=== PATIENT | female | born 1935 | race Caucasian/White ===

== ENCOUNTER 2019-10-19 08:07 | Observation (INO) | payer MEDICARE, OTHER, SELFPAY ==
[2019-10-19] VITALS (13 sets, daily range): BP systolic 101–174; BP diastolic 47–95; PULSE 87–178; RESP 14–191; TEMP 36.4–37.1; O2SAT 90–99; BMI 24.7; BMI 25.0
--- NOTE | 2019-10-19 08:09 | ED_ITS ---
Entered by Mari Leal, acting as scribe for Stephen King MD HPI - Chest Pain General: Chief Complaint: Chest Pain Stated Complaint: cp Time Seen by Provider: 10/19/19 08:09 Source: patient and family Mode of arrival: ambulatory Limitations: no limitations History of Present Illness: HPI narrative: All is an 84-year-old female has a history of A. fib but states she started feeling her heart race this morning. States that she felt weak with it was having some weird feelings in her chest. Patient's heart rate now is in the 180s. She denies any vomiting or diarrhea. She has mild shortness of breath. complaint: chest pain, chest heaviness and other (heart racing) Onset (ago): day(s) (last night) Timing of current episode: constant and still present Prior episodes: Yes Onset: during rest Pain location: substernal Pain radiation: none Severity: moderate Quality: tightness and sharp Relieving factors: nothing Exacerbating factors: nothing Context: other (hx of AFib) Associated symptoms: Reports no associated symptoms and palpitations; Deny abdominal pain, fever(s), nausea or vomiting Treatment prior to arrival: none Review of Systems Const: Denies: fever, chills, body aches or change in appetite Eyes: Denies: blurry vision or eye discomfort ENMT: Denies: throat pain or dental pain Card: Reports: palpitations and irregular heart rhythm Resp: Denies: productive cough or wheezing GI: Denies: abdominal pain, nausea, vomiting or diarrhea : Denies: painful urination Musc: Denies: neck pain or back pain Skin/Breast: Denies: rash Neuro: Denies: headache Psych: Denies: depression Juan Manuel/Lymph: Denies: easy bruising All/Imm: Denies: hives PFSH ED PFSH: Medical History (Updated 10/19/19 @ 09:08 by Stephen King MD) History of atrial fibrillation Social History Smoking and tobacco status: never smoked Physical Exam Const: COMMON NORMALS: no apparent distress, oriented x3 and healthy appearing HENMT: COMMON NORMALS: normocephalic and head/scalp atraumatic HEAD & SCALP: normocephalic and atraumatic Eye: COMMON NORMALS: PERRL and EOMs intact bilaterally PUPIL: Yes PERRL Neck/C-Spine: COMMON NORMALS: full ROM and supple Resp: COMMON NORMALS: normal respiratory effort, no retractions, no use of accessory muscles and clear to auscultation bilaterally AUSCULTATION: clear to auscultation bilaterally Cardio: COMMON NORMALS: no murmurs RATE: tachycardic OTHER: irregularly irregular rhythm GI: COMMON NORMALS: normal to inspection, nondistended, normoactive bowel sounds, soft to palpation, non-tender and no masses PALPATION: Yes soft Extremity: COMMON NORMALS: normal to inspection and full ROM Neuro: COMMON NORMALS: oriented x3, moves all extremities and no focal motor deficits Psych: COMMON NORMALS: mental status grossly normal, thought process normal and cooperative THOUGHT PROCESS: normal thought process Skin: COMMON NORMALS: no rashes or lesions noted and no wounds GENERAL SKIN EXAM: no rashes or lesions noted Course Vital Signs: Vital signs: Vital Signs Temperature 97.5 F L 10/19/19 08:17 Pulse Rate 178 H 10/19/19 08:17 Respiratory Rate 24 H 10/19/19 08:17 Blood Pressure 174/94 10/19/19 08:17 Pulse Oximetry 99 10/19/19 08:17 MDM - Chest Pain MDM Narrative: Medical decision making narrative: Jayjay presents here with A. fib with RVR. Patient's initial rate was in the 180s. Her heart rate is improving after Cardizem and have her on a Cardizem drip currently. She has no signs of pulmonary embolism. I spoke to Dr. Manuel and will admit to the cardiac stepdown unit. Lab Data: Labs: Lab Results 10/19/19 10/19/19 10/19/19 Range/Units 07:22 07:22 07:22 WBC 12.3 H (4.0-10.0) 10^3/ uL RBC 5.03 (4.1-5.3) 10^6/u L Hgb 12.5 (11.5-15.3) g/dL Hct 40.0 (37.0-47.0) % MCV 79.5 L (81-99) fL MCH 24.9 L (28.0-34.0) pg MCHC 31.3 (30.0-36.0) g/dL RDW 18.9 H (12.1-15.1) % Plt Count 317 (130-400) 10^3/c mm MPV 10.0 (7.4-10.4) fL Neut % (Auto) 68.9 % Lymph % (Auto) 18.7 % Lyman % (Auto) 8.8 % Eos % (Auto) 2.8 % Baso % (Auto) 0.5 % Neut # (Auto) 8.5 H (1.8-7.7) 10^3/u L Lymph # (Auto) 2.3 (0.8-4.8) 10^3/u L Lyman # (Auto) 1.1 H (0.2-0.9) 10^3/u L Eos # (Auto) 0.3 (0.0-0.8) 10^3/u L Baso # (Auto) 0.1 (0.0-0.1) 10^3/u L Nucleated RBC % (a uto) 0 % Nucleated RBCs # 0.0 /100WBC PT 17.40 H (10.5-13.3) SECO NDS INR 1.38 H (0.8-1.2) Sodium 141 (136-145) mmol/L Potassium 3.6 (3.5-5.1) mmol/L Chloride 100 (98-107) mmol/L Carbon Dioxide 25 (22-29) mmol/L Anion Gap 19.6 H (5-19) BUN 11 (8-23) mg/dL Creatinine 0.7 (0.5-0.9) mg/dL Glucose 167 H (65-115) mg/dL Calculated Osmolal ity 292 (285-295) mOsm/k g Calcium 9.9 (8.5-10.5) mg/dL Total Bilirubin 0.8 (0.15-1.2) mg/dL AST 21 (0-32) U/L ALT 8 (0-33) U/L Alkaline Phosphata se 155 H (35-105) IU/L Troponin T Baselin e (0-10) ng/mL Total Protein 8.3 (6.6-8.7) g/dL Albumin 4.1 (3.5-5.2) g/dL Globulin 4.2 (1.3-4.6) g/dL 10/19/19 Range/Units 07:22 WBC (4.0-10.0) 10^3/ uL RBC (4.1-5.3) 10^6/u L Hgb (11.5-15.3) g/dL Hct (37.0-47.0) % MCV (81-99) fL MCH (28.0-34.0) pg MCHC (30.0-36.0) g/dL RDW (12.1-15.1) % Plt Count (130-400) 10^3/c mm MPV (7.4-10.4) fL Neut % (Auto) % Lymph % (Auto) % Lyman % (Auto) % Eos % (Auto) % Baso % (Auto) % Neut # (Auto) (1.8-7.7) 10^3/u L Lymph # (Auto) (0.8-4.8) 10^3/u L Lyman # (Auto) (0.2-0.9) 10^3/u L Eos # (Auto) (0.0-0.8) 10^3/u L Baso # (Auto) (0.0-0.1) 10^3/u L Nucleated RBC % (a uto) % Nucleated RBCs # /100WBC PT (10.5-13.3) SECO NDS INR (0.8-1.2) Sodium (136-145) mmol/L Potassium (3.5-5.1) mmol/L Chloride (98-107) mmol/L Carbon Dioxide (22-29) mmol/L Anion Gap (5-19) BUN (8-23) mg/dL Creatinine (0.5-0.9) mg/dL Glucose (65-115) mg/dL Calculated Osmolal ity (285-295) mOsm/k g Calcium (8.5-10.5) mg/dL Total Bilirubin (0.15-1.2) mg/dL AST (0-32) U/L ALT (0-33) U/L Alkaline Phosphata se (35-105) IU/L Troponin T Baselin e 15 H (0-10) ng/mL Total Protein (6.6-8.7) g/dL Albumin (3.5-5.2) g/dL Globulin (1.3-4.6) g/dL Imaging Data^: CXR: Attestation: I personally reviewed and interpreted this imaging study as follows: My impression: no acute abnormality EKG Data^: EKG 1: Attestation: I personally reviewed and interpreted this EKG as follows: EKG interpretation date: 10/19/19 EKG interpretation time: 08:20 Interpretation: afib hr [address] or t wave abnormalities qrs 86 qtc 325 Critical Care Time Critical Care Time: Critical Care Time: Yes Total Critical Care Time: 36 Attestation: This case had a high probability of a clinically significant, sudden, or life threatening deterioration of this patient's condition which required my full and direct attention, intervention and personal management. Discharge Plan Discharge Patient Disposition: Admitted As Inpatient Clinical Impression: Atrial fibrillation with RVR Condition: Stable Referrals: Parag Norris DO [Family Provider] - Coding Level of Care Code ED Supplier Relationship Director for Chg Fwd Exam Comprehensive The documentation recorded by the Elvis crump Bridget Annette, accurately reflects the service I personally performed and the decisions made by me, Stephen King MD
--- NOTE | 2019-10-19 08:17 | XR_ITS ---
WS: [id number] XR chest 1V portable [id number] REASON FOR EXAM: cp FINDINGS: The heart and mediastinal normal. A scoliotic curve convex to the right. The lung chavira show no pneumothorax. No pneumonia, pleural effusion, pulmonary edema. No osseous abnormalities. XR/XR chest 1V portable [id number] IMPRESSION: Negative chest for active cardiopulmonary changes.
--- NOTE | 2019-10-19 08:17 | ECG_ITS ---
Measurements Intervals [place] Rate: 183 P: [place]: 0 QRS: -24 QRSD: 86 T: 150 QT: 229 QTc: 400 ATRIAL FIBRILLATION WITH RAPID VENTRICULAR RESPONSE BORDERLINE LEFT AXIS DEVIATION [QRS AXIS < -20] ST DEVIATION AND MODERATE T-WAVE ABNORMALITY, CONSIDER LATERAL ISCHEMIA [-0.1+ mV T WAVE IN I/aVL/V5/V6] CRITICAL TEST RESULT Compared to ECG 02/10/2019 02:54:29 Possible ischemia now present Sinus rhythm no longer present Short [place] interval no longer present T-wave abnormality still present Electronically Signed On 10-19-2019 17:21:54 CDT by Saqib Manzano M.D. [id number]
[2019-10-19] MEDS: sodium chloride 0.9% 1,000 ML 999 ML IV (08:28)
--- NOTE | 2019-10-19 08:29 | PC.NURSE ---
Portable Chest X-ray performed
[2019-10-19 08:31] LABS: Basophils # 0.1 10^3/uL (0.0-0.1); Basophils % 0.5 %; Eosinophils # 0.3 10^3/uL (0.0-0.8); Eosinophils % 2.8 %; Hemoglobin 12.5 g/dL (11.5-15.3); Lymphocytes # 2.3 10^3/uL (0.8-4.8); Lymphocytes % 18.7 %; Mean Corpuscular HGB Conc 31.3 g/dL (30.0-36.0); Mean Corpuscular Hemoglobin 24.9 pg (28.0-34.0); Mean Corpuscular Volume 79.5 fL (81-99); Monocytes # 1.1 10^3/uL (0.2-0.9); Monocytes % 8.8 %; Neutrophils # 8.5 10^3/uL (1.8-7.7); Neutrophils % 68.9 %; Nucleated Red Blood Cells % 0 %; Platelet Count 317 10^3/cmm (130-400); Red Blood Count 5.03 10^6/uL (4.1-5.3); Red Cell Distribution Width 18.9 % (12.1-15.1); White Blood Count 12.3 10^3/uL (4.0-10.0)
[2019-10-19 08:42] LABS: INR 1.38 (0.8-1.2)
[2019-10-19 08:52] LABS: Alanine Aminotransferase 8 U/L (0-33); Albumin Level 4.1 g/dL (3.5-5.2); Alkaline Phosphatase 155 IU/L (35-105); Aspartate Amino Transferase 21 U/L (0-32); Blood Urea Nitrogen 11 mg/dL (8-23); Calcium 9.9 mg/dL (8.5-10.5); Carbon Dioxide 25 mmol/L (22-29); Globulin 4.2 g/dL (1.3-4.6); Glucose 167 mg/dL (65-115); Total Bilirubin 0.8 mg/dL (0.15-1.2); Total Protein 8.3 g/dL (6.6-8.7)
[2019-10-19 08:54] LABS: Troponin(5th) Baseline 15 ng/mL (0-10)
[2019-10-19 09:05] LABS: Anion Gap 19.6 (5-19); Chloride 100 mmol/L (98-107); Osmolality Calculated 292 mOsm/kg (285-295); Potassium 3.6 mmol/L (3.5-5.1); Sodium 141 mmol/L (136-145)
--- NOTE | 2019-10-19 09:08 | PC.NURSE ---
Diltiazem 10 mg was given from 125mg/125 ml diltiazem bag. Unable to document on OCT.
[2019-10-19] MEDS: sotalol 80 mg Tablet PO ×2 (09:20→17:19)
--- NOTE | 2019-10-19 09:24 | P.HP_ITS ---
Providers/Chief Complaint Admitting Physician: Allison Manuel DO Chief Complaint: cp History of Present Illness Jayjay Campa is a 84 year old [id number] fibrillation that presented to the hospital today for atrial fibrillation with RVR. Patient reported that she woke up this morning with palpitations in her chest. She reported that she took her home medications last night but had not taken any of her medications this morning. Due to the symptoms that she was feeling she became to the ER for further evaluation and treatment. She was noted to have atrial fibrillation with RVR and a heart rate in the 180s she was started on a Cardizem bolus and subsequently started on a Cardizem drip. At time of my exam patient's heart rate is improved and she reports improvement of her symptoms. She stated that she recently stopped going to see her decorating consultant in [place] due to long wait times and never being able to see the physician. She denies any recent changes to medications, no dose adjustments. She denies any recent illness, no fevers or chills. She reports that she has had a pinched nerve in her neck and shoulder over the past week and that is cause some discomfort and pain but no other acute concerns. Review of Systems Const: Denies: fever or chills Eyes: Denies: change in vision ENMT: Denies: nasal congestion Card: Reports: palpitations; Denies: chest pain or edema Resp: Denies: shortness of breath, productive cough or coughing up blood GI: Denies: abdominal pain, nausea, vomiting, diarrhea, constipation, blood in stool or black tarry stool : Denies: painful urination or blood in urine Musc: Reports: other (Pinched nerve in her neck and shoulder causing discomfort) Skin/Breast: Denies: rash or new lesion Neuro: Denies: headache or dizziness Psych: Denies: anxiety or depression Endo: Denies: excessive urination or hot flashes Jaun Manuel/Lymph: Denies: easy bruising or easy bleeding Medications/Allergies Home Medications Medication Instructions Recorded Confirmed Last Taken Type alprazolam 0.25 mg PO TID PRN 10/19/19 10/19/19 Unknown History amlodipine 5 mg PO DAILY 10/19/19 10/19/19 10/18/19 History dabigatran etexilate [Pradaxa] 150 mg PO BID 03/10/19/19 10/18/19 History icosapent ethyl [Vascepa] 2 g PO BID 10/19/19 10/19/19 10/18/19 History omeprazole 40 mg PO DAILY 10/19/19 10/19/19 10/18/19 History pantoprazole 40 mg PO DAILY 10/19/19 10/19/19 10/18/19 History potassium chloride 10 meq PO DAILY 10/19/19 10/19/19 10/18/19 History promethazine 25 mg PO Q6H PRN 10/19/19 10/19/19 Unknown History sertraline 25 mg PO DAILY 10/19/19 10/19/19 10/18/19 History sotalol 80 mg PO BID 10/19/19 10/19/19 10/18/19 History Allergies Allergy/AdvReac Type Severity Reaction Status Date / Time codeine Allergy ALGY-Difficulty Verified 10/19/19 08:23 Breathing PFSH Acute PFSH: Medical History (Updated 10/19/19 @ 09:28 by Allison Manuel DO) Atrial fibrillation Coronary artery disease Diabetes mellitus History of atrial fibrillation Hypertension Peripheral vascular disease Surgical History (Updated 10/19/19 @ 09:28 by Allison Manuel DO) History of hip replacement Total hip replacement through anterior approach performed in [facility] History of hip surgery Incision and drainage of right thigh abscess History of hysterectomy History of laparoscopic cholecystectomy History of partial colectomy Family History (Updated 10/19/19 @ 09:29 by Allison Manuel DO) Mother Cancer Colon cancer Social History (Updated 10/19/19 @ 09:29 by Allison Manuel DO) Smoking and tobacco status: never smoked Alcohol intake: never Substance/Drug Use: never Vitals/I&O/Wt Last Vital Signs Temp 97.5 F L 10/19/19 08:17 Pulse 178 H 10/19/19 08:17 Resp 24 H 10/19/19 08:17 BP 174/94 10/19/19 08:17 Pulse Ox 99 10/19/19 08:17 10/18/19 10/19/19 10/19/19 22:59 06:59 14:59 Intake Total 3.417 / 3.417 Balance 3.417 / 3.417 Weight last 48 hrs Weight 63.503 kg Physical Exam Const: COMMON NORMALS: oriented x3 and alert GENERAL APPEARANCE: cooperative ORIENTATION/CONSCIOUSNESS: Yes awake, Yes oriented to person, Yes oriented to place and Yes oriented to time HENMT: COMMON NORMALS: normocephalic and head/scalp atraumatic HEAD & SCALP: normocephalic and atraumatic Eye: COMMON NORMALS: PERRL PUPIL: Yes PERRL Neck/C-Spine: COMMON NORMALS: supple GENERAL: Yes normal visual inspection Resp: COMMON NORMALS: normal respiratory effort and clear to auscultation bilaterally EFFORT & INSPECTION: Yes able to speak in complete sentences AUSCULTATION: clear to auscultation bilaterally, no rhonchi and no wheezes Cardio: OTHER: Irregularly irregular, tachycardic, no appreciable murmur GI: COMMON NORMALS: soft to palpation and non-tender INSPECTION: No abdominal distension AUSCULTATION: Yes normoactive bowel sounds PALPATION: Yes soft Extremity: COMMON NORMALS: no clubbing, cyanosis or edema and no calf tenderness Neuro: COMMON NORMALS: oriented x3, CN's II-XII intact bilaterally, moves all extremities and no focal motor deficits SENSORIUM/ORIENTATION: Yes alert, Yes oriented to person, Yes oriented to place and Yes oriented to time SPEECH: speech normal Psych: COMMON NORMALS: mental status grossly normal and cooperative Skin: COMMON NORMALS: no rashes or lesions noted GENERAL SKIN EXAM: no rashes or lesions noted Data : 10/19/19 07:22 10/19/19 07:22 CXR: I personally reviewed and interpreted this imaging study as follows: Radiologist's impression: IMPRESSION: Negative chest for active cardiopulmonary changes. A&P Assessment and plan (1) Atrial fibrillation with RVR: Atrial fibrillation with RVR Started on a Cardizem bolus and Cardizem drip in the emergency department. Placed on observation with telemetry with serial EKG and troponin Last echocardiogram from 2012, will reorder echocardiogram Patient is on sotalol 80 mg twice daily at home, will restart at this time and wean Cardizem drip as able We will check TSH, no infectious source at this time, patient appears to be euvolemic Continue on home Pradaxa Status: Acute Code(s): I48.91 - Unspecified atrial fibrillation (2) Coronary artery disease: No longer followed by cardiology Patient denies any intervention in the past Status: Acute Code(s): I25.10 - Atherosclerotic heart disease of [place] coronary artery without angina pectoris (3) Diabetes mellitus: We will check hemoglobin A1c Low-dose sliding scale insulin as needed Status: Acute Code(s): E11.9 - Type 2 diabetes mellitus without complications Additional A&P Information Mild leukocytosis: Believed to be secondary to stress reaction, no infectious etiology identified at this time GERD: Continue PPI Hypertension: Holding home amlodipine due to patient being on a Cardizem drip an d receiving her home sotalol, will restart as indicated On chronic anticoagulation: Continue home Pradaxa Anxiety: Continue home sertraline and Xanax as needed DVT prophylaxis: SCDs, continue home Pradaxa Diet: Carbohydrate consistent CODE STATUS: Allow natural , discussed this with patient and she reported at her age she would not want any resuscitation Attestations Medical Necessity Statement*: Patient requires observation placement due to concern for atrial fibrillation with RVR. Expected stay less than 2 midnights Coding Level of Care Code Acute Water Valve Mechanic for Alejandro Vann Diagnoses Atrial fibrillation with RVR I48.91 Coronary artery disease I25.10 Diabetes mellitus E11.9
--- NOTE | 2019-10-19 10:17 | ECG_ITS ---
Measurements Intervals [place] Rate: 92 P: [place]: 0 QRS: -31 QRSD: 85 T: 45 QT: 364 QTc: 452 ATRIAL FIBRILLATION LEFT AXIS DEVIATION [QRS AXIS < -30] Compared to ECG 02/10/2019 02:54:29 Left-axis deviation now present Sinus rhythm no longer present Short [place] interval no longer present T-wave abnormality no longer present Electronically Signed On 10-19-2019 17:25:00 CDT by Saqib Manzano M.D. [id number]
[2019-10-19 10:29] LABS: Thyroid Stimulating Hormone 2.02 uIU/mL (0.27-4.20)
[2019-10-19 11:15] LABS: Estmated Average Glucose 117; Hemoglobin A1C 5.7 % (4.0-6.0)
--- NOTE | 2019-10-19 11:16 | PC.NURSE ---
Room 101. Attempted to call report. Room not ready and nurse did not want report at this time. I asked when they would like me to call back. They advised me they will call back once they are ready for report. No estimated time given
[2019-10-19] MEDS: morphine 4 mg/mL SDV 1 mL IVP (12:58)
[2019-10-19] MEDS: ondansetron 2 mg/ML SDV 2 mL 4 MG IVP (13:34)
--- NOTE | 2019-10-19 14:17 | ECG_ITS ---
Measurements Intervals [place] Rate: 83 P: 43 [place]: 155 QRS: -42 QRSD: 138 T: 53 QT: 394 QTc: 464 SINUS RHYTHM LEFT AXIS DEVIATION [QRS AXIS < -30] INTRAVENTRICULAR CONDUCTION DELAY [130+ ms QRS DURATION] LEFT VENTRICULAR HYPERTROPHY AND ST-T CHANGE [VOLTAGE CRITERIA PLUS ST/T ABNORMALITY] Compared to ECG 02/10/2019 02:54:29 Left-axis deviation now present Intraventricular conduction delay now present Left ventricular hypertrophy now present ST (T wave) deviation now present Short [place] interval no longer present T-wave abnormality no longer present Electronically Signed On 10-19-2019 17:24:42 CDT by Saqib Manzano M.D. [id number]
[2019-10-19 14:22] LABS: Troponin 5 6HR 56.55 ng/mL (0-10)
--- NOTE | 2019-10-19 14:38 | PC.NURSE ---
Critical lab taken from lab of delta troponin of 41.55. Dr. King notified at this time.
[2019-10-19 14:40] LABS: Troponin 5 6HR Delta 41.55 ng/L (0-12)
--- NOTE | 2019-10-19 16:42 | USCV_ITS ---
Jayjay Campa Age: 84 Gender: F : 1935 Exam Date: 10/19/2019 18:12 Ordering Phys: Allison Manuel DO Technologist: Cleo Hernandez Exam Location: [facility] – [place] Indication: AFIB BP: 96 / 72 HR: 111 Rhythm: Sinus Technical Quality: Adequate MEASUREMENTS (Male / Female) Normal Values 2D ECHO LV Diastolic Diameter PLAX 3.9 cm 4.2 - 5.9 / 3.9 - 5.3 cm LV Systolic Diameter PLAX 1.9 cm LV Chamber Size 3.9 cm IVS Diastolic Thickness 1.4 cm 0.6 - 1.0 / 0.6 - 0.9 cm IVS Systolic Thickness 1.5 cm LVPW Diastolic Thickness 1.7 cm 0.6 - 1.0 / 0.6 - 0.9 cm LVPW Systolic Thickness 1.9 cm RV Chamber Size 2.9 cm LVOT Diameter 2.0 cm LV Ejection Fraction 2D Teich 82.8 % LV Ejection Fraction MOD 2C 61.9 % LV Ejection Fraction 2C AL 63.1 % LA Diameter 4.6 cm LA Width 3.1 cm LA Height 4.2 cm RA Width 3.5 cm RA Height 5.1 cm Aorta at Sinotubular Diameter 2.5 cm M-MODE LV Diastolic Diameter MM 4.9 cm 4.2 - 5.9 / 3.9 - 5.3 cm LV Systolic Diameter MM 2.8 cm LV Ejection Fraction MM Teich 74.1 % IVS Diastolic Thickness MM 0.9 cm 0.6 - 1.0 / 0.6 - 0.9 cm IVS Systolic Thickness MM 1.4 cm LVPW Diastolic Thickness MM 1.2 cm 0.6 - 1.0 / 0.6 - 0.9 cm LVPW Systolic Thickness MM 1.3 cm Aortic Annulus Diameter 3.0 cm LA Ao Ratio MM 1.6 MV E Point Septal Separation 0.7 cm DOPPLER AV Peak Velocity 160.0 cm/s LVOT Peak Velocity 97.0 cm/s AV Area Cont Eq vti 1.9 cm squared AV Area Cont Eq pk 1.9 cm squared MV Area PHT 5.4 cm squared Mitral E to A Ratio 3.4 MV E' Velocity 10.0 cm/s Mitral E to MV E' Ratio 17.2 Mitral E to LV E' Lateral Ratio 16.5 Mitral E to LV E' Septal Ratio 18.1 TR Peak Velocity 334.0 cm/s TR Peak Gradient 44.7 mmHg TR Mean Velocity 216.9 cm/s TR Mean Gradient 20.7 mmHg TR Velocity Time Integral 80.5 cm TV Peak E Velocity 91.0 cm/s Right Atrial Pressure 3.0 mmHg Pulmonary Artery Systolic Pressu 47.6 mmHg PV Peak Velocity 98.0 cm/s RV Acceleration Time 0.1 s RV Ejection Time 0.3 s RV AcT/ET 0.3 FINDINGS Left Ventricle Normal left ventricular size and systolic function with no regional wall motion abnormalities. Increased left ventricular wall thickness. Left ventricular ejection fraction is estimated at 69 %. Abnormal diastolic function. Right Ventricle Normal right ventricular size and systolic function. Right ventricular systolic pressure 47.6 mmHg. Right Atrium Right atrium not well visualized. Left Atrium Mildly increased left atrial size. Mitral Valve Mild mitral annular calcification. No mitral valve stenosis. Mild mitral valve regurgitation. Aortic Valve Mildly thickened and calcified trileaflet aortic valve. Aortic valve sclerosis without stenosis. Mild aortic valve regurgitation. Tricuspid Valve Structurally normal tricuspid valve. Mild tricuspid valve regurgitation. Pulmonic Valve Trace pulmonary valve regurgitation. Pericardium No pericardial effusion. Aorta Normal-sized aortic root. CONCLUSIONS 1. Normal left ventricular size and systolic function with no regional wall motion abnormalities. Left ventricular ejection fraction is estimated at 69 %. Abnormal diastolic function. 2. Normal right ventricular size and systolic function. 3. Mildly increased left atrial size. 4. Mild mitral and tricuspid valve regurgitation. 5. Mild aortic valve regurgitation. 6. Moderate pulmonary hypertension with pulmonary artery pressure estimated at 48 mmHg. 7. When compared to previous echocardiogram dated 05/16/2013, there may not have been any significant change. Em Shannon MD (Electronically Signed) Final Date: 20 October 2019 12:43 S
[2019-10-19] MEDS: sertraline 50 mg Tablet 25 MG PO (17:18)
[2019-10-19 17:30] LABS: Glucose Point of Care 170 mg/dL (70-110)
--- NOTE | 2019-10-19 17:41 | ECG_ITS ---
Measurements Intervals [place] Rate: 112 P: [place]: 0 QRS: -26 QRSD: 78 T: 65 QT: 359 QTc: 491 ATRIAL FIBRILLATION WITH RAPID VENTRICULAR RESPONSE WITH ABERRANT CONDUCTION OR VENTRICULAR PREMATURE COMPLEXES BORDERLINE LEFT AXIS DEVIATION [QRS AXIS < -20] NONSPECIFIC T-WAVE ABNORMALITY Compared to ECG 10/19/2019 11:27:55 Aberrant conduction of supraventricular beat(s) now present Ventricular premature complex(es) now present T-wave abnormality now present Electronically Signed On 10-20-2019 13:23:06 CDT by Em Shannon M.D. [id number]
[2019-10-19 19:14] LABS: Add Urine Microscopic? YES; Bilirubin Urine 1+ (NEGATIVE); Blood Urine 2+ (Negative); Glucose Urine UA Norm (Normal); Ketones Urine Negative (Negative); Leukocyte Esterase Urine Negative (Negative); Nitrate Urine Negative (Negative); Protein Urine Neg (Negative); Specific Gravity, Urine 1.025 (1.005-1.030); Urine Appearance SL Hazy (CLEAR); Urine Color Dark Yellow (Yellow); Urobilinogen Urine 1 mg/dL (Negative); pH Urine 5 (5-7)
[2019-10-19 19:19] LABS: Add Urine Culture? Yes; Bacteria Urine TRACE; Hyaline Casts Urine 0-4; Mucus Urine 1+; Squamous Epithelial Cell Urine 0-4 (0-5); WBC Urine 0-4 /hpf (0-5)
[2019-10-20] VITALS: BP 112/64; PULSE 93; RESP 12; TEMP 36.9; O2SAT 93
[2019-10-20] MEDS: acetaminophen 325 mg Tablet 650 MG PO (03:23)
[2019-10-20 04:00] VITALS: BP 100/61; PULSE 102; RESP 10; TEMP 37; O2SAT 97
[2019-10-20 04:04] LABS: Basophils # 0.1 10^3/uL (0.0-0.1); Basophils % 0.6 %; Eosinophils # 0.3 10^3/uL (0.0-0.8); Eosinophils % 3.1 %; Hematocrit 36.5 % (37.0-47.0); Hemoglobin 11.1 g/dL (11.5-15.3); Lymphocytes # 2.3 10^3/uL (0.8-4.8); Lymphocytes % 23.4 %; Mean Corpuscular HGB Conc 30.4 g/dL (30.0-36.0); Mean Corpuscular Hemoglobin 24.9 pg (28.0-34.0); Mean Corpuscular Volume 81.8 fL (81-99); Monocytes # 1.2 10^3/uL (0.2-0.9); Monocytes % 12.2 %; Neutrophils % 60.4 %; Nucleated Red Blood Cells % 0 %; Platelet Count 293 10^3/cmm (130-400); Red Blood Count 4.46 10^6/uL (4.1-5.3); Red Cell Distribution Width 18.9 % (12.1-15.1); White Blood Count 9.9 10^3/uL (4.0-10.0)
[2019-10-20 04:13] LABS: Glucose Point of Care 160 mg/dL (70-110)
[2019-10-20 04:15] LABS: Anion Gap 11.8 (5-19); Blood Urea Nitrogen 15 mg/dL (8-23); Calcium 9.8 mg/dL (8.5-10.5); Carbon Dioxide 30 mmol/L (22-29); Chloride 106 mmol/L (98-107); Glucose 109 mg/dL (65-115); Osmolality Calculated 295 mOsm/kg (285-295); Potassium 3.8 mmol/L (3.5-5.1); Sodium 144 mmol/L (136-145)
[2019-10-20 05:59] VITALS: BMI 24.9
[2019-10-20 06:36] LABS: Glucose Point of Care 105 mg/dL (70-110)
[2019-10-20 07:24] VITALS: BP 111/62; PULSE 92; RESP 20; O2SAT 95
[2019-10-20] MEDS: sotalol 80 mg Tablet PO (08:14)
[2019-10-20] MEDS: pantoprazole DR 40 mg Tablet PO (08:14)
[2019-10-20] MEDS: sertraline 50 mg Tablet 25 MG PO (08:14)
[2019-10-20] MEDS: sotalol 80 mg Tablet 40 MG PO (09:21)
--- NOTE | 2019-10-20 09:43 | PC.NURSE ---
Patient heart rate currently sustaining 70 to 80s. Stopped cardizem gtt at this time. Patient denies any discomforts or needs at this time. No distress observed. Patient up to chair using Ipad. SCDs in place.
--- NOTE | 2019-10-20 10:53 | PM.DCS ---
Discharge Providers Date of Admission: 10/19/19 09:07 Date of Discharge: October 20, 2019 Attending Provider at Admission: Allison Manuel DO Attending Provider at Discharge: Allison Manuel DO Diagnoses at Discharge Discharge Diagnosis (1) Atrial fibrillation with RVR: Status: Acute Problem details: On sotalol 120 mg twice daily Pradaxa (2) Coronary artery disease: Status: Acute (3) Diabetes mellitus: Status: Acute Reason for Visit Reason for Visit: Reason For Visit: AFIB W/RVR Hospital Course Hospital Course: Patient was seen and evaluated in the emergency department noted to have atrial fibrillation with RVR and placed on Cardizem drip. Patient was noted to have a heart rate in the 180s. Heart rate improved with medication and patient was admitted for further evaluation and treatment. She was then given her home sotalol and heart rate continued to improve. Cardizem drip was slowly titrated off as her sotalol was increased to 120 mg twice daily. She was continued on her home Pradaxa. Patient did not have any chest pain or shortness of breath throughout her hospital stay. She did have mild increase in her troponin which was felt to be related to her RVR. On date of discharge patient denied any chest pain, no shortness of breath, no lightheadedness or dizziness. She verbalized understanding of increase in sotalol dosing and agreed with plan. She reported that she had been under significant stress over the past couple of days due to the loss of her daughter and her sister being hospitalized in another city. Patient reported feeling ready to discharge to home. Physical Exam Const: COMMON NORMALS: oriented x3 and alert GENERAL APPEARANCE: cooperative ORIENTATION/CONSCIOUSNESS: Yes awake, Yes oriented to person, Yes oriented to place and Yes oriented to time HENMT: COMMON NORMALS: normocephalic and head/scalp atraumatic HEAD & SCALP: normocephalic and atraumatic Eye: COMMON NORMALS: PERRL PUPIL: Yes PERRL Neck/C-Spine: COMMON NORMALS: supple GENERAL: Yes normal visual inspection Resp: COMMON NORMALS: normal respiratory effort and clear to auscultation bilaterally EFFORT & INSPECTION: Yes able to speak in complete sentences AUSCULTATION: clear to auscultation bilaterally, no rhonchi and no wheezes Cardio: OTHER: Irregularly irregular GI: COMMON NORMALS: soft to palpation and non-tender INSPECTION: No abdominal distension AUSCULTATION: Yes normoactive bowel sounds PALPATION: Yes soft Extremity: COMMON NORMALS: no clubbing, cyanosis or edema and no calf tenderness Neuro: COMMON NORMALS: oriented x3, CN's II-XII intact bilaterally, moves all extremities and no focal motor deficits SENSORIUM/ORIENTATION: Yes alert, Yes oriented to person, Yes oriented to place and Yes oriented to time SPEECH: speech normal Psych: COMMON NORMALS: mental status grossly normal and cooperative Skin: COMMON NORMALS: no rashes or lesions noted GENERAL SKIN EXAM: no rashes or lesions noted Discharge Data Data Completed and Pending: Completed Studies During Hospitalization Category Date Time Status XR chest 1V ciarra ble [id number] Stat Exams 10/19/19 08:17 Completed Pending at discharge Category Date Time Status Urine Culture Sta t Lab 10/19/19 18:50 Received CV echo complete* [id number] Routine Ultrasound 10/19/19 16:42 Taken Labs from last 24 hours 10/20/19 10/20/19 10/20/19 06:28 03:10 03:10 WBC 9.9 RBC 4.46 Hgb 11.1 L Hct 36.5 L MCV 81.8 MCH 24.9 L MCHC 30.4 RDW 18.9 H Plt Count 293 MPV 10.0 Neut % (Auto) 60.4 Lymph % (Auto) 23.4 [place] % (Auto) 12.2 Eos % (Auto) 3.1 Baso % (Auto) 0.6 Neut # (Auto) 6.0 Lymph # (Auto) 2.3 [place] # (Auto) 1.2 H Eos # (Auto) 0.3 Baso # (Auto) 0.1 Nucleated RBC % (a uto) 0 Nucleated RBCs # 0.0 Sodium 144 Potassium 3.8 Chloride 106 Carbon Dioxide 30 H Anion Gap 11.8 BUN 15 Creatinine 0.8 Glucose 109 POC Glucose 105 Estimat Average Gl ucose Hemoglobin A1c Calculated Osmolal ity 295 Calcium 9.8 Troponin I 6 Hour Troponin I Hi Sens Del Troponin T 120 Min [place] Troponin T Urine Color Urine Appearance Urine pH Ur Specific Gravit y Urine Protein Urine Glucose (UA) Urine Ketones Urine Blood Urine Nitrate Urine Bilirubin Urine Urobilinogen Ur Leukocyte Kalina ase Urine RBC Urine WBC Ur Squamous Epith Cells Urine Bacteria Hyaline Casts Urine Mucus 10/19/19 10/19/1910/18/20 20:12 18:50 17:16 WBC RBC Hgb Hct MCV MCH MCHC RDW Plt Count MPV Neut % (Auto) Lymph % (Auto) [place] % (Auto) Eos % (Auto) Baso % (Auto) Neut # (Auto) Lymph # (Auto) [place] # (Auto) Eos # (Auto) Baso # (Auto) Nucleated RBC % (a uto) Nucleated RBCs # Sodium Potassium Chloride Carbon Dioxide Anion Gap BUN Creatinine Glucose POC Glucose 160 170 Estimat Average Gl ucose Hemoglobin A1c Calculated Osmolal ity Calcium Troponin I 6 Hour Troponin I Hi Sens Del Troponin T 120 Min [place] Troponin T Urine Color Dark yellow Urine Appearance Sl hazy Urine pH 5 Ur Specific Gravit y 1.025 Urine Protein Neg Urine Glucose (UA) Norm Urine Ketones Negative Urine Blood 2+ H Urine Nitrate Negative Urine Bilirubin 1+ H Urine Urobilinogen 1 H Ur Leukocyte Kalina ase Negative Urine RBC 10-15 H Urine WBC 0-4 H Ur Squamous Epith Cells 0-4 H Urine Bacteria Trace Hyaline Casts 0-4 H Urine Mucus 1+ 10/19/19 10/19/19 10/19/19 14:04 10:27 07:22 WBC RBC Hgb Hct MCV MCH MCHC RDW Plt Count MPV Neut % (Auto) Lymph % (Auto) [place] % (Auto) Eos % (Auto) Baso % (Auto) Neut # (Auto) Lymph # (Auto) [place] # (Auto) Eos # (Auto) Baso # (Auto) Nucleated RBC % (a uto) Nucleated RBCs # Sodium Potassium Chloride Carbon Dioxide Anion Gap BUN Creatinine Glucose POC Glucose Estimat Average Gl ucose 117 Hemoglobin A1c 5.7 Calculated Osmolal ity Calcium Troponin I 6 Hour 56.55 H Troponin I Hi Sens Del 41.55 H* Troponin T 120 Min [place] 35.70 H Delta Troponin T 20.70 H* Urine Color Urine Appearance Urine pH Ur Specific Gravit y Urine Protein Urine Glucose (UA) Urine Ketones Urine Blood Urine Nitrate Urine Bilirubin Urine Urobilinogen Ur Leukocyte Kalina ase Urine RBC Urine WBC Ur Squamous Epith Cells Urine Bacteria Hyaline Casts Urine Mucus Vitals: Last Vital Signs Temp 98.6 F 10/20/19 04:00 Pulse 92 10/20/19 07:24 Resp 20 H 10/20/19 07:24 BP 111/62 10/20/19 07:24 Pulse Ox 95 10/20/19 07:24 Discharge Plan Discharge Patient Disposition: Home, Self-Care Condition: Stable Prescriptions: New sotalol 80 mg Tablet 120 mg PO BID@0900,2100 30 Days Qty: 60 RF: 0 Continued potassium chloride 10 mEq Tablet Extended Release 10 meq PO DAILY RF: 0 promethazine 25 mg Tablet 25 mg PO Q6H PRN (Reason: Nausea) RF: 0 sertraline 25 mg Tablet 25 mg PO DAILY RF: 0 Pradaxa 150 mg Capsule 150 mg PO BID RF: 0 Vascepa 1 gram Capsule 2 g PO BID RF: 0 alprazolam 0.25 mg tablet 0.25 mg PO TID PRN (Reason: Anxiety) RF: 0 pantoprazole 40 mg Tablet,Delayed Release (Dr/Ec) 40 mg PO DAILY RF: 0 Discontinued amlodipine 5 mg Tablet 5 mg PO DAILY RF: 0 omeprazole 40 mg Capsule,Delayed Release(Dr/Ec) 40 mg PO DAILY RF: 0 sotalol 80 mg Tablet 80 mg PO BID RF: 0 Discharge Orders: Discharge Order (Routine); Ordered 10/20/19 Ordered By: Allison Manuel Referrals: Parag Norris DO [Family Provider] - 1-3 days Discharge Diet: Cardiac Discharge Activity: Increase activity as tolerated Activity Restrictions/Additional Instructions: Follow-up with primary care provider in 2 to 3 days Recommend follow-up with cardiology to establish care as soon as first appointment is available Medication dosage change: Increase sotalol to 120 mg twice daily. Continue on Pradaxa. Hold amlodipine at this time, as do not wish for blood pressures to be too low with the increase in sotalol Discharge Attestations Time Spent in Discharge Care*: greater than 30 min Quality Metrics Clinical Quality Measures During this hospital stay, did patient experience: None Coding Level of Care Code Acute [place] Tender for g Fwd Diagnoses Atrial fibrillation with RVR I48.91 Coronary artery disease I25.10 Diabetes mellitus E11.9
--- NOTE | 2019-10-20 11:10 | PC.CHAP ---
Pastoral Care Encounter/Spiritual Assessment Type of Contact [] Declined public works supervisor visit [] Patient/Family/Request visit [] Outpatient visit [] Follow-up visit [] Physician referral [] Code/Alert [x] Routine visit [] Staff referral [] Actively dying [] Patient sleeping [] Family support [] [] Out of room [] Palliative care [] [] Receiving care in room [] Pre-surgical visit [] Trauma [] Long length of stay [] ICU visit [] Other: Relational/Emotional Strength [x] Patient feels connected with others/family/visitors/staff [] Distress [] Loneliness/isolation [] Abandonment Spirituality of Patient [x] Person of [place] [] Attends Gnosticism of their [place] [x] Believes in Prayer [] Reads Bible or Uatsdin materials [] There are Spiritual issues to be addressed [employer] Interventions [x] Prayer [x] Active listening [x] Non-anxious presence [x] Spiritual/emotional support [] Crisis/trauma care [x] Spiritual counseling [] Bereavement support [] Provided bereavement packet [] Provided Bible/devotional materials [] Provided toy/stuffed animal, coloring book to patient or family member [] Provided Communion [] Anointing/[place] [] Salvation [] Completed spiritual assessment [] Other: Impact on Illness or Injury [] Angry [] Fearful [] Anxious [] Often cries [] Exhaustion [] Unable to work [] Unable to attend denominational [] Unable to walk/stand [] Unable to read [] Unable to drive [] Unable to eat/drink [] Unable to sleep [] Unable to be with family [] Patient intubated [x] Other: n/a Summary Time spent with patient 4 minutes
[2019-10-20 11:27] VITALS: BP 110/75; PULSE 110; RESP 20; O2SAT 96
[2019-10-20 11:50] LABS: Glucose Point of Care 123 mg/dL (70-110)
[2019-10-20 12:44] VITALS: BP 110/75; PULSE 110; RESP 20; O2SAT 96
--- NOTE | 2019-10-20 13:09 | PC.NURSE ---
Patient currently in SB with rate of 54 sustained. Patient denies any discomforts or needs. Informed Dr Manuel of patient current condition. Received ok to discharge patient as ordered by Dr Manuel. Instruction provided regarding follow up needs, new medications and changes, and atrial filbrilation. Patient verbalized complete understanding. Asked patient if she had any questions at this time, she said not right now. Instructed patient to call Dr Shannon, her primary, or first floor if she develops questions later. IV and telemetry removed. Family member at bedside. Patient taken by wheelchair to private vehicle. No distress observed at discharge.
== END 2019-10-20 13:18 | disposition home or self-care (01) ==
LOC: ER 11:06 → CSU 20:38
PROVIDERS: Admitting Provider Family Medicine; Emergency Provider Emergency Medicine; Family Provider Electrodiagnostic Medicine; Visit Provider Family Medicine
DX: I48.91 Unspecified atrial fibrillation (principal); I25.10 Atherosclerotic heart disease of native coronary artery without angina pectoris; E11.9 Type 2 diabetes mellitus without complications; I10 Essential (primary) hypertension; F41.9 Anxiety disorder, unspecified
CPT/HCPCS: 12345; 36415; 36416; 71045; 80048; 80053; 81001; 82962; 83036; 84443; 84484; 85025; 85610; 87086; 93005; 93306; 96360; 96361; 96365; 96366; 96372; 96375; 96376; 99283; 99285; G0378; J1815; J2270; J2405; J3490; J7030

== ENCOUNTER 2019-11-02 09:05 | Emergency (ER) | payer MEDICARE, OTHER, SELFPAY ==
--- NOTE | 2019-11-02 09:14 | ECG_ITS ---
Measurements Intervals [place] Rate: 154 P: RI: 0 QRS: -32 QRSD: 83 T: 135 QT: 273 QTc: 437 ATRIAL FIBRILLATION WITH RAPID VENTRICULAR RESPONSE LEFT AXIS DEVIATION [QRS AXIS < -30] ST DEVIATION AND MODERATE T-WAVE ABNORMALITY, CONSIDER LATERAL ISCHEMIA CRITICAL TEST RESULT Compared to ECG 10/19/2019 15:45:06 Possible ischemia now present Aberrant conduction of supraventricular beat(s) no longer present Ventricular premature complex(es) no longer present T-wave abnormality still present Electronically Signed On 11-02-2019 18:15:37 CDT by Em Shannon M.D. [id number]
--- NOTE | 2019-11-02 09:14 | XR_ITS ---
WS: [id number] PORTABLE CHEST HISTORY: cough/congestion COMPARISON: 10/19/2019 Lungs are well-aerated. No pneumonia. No pulmonary congestion. No pleural effusion or pneumothorax. Cardiac size: Normal. Mediastinum/Aorta: Ectatic thoracic aorta. Mild enlargement of the pulmonary arteries. Bilateral glenohumeral joint narrowing. XR/XR chest 1V portable [id number] IMPRESSION: Partially calcified thoracic aorta. No pneumonia. Suspect mild pulmonary hypertension.
[2019-11-02 09:15] VITALS: BMI 25.4
--- NOTE | 2019-11-02 09:15 | ED_ITS ---
Documented by User: RADHA Lawson 11/02/19 10:03 HPI - Arrhythmia/Palpitations General: Chief Complaint: Chest Pain Stated Complaint: HIGH HR Time Seen by Provider: 11/02/19 09:15 [facility] ED PFSH: Medical History (Updated 11/02/19 @ 11:24 by Idris Pratt DO) Atrial fibrillation Coronary artery disease Diabetes mellitus Hypertension Peripheral vascular disease Surgical History History of hip replacement Total hip replacement through anterior approach performed in [facility] History of hip surgery Incision and drainage of right thigh abscess History of hysterectomy History of laparoscopic cholecystectomy History of partial colectomy Social History Smoking and tobacco status: never smoked Alcohol intake: never Course ED course: Patient was seen briefly by myself for Dr. Pratt. Evaluation performed and orders were placed. Care was transferred to him shortly after. ES Vital Signs: Vital signs: Vital Signs Temperature 98.7 F 11/02/19 09:18 Pulse Rate 49 L 11/02/19 12:19 Respiratory Rate 18 11/02/19 12:19 Blood Pressure 159/66 11/02/19 12:19 Pulse Oximetry 94 11/02/19 12:19 MDM - Arrhythmia/Palpitations Lab Data: Labs: Lab Results 11/02/19 11/02/19 11/02/19 Range/Units 09:30 09:30 09:30 WBC 11.6 H (4.0-10.0) 10^3/ uL RBC 4.74 (4.1-5.3) 10^6/u L Hgb 12.0 (11.5-15.3) g/dL Hct 38.8 (37.0-47.0) % MCV 81.9 (81-99) fL MCH 25.3 L (28.0-34.0) pg MCHC 30.9 (30.0-36.0) g/dL RDW 18.2 H (12.1-15.1) % Plt Count 355 (130-400) 10^3/c mm MPV 9.9 (7.4-10.4) fL Neut % (Auto) 70.7 % Lymph % (Auto) 17.9 % [place] % (Auto) 7.8 % Eos % (Auto) 2.8 % Baso % (Auto) 0.4 % Neut # (Auto) 8.2 H (1.8-7.7) 10^3/u L Lymph # (Auto) 2.1 (0.8-4.8) 10^3/u L [place] # (Auto) 0.9 (0.2-0.9) 10^3/u L Eos # (Auto) 0.3 (0.0-0.8) 10^3/u L Baso # (Auto) 0.1 (0.0-0.1) 10^3/u L Nucleated RBC % (a uto) 0 % Nucleated RBCs # 0.0 /100WBC Sodium 139 (136-145) mmol/L Potassium 3.5 (3.5-5.1) mmol/L Chloride 101 (98-107) mmol/L Carbon Dioxide 22 (22-29) mmol/L Anion Gap 19.5 H (5-19) BUN 12 (8-23) mg/dL Creatinine 0.9 (0.5-0.9) mg/dL Glucose 181 H (65-115) mg/dL Calculated Osmolal ity 289 (285-295) mOsm/k g Calcium 9.7 (8.5-10.5) mg/dL Total Bilirubin 0.5 (0.15-1.2) mg/dL AST 18 (0-32) U/L ALT 12 (0-33) U/L Alkaline Phosphata se 205 H (35-105) IU/L Troponin T Baselin e 14 H (0-10) ng/mL Troponin T 120 Min [place] (0-10) ng/mL Delta Troponin T (0-10) ABS# Total Protein 7.4 (6.6-8.7) g/dL Albumin 4.1 (3.5-5.2) g/dL Globulin 3.3 (1.3-4.6) g/dL 30/ Range/Units 11:28 WBC (4.0-10.0) 10^3/ uL RBC (4.1-5.3) 10^6/u L Hgb (11.5-15.3) g/dL Hct (37.0-47.0) % MCV (81-99) fL MCH (28.0-34.0) pg MCHC (30.0-36.0) g/dL RDW (12.1-15.1) % Plt Count (130-400) 10^3/c mm MPV (7.4-10.4) fL Neut % (Auto) % Lymph % (Auto) % [place] % (Auto) % Eos % (Auto) % Baso % (Auto) % Neut # (Auto) (1.8-7.7) 10^3/u L Lymph # (Auto) (0.8-4.8) 10^3/u L [place] # (Auto) (0.2-0.9) 10^3/u L Eos # (Auto) (0.0-0.8) 10^3/u L Baso # (Auto) (0.0-0.1) 10^3/u L Nucleated RBC % (a uto) % Nucleated RBCs # /100WBC Sodium (136-145) mmol/L Potassium (3.5-5.1) mmol/L Chloride (98-107) mmol/L Carbon Dioxide (22-29) mmol/L Anion Gap (5-19) BUN (8-23) mg/dL Creatinine (0.5-0.9) mg/dL Glucose (65-115) mg/dL Calculated Osmolal ity (285-295) mOsm/k g Calcium (8.5-10.5) mg/dL Total Bilirubin (0.15-1.2) mg/dL AST (0-32) U/L ALT (0-33) U/L Alkaline Phosphata se (35-105) IU/L Troponin T Baselin e (0-10) ng/mL Troponin T 120 Min [place] 14.69 H (0-10) ng/mL Delta Troponin T 0.69 (0-10) ABS# Total Protein (6.6-8.7) g/dL Albumin (3.5-5.2) g/dL Globulin (1.3-4.6) g/dL Discharge Plan Discharge Patient Disposition: Admitted As Inpatient Clinical Impression: Atrial fibrillation Condition: Stable Referrals: Em Shannon MD [Physician] - Additional Instructions: Follow-up with Dr. Shannon tomorrow in her office call for an appointment Interventions: ED Discharge Assessment Last Done: 11/02/19 12:19 Discharge Date/Time: 11/02/19 12:19 Coding Level of Care Code ED Clinical Informatics Spec for Alejandro Vann Documented by User: Idris Pratt DO 11/05/19 06:23 HPI - Arrhythmia/Palpitations General: Chief Complaint: Chest Pain Stated Complaint: HIGH HR Time Seen by Provider: 11/02/19 09:15 History of Present Illness: HPI narrative: 84-year-old female presents emergency room with onset of rapid heart rate that began this morning right after she ate. She has had this in the past she is currently taking sotalol she is on Pradaxa as well. She denies any chest pain she is not been ill recently no fever sweats chills no orthopnea no significant swelling in her legs she not have any PND last night. Denies vomiting or diarrhea denies abdominal or chest pain. MD complaint: rapid heart beat, heart racing , palpitations, irregular heart beat and atrial fibrillation Onset (ago): minute(s) Duration: constant Severity: moderate Context: occurred during rest Arrhythmia history: atrial fibrillation Associated symptoms: Deny nausea or vomiting Treatments prior to arrival: other (Sotalol) Review of Systems Const: Denies: fever, chills, body aches, change in appetite, fatigue or malaise ENMT: Denies: throat pain, ear pain, nasal discharge or nasal congestion Card: Reports: palpitations and irregular heart rhythm; Denies: chest pain, edema, shortness of breath on exertion or shortness of breath when lying down Resp: Denies: shortness of breath, productive cough or non-productive cough GI: Denies: abdominal pain, nausea, vomiting, vomiting blood, coffee grounds in vomit, diarrhea, constipation, bloating, blood in stool or black tarry stool : Denies: flank pain, difficulty urinating, painful urination, urinary frequency or urinary urgency Skin/Breast: Denies: rash or itching PFSH ED PFSH: Medical History (Updated 11/02/19 @ 11:24 by Idris Pratt DO) Atrial fibrillation Coronary artery disease Diabetes mellitus Hypertension Peripheral vascular disease Surgical History History of hip replacement Total hip replacement through anterior approach performed in [facility] History of hip surgery Incision and drainage of right thigh abscess History of hysterectomy History of laparoscopic cholecystectomy History of partial colectomy Social History Smoking and tobacco status: never smoked Alcohol intake: never Physical Exam Const: COMMON NORMALS: no apparent distress GENERAL APPEARANCE: cooperative and comfortable ORIENTATION/CONSCIOUSNESS: Yes awake, Yes oriented to person, Yes oriented to place and Yes oriented to time HENMT: COMMON NORMALS: normocephalic, head/scalp atraumatic, hearing grossly normal bilaterally, external ears normal, EAC's normal, TM's normal bilaterally, nasal mucous membranes and turbinates normal, moist oral mucous membranes and oropharynx normal HEAD & SCALP: normocephalic and atraumatic NOSE: nasal mucous membranes and turbinates normal EXTERNAL EAR: Yes external ears normal EXTERNAL AUDITORY CANAL: EAC's normal TYMPANIC MEMBRANE: TM's normal b ilaterally Eye: COMMON NORMALS: PERRL, EOMs intact bilaterally, conjunctivae normal and no scleral icterus CONJUNCTIVA: Yes conjunctivae normal PUPIL: Yes PERRL Neck/C-Spine: COMMON NORMALS: full ROM, no lymphadenopathy, supple and no JVD Lymph: LYMPHATIC: no lymphadenopathy noted and no lymphedema noted Resp: COMMON NORMALS: normal respiratory effort, no retractions, no use of accessory muscles and clear to auscultation bilaterally AUSCULTATION: clear to auscultation bilaterally Cardio: COMMON NORMALS: no JVD, regular rate, regular rhythm and no murmurs RATE: regular rate and tachycardic RHYTHM: regular rhythm and abnormal rhythm irregularly irregular GI: COMMON NORMALS: soft to palpation and no hepatosplenomegaly AUSCULTATION: Yes normoactive bowel sounds PALPATION: Yes soft, No tender, No guarding and Yes no hepatosplenomegaly Extremity: COMMON NORMALS: normal to inspection, normal capillary refill, no clubbing, cyanosis or edema, no calf tenderness and no pedal edema Neuro: SENSORIUM/ORIENTATION: Yes oriented to person, Yes oriented to place and Yes oriented to time Skin: COMMON NORMALS: no rashes or lesions noted GENERAL SKIN EXAM: no rashes or lesions noted Course Vital Signs: Vital signs: Vital Signs Temperature 98.7 F 11/02/19 09:18 Pulse Rate 49 L 11/02/19 12:19 Respiratory Rate 18 11/02/19 12:19 Blood Pressure 159/66 11/02/19 12:19 Pulse Oximetry 94 11/02/19 12:19 MDM - Arrhythmia/Palpitations MDM Narrative: Medical decision making narrative: Patient in A. fib with RVR. Patient was started on Cardizem and titrated up. Patient will be admitted discussed Dr. Manuel she will see the patient in the department. Lab Data: Labs: Lab Results 11/02/19 11/02/19 11/02/19 Range/Units 09:30 09:30 09:30 WBC 11.6 H (4.0-10.0) 10^3/ uL RBC 4.74 (4.1-5.3) 10^6/u L Hgb 12.0 (11.5-15.3) g/dL Hct 38.8 (37.0-47.0) % MCV 81.9 (81-99) fL MCH 25.3 L (28.0-34.0) pg MCHC 30.9 (30.0-36.0) g/dL RDW 18.2 H (12.1-15.1) % Plt Count 355 (130-400) 10^3/c mm MPV 9.9 (7.4-10.4) fL Neut % (Auto) 70.7 % Lymph % (Auto) 17.9 % [place] % (Auto) 7.8 % Eos % (Auto) 2.8 % Baso % (Auto) 0.4 % Neut # (Auto) 8.2 H (1.8-7.7) 10^3/u L Lymph # (Auto) 2.1 (0.8-4.8) 10^3/u L [place] # (Auto) 0.9 (0.2-0.9) 10^3/u L Eos # (Auto) 0.3 (0.0-0.8) 10^3/u L Baso # (Auto) 0.1 (0.0-0.1) 10^3/u L Nucleated RBC % (a uto) 0 % Nucleated RBCs # 0.0 /100WBC Sodium 139 (136-145) mmol/L Potassium 3.5 (3.5-5.1) mmol/L Chloride 101 (98-107) mmol/L Carbon Dioxide 22 (22-29) mmol/L Anion Gap 19.5 H (5-19) BUN 12 (8-23) mg/dL Creatinine 0.9 (0.5-0.9) mg/dL Glucose 181 H (65-115) mg/dL Calculated Osmolal ity 289 (285-295) mOsm/k g Calcium 9.7 (8.5-10.5) mg/dL Total Bilirubin 0.5 (0.15-1.2) mg/dL AST 18 (0-32) U/L ALT 12 (0-33) U/L Alkaline Phosphata se 205 H (35-105) IU/L Troponin T Baselin e 14 H (0-10) ng/mL Troponin T 120 Min [place] (0-10) ng/mL Delta Troponin T (0-10) ABS# Total Protein 7.4 (6.6-8.7) g/dL Albumin 4.1 (3.5-5.2) g/dL Globulin 3.3 (1.3-4.6) g/dL 03/30/20 Range/Units 11:28 WBC (4.0-10.0) 10^3/ uL RBC (4.1-5.3) 10^6/u L Hgb (11.5-15.3) g/dL Hct (37.0-47.0) % MCV (81-99) fL MCH (28.0-34.0) pg MCHC (30.0-36.0) g/dL RDW (12.1-15.1) % Plt Count (130-400) 10^3/c mm MPV (7.4-10.4) fL Neut % (Auto) % Lymph % (Auto) % [place] % (Auto) % Eos % (Auto) % Baso % (Auto) % Neut # (Auto) (1.8-7.7) 10^3/u L Lymph # (Auto) (0.8-4.8) 10^3/u L [place] # (Auto) (0.2-0.9) 10^3/u L Eos # (Auto) (0.0-0.8) 10^3/u L Baso # (Auto) (0.0-0.1) 10^3/u L Nucleated RBC % (a uto) % Nucleated RBCs # /100WBC Sodium (136-145) mmol/L Potassium (3.5-5.1) mmol/L Chloride (98-107) mmol/L Carbon Dioxide (22-29) mmol/L Anion Gap (5-19) BUN (8-23) mg/dL Creatinine (0.5-0.9) mg/dL Glucose (65-115) mg/dL Calculated Osmolal ity (285-295) mOsm/k g Calcium (8.5-10.5) mg/dL Total Bilirubin (0.15-1.2) mg/dL AST (0-32) U/L ALT (0-33) U/L Alkaline Phosphata se (35-105) IU/L Troponin T Baselin e (0-10) ng/mL Troponin T 120 Min [place] 14.69 H (0-10) ng/mL Delta Troponin T 0.69 (0-10) ABS# Total Protein (6.6-8.7) g/dL Albumin (3.5-5.2) g/dL Globulin (1.3-4.6) g/dL Discharge Plan Discharge Patient Disposition: Admitted As Inpatient Clinical Impression: Atrial fibrillation Condition: Stable Referrals: Em Shannon MD [Physician] - Additional Instructions: Follow-up with Dr. Shannon tomorrow in her office call for an appointment Interventions: ED Discharge Assessment Last Done: 11/02/19 12:19 Discharge Date/Time: 11/02/19 12:19 Coding Level of Care Code ED Clinical Informatics Spec for Alejandro Vann
[2019-11-02 09:18] VITALS: BP 154/126; PULSE 137; RESP 18; TEMP 37.1; O2SAT 95
[2019-11-02 09:45] LABS: Basophils # 0.1 10^3/uL (0.0-0.1); Basophils % 0.4 %; Eosinophils # 0.3 10^3/uL (0.0-0.8); Eosinophils % 2.8 %; Hematocrit 38.8 % (37.0-47.0); Lymphocytes # 2.1 10^3/uL (0.8-4.8); Lymphocytes % 17.9 %; Mean Corpuscular HGB Conc 30.9 g/dL (30.0-36.0); Mean Corpuscular Hemoglobin 25.3 pg (28.0-34.0); Mean Corpuscular Volume 81.9 fL (81-99); Mean Platelet Volume 9.9 fL (7.4-10.4); Monocytes # 0.9 10^3/uL (0.2-0.9); Monocytes % 7.8 %; Neutrophils # 8.2 10^3/uL (1.8-7.7); Neutrophils % 70.7 %; Nucleated Red Blood Cells % 0 %; Platelet Count 355 10^3/cmm (130-400); Red Blood Count 4.74 10^6/uL (4.1-5.3); Red Cell Distribution Width 18.2 % (12.1-15.1); White Blood Count 11.6 10^3/uL (4.0-10.0)
[2019-11-02 10:02] LABS: Alanine Aminotransferase 12 U/L (0-33); Albumin Level 4.1 g/dL (3.5-5.2); Alkaline Phosphatase 205 IU/L (35-105); Anion Gap 19.5 (5-19); Aspartate Amino Transferase 18 U/L (0-32); Blood Urea Nitrogen 12 mg/dL (8-23); Calcium 9.7 mg/dL (8.5-10.5); Carbon Dioxide 22 mmol/L (22-29); Chloride 101 mmol/L (98-107); Globulin 3.3 g/dL (1.3-4.6); Glucose 181 mg/dL (65-115); Osmolality Calculated 289 mOsm/kg (285-295); Potassium 3.5 mmol/L (3.5-5.1); Sodium 139 mmol/L (136-145); Total Bilirubin 0.5 mg/dL (0.15-1.2); Total Protein 7.4 g/dL (6.6-8.7)
[2019-11-02 10:03] LABS: Troponin(5th) Baseline 14 ng/mL (0-10)
--- NOTE | 2019-11-02 10:51 | PC.NURSE ---
Dr. DAUGHERTY of Rhythm change, medication discontinued per Doctor.
[2019-11-02 11:02] VITALS: BP 143/69; PULSE 49; RESP 18; O2SAT 92
--- NOTE | 2019-11-02 11:14 | ECG_ITS ---
Measurements Intervals [place] Rate: 49 P: 22 [place]: 117 QRS: -26 QRSD: 77 T: 22 QT: 438 QTc: 396 SINUS BRADYCARDIA WITH SHORT [place] INTERVAL BORDERLINE LEFT AXIS DEVIATION [QRS AXIS < -20] NONSPECIFIC ST & T-WAVE ABNORMALITY Compared to ECG 10/19/2019 15:45:06 Short [place] interval now present Atrial fibrillation no longer present Aberrant conduction of supraventricular beat(s) no longer present Ventricular premature complex(es) no longer present T-wave abnormality still present Electronically Signed On 11-02-2019 18:32:21 CDT by Em Shannon M.D. [email or web address]
[2019-11-02 11:48] LABS: Troponin 5 2HR 14.69 ng/mL (0-10); Troponin 5 2HR Delta 0.69 ABS# (0-10)
[2019-11-02 12:19] VITALS: BP 159/66; PULSE 49; RESP 18; O2SAT 94
--- NOTE | 2019-11-03 12:58 | DCPLANNER ---
Addendum entered by Janneth Arzate 11/04/19 13:40: Patient has a follow up appointment scheduled with the clinic on Sunday, November 10, 2019. combat control manager spoke with Joyce, asked if an appointment had been scheduled for patient for a halter monitor. combat control manager was told not at this time, did find order for the halter monitor. combat control manager asked if an appointment would be scheduled, was told that Joyce will ask if it will be scheduled and will get back with casey saw operator and let casey saw operator know if appointment will be scheduled at this time. Original Note: combat control manager had a message to schedule an outpatient 24 hour halter monitor for patient. combat control manager [facility]ed order to [facility], will call for appointment information. Clinic will call patient with appointment information.
--- NOTE | 2019-11-13 11:27 | DCPLANNER ---
Patient had a follow up appointment on 11.10.19 with [facility], patient did attend the appointment.
== END 2019-11-02 12:19 | disposition home or self-care (01) ==
PROVIDERS: Physician Assistant; Emergency Provider Family Medicine; Family Provider Electrodiagnostic Medicine; PCP Electrodiagnostic Medicine
DX: R07.9 Chest pain, unspecified (principal); I48.91 Unspecified atrial fibrillation; E11.9 Type 2 diabetes mellitus without complications; I25.10 Atherosclerotic heart disease of native coronary artery without angina pectoris; I10 Essential (primary) hypertension; Z79.01 Long term (current) use of anticoagulants
CPT/HCPCS: 12345; 36415; 71045; 80053; 84484; 85025; 93005; 96365; 96366; 96375; 99283; 99284; J3490

== ENCOUNTER → 2020-03-08 17:25 | Outpatient (BNVA) | payer MEDICARE, OTHER, SELFPAY | PROVIDERS: Family Provider Electrodiagnostic Medicine; PCP Electrodiagnostic Medicine; Visit Provider Nurse Practitioner Women's Health | DX: C52 Malignant neoplasm of vagina (principal); I48.0 Paroxysmal atrial fibrillation; N95.0 Postmenopausal bleeding | CPT/HCPCS: 85027; 88305 ==

== ENCOUNTER 2020-03-23 21:48 | Emergency (ER) | payer MEDICARE, OTHER, SELFPAY ==
[2020-03-23 22:00] VITALS: BP 108/76; PULSE 122; RESP 20; TEMP 36.3; O2SAT 95; BMI 25.4
--- NOTE | 2020-03-23 22:14 | XR_ITS ---
WS: [id number] EXAM: AP CHEST: PORTABLE UPRIGHT DATE OF EXAM: 03/23/2020, 2243 hours COMPARISON: Chest x-ray from 11/02/2019. HISTORY: Patient is 84 years old with rapid heart rate. Shortness of breath. History of cancer. FINDINGS: The cardiac silhouette is normal in size. The mediastinal contours are similar. Calcified plaque i n the aorta. Double curve scoliosis demonstrated.. The pulmonary vascularity is normal. Chronic yolis ng changes are demonstrated. Lungs are clear of consolidation. There appears to be a pulmonary nodule in the left lower outer chest overlying the posterior lateral T8 rib. Follow-up CT of the chest omid mmended. There is no effusion or pneumothorax. Overall bone density is decreased. Multilevel degene rative changes seen in the spine. Degenerative changes in both shoulders. XR/XR chest 1V portable [id number] IMPRESSION: Chronic lung changes. Suspected pulmonary nodule left lung base. Follow-up CT o f the chest recommended.
--- NOTE | 2020-03-23 22:14 | ECG_ITS ---
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 Measurements Intervals [place] Rate: 144 P: HI: -1 QRS: -27 QRSD: 102 T: 67 QT: 317 QTc: 492 Interpretive Statements ATRIAL FIBRILLATION WITH RAPID VENTRICULAR RESPONSE BORDERLINE LEFT AXIS DEVIATION [QRS AXIS < -20] NONSPECIFIC ST & T-WAVE ABNORMALITY ABNORMAL RHYTHM ECG Compared to ECG 11/02/2019 11:02:45 Sinus bradycardia no longer present Short HI interval no longer present T-wave abnormality still present Electronically Signed On 03-24-2020 22:40:29 CDT by Annemarie Quiroz M.D. [id number] f
--- NOTE | 2020-03-23 22:20 | ED_ITS ---
HPI - Arrhythmia/Palpitations General: Chief Complaint: Arrhythmia/Palpitations Stated Complaint: rapid hr Time Seen by Provider: 03/23/20 22:19 Source: patient Mode of arrival: ambulatory Limitations: no limitations History of Present Illness: HPI narrative: 84-year-old female has a history of A. fib. Patient states she is doing a bowel prep for colonoscopy tomorrow and she is having a PET scan tomorrow as well to rule out cancer. Patient believes she may be slightly dehydrated start having palpitations and is in A. fib currently. Her heart rate at home was in the 140s and is 140s here as well. She is got mild pain. Denies any shortness of breath. Denies any worsening improving factors. Associated symptoms: Deny nausea or vomiting Review of Systems Const: Denies: fever(s), chills, body aches or change in appetite Eyes: Denies: blurry vision or eye discomfort ENMT: Denies: throat pain or dental pain Card: Reports: palpitations Resp: Denies: dyspnea GI: Denies: abdominal pain, nausea, vomiting or diarrhea : Denies: dysuria Musc: Denies: neck pain or back pain Skin/Breast: Denies: rash Neuro: Denies: headache(s) Psych: Denies: depression Juan Manuel/Lymph: Denies: easy bruising All/Imm: Denies: urticaria PFSH ED PFSH: Medical History Arthritis Degenerative disc disease Gout History of CVA (cerebrovascular accident) Surgical History History of hip replacement (~2014) Total hip replacement through anterior approach performed in [facility] History of hip surgery Incision and drainage of right thigh abscess History of hysterectomy (~2010) according to pcp documentation--- performed in [place] for noninvasive cancer partial colectomy for obstruction and adhesion at the same time. 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, stage IVB Father Heart disease Denies family history of Ovarian cancer Diabetes Hyperlipidemia Stroke Social History Alcohol intake: never Additional social history: - Tobacco use: Denies Alcohol use: Denies Drug use: Denies Physical Exam Const: COMMON NORMALS: no acute distress, patient oriented x3 and healthy appearing HENMT: COMMON NORMALS: normocephalic and atraumatic HEAD & SCALP: normocephalic and atraumatic Eye: COMMON NORMALS: Equal, round and reactive pupils present and EOMs intact bilaterally PUPIL: Yes Equal, round and reactive pupils present Neck/C-Spine: COMMON NORMALS: full ROM and supple Chest: COMMONS NORMALS: normal inspection of the chest and normal palpation of entire chest wall Resp: COMMON NORMALS: normal respiratory effort, No retractions, No use of accessory muscles and clear to auscultation bilaterally AUSCULTATION: clear to auscultation bilaterally Cardio: COMMON NORMALS: No murmurs present (Cardio) RATE: tachycardic RHYTHM: abnormal rhythm irregularly irregular GI: COMMON NORMALS: Normal to inspection, nondistended, normoactive bowel sounds present, Soft to palpation, non-tender and no masses PALPATION: Yes S oft to palpation Extremity: COMMON NORMALS: normal to inspection and full ROM Neuro: COMMON NORMALS: patient oriented x3, moves all extremities and no focal motor deficits Psych: COMMON NORMALS: mental status grossly normal, Normal thought process present and cooperative THOUGHT PROCESS: Normal thought process present Skin: COMMON NORMALS: no rashes or lesions noted and no wounds GENERAL SKIN EXAM: no rashes or lesions noted Course Vital Signs: Vital signs: Vital Signs Temperature 97.3 F L 03/23/20 22:00 Pulse Rate 118 H 03/23/20 22:39 Respiratory Rate 20 H 03/23/20 22:39 Blood Pressure 126/93 03/23/20 22:39 Pulse Oximetry 95 03/23/20 22:39 MDM - Arrhythmia/Palpitations MDM Narrative: Medical decision making narrative: Patient presents here with Malvin burr with RVR. Patient's heart rates improved currently and heart rates now in the 80s and 90s. I did offer patient admission. She states she does not want to miss her appointment in [place] tomorrow for her colonoscopy and PET scan. Patient's lab work here is normal. She states she feels great would like to go home. Will discharge patient she is to follow-up tomorrow as scheduled. She is return to ER if worsening. She understands and agrees to plan. Lab Data: Labs: Lab Results 03/23/20 03/23/20 03/23/20 Range/Units 22:40 22:40 22:40 WBC 12.3 H (4.0-10.0) 10^3/ uL RBC 4.78 (4.1-5.3) 10^6/u L Hgb 12.6 (11.5-15.3) g/dL Hct 39.7 (37.0-47.0) % MCV 83.1 (81-99) fL MCH 26.4 L (28.0-34.0) pg MCHC 31.7 (30.0-36.0) g/dL RDW 15.1 (12.1-15.1) % Plt Count 350 (130-400) 10^3/c mm MPV 10.4 (7.4-10.4) fL Neut % (Auto) 61.9 % Lymph % (Auto) 23.7 % Marshall % (Auto) 10.3 % Eos % (Auto) 3.1 % Baso % (Auto) 0.6 % Neut # (Auto) 7.61 (1.8-7.7) 10^3/u L Lymph # (Auto) 2.9 (0.8-4.8) 10^3/u L Marshall # (Auto) 1.3 H (0.2-0.9) 10^3/u L Eos # (Auto) 0.4 (0.0-0.8) 10^3/u L Baso # (Auto) 0.1 (0.0-0.1) 10^3/u L Nucleated RBC % (a uto) 0 % Nucleated RBCs # 0.0 /100WBC PT (12.1-14.9) SECO NDS INR (0.8-1.2) Sodium 139 (136-145) mmol/L Potassium 3.3 L (3.5-5.1) mmol/L Chloride 102 (98-107) mmol/L Carbon Dioxide 22 (22-29) mmol/L Anion Gap 18.3 (5-19) BUN 16 (8-23) mg/dL Creatinine 0.8 (0.5-0.9) mg/dL GFR Calculation Not Reportable Glucose 179 H (65-115) mg/dL Calculated Osmolal ity 289 (285-295) mOsm/k g Calcium 9.5 (8.5-10.5) mg/dL Total Bilirubin 0.4 (0.15-1.2) mg/dL AST 24 (0-32) U/L ALT 19 (0-33) U/L Alkaline Phosphata se 174 H (35-105) IU/L Troponin T Baselin e 13 H (0-10) ng/L Total Protein 8.1 (6.6-8.7) g/dL Albumin 4.6 (3.5-5.2) g/dL Globulin 3.5 (1.3-4.6) g/dL 03/23/20 Range/Units 22:40 WBC (4.0-10.0) 10^3/ uL RBC (4.1-5.3) 10^6/u L Hgb (11.5-15.3) g/dL Hct (37.0-47.0) % MCV (81-99) fL MCH (28.0-34.0) pg MCHC (30.0-36.0) g/dL RDW (12.1-15.1) % Plt Count (130-400) 10^3/c mm MPV (7.4-10.4) fL Neut % (Auto) % Lymph % (Auto) % Marshall % (Auto) % Eos % (Auto) % Baso % (Auto) % Neut # (Auto) (1.8-7.7) 10^3/u L Lymph # (Auto) (0.8-4.8) 10^3/u L Marshall # (Auto) (0.2-0.9) 10^3/u L Eos # (Auto) (0.0-0.8) 10^3/u L Baso # (Auto) (0.0-0.1) 10^3/u L Nucleated RBC % (a uto) % Nucleated RBCs # /100WBC PT 13.40 (12.1-14.9) SECO NDS INR 0.99 (0.8-1.2) Sodium (136-145) mmol/L Potassium (3.5-5.1) mmol/L Chloride (98-107) mmol/L Carbon Dioxide (22-29) mmol/L Anion Gap (5-19) BUN (8-23) mg/dL Creatinine (0.5-0.9) mg/dL GFR Calculation Glucose (65-115) mg/dL Calculated Osmolal ity (285-295) mOsm/k g Calcium (8.5-10.5) mg/dL Total Bilirubin (0.15-1.2) mg/dL AST (0-32) U/L ALT (0-33) U/L Alkaline Phosphata se (35-105) IU/L Troponin T Baselin e (0-10) ng/L Total Protein (6.6-8.7) g/dL Albumin (3.5-5.2) g/dL Globulin (1.3-4.6) g/dL Imaging Data^: CXR: Attestation: I personally reviewed and interpreted this imaging study as follows: My impression: no acute abnormality EKG Data^: EKG 1: Attestation: I personally reviewed and interpreted this EKG as follows: EKG interpretation date: 03/23/20 EKG interpretation time: 22:07 Interpretation: afib rvr hr [address] or t wave abnormalities qrs 102 qtc 400 Discharge Plan Discharge Patient Disposition: Home Clinical Impression: Atrial fibrillation Qualifiers: Atrial fibrillation type: unspecified Qualified Code(s): I48.91 - Unspecified atrial fibrillation Condition: Stable Prescriptions: No Action sotalol 80 mg tablet 80 mg PO BID RF: 0 tramadol 50 mg tablet 50 mg PO QID PRNRF: 0 Algal [place]-3 DHA 200 mg capsule 200 mg PO DAILY RF: 0 melatonin 3 mg capsule 3 mg PO .hs RF: 0 ondansetron HCl 4 mg tablet 4 mg PO Q6H PRN (Reason: nausea and vomiting) RF: 0 atorvastatin 20 mg tablet 20 mg PO DAILY RF: 0 albuterol sulfate [Ventolin HFA] 90 mcg/actuation HFA aerosol inhaler 2 puff INHALATION Q4H PRNRF: 0 potassium chloride 10 mEq Tablet Extended Release 10 meq PO DAILY RF: 0 promethazine 25 mg Tablet 25 mg PO Q6H PRN (Reason: Nausea) RF: 0 sertraline 25 mg Tablet 25 mg PO DAILY RF: 0 Pradaxa 150 mg Capsule 150 mg PO BID RF: 0 Vascepa 1 gram Capsule 2 g PO BID RF: 0 alprazolam 0.25 mg tablet 0.25 mg PO TID PRN (Reason: Anxiety) RF: 0 pantoprazole 40 mg Tablet,Delayed Release (Dr/Ec) 40 mg PO DAILY RF: 0 Miralax 17 gram Powder In Packet 17 g PO DAILY RF: 0 amlodipine 5 mg Tablet 5 mg PO DAILY RF: 0 Discharge Orders: Discharge Order (Routine); Ordered 03/23/20 Ordered By: Stephen King Referrals: Parag Norris, [Primary Care Provider] - Discharge Diet: Advance as tolerated Discharge Activity: Resume usual activity Patient Instructions: Atrial Fibrillation (ED) Coding Level of Care Code ED Rn Intensive Care Unit for Alejandro Fwd Exam Comprehensive
[2020-03-23 22:39] VITALS: BP 126/93; PULSE 118; RESP 20; O2SAT 95
[2020-03-23] MEDS: sodium chloride 0.9% 1,000 ML 999 ML IV (22:52)
[2020-03-23 23:02] LABS: Basophils # 0.1 10^3/uL (0.0-0.1); Basophils % 0.6 %; Eosinophils # 0.4 10^3/uL (0.0-0.8); Eosinophils % 3.1 %; Hematocrit 39.7 % (37.0-47.0); Hemoglobin 12.6 g/dL (11.5-15.3); Lymphocytes # 2.9 10^3/uL (0.8-4.8); Lymphocytes % 23.7 %; Mean Corpuscular HGB Conc 31.7 g/dL (30.0-36.0); Mean Corpuscular Hemoglobin 26.4 pg (28.0-34.0); Mean Corpuscular Volume 83.1 fL (81-99); Mean Platelet Volume 10.4 fL (7.4-10.4); Monocytes # 1.3 10^3/uL (0.2-0.9); Monocytes % 10.3 %; Neutrophils # 7.61 10^3/uL (1.8-7.7); Neutrophils % 61.9 %; Nucleated Red Blood Cells % 0 %; Platelet Count 350 10^3/cmm (130-400); Red Blood Count 4.78 10^6/uL (4.1-5.3); Red Cell Distribution Width 15.1 % (12.1-15.1); White Blood Count 12.3 10^3/uL (4.0-10.0)
[2020-03-23 23:14] LABS: INR 0.99 (0.8-1.2)
[2020-03-23 23:24] LABS: Alanine Aminotransferase 19 U/L (0-33); Albumin Level 4.6 g/dL (3.5-5.2); Alkaline Phosphatase 174 IU/L (35-105); Anion Gap 18.3 (5-19); Aspartate Amino Transferase 24 U/L (0-32); Blood Urea Nitrogen 16 mg/dL (8-23); Calcium 9.5 mg/dL (8.5-10.5); Carbon Dioxide 22 mmol/L (22-29); Chloride 102 mmol/L (98-107); Globulin 3.5 g/dL (1.3-4.6); Glucose 179 mg/dL (65-115); Osmolality Calculated 289 mOsm/kg (285-295); Potassium 3.3 mmol/L (3.5-5.1); Sodium 139 mmol/L (136-145); Total Bilirubin 0.4 mg/dL (0.15-1.2); Total Protein 8.1 g/dL (6.6-8.7)
[2020-03-23 23:26] LABS: Troponin(5th) Baseline 13 ng/L (0-10)
[2020-03-23 23:39] VITALS: BP 127/70; PULSE 125; RESP 18; O2SAT 99
[2020-03-23] MEDS: dilTIAZem 60 mg Tablet PO (23:53)
--- NOTE | 2020-03-23 23:57 | PC.NURSE ---
patient's symptoms relieved after ivp cardizem. Patient up for discharge. Patient heart rate again elevated into 120s, notified. Patient was asked to be admitted but refused. Patient and son state they have to go to [facility] for colonoscopy in the AM and can't miss appointment. Patient and son educated on risks of leaving and give verbal understanding. They still want to be discharged.
[2020-03-24 00:44] VITALS: BP 112/54; PULSE 73; RESP 18; O2SAT 96
== END 2020-03-24 00:58 | disposition home or self-care (01) ==
PROVIDERS: Emergency Provider Emergency Medicine; PCP Electrodiagnostic Medicine
DX: I48.91 Unspecified atrial fibrillation (principal); Z86.73 Personal history of transient ischemic attack (TIA), and cerebral infarction without residual deficits
CPT/HCPCS: 12345; 71045; 80053; 84484; 85025; 85610; 93005; 96361; 96374; 96375; 96376; 99283; 99284; J3490; J7030

== ENCOUNTER 2020-03-25 08:36 | Inpatient (IN) | payer MEDICARE, OTHER, SELFPAY ==
[2020-03-25] VITALS (9 sets, daily range): BP systolic 89–144; BP diastolic 50–73; PULSE 90–125; RESP 16–18; TEMP 36.6–36.8; O2SAT 94–95; BMI 25.4
--- NOTE | 2020-03-25 08:44 | ED_ITS ---
HPI - Chest Pain General: Chief Complaint: Chest Pain Stated Complaint: CHEST PAIN/ INCREASED HEART RATE Time Seen by Provider: 03/25/20 08:44 History of Present Illness: HPI narrative: 84 yo female with complaints of chest pain and palpitations, she has a known history of atrial fibrillation. He was here 2 days ago with similar symptoms she was in A. fib yesterday she had gone through colonoscopy prep missed some of her medicines they were able to get her heart rate slowed her colonoscopy and go ahead and get it done that was in [place]. This morning she started having some symptoms. She took a sotalol about results her symptoms. She did have some chest pain at home but that resolved and she is pain-free now. She still is in A. fib with RVR. She is still in A. fib with RVR at the time of presentation with a heart rate in the 120s to 130s she denies any shortness of breath she denies any orthopnea no fever sweats or chills. Pertinent past history: other (Atrial fibrillation) Onset (ago): hour(s) Timing of current episode: episodic and increasing (Episodes of A. fib increasing, chest pain is resolved) Prior episodes: Yes Onset: during rest Pain location: left chest (Resolved at the time of seeing the patient) Pain radiation: none Severity: mild Quality: heaviness Relieving factors: nothing Exacerbating factors: nothing Context: recent illness Associated symptoms: Reports no associated symptoms; Deny abdominal pain, dyspnea, fever(s), nausea or vomiting Treatment prior to arrival: none Review of Systems Const: Denies: fever(s), chills, body aches, change in appetite, fatigue or malaise ENMT: Denies: throat pain, ear or mastoid pain, nasal discharge or nasal congestion Card: Denies: chest pain, edema, dyspnea on exertion or orthopnea Resp: Denies: dyspnea, productive cough or non-productive cough GI: Denies: abdominal pain, nausea, vomiting, hematemesis, coffee ground emesis, diarrhea, constipation, bloating, hematochezia or melena : Denies: flank pain, difficulty voiding, dysuria, urinary frequency or uri nary urgency Skin/Breast: Denies: rash or pruritus PFS ED PFSH: Medical History Arthritis Degenerative disc disease Gout History of CVA (cerebrovascular accident) Surgical History History of hip replacement (~2014) Total hip replacement through anterior approach performed in [facility] History of hip surgery Incision and drainage of right thigh abscess History of hysterectomy (~2010) according to pcp documentation--- performed in [place] for noninvasive cancer partial colectomy for obstruction and adhesion at the same time. 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, stage IVB Father Heart disease Denies family history of Ovarian cancer Diabetes Hyperlipidemia Stroke Social History Alcohol intake: never Additional social history: - Tobacco use: Denies Alcohol use: Denies Drug use: Denies Physical Exam Const: COMMON NORMALS: no acute distress GENERAL APPEARANCE: cooperative and comfortable ORIENTATION/CONSCIOUSNESS: Yes awake, Yes oriented to person, Yes oriented to place and Yes oriented to time HENMT: COMMON NORMALS: normocephalic and atraumatic HEAD & SCALP: normocephalic and atraumatic Eye: COMMON NORMALS: Equal, round and reactive pupils present, EOMs intact bilaterally, conjunctivae normal and no scleral icterus CONJUNCTIVA: Yes conjunctivae normal PUPIL: Yes Equal, round and reactive pupils present Neck/C-Spine: COMMON NORMALS: full ROM, no lymphadenopathy and supple Lymph: LYMPHATIC: no lymphadenopathy noted and no lymphedema noted Resp: COMMON NORMALS: normal respiratory effort, No retractions, No use of accessory muscles and clear to auscultation bilaterally AUSCULTATION: clear to auscultation bilaterally Cardio: COMMON NORMALS: No murmurs present (Cardio) RATE: tachycardic RHYTHM: abnormal rhythm irregularly irregular GI: COMMON NORMALS: Soft to palpation and No hepatosplenomegaly present AUSCULTATION: Yes normoactive bowel sounds PALPATION: Yes Soft to palpation, No Tenderness to palpation present (GI), No Guarding due to palpation present (GI) and Yes No hepatosplenomegaly present Extremity: COMMON NORMALS: normal to inspection, capillary refill normal, no clubbing, cyanosis or edema, no calf tenderness and no pedal edema Neuro: SENSORIUM/ORIENTATION: Yes oriented to person, Yes oriented to place and Yes oriented to time Skin: COMMON NORMALS: no rashes or lesions noted GENERAL SKIN EXAM: no rashes or lesions noted Course Vital Signs: Vital signs: Vital Signs Temperature 98.0 F 03/25/20 08:36 Pulse Rate 90 03/25/20 10:02 Respiratory Rate 16 03/25/20 10:02 Blood Pressure 144/56 03/25/20 10:02 Pulse Oximetry 94 03/25/20 10:02 MDM - Chest Pain MDM Narrative: Medical decision making narrative: Patient's rate became controlled after first injection of the bolus of Cardizem. A drip was not started she had taken her sotalol at home. This is her second visit this week to the emergency room for rate control issues and a lot of it was around the fact that she was prepping and then had the colonoscopy. Unfortunately at this time she is in her troponin is elevated. We will go and put her on observation finish the rule out and monitor for rate control. She did have a sestamibi stress test earlier this year that was read as negative for ischemia on the imaging side but on the EKG side there was some question. It above her usual baseline in the low teens. Given the fact that this is her second visit this week with poor rate control and she has an elevated troponin organ to go ahead and put her on observation discussed with Dr. Manuel Lab Data: Labs: Lab Results 03/25/20 03/25/20 03/25/20 Range/Units 08:22 08:22 08:22 WBC 10.2 H (4.0-10.0) 10^3/ uL RBC 4.80 (4.1-5.3) 10^6/u L Hgb 12.8 (11.5-15.3) g/dL Hct 41.0 (37.0-47.0) % MCV 85.4 (81-99) fL MCH 26.7 L (28.0-34.0) pg MCHC 31.2 (30.0-36.0) g/dL RDW 15.2 H (12.1-15.1) % Plt Count 330 (130-400) 10^3/c mm MPV 10.2 (7.4-10.4) fL Neut % (Auto) 67.6 % Lymph % (Auto) 20.2 % Craig % (Auto) 8.5 % Eos % (Auto) 2.8 % Baso % (Auto) 0.6 % Neut # (Auto) 6.88 (1.8-7.7) 10^3/u L Lymph # (Auto) 2.1 (0.8-4.8) 10^3/u L Craig # (Auto) 0.9 (0.2-0.9) 10^3/u L Eos # (Auto) 0.3 (0.0-0.8) 10^3/u L Baso # (Auto) 0.1 (0.0-0.1) 10^3/u L Nucleated RBC % (a uto) 0 % Nucleated RBCs # 0.0 /100WBC Sodium 141 (136-145) mmol/L Potassium 3.5 (3.5-5.1) mmol/L Chloride 105 (98-107) mmol/L Carbon Dioxide 24 (22-29) mmol/L Anion Gap 15.5 (5-19) BUN 19 (8-23) mg/dL Creatinine 0.9 (0.5-0.9) mg/dL GFR Calculation Not Reportable Glucose 199 H (65-115) mg/dL Calculated Osmolal ity 294 (285-295) mOsm/k g Calcium 9.2 (8.5-10.5) mg/dL Total Bilirubin 0.3 (0.15-1.2) mg/dL AST 23 (0-32) U/L ALT 16 (0-33) U/L Alkaline Phosphata se 151 H (35-105) IU/L Troponin T Baselin e 33 H (0-10) ng/L Total Protein 7.2 (6.6-8.7) g/dL Albumin 4.0 (3.5-5.2) g/dL Globulin 3.2 (1.3-4.6) g/dL Discharge Plan Discharge Patient Disposition: Placed in Observation Admit Provider: Allison Manuel Clinical Impression: Atrial fibrillation with RVR, Elevated troponin Condition: Stable Referrals: Parag Norris DO [Primary Care Provider] - Coding Level of Care Code ED Commissary Assistant for Chg Fwd Exam Comprehensive
--- NOTE | 2020-03-25 08:48 | ECG_ITS ---
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 Measurements Intervals [place] Rate: 129 P: HI: -1 QRS: -37 QRSD: 88 T: 86 QT: 292 QTc: 429 Interpretive Statements ATRIAL FIBRILLATION WITH RAPID VENTRICULAR RESPONSE LEFT AXIS DEVIATION [QRS AXIS < -30] NONSPECIFIC ST & T-WAVE ABNORMALITY Compared to ECG 03/23/2020 22:07:07 No significant changes Electronically Signed On 03-26-2020 19:43:19 CDT by Arsen Wilson M.D. [id number]
[2020-03-25 08:57] LABS: Basophils # 0.1 10^3/uL (0.0-0.1); Basophils % 0.6 %; Eosinophils # 0.3 10^3/uL (0.0-0.8); Eosinophils % 2.8 %; Hemoglobin 12.8 g/dL (11.5-15.3); Lymphocytes # 2.1 10^3/uL (0.8-4.8); Lymphocytes % 20.2 %; Mean Corpuscular HGB Conc 31.2 g/dL (30.0-36.0); Mean Corpuscular Hemoglobin 26.7 pg (28.0-34.0); Mean Corpuscular Volume 85.4 fL (81-99); Mean Platelet Volume 10.2 fL (7.4-10.4); Monocytes # 0.9 10^3/uL (0.2-0.9); Monocytes % 8.5 %; Neutrophils # 6.88 10^3/uL (1.8-7.7); Neutrophils % 67.6 %; Nucleated Red Blood Cells % 0 %; Platelet Count 330 10^3/cmm (130-400); Red Cell Distribution Width 15.2 % (12.1-15.1); White Blood Count 10.2 10^3/uL (4.0-10.0)
[2020-03-25 09:19] LABS: Alanine Aminotransferase 16 U/L (0-33); Alkaline Phosphatase 151 IU/L (35-105); Aspartate Amino Transferase 23 U/L (0-32); Blood Urea Nitrogen 19 mg/dL (8-23); Calcium 9.2 mg/dL (8.5-10.5); Carbon Dioxide 24 mmol/L (22-29); Chloride 105 mmol/L (98-107); Globulin 3.2 g/dL (1.3-4.6); Glucose 199 mg/dL (65-115); Osmolality Calculated 294 mOsm/kg (285-295); Sodium 141 mmol/L (136-145); Total Bilirubin 0.3 mg/dL (0.15-1.2); Total Protein 7.2 g/dL (6.6-8.7)
[2020-03-25 09:20] LABS: Troponin(5th) Baseline 33 ng/L (0-10)
[2020-03-25 09:22] LABS: Anion Gap 15.5 (5-19); Potassium 3.5 mmol/L (3.5-5.1)
[2020-03-25 11:01] LABS: Troponin 5 2HR 29.42 ng/L (0-10)
[2020-03-25 11:09] LABS: Troponin 5 2HR Delta -3.58 ABS# (0-10)
--- NOTE | 2020-03-25 12:21 | P.HP_ITS ---
Providers/Chief Complaint Admitting Physician: Allison Manuel DO Primary Care Provider: Parag Norris DO Chief Complaint: CHEST PAIN/ INCREASED HEART RATE History of Present Illness Jayjay Campa is a 84 year old female with a past medical history of atrial fibrillation, hypertension, peripheral vascular disease and uterine cancer that presented to the hospital today due to palpitations. Patient reported that she recently had a colonoscopy this week, undergoing prep and had to come into the ER for further evaluation due to palpitations, was recommended to be admitted at that time but refused that she had started her prep for colonoscopy and wanted to have this completed. Patient then went for colonoscopy was again noted to have atrial fibrillation with RVR but convinced the jewel bearing turner to complete the exam. She stated that she took a dose of sotalol this morning due to palpitations but then called 911 to come to the ER due to concern for some palpitations and pain in her right shoulder. Patient was seen and evaluated in the emergency department noted to have concern for atrial fibrillation with RVR given a Cardizem bolus and then rate improved. She was admitted for observation. Patient reported that she has been taken off of her Pradaxa due to vaginal bleeding and work-up for uterine cancer. She stated that she has an appointment with gynecologic oncologist on 06 April. Patient denies any recent illness, no fevers or chills. No recent medication changes. She reports that she has been trying to stay hydrated with her recent colonoscopy. Review of Systems Const: Denies: fever(s) or chills Eyes: Denies: change in vision ENMT: Denies: nasal congestion Card: Reports: chest pain and palpitations; Denies: edema Resp: Denies: dyspnea, productive cough or hemoptysis GI: Denies: abdominal pain, nausea, vomiting, diarrhea, constipation, hematochezia or melena : Reports: vaginal bleeding; Denies: dysuria or hematuria Musc: Denies: extremity pain or muscle cramps Skin/Breast: Denies: rash or new lesions Neuro: Denies: headache(s) or dizziness Psych: Denies: anxiety or depression Endo: Denies: polyuria or hot flashes Juan Manuel/Lymph: Denies: easy bruising or easy bleeding Medications/Allergies Home Medications Medication Instructions Recorded Confirmed Last Taken Type Pradaxa 150 mg PO BID 10/19/19 03/25/20 11/01/19 History Vascepa 2 g PO BID 10/19/19 03/25/20 10/18/19 History alprazolam 0.25 mg PO TID PRN 10/19/19 03/25/20 03/25/20 History pantoprazole 40 mg PO DAILY PRN 10/19/19 03/25/20 10/18/19 History potassium chloride 10 meq PO DAILY 10/19/19 03/25/20 03/23/20 History promethazine 25 mg PO Q6H PRN 10/19/19 03/25/20 Unknown History sertraline 25 mg PO DAILY 10/19/19 03/25/20 10/18/19 History amlodipine 5 mg PO DAILY 11/02/19 03/25/20 03/25/20 History sotalol 80 mg tablet 80 mg PO BID 11/10/19 03/25/20 03/25/20 History 120 mg melatonin 3 mg capsule 3 mg PO BEDTIME PRN cap 03/08/20 03/25/20 Unknown History ondansetron HCl 4 mg tablet 4 mg PO Q6H PRN 03/08/20 03/25/20 Unknown History aspirin 325 mg PO DAILY 03/25/20 03/25/20 03/22/20 History hydrochlorothiazide 12.5 mg tablet 12.5 mg PO DAILY #90 tab 03/25/20 03/25/20 Unknown Rx multivitamin [Multiple Vitamins] 1 tab PO DAILY 03/25/20 03/25/20 Unknown History Allergies Allergy/AdvReac Type Severity Reaction Status Date / Time codeine Allergy ALGY-Difficulty Verified 03/25/20 09:43 Breathing PFSH Acute PFSH: Medical History (Updated 03/25/20 @ 12:25 by Allison Manuel DO) Arthritis Atrial fibrillation Degenerative disc disease Gout History of CVA (cerebrovascular accident) Surgical History History of hip replacement (~2014) Total hip replacement through anterior approach performed in [facility] History of hip surgery Incision and drainage of right thigh abscess History of hysterectomy (~2010) according to pcp documentation--- performed in [place] for noninvasive cancer partial colectomy for obstruction and adhesion at the same time. 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, stage IVB Father Heart disease Denies family history of Ovarian cancer Diabetes Hyperlipidemia Stroke Social History Alcohol intake: never Additional social history: - Tobacco use: Denies Alcohol use: Denies Drug use: Denies Vitals/I&O/Wt Last Vital Signs Temp 98.0 F 03/25/20 08:36 Pulse 96 03/25/20 10:28 Resp 16 03/25/20 10:02 BP 116/51 03/25/20 10:28 Pulse Ox 94 03/25/20 10:28 Weight last 48 hrs Weight 65.317 kg Physical Exam Const: COMMON NORMALS: patient oriented x3 and alert GENERAL APPEARANCE: cooperative ORIENTATION/CONSCIOUSNESS: Yes awake, Yes oriented to person, Yes oriented to place and Yes oriented to time HENMT: COMMON NORMALS: normocephalic and atraumatic HEAD & SCALP: normocephalic and atraumatic Eye: COMMON NORMALS: Equal, round and reactive pupils present PUPIL: Yes Equal, round and reactive pupils present Neck/C-Spine: COMMON NORMALS: supple GENERAL: Yes normal visual inspection Resp: COMMON NORMALS: normal respiratory effort and clear to auscultation bilaterally EFFORT & INSPECTION: Yes able to speak in complete sentences AUSCULTATION: clear to auscultation bilaterally, no rhonchi and no wheezes Cardio: COMMON NORMALS: No murmurs present (Cardio) OTHER: Irregularly irregular, no appreciable murmur GI: COMMON NORMALS: Soft to palpation and non-tender INSPECTION: No abdominal distension AUSCULTATION: Yes normoactive bowel sounds PALPATION: Yes Soft to palpation Extremity: COMMON NORMALS: no clubbing, cyanosis or edema and no calf tenderness Neuro: COMMON NORMALS: patient oriented x3, CN's II-XII intact bilaterally, moves all extremities and no focal motor deficits SENSORIUM/ORIENTATION: Yes alert, Yes oriented to person, Yes oriented to place and Yes oriented to time SPEECH: speech normal Psych: COMMON NORMALS: mental status grossly normal and cooperative Skin: COMMON NORMALS: no rashes or lesions noted GENERAL SKIN EXAM: no rashes or lesions noted Data : 03/25/20 08:22 03/25/20 08:22 A&P Assessment and plan (1) Atrial fibrillation with RVR: Patient has known atrial fibrillation Intermittent episodes of RVR Patient had colonoscopy 2 days ago, had been on sotalol but missed 1 dose due to colonoscopy prep. Continue on sotalol Given Cardizem in the ED, loading dose, transition to oral at this time 30 mg every 6 hours. Transition to extended release as tolerated Patient is no longer on anticoagulation due to work-up for vaginal bleeding in the postmenopausal female with concern for uterine cancer. Has follow-up with Dr. Stoner at [facility] on 04/06/2020 Status: Acute (2) Elevated troponin: Likely secondary to RVR No significant delta Continue close monitoring on telemetry Chest pain has now resolved with improvement of heart rate Status: Acute (3) Vaginal cancer: No longer on anticoagulation due to vaginal bleeding Continue with outpatient follow-up Status: Acute (4) Hypertension: Hold amlodipine at this time due to soft blood pressure will hold hydrochlorothiazide Status: Acute (5) Peripheral vascular disease: Status: Acute (6) Coronary artery disease: Patient had a cardiac stress test on 09/03/2018, EKG was suggestive of ischemia, however Lexiscan was unremarkable. Echocardiogram from October 2019 reviewed, LVEF of 69%, mild mitral and tricuspid regurgitation, mild aortic valve regurgitation, moderate pulmonary hypertension Will discuss with cardiology. Status: Acute Qualifiers: Coronary Disease-Associated Artery/Lesion type: [place] artery [place] vs. transplanted heart: [place] heart Associated angina: without angina Qualified Code(s): I25.10 - Atherosclerotic heart disease of [place] coronary artery without angina pectoris (7) Atrial fibrillation: Plan as above Status: Acute Qualifiers: Atrial fibrillation type: unspecified Qualified Code(s): I48.91 - Unspecified atrial fibrillation Attestations Medical Necessity Statement*: Observation placement due to atrial fibrillation with RVR, expected stay less than 2 midnights Coding Level of Care Code Acute Harnessmaker for [facility] Fwfady Diagnoses Atrial fibrillation with RVR I48.91 Elevated troponin R79.89 Vaginal cancer C52 Hypertension I10 Peripheral vascular disease I73.9 Coronary artery disease I25.10 Coronary Disease-Associated Artery/Lesion type: [place] artery [place] vs. transplanted heart: [place] heart Associated angina: without angina Atrial fibrillation I48.91 Atrial fibrillation type: unspecified
[2020-03-25 12:49] LABS: Thyroid Stimulating Hormone 2.03 uIU/mL (0.27-4.20)
[2020-03-25] MEDS: dilTIAZem 30 mg Tablet PO ×2 (13:08→18:21)
--- NOTE | 2020-03-25 13:25 | PC.NURSE ---
Patient hr is elevated at this time patient denies chest pain although reports right shoulder pain Dr Manuel on unit verbal instructions to give nitro sublingual 0.4 mg x1
[2020-03-25] MEDS: nitroglycerin 0.4 mg sublingual Tablet SUBLINGUAL (13:41)
--- NOTE | 2020-03-25 14:48 | ECG_ITS ---
[facility] Test Date: 2020-03-25 Pat Name: Jayjay Campa Department: Room: 112 Gender: Female Rn Clinical Documentation Specialist: : [id number] Requested By: Idris Johnston Order Number: [id number] Giovani MD: Arsen Wilson M.D. Measurements Intervals [place] Rate: 121 P: [place]: -1 QRS: -21 QRSD: 89 T: 118 QT: 310 QTc: 441 Interpretive Statements ATRIAL FIBRILLATION WITH RAPID VENTRICULAR RESPONSE BORDERLINE LEFT AXIS DEVIATION [QRS AXIS < -20] NONSPECIFIC ST & T-WAVE ABNORMALITY Compared to ECG 03/25/2020 08:43:10 No significant changes Electronically Signed On 03-27-2020 19:55:07 CDT by Arsen Wilson M.D. [id number]
[2020-03-25 15:23] LABS: Troponin 5 6HR 33.01 ng/L (0-10); Troponin 5 6HR Delta 0.01 ng/L (0-12)
[2020-03-25] MEDS: sotalol 80 mg Tablet PO (17:53)
[2020-03-25] MEDS: acetaminophen 325 mg Tablet 650 MG PO (18:21)
--- NOTE | 2020-03-25 18:22 | PC.NURSE ---
Patient's only complaint at this time is right shoulder pain. Patient states I have arthritis in my neck and I think they pillow is making my shoulder hurt. PRN Tylenol given. Will monitor.
--- NOTE | 2020-03-25 18:26 | PC.NURSE ---
Patient states I had a colonoscopy yesterday afternoon and my bowels haven't moved since then.
--- NOTE | 2020-03-25 19:02 | PC.NURSE ---
Patient states that the Tylenol helped her shoulder pain. Will monitor.
--- NOTE | 2020-03-25 20:30 | PC.NURSE ---
Dr. Quiñones notified of patient stating that her right shoulder pain is getting worse. notified that per report from previous shift, nitro SL helped the pain, however patient is currently asking for sara-alba/sports creame.
--- NOTE | 2020-03-25 22:25 | PC.NURSE ---
Patient is currently resting with eyes closed. Will monitor and reassess pain. Patient heart rate is A-Fib ranging anywhere from 90 to 130. Patient is asymptomatic.
--- NOTE | 2020-03-25 22:32 | PC.NURSE ---
Dr. Quiñones notified of patient's heart rate ranging from 90-130s and patient stating her right shoulder pain is getting worse. Ordered to give 2 mg Morphine. Patient states that she has had Morphine before and did not have any kind of reaction to it. Patient states I think it's just this pillow needs readjusting. Patient will be given extra pillows and readjusted in bed.
[2020-03-25] MEDS: morphine 4 mg/mL SDV 1 mL 2 MG IVP (22:51)
--- NOTE | 2020-03-25 23:10 | PC.NURSE ---
Patient's pain was reassessed and stated That Morphine is working really well. Will monitor.
[2020-03-26] VITALS (10 sets, daily range): BP systolic 100–172; BP diastolic 47–79; PULSE 52–113; RESP 16–18; TEMP 36.5–36.8; O2SAT 95–97
[2020-03-26] MEDS: dilTIAZem 30 mg Tablet PO ×2 (00:08→05:00)
[2020-03-26] MEDS: sotalol 80 mg Tablet PO ×2 (04:00→16:48)
[2020-03-26 05:41] LABS: Basophils % 0.6 %; Eosinophils # 0.2 10^3/uL (0.0-0.8); Eosinophils % 2.8 %; Hematocrit 34.5 % (37.0-47.0); Hemoglobin 10.7 g/dL (11.5-15.3); Lymphocytes # 2.3 10^3/uL (0.8-4.8); Lymphocytes % 31.4 %; Mean Corpuscular Volume 87.1 fL (81-99); Mean Platelet Volume 10.6 fL (7.4-10.4); Monocytes # 0.9 10^3/uL (0.2-0.9); Monocytes % 12.1 %; Neutrophils # 3.84 10^3/uL (1.8-7.7); Neutrophils % 52.7 %; Nucleated Red Blood Cells % 0 %; Platelet Count 241 10^3/cmm (130-400); Red Blood Count 3.96 10^6/uL (4.1-5.3); Red Cell Distribution Width 15.4 % (12.1-15.1); White Blood Count 7.3 10^3/uL (4.0-10.0)
[2020-03-26 06:05] LABS: Anion Gap 12.5 (5-19); Blood Urea Nitrogen 24 mg/dL (8-23); Calcium 8.8 mg/dL (8.5-10.5); Carbon Dioxide 25 mmol/L (22-29); Chloride 108 mmol/L (98-107); Glucose 108 mg/dL (65-115); Osmolality Calculated 291 mOsm/kg (285-295); Potassium 3.5 mmol/L (3.5-5.1); Sodium 142 mmol/L (136-145)
--- NOTE | 2020-03-26 07:56 | ECG_ITS ---
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 Measurements Intervals [place] Rate: 48 P: 58 MA: 149 QRS: -18 QRSD: 82 T: 21 QT: 461 QTc: 416 Interpretive Statements SINUS BRADYCARDIA NONSPECIFIC ST & T-WAVE ABNORMALITY Compared to ECG 03/25/2020 15:19:48 Atrial fibrillation no longer present T-wave abnormality still present Electronically Signed On 03-28-2020 12:14:15 CDT by Arsen Wilson M.D. [id number]
--- NOTE | 2020-03-26 08:07 | PC.NURSE ---
PATIENT CONVERTED TO SINUS BRADYCARDIA FROM ATRIAL FIBRILLATION. EKG OBTAINED. PATIENT NOTED TO HAVE AN ELONGATED QT INTERVAL WELL. DR. ABRAHAM NOTIFIED. REVIEWED PATIENT'S LABS AND ORDERED TO GIVE 40MEQ OF POTASSIUM BY MOUTH. WILL CONTINUE TO MONITOR.
[2020-03-26] MEDS: aspirin 325 mg Tablet PO (09:07)
[2020-03-26] MEDS: multivitamin therapeutic Tablet 1 TAB PO (09:07)
[2020-03-26] MEDS: potassium chloride ER 10 mEq Tablet 40 MEQ PO (09:07)
[2020-03-26] MEDS: sertraline 50 mg Tablet 25 MG PO (09:07)
[2020-03-26] MEDS: potassium chloride ER 10 mEq Tablet PO (09:07)
[2020-03-26 09:25] LABS: Magnesium 1.9 mg/dL (1.7-2.3)
--- NOTE | 2020-03-26 11:25 | PC.CHAP ---
Pastoral Care Encounter/Spiritual Assessment Type of Contact [] Declined welding process specialist visit [] Patient/Family/Request visit [] Outpatient visit [] Follow-up visit [] Physician referral [] Code/Alert [X] Routine visit [] Staff referral [] Actively dying [] Patient sleeping [] Family support [] [] Out of room [] Palliative care [] [] Receiving care in room [] Pre-surgical visit [] Trauma [] Long length of stay [] ICU visit [] Other: Relational/Emotional Strength [X] Patient feels connected with others/family/visitors/staff [] Distress [] Loneliness/isolation [] Abandonment Spirituality of Patient [X] Person of [place] [X] Attends Oriental Orthodox of their [place] [X] Believes in Prayer [] Reads Bible or Moravian materials [] There are Spiritual issues to be addressed Cesspool Cleaner Interventions [] Prayer [X] Active listening [X] Non-anxious presence [] Spiritual/emotional support [] Crisis/trauma care [] Spiritual counseling [X] Bereavement support [] Provided bereavement packet [] Provided Bible/devotional materials [] Provided toy/stuffed animal, coloring book to patient or family member [] Provided Communion [] Anointing/[place] [] Salvation [X] Completed spiritual assessment [X] Other: assisted her operating her cell phone and assisted with Tagoodiesd Impact on Illness or Injury [] Angry [] Fearful [] Anxious [] Often cries [] Exhaustion [] Unable to work [] Unable to attend nondenominational [] Unable to walk/stand [] Unable to read [] Unable to drive [] Unable to eat/drink [] Unable to sleep [] Unable to be with family [] Patient intubated [] Other: Summary: Pt has had a very tough year. Her daughter, whom had lived with her for 14 years since pt's passed, from cancer. Grief remains fresh. Additionally, pt recently dx with cancer -- assessments are ongoing to determine extent and treatment. On top of all of this, she is having heart problems, which is why she was admitted. She welcomed the visit but declined me praying for her aloud. She has family support (her son moved in when her daughter was diagnosed with cancer and remains in the home). She is okay with healing and okay with dying as she said, I will get to be with my daughter. Time spent with patient: 25 mins
--- NOTE | 2020-03-26 11:26 | P.PN_ITS ---
Subjective Subjective: Interval history: Jayjay reports she is doing okay. Converted to sinus rhythm this morning. No chest pain. Medications: Reviewed: Yes Vitals/I&O/Wt Last Vital Signs Temp 97.8 F 03/26/20 11:12 Pulse 54 L 03/26/20 11:12 Resp 18 03/26/20 11:12 BP 145/64 03/26/20 11:12 Pulse Ox 95 03/26/20 11:12 03/25/20 03/26/20 03/26/20 22:59 06:59 14:59 Intake Total 240 / 480 500 / 980 360 / 360 Balance 240 / 480 500 / 980 360 / 360 Weight last 48 hrs Weight 71.078 kg Weight 65.317 kg Physical Exam Narrative: EXAM NARRATIVE: General exam no apparent distress Cardiovascular regular rhythm, bradycardic, without murmur Lungs clear Abdomen is soft with positive bowel sounds Extremity no cyanosis clubbing or edema Data : 03/26/20 04:50 03/26/20 04:50 A&P Assessment and plan (1) Atrial fibrillation with RVR: She has now converted to sinus rhythm Thought to be secondary to dehydration with colonoscopy prep as well as missing 1 dose of sotalol Sotalol has been restarted at 80 mg twice daily She was on a Cardizem drip and converted to oral Cardizem but I have held it this morning secondary to bradycardia Cardiology consult will be obtained secondary to risk of recurrent atrial fibrillation, and concern tachycardia, bradycardia syndrome Probable discharge tomorrow. Not on anticoagulation secondary to uterine cancer, with postmenopausal bl eeding. To follow-up with gynecology oncology at [facility] Status: Acute (2) Elevated troponin: Type II elevation secondary to atrial fibrillation with rapid ventricular rate. No evidence of acute myocardial infarction likely secondary to RVR Status: Acute (3) Vaginal cancer: No longer on anticoagulation due to vaginal bleeding Continue with outpatient follow-up Status: Acute (4) Hypertension: Holding Norvasc and hydrochlorothiazide Status: Acute (5) Peripheral vascular disease: Status: Acute (6) Coronary artery disease: Patient had a cardiac stress test on 09/03/2018, EKG was suggestive of ischemia, however Lexiscan was unremarkable. Echocardiogram from October 2019 reviewed, LVEF of 69%, mild mitral and tricuspid regurgitation, mild aortic valve regurgitation, moderate pulmonary hypertension Status: Acute Qualifiers: Coronary Disease-Associated Artery/Lesion type: [place] artery [place] vs. transplanted heart: [place] heart Associated angina: without angina Qualified Code(s): I25.10 - Atherosclerotic heart disease of [place] coronary artery without angina pectoris (7) Atrial fibrillation: Continue sotalol. Hold Cardizem. Status: Acute Qualifiers: Atrial fibrillation type: unspecified Qualified Code(s): I48.91 - Unspecified atrial fibrillation Attestations Medical Necessity Statement*: Needs continued hospital stay for close follow- up of atrial fibrillation with rapid ventricular rate, converting to sinus this morning but bradycardic. 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 transplanted heart: [place] heart Associated angina: without angina Atrial fibrillation I48.91 Atrial fibrillation type: unspecified
[2020-03-26] MEDS: acetaminophen 325 mg Tablet 650 MG PO (12:45)
[2020-03-26] MEDS: ibuprofen 600 mg Tablet PO (14:22)
--- NOTE | 2020-03-26 16:51 | P.CONIM_ITS ---
Providers/Reason For Consult Consulting Physican/Specialty*: Dr. Arsen Wilson/cardiology Reason for Consult*: Atrial fibrillation with RVR Attending Physician: Alexander Hernandez MD Primary Care Provider: Parag Norris DO History of Present Illness History of Present Illness Jayjay Campa is a 84 year old female with a past medical history of atrial fibrillation, hypertension, peripheral vascular disease and uterine cancer that presented to the hospital due to palpitations. Patient reported that she recently had a colonoscopy this week, undergoing prep and had to come into the ER for further evaluation due to palpitations, was recommended to be admitted at that time but refused that she had started her prep for colonoscopy and wanted to have this completed. Patient then went for colonoscopy was again noted to have atrial fibrillation with RVR but convinced the salt operator to complete the exam. She continued having palpitations and improve presented to the hospital. She was found to be in atrial fibrillation with RVR. She had missed 1 dose of sotalol. She had similar admission a couple of months ago where she ran out of her sotalol and went into A. fib with RVR. She was restarted on sotalol was converted back to normal sinus rhythm and has not felt palpitations in between these 2 admissions. She was put on Cardizem yesterday. This morning she converted back to normal sinus rhythm. She has been bradycardic since. There is no significant chest pain. Review of Systems Const: Denies: fever(s) or chills Eyes: Denies: change in vision ENMT: Denies: nasal congestion Card: Reports: chest pain and palpitations; Denies: edema Resp: Denies: dyspnea, productive cough or hemoptysis GI: Denies: abdominal pain, nausea, vomiting, diarrhea, constipation, hematochezia or melena : Reports: vaginal bleeding; Denies: dysuria or hematuria Musc: Denies: extremity pain or muscle cramps Skin/Breast: Denies: rash or new lesions Neuro: Denies: headache(s) or dizziness Psych: Denies: anxiety or depression Endo: Denies: polyuria or hot flashes Juan Manuel/Lymph: Denies: easy bruising or easy bleeding Meds/Allergies Home Medications and Allergies Home Medications Medication Instructions Recorded Confirmed Last Taken Type Vascepa 2 g PO BID 10/19/19 03/25/20 10/18/19 History alprazolam 0.25 mg PO TID PRN 10/19/19 03/25/20 03/25/20 History pantoprazole 40 mg PO DAILY PRN 10/19/19 03/25/20 10/18/19 History potassium chloride 10 meq PO DAILY 10/19/19 03/25/20 03/23/20 History promethazine 25 mg PO Q6H PRN 10/19/19 03/25/20 Unknown History sertraline 25 mg PO DAILY 10/19/19 03/25/20 10/18/19 History amlodipine 5 mg PO DAILY 11/02/19 03/25/20 03/25/20 History sotalol 80 mg tablet 80 mg PO BID 11/10/19 03/25/20 03/25/20 History 120 mg melatonin 3 mg capsule 3 mg PO BEDTIME PRN cap 03/08/20 03/25/20 Unknown History ondansetron HCl 4 mg tablet 4 mg PO Q6H PRN 03/08/20 03/25/20 Unknown History aspirin 325 mg PO DAILY 03/25/20 03/25/20 03/22/20 History hydrochlorothiazide 12.5 mg tablet 12.5 mg PO DAILY #90 tab 03/25/20 03/25/20 Unknown Rx multivitamin [Multiple Vitamins] 1 tab PO DAILY 03/25/20 03/25/20 Unknown History Allergies Allergy/AdvReac Type Severity Reaction Status Date / Time codeine Allergy ALGY-Difficulty Verified 03/25/20 09:43 Breathing Current Medications Current Medications Generic Name Dose Route Start Last Admin Trade Name Martinq PRN Reason Stop Dose Admin Acetaminophen 650 mg 03/25/20 12:09 03/26/20 12:45 Tylenol PO 650 mg Q6H PRN Administration Mild/Mod Pain Or Temp >/= 101 Aspirin 325 mg 03/26/20 09:00 03/26/20 09:07 Aspirin PO 325 mg DAILY CATHERINE Administration Diltiazem HCl 30 mg 03/25/20 12:15 03/26/20 05:00 Cardizem PO 30 mg Q6H CATHERINE Administration Multivitamins Therapeutic 1 tab 03/26/20 09:00 03/26/20 09:07 Multivitamin Tab PO 1 tab DAILY CATHERINE Administration Potassium Chloride 10 meq 03/26/20 09:00 03/26/20 09:07 Klor-Con 10 PO 10 meq DAILY CATHERINE Administration Sertraline HCl 25 mg 03/26/20 09:00 03/26/20 09:07 Zoloft PO 25 mg DAILY CATHERINE Administration Sotalol HCl 80 mg 03/25/20 17:00 03/26/20 16:48 Betapace PO 80 mg Q12H CATHERINE Administration Trolamine Salicylate 1 applic 03/25/20 20:29 03/26/20 12:49 Aspercreme TOPICAL 1 applic TID PRN Administration shoulder pain PFSH Acute PFSH: Medical History Arthritis Atrial fibrillation Degenerative disc disease Gout History of CVA (cerebrovascular accident) Surgical History History of hip replacement (~2014) Total hip replacement through anterior approach performed in [facility] History of hip surgery Incision and drainage of right thigh abscess History of hysterectomy (~2010) according to pcp documentation--- performed in [place] for noninvasive cancer partial colectomy for obstruction and adhesion at the same time. 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, stage IVB Father Heart disease Denies family history of Ovarian cancer Diabetes Hyperlipidemia Stroke Social History Alcohol intake: never Additional social history: - Tobacco use: Denies Alcohol use: Denies Drug use: Denies Vitals/I&O/Wt Last Vital Signs Temp 97.8 F 03/26/20 11:12 Pulse 58 L 03/26/20 16:00 Resp 18 03/26/20 16:00 BP 134/59 03/26/20 16:00 Pulse Ox 96 03/26/20 16:00 03/26/20 03/26/20 03/26/20 06:59 14:59 22:59 Intake Total 500 / 980 480 / 480 Balance 500 / 980 480 / 480 Weight last 48 hrs Weight 156 lb 11.2 oz Weight 144 lb Physical Exam Narrative: EXAM NARRATIVE: GENERAL: Patient is alert, awake and oriented x3. [] NECK: No jugular vein distension. [] HEENT: No cyanosis. No icterus. No pallor. [] HEART: Bradycardia ,regular S1 and S2. No murmur, rub or gallop. [] LUNGS: Clear to auscultate bilaterally. [] ABDOMEN: Soft, nontender and nondistended. Positive bowel sounds. No guarding, rebound or tenderness. [] CENTRAL NERVOUS SYSTEM: Grossly nonfocal. [] EXTREMITIES: Lower extremities with faint edema bilaterally. Pulses palpable in the lower extremities, both dorsalis pedis and posterior tibial. [] A&P Assessment and plan (1) Atrial fibrillation: Status: Acute Qualifiers: Atrial fibrillation type: unspecified Qualified Code(s): I48.91 - Unspecified atrial fibrillation (2) Hypertension: Status: Acute (3) Bradycardia: Status: Acute (4) Peripheral vascular disease: Status: Acute (5) Diabetes mellitus: Status: Acute Patient has had 2 episodes of A. fib with RVR needing admission to the hospital recently. I believe this is related to missing her medications specifically sotalol. Last admission she had run out of her sotalol for about 5 days and then presented to the hospital with A. fib with RVR. Current episode is related both with her bowel prep for colonoscopy which must have made her dehydrated and she missed at least 1 dose of sotalol. Given her bradycardia I would recommend discontinuing Cardizem. Continue on sotalol 80 mg twice daily. I emphasized that she should ensure not to miss any doses of her sotalol. Continue telemetric monitoring for 1 more day. If her rhythm and rate stays stable, she can be discharged home tomorrow. Event monitor to be ordered to assess burden of A. fib. Ideally she should be on anticoagulation as her chads Vasc score is high. However she mentions she had significant vaginal bleeding for which she is undergoing work-up and her Pradaxa was stopped secondary to that. Thank you for involving us with the care of this patient. Please call with questions. Coding Level of Care Code Acute Vending Mechanic for [facility] Diagnoses Atrial fibrillation I48.91 Atrial fibrillation type: unspecified Hypertension I10 Bradycardia R00.1 Peripheral vascular disease I73.9 Diabetes mellitus E11.9
--- NOTE | 2020-03-26 18:44 | PC.NURSE ---
DISCUSSED WITH PATIENT WHICH MEDICATIONS SHE HAD PREVIOUSLY RECEIVED FOR PAIN AND WHAT REACTION SHE HAD TO CODEINE. PATIENT STATED THAT CODEINE AND OXYCODONE MADE HER EXTREMELY NAUSEAS. SHE STATED THAT SHE HAD TAKEN TRAMADOL AND HYDROCODONE IN THE PAST AND DOESN'T REMEMBER A REACTION. PATIENT HAS HAD RIGHT ARTHRITIC SHOULDER PAIN MOST OF THIS SHIFT. DISCUSSED THIS WITH DR. ABRAHAM AND ORDERED TO GIVE TRAMADOL 50MG Q6H PRN. WILL CONTINUE TO MONITOR.
[2020-03-26] MEDS: TRAMadol 50 mg Tablet PO (18:52)
--- NOTE | 2020-03-26 20:36 | PC.NURSE ---
Patient does not have any complaints at this time. Patient states that pill they gave me really helped my shoulder. Will monitor.
[2020-03-27] VITALS: BP 135/58; PULSE 54; RESP 16; TEMP 36.6; O2SAT 97
[2020-03-27 04:00] VITALS: BP 145/64; PULSE 54; RESP 18; TEMP 36.6; O2SAT 94
--- NOTE | 2020-03-27 04:36 | PC.NURSE ---
Dr. Quiñones notified of patient's heart rate maintaining 50s in SB. Patient has Sotalol 80 mg due at this time that she normally takes at home. Ordered to non-admin the dose that is due at this time.
[2020-03-27] MEDS: sotalol 80 mg Tablet PO ×2 (06:43→06:47)
--- NOTE | 2020-03-27 06:47 | PC.NURSE ---
COCONUT BOILER PHYSICIAN HAD ORDERED TO HOLD THE 0500 DOSE DUE TO BRADYCARDIA. THIS PATIENT'S HEART RATE REMAINS STABLE WITH EVERY SOTALOL ADMINISTRATION DESPITE HER PERSISTANT BRADYCARDIA. HER HEART RATE REMAINS IN THE 50'S SINUS BRADYCARDIA. DR. URIAS DISCUSSED WITH PATIENT YESTERDAY THAT NO SOTALOL DOSE SHOULD BE MISSED. DISCUSSED THE NON ADMINISTRATION WITH DR. ABRAHAM, ORDERED TO PLEASE GIVE THE 0500 DOSE OF SOTALOL NOW.
[2020-03-27 07:36] VITALS: BP 144/93; PULSE 53; RESP 17; TEMP 36.6; O2SAT 96
[2020-03-27] MEDS: multivitamin therapeutic Tablet 1 TAB PO (08:44)
[2020-03-27] MEDS: aspirin 325 mg Tablet PO (08:44)
[2020-03-27] MEDS: potassium chloride ER 10 mEq Tablet PO (08:44)
[2020-03-27] MEDS: sertraline 50 mg Tablet 25 MG PO (08:44)
--- NOTE | 2020-03-27 09:53 | P.DS_ITS ---
Discharge Providers Date of Admission: 03/26/20 16:39 Date of Discharge: March 27, 2020 Attending Provider at Admission: Allison Manuel DO Attending Provider at Discharge: Alexander Hernandez MD Primary Care Provider: Parag Norris DO Diagnoses at Discharge Discharge Diagnosis (1) Atrial fibrillation: Status: Acute Problem details: Converted to sinus rhythm. Placed back on home sotalol dosing Qualifiers: Atrial fibrillation type: unspecified Qualified Code(s): I48.91 - Unspecified atrial fibrillation (2) Hypertension: Status: Acute (3) Bradycardia: Status: Acute (4) Peripheral vascular disease: Status: Acute (5) Diabetes mellitus: Status: Acute Reason for Visit Reason for Visit: CHEST PAIN/ INCREASED HEART RATE Hospital Course Hospital Course: Jayjay is an 84-year-old white female with history of paroxysmal atrial fibrillation who presented to the hospital with atrial fibrillation with rapid ventricular rate. She had recently underwent a colonoscopy preparation and had missed a dose of her sotalol, and possibly had some mild dehydration. She was placed on a Cardizem drip, her sotalol and follow closely. She converted to sinus rhythm at a bradycardic rate so Cardizem was discontinued. Cardiology was consulted. They believe she can continue on her sotalol at 80 mg twice daily. Heart rate was approximately 50-65 asymptomatic with this medication, in sinus rhythm. She will have an event monitor, and follow-up with her child care associate teacher in the next 2 weeks. She will follow-up with her primary care provider in 3 to 5 days. Event monitor ordered on discharge. Physical Exam Narrative: EXAM NARRATIVE: General exam no apparent distress Cardiovascular regular rate and rhythm Lungs clear no wheezing or crackles Abdomen is soft nontender with positive bowel sounds Extremities no cyanosis clubbing or edema Discharge Data Vitals: Last Vital Signs Temp 97.9 F 03/27/20 07:36 Pulse 53 L 03/27/20 07:36 Resp 17 03/27/20 07:36 BP 144/93 03/27/20 07:36 Pulse Ox 96 03/27/20 07:36 Discharge Plan Discharge Patient Disposition: Home Condition: Stable Prescriptions: Continued sotalol 80 mg tablet 80 mg PO BID RF: 0 melatonin 3 mg capsule 3 mg PO BEDTIME PRN (Reason: Sleep) RF: 0 ondansetron HCl 4 mg tablet 4 mg PO Q6H PRN (Reason: nausea and vomiting) RF: 0 hydrochlorothiazide 12.5 mg tablet 12.5 mg PO DAILY Qty: 90 RF: 3 Multiple Vitamins Tablet 1 tab PO DAILY RF: 0 aspirin 325 mg Tablet 325 mg PO DAILY RF: 0 potassium chloride 10 mEq Tablet Extended Release 10 meq PO DAILY RF: 0 promethazine 25 mg Tablet 25 mg PO Q6H PRN (Reason: Nausea) RF: 0 sertraline 25 mg Tablet 25 mg PO DAILY RF: 0 Vascepa 1 gram Capsule 2 g PO BID RF: 0 alprazolam 0.25 mg tablet 0.25 mg PO TID PRN (Reason: Anxiety) RF: 0 pantoprazole 40 mg Tablet,Delayed Release (Dr/Ec) 40 mg PO DAILY PRN (Reason: unknown) RF: 0 amlodipine 5 mg Tablet 5 mg PO DAILY RF: 0 Discharge Orders: Discharge Order (Routine); Ordered 03/27/20 Ordered By: Alexander Hernandez Other Ambulatory Orders: [place] cardiac event monitor (Routine) Timeframe: 2 Days Facility: [facility] - Location: Card[facility] Diagnostic Laboratory Ordered By: Alexander Hernandez Referrals: Parag Norris DO [Primary Care Provider] - 4-7 days Em Shannon MD [Physician] - 2 weeks Discharge Diet: Cardiac and Diabetic Discharge Activity: Increase activity as tolerated Discharge Attestations Time Spent in Discharge Care*: greater than 30 min Quality Metrics Clinical Quality Measures During this hospital stay, did patient experience: None Coding Level of Care Code Acute Fibre Optics Jointer for [facility] Fwd Diagnoses Atrial fibrillation I48.91 Atrial fibrillation type: unspecified Hypertension I10 Bradycardia R00.1 Peripheral vascular disease I73.9 Diabetes mellitus E11.9
[2020-03-27 10:15] VITALS: BP 144/93; PULSE 53; RESP 17; TEMP 36.6; O2SAT 96
--- NOTE | 2020-03-27 10:44 | P.PN_ITS ---
Subjective Subjective: Interval history: Patient has been doing well. She has stayed in sinus rhythm. Heart rates are 50s to 60s. She is asymptomatic and her blood pressure is well controlled. Medications: Reviewed: Yes Vitals/I&O/Wt Last Vital Signs Temp 97.9 F 03/27/20 10:15 Pulse 53 L 03/27/20 10:15 Resp 17 03/27/20 10:15 BP 144/93 03/27/20 10:15 Pulse Ox 96 03/27/20 10:15 03/26/20 03/27/20 03/27/20 22:59 06:59 14:59 Intake Total 300 / 780 240 / 240 Balance 300 / 780 240 / 240 Weight last 48 hrs Weight 162 lb 9.6 oz Weight 156 lb 11.2 oz Physical Exam Narrative: EXAM NARRATIVE: GENERAL: Patient is alert, awake and oriented x3. [] NECK: No jugular vein distension. [] HEENT: No cyanosis. No icterus. No pallor. [] HEART: Regular S1 and S2. No murmur, rub or gallop. [] LUNGS: Clear to auscultate bilaterally. [] ABDOMEN: Soft, nontender and nondistended. Positive bowel sounds. No guarding, rebound or tenderness. [] CENTRAL NERVOUS SYSTEM: Grossly nonfocal. [] EXTREMITIES: Lower extremities with no significant edema bilaterally. Pulses palpable in the lower extremities, both dorsalis pedis and posterior tibial. [] Data : 03/26/20 04:50 03/26/20 04:50 A&P Assessment and plan (1) Atrial fibrillation: Status: Acute Qualifiers: Atrial fibrillation type: unspecified Qualified Code(s): I48.91 - Unspecified atrial fibrillation (2) Hypertension: Status: Acute (3) Bradycardia: Status: Acute (4) Peripheral vascular disease: Status: Acute (5) Diabetes mellitus: Status: Acute Patient has stayed in sinus rhythm. Her heart rate is borderline low mostly late 50s to 60s. Patient is stable to be discharged today on her sotalol dose. Ideally she should be on anticoagulation as her chads Vasc score is high. However she mentions she had significant vaginal bleeding for which she is undergoing work-up and her Pradaxa was stopped secondary to that. Event monitor to be ordered to assess burden of A. fib and degree of bradycardia. Follow-up with cardiology clinic. Thank you for involving us with the care of this patient. Please call with questions. Attestations Medical Necessity Statement*: Atrial fibrillation with RVR Coding Level of Care Code Acute Call Center Operations Manager for [facility]w Diagnoses Atrial fibrillation I48.91 Atrial fibrillation type: unspecified Hypertension I10 Bradycardia R00.1 Peripheral vascular disease I73.9 Diabetes mellitus E11.9
--- NOTE | 2020-03-28 16:51 | PC.RESP ---
PATIENT DOES NOT HAVE A QUALIFYING HX OF LUNG DISEASE AND DOES NOT QUALIFY FOR PULMONARY REHAB AT THIS TIME.
== END 2020-03-27 11:07 | disposition home or self-care (01) | DRG 310 ==
LOC: ER 09:52 → CSU 10:09
PROVIDERS: Family Medicine; Admitting Provider Family Medicine; PCP Electrodiagnostic Medicine; Visit Provider Internal Medicine
DX: I48.91 Unspecified atrial fibrillation (principal); I10 Essential (primary) hypertension; E11.42 Type 2 diabetes mellitus with diabetic polyneuropathy; C52 Malignant neoplasm of vagina; M25.511 Pain in right shoulder; M19.90 Unspecified osteoarthritis, unspecified site; M10.9 Gout, unspecified; Z86.73 Personal history of transient ischemic attack (TIA), and cerebral infarction without residual deficits; Z96.649 Presence of unspecified artificial hip joint; Z90.49 Acquired absence of other specified parts of digestive tract; I25.10 Atherosclerotic heart disease of native coronary artery without angina pectoris; I27.20 Pulmonary hypertension, unspecified; E86.0 Dehydration; R00.1 Bradycardia, unspecified; R91.8 Other nonspecific abnormal finding of lung field
CPT/HCPCS: 12345; 36415; 71045; 80048; 80053; 83735; 84443; 84484; 85025; 85610; 93005; 96361; 96374; 96375; 96376; 99283; 99284; G0378; J2270; J3490; J7030

== ENCOUNTER 2020-04-05 08:17 | Outpatient (CLI) | payer MEDICARE, OTHER, SELFPAY ==
--- NOTE | 2020-04-05 08:31 | CT_ITS ---
WS: [id number] CT CHEST TECHNIQUE: Contrast enhanced CT of the chest with coronal and sagittal reformatted images. CLINICAL INFORMATION: PULMONARY NODULE COMPARISON: CTA 02/09/19 DLP: 760.[address] scans at [facility] use at least one of these dose optimization techniques: automat ed exposure control; mA and/or kV adjustment per patient size (includes targeted exams where dose is matched to clinical indication); or iterative reconstruction. FINDINGS: Noncalcified pulmonary nodules in the left lower lobe measuring 1.2 x 1.2 CM stable compared to previ ous. Additional nodule superior segment left lower lobe measuring 0.9 x 0.9 cm increased in size comp ared to previous. This is increased in size over multiple prior examinations dating back to . Recommend further evaluation with PET/CT. No other suspicious pulmonary parenchymal opacities. No focal pneumonia. No pleural fluid. Mild emphy sematous changes. Aortic calcification. Normal caliber thoracic aorta. Proximal main pulmonary arteri es are normal. Cholecystectomy clips. Adrenal glands are normal. Hypertrophic changes thoracic spine. Calcified left thyroid nodule measuring [address]/CT chest w con* [id number] IMPRESSION: 1. Noncalcified nodule left lower lobe laterally measuring 1.2 x 1.2 cm unchan ged. Recommend 6 month follow-up. 2. Enlarging noncalcified super segment left lower lobe nodule increased from previous, today measuring 0.9 x 0.9 cm compared to 0.9 x 0.7 cm previous by my measurements. Recommend further evaluation with PET/CT. 3. No mediastinal or hilar lymphadenopathy. 4. Normal caliber thoracic aorta. 5. Prior cholecystectomy.
[2020-04-05] MEDS: iohexol 300 mg/mL 100 mL Btl IV (08:52)
== END 2020-04-05 08:18 | disposition home or self-care (01) ==
PROVIDERS: PCP Electrodiagnostic Medicine; Visit Provider Electrodiagnostic Medicine
DX: R91.1 Solitary pulmonary nodule (principal)
CPT/HCPCS: 71260; Q9967

== ENCOUNTER 2020-04-10 23:24 | Inpatient (IN) | payer MEDICARE, OTHER, SELFPAY ==
[2020-04-10 23:29] VITALS: BP 155/79; PULSE 117; RESP 18; TEMP 36.5; O2SAT 97; BMI 24.7
[2020-04-10 23:33] VITALS: BP 162/98; PULSE 153; RESP 22; O2SAT 99
[2020-04-10 23:45] VITALS: O2SAT 99
--- NOTE | 2020-04-10 23:49 | XRR_ITS ---
PROCEDURE INFORMATION: Exam: XR Chest, 1 View Exam date and time: 04/11/2020 12:55 AM Age: 84 years old Clinical indication: Tachypnea; Additional info: Cp TECHNIQUE: Imaging protocol: XR of the chest Views: 1 view. COMPARISON: CT chest w con* [id number] 04/05/2020 8:50 AM FINDINGS: Tubes, catheters and devices: Electronic device positioned at midline can be correlated for loop recorder placement. Lungs: Unremarkable. No consolidation. Nodule adjacent to cardiac apex likely corresponds to the more inferior of the recently noted left lower lobe pulmonary nodules. The superior segment left lower lobe nodule on recent CT is not visible due to nodule size and position. Pleural space: No pneumothorax. Heart/Mediastinum: Unremarkable. No cardiomegaly. Bones/joints: No acute findings. XR/XR chest 1V portable [id number] IMPRESSION: No acute findings.
--- NOTE | 2020-04-10 23:49 | ECG_ITS ---
[facility] Test Date: 2020-04-10 Pat Name: Jayjay Campa Department: Room: Gender: Female Scudding Inspector: : [id number] Requested By: Bryson Linares Order Number: [id number] Giovani MD: Em Shannon M.D. Measurements Intervals [place] Rate: 163 P: [place]: -1 QRS: -31 QRSD: 82 T: 143 QT: 226 QTc: 372 Interpretive Statements ATRIAL FIBRILLATION WITH RAPID VENTRICULAR RESPONSE WITH ABERRANT CONDUCTION OR VENTRICULAR PREMATURE COMPLEXES LEFT AXIS DEVIATION [QRS AXIS < -30] MARKED ST DEPRESSION, CONSIDER SUBENDOCARDIAL INJURY Compared to ECG 03/26/2020 08:01:30 Aberrant conduction of supraventricular beat(s) now present Ventricular premature complex(es) now present Left-axis deviation now present ST (T wave) deviation now present Sinus bradycardia no longer present T-wave abnormality no longer present Electronically Signed On 04-11-2020 7:45:59 CDT by Em Shannon M.D. [id number]
[2020-04-10] MEDS: esmolol drip 2,500 MG/250 ML PREMIX 20 MG (23:51)
[2020-04-10] MEDS: aspirin 325 mg Tablet PO (23:57)
[2020-04-10] MEDS: ondansetron 2 mg/ML SDV 2 mL 4 MG IVP (23:58)
[2020-04-11] VITALS (49 sets, daily range): BP systolic 76–130; BP diastolic 39–89; PULSE 81–161; RESP 9–55; TEMP 36.4–36.6; O2SAT 80–98
[2020-04-11] MEDS: fentaNYL 50 mcg/mL INJ 2mL IVP
[2020-04-11 00:04] LABS: Basophils # 0.1 10^3/uL (0.0-0.1); Basophils % 0.5 %; Eosinophils # 0.3 10^3/uL (0.0-0.8); Eosinophils % 2.6 %; Hemoglobin 12.7 g/dL (11.5-15.3); Lymphocytes # 3.5 10^3/uL (0.8-4.8); Lymphocytes % 30.7 %; Mean Corpuscular HGB Conc 31.8 g/dL (30.0-36.0); Mean Corpuscular Hemoglobin 26.9 pg (28.0-34.0); Mean Corpuscular Volume 84.7 fL (81-99); Mean Platelet Volume 10.3 fL (7.4-10.4); Monocytes # 1.2 10^3/uL (0.2-0.9); Monocytes % 10.2 %; Neutrophils % 55.5 %; Nucleated Red Blood Cells % 0 %; Platelet Count 330 10^3/cmm (130-400); Red Blood Count 4.72 10^6/uL (4.1-5.3); White Blood Count 11.5 10^3/uL (4.0-10.0)
[2020-04-11 00:16] LABS: Troponin(5th) Baseline 13 ng/L (0-10)
[2020-04-11 00:23] LABS: Alanine Aminotransferase 23 U/L (0-33); Albumin Level 4.5 g/dL (3.5-5.2); Alkaline Phosphatase 163 IU/L (35-105); Anion Gap 16.7 (5-19); Aspartate Amino Transferase 27 U/L (0-32); Blood Urea Nitrogen 24 mg/dL (8-23); Calcium 9.3 mg/dL (8.5-10.5); Carbon Dioxide 26 mmol/L (22-29); Chloride 101 mmol/L (98-107); Creatine Phosphokinase 102 U/L (26-192); Globulin 3.5 g/dL (1.3-4.6); Glucose 118 mg/dL (65-115); NT Pro B Type Natriuretic Pept 504 pg/mL (0-450); Osmolality Calculated 288 mOsm/kg (285-295); Potassium 3.7 mmol/L (3.5-5.1); Sodium 140 mmol/L (136-145); Total Bilirubin 0.2 mg/dL (0.15-1.2)
[2020-04-11 00:51] LABS: Add Urine Microscopic? YES; Bilirubin Urine Neg (NEGATIVE); Blood Urine 2+ (Negative); Glucose Urine UA Norm (Normal); Ketones Urine Negative (Negative); Leukocyte Esterase Urine Trace (Negative); Nitrate Urine Negative (Negative); Protein Urine Neg (Negative); Sulfosalicylic Acid Urine Negative (Negative); Urine Appearance Clear (CLEAR); Urine Color Straw (Yellow); Urobilinogen Urine Norm (Negative); pH Urine 8 (5-7)
[2020-04-11 00:53] LABS: Add Urine Culture? No; Bacteria Urine TRACE; Squamous Epithelial Cell Urine 0-4 (0-5); WBC Urine 0-4 /hpf (0-5)
[2020-04-11] MEDS: sodium chloride 0.9% 500 ML IV (01:25)
--- NOTE | 2020-04-11 01:25 | W.ED.ARRPALP ---
HPI - Arrhythmia/Palpitations General: Chief Complaint: Arrhythmia/Palpitations Stated Complaint: cp Time Seen by Provider: 04/10/20 23:37 History of Present Illness: HPI narrative: 84-year-old female with a history of recurrent atrial fibrillation with rapid ventricular rate presents with chest discomfort. She has some palpitations as well. Her heart rate was noticed to be high at home. She is here in rapid atrial fibrillation with a rate of 1 50-1 60. She is mildly short of breath. She is not diaphoretic or nauseated. MD complaint: rapid heart beat and atrial fibrillation Onset (ago): hour(s) Duration: constant Severity: moderate Context: occurred during rest Arrhythmia history: atrial fibrillation Associated symptoms: Reports short of breath; Deny anxiety, cough, nausea or vomiting Review of Systems Const: Denies: fever(s) or chills Eyes: Denies: change in vision or blurry vision ENMT: Denies: swelling of lips/tongue, change in hearing, post nasal drip or sinus pain Card: Reports: chest pain, palpitations, irregular heart rhythm, edema, swelling of feet/ankles and dyspnea on exertion Resp: Reports: dyspnea; Denies: productive cough, non-productive cough or wheezing GI: Denies: nausea or vomiting : Denies: dysuria or hematuria Musc: Denies: neck pain or joint warmth Skin/Breast: Denies: rash or erythema Neuro: Denies: headache(s) or dizziness Psych: Denies: anxiety PFS ED PFSH: Medical History (Updated 04/11/20 @ 03:07 by Alexander Hernandez MD) Arthritis Atrial fibrillation Not anticoagulated secondary to vaginal bleeding from cancer Atrial fibrillation with RVR Degenerative disc disease Elevated troponin Gout History of CVA (cerebrovascular accident) Pulmonary nodule Surgical History History of hip replacement (~2014) Total hip replacement through anterior approach performed in [facility] History of hip surgery Incision and drainage of right thigh abscess History of hysterectomy (~2010) according to pcp documentation--- performed in [place] for noninvasive cancer partial colectomy for obstruction and adhesion at the same time. 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, stage IVB Father Heart disease Denies family history of Ovarian cancer Diabetes Hyperlipidemia Stroke Social History Alcohol intake: never Additional social history: - Tobacco use: Denies Alcohol use: Denies Drug use: Denies Physical Exam Const: GENERAL APPEARANCE: ill appearing ORIENTATION/CONSCIOUSNESS: Yes oriented to person, Yes oriented to place and Yes oriented to time HENMT: COMMON NORMALS: normocephalic, external ears normal and Normal external nose present HEAD & SCALP: normocephalic FACE & SINUS: normal facial exam NOSE: Normal external nose present and No nasal discharge present EXTERNAL EAR: Yes external ears normal Eye: COMMON NORMALS: Equal, round and reactive pupils present, EOMs intact bilaterally and conjunctivae normal EYELID: eyelids normal CONJUNCTIVA: Yes conjunctivae normal PUPIL: Yes Equal, round and reactive pupils present Neck/C-Spine: GENERAL: No tracheal deviation Chest: COMMONS NORMALS: normal inspection of the chest CHEST: No tenderness Resp: COMMON NORMALS: clear to auscultation bilaterally EFFORT & INSPECTION: No tachypneic, No respiratory distress, No retractions, No uses accessory muscles and No tracheal deviation AUSCULTATION: clear to auscultation bilaterally, no rhonchi, no wheezes and lung sounds not diminished Cardio: RATE: tachycardic RHYTHM: abnormal rhythm irregularly irregular PERIPHERAL PULSES: radial pulses present GI: INSPECTION: No abdominal distension AUSCULTATION: No Hyperactive bowel sounds present and No Hypoactive bowel sounds present PALPATION: No Guarding due to palpation present (GI) and No Rigid due to palpation PERCUSSION: no dullness to percussion and no tympanic to percussion Neuro: SENSORIUM/ORIENTATION: Yes oriented to person, Yes oriented to place and Yes oriented to time Psych: COMMON NORMALS: mental status grossly normal Course Vital Signs: Vital signs: Vital Signs Temperature 97.7 F 04/10/20 23:29 Pulse Rate 84 04/11/20 03:05 Respiratory Rate 20 H 04/11/20 03:05 Blood Pressure 91/45 04/11/20 03:05 Pulse Oximetry 93 04/11/20 03:05 MDM - Arrhythmia/Palpitations MDM Narrative: Medical decision making narrative: 84-year-old female presenting with chest discomfort, and a rapid irregular heartbeat. She has a history of atrial fibrillation. She takes sotalol. On her last visit, she was told to cut her sotalol dosage in half. Her pain started at rest. Because she takes sotalol, she was started on esmolol here, her heart rate came down some, but we could not get it consistently below 120. She was given a bolus of 10 mg of Cardizem, which immediately dropped her heart rate down into the 70s and 80s. Currently without any drips going, her heart rate is 90-100. Her blood pressure sank a bit, and is currently 85/52. We are giving a 500 cc fluid bolus. She will likely have to go back on a Cardizem drip. Her white blood cell count is 11.5. BUN of 24. Electrolytes are normal. First troponin is 13 which appears to be her baseline. With her first EKG, which showed rapid atrial fibrillation with a rate in the 150s, she had significant ST depression. This is resolved with resolution of her rate, indicating likely rate demand ischemia. Lab Data: Labs: Lab Results 04/10/20 04/10/20 04/10/20 Range/Units 23:42 23:42 23:42 WBC 11.5 H (4.0-10.0) 10^3/ uL RBC 4.72 (4.1-5.3) 10^6/u L Hgb 12.7 (11.5-15.3) g/dL Hct 40.0 (37.0-47.0) % MCV 84.7 (81-99) fL MCH 26.9 L (28.0-34.0) pg MCHC 31.8 (30.0-36.0) g/dL RDW 15.0 (12.1-15.1) % Plt Count 330 (130-400) 10^3/c mm MPV 10.3 (7.4-10.4) fL Neut % (Auto) 55.5 % Lymph % (Auto) 30.7 % Clark % (Auto) 10.2 % Eos % (Auto) 2.6 % Baso % (Auto) 0.5 % Neut # (Auto) 6.40 (1.8-7.7) 10^3/u L Lymph # (Auto) 3.5 (0.8-4.8) 10^3/u L Clark # (Auto) 1.2 H (0.2-0.9) 10^3/u L Eos # (Auto) 0.3 (0.0-0.8) 10^3/u L Baso # (Auto) 0.1 (0.0-0.1) 10^3/u L Nucleated RBC % (a uto) 0 % Nucleated RBCs # 0.0 /100WBC Sodium 140 (136-145) mmol/L Potassium 3.7 (3.5-5.1) mmol/L Chloride 101 (98-107) mmol/L Carbon Dioxide 26 (22-29) mmol/L Anion Gap 16.7 (5-19) BUN 24 H (8-23) mg/dL Creatinine 0.8 (0.5-0.9) mg/dL GFR Calculation Not Reportable Glucose 118 H (65-115) mg/dL Calculated Osmolal ity 288 (285-295) mOsm/k g Calcium 9.3 (8.5-10.5) mg/dL Total Bilirubin 0.2 (0.15-1.2) mg/dL AST 27 (0-32) U/L ALT 23 (0-33) U/L Alkaline Phosphata se 163 H (35-105) IU/L Creatine Kinase 102 (26-192) U/L Troponin T Baselin e 13 H (0-10) ng/L Troponin T 120 Min citizen [place] (0-10) ng/L Delta Troponin T (0-10) ABS# NT-Pro-B Natriuret Pep 504 H (0-450) pg/mL Total Protein 8.0 (6.6-8.7) g/dL Albumin 4.5 (3.5-5.2) g/dL Globulin 3.5 (1.3-4.6) g/dL Urine Color (Yellow) Urine Appearance (CLEAR) Urine pH (5-7) Ur Specific Gravit y (1.005-1.030) Urine Protein (Negative) Urine Glucose (UA) (Normal) Urine Ketones (Negative) Urine Blood (Negative) Urine Nitrate (Negative) Urine Bilirubin (NEGATIVE) Prot Sulfosalicyli c Acd (Negative) Urine Urobilinogen (Negative) mg/dL Ur Leukocyte Kalina ase (Negative) Urine RBC (0-2) /hpf Urine WBC (0-5) /hpf Ur Squamous Epith Cells (0-5) Amorphous Sediment Urine Bacteria (NONE) 04/11/20 04/11/20 Range/Units 00:17 02:30 WBC (4.0-10.0) 10^3/ uL RBC (4.1-5.3) 10^6/u L Hgb (11.5-15.3) g/dL Hct (37.0-47.0) % MCV (81-99) fL MCH (28.0-34.0) pg MCHC (30.0-36.0) g/dL RDW (12.1-15.1) % Plt Count (130-400) 10^3/c mm MPV (7.4-10.4) fL Neut % (Auto) % Lymph % (Auto) % Clark % (Auto) % Eos % (Auto) % Baso % (Auto) % Neut # (Auto) (1.8-7.7) 10^3/u L Lymph # (Auto) (0.8-4.8) 10^3/u L Clark # (Auto) (0.2-0.9) 10^3/u L Eos # (Auto) (0.0-0.8) 10^3/u L Baso # (Auto) (0.0-0.1) 10^3/u L Nucleated RBC % (a uto) % Nucleated RBCs # /100WBC Sodium (136-145) mmol/L Potassium (3.5-5.1) mmol/L Chloride (98-107) mmol/L Carbon Dioxide (22-29) mmol/L Anion Gap (5-19) BUN (8-23) mg/dL Creatinine (0.5-0.9) mg/dL GFR Calculation Glucose (65-115) mg/dL Calculated Osmolal ity (285-295) mOsm/k g Calcium (8.5-10.5) mg/dL Total Bilirubin (0.15-1.2) mg/dL AST (0-32) U/L ALT (0-33) U/L Alkaline Phosphata se (35-105) IU/L Creatine Kinase (26-192) U/L Troponin T Baselin e (0-10) ng/L Troponin T 120 Min citizen [place] 13.27 H (0-10) ng/L Delta Troponin T 0.27 (0-10) ABS# NT-Pro-B Natriuret Pep (0-450) pg/mL Total Protein (6.6-8.7) g/dL Albumin (3.5-5.2) g/dL Globulin (1.3-4.6) g/dL Urine Color Straw (Yellow) Urine Appearance Clear (CLEAR) Urine pH 8 H (5-7) Ur Specific Gravit y 1.010 (1.005-1.030) Urine Protein Neg (Negative) Urine Glucose (UA) Norm (Normal) Urine Ketones Negative (Negative) Urine Blood 2+ H (Negative) Urine Nitrate Negative (Negative) Urine Bilirubin Neg (NEGATIVE) Prot Sulfosalicyli c Acd Negative (Negative) Urine Urobilinogen Norm (Negative) mg/dL Ur Leukocyte Kalina ase Trace H (Negative) Urine RBC 10-15 H (0-2) /hpf Urine WBC 0-4 H (0-5) /hpf Ur Squamous Epith Cells 0-4 H (0-5) Amorphous Sediment Not Reportable Urine Bacteria Trace (NONE) Critical Care Time Critical Care Time: Critical Care Time: Yes Total Critical Care Time: 45 Attestation: This case had a high probability of a clinically significant, sudden, or life threatening deterioration of this patient's condition which required my full and direct attention, intervention and personal management. Discharge Plan Discharge Admit Provider: Alexander Hernandez Coding Level of Care Code ED Crystal Evaluator for Chg Fwd Exam Comprehensive
--- NOTE | 2020-04-11 01:49 | ECG_ITS ---
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 Measurements Intervals [place] Rate: 83 P: [place]: -1 QRS: -23 QRSD: 80 T: 59 QT: 380 QTc: 448 Interpretive Statements ATRIAL FIBRILLATION BORDERLINE LEFT AXIS DEVIATION [QRS AXIS < -20] Compared to ECG 03/26/2020 08:01:30 Sinus bradycardia no longer present T-wave abnormality no longer present Electronically Signed On 04-11-2020 8:06:32 CDT by Em Shannon M.D. [id number]
--- NOTE | 2020-04-11 02:55 | PM.HP ---
Providers/Chief Complaint Primary Care Provider: Parag Norris DO Chief Complaint: cp History of Present Illness Jayjay Campa is a 84 year old female presenting from home with palpitations. She had some chest discomfort. She reports that with a heart rate being down she has no chest discomfort currently. Heart rate on arrival to the emergency department was 1 50-1 60. She indicates her sotalol was decreased to 40 mg twice daily perhaps 1 week ago. No nausea, vomiting, fever, recent illness. No history of COVID or exposure to COVID. Last hospital stay was for atrial fibrillation with rapid ventricular rate after missing 1 dose of sotalol which she normally takes at 80 mg twice daily. Review of Systems General: Reports: 10 or more systems reviewed and unremarkable except in HPI and below Const: Denies: fever(s) Eyes: Denies: change in vision ENMT: Denies: throat pain Card: Reports: palpitations; Denies: chest pain Resp: Denies: dyspnea GI: Denies: abdominal pain : Denies: flank pain Musc: Denies: neck pain Skin/Breast: Denies: rash Neuro: Denies: headache(s) Psych: Denies: anxiety Endo: Denies: polyuria Juan Manuel/Lymph: Denies: easy bruising All/Imm: Denies: urticaria Medications/Allergies Home Medications Medication Instructions Recorded Confirmed Last Taken Type Vascepa 2 g PO BID 10/19/19 03/25/20 10/18/19 History alprazolam 0.25 mg PO TID PRN 10/19/19 03/25/20 03/25/20 History pantoprazole 40 mg PO DAILY PRN 10/19/19 03/25/20 10/18/19 History potassium chloride 10 meq PO DAILY 10/19/19 03/25/20 03/23/20 History promethazine 25 mg PO Q6H PRN 10/19/19 03/25/20 Unknown History sertraline 25 mg PO DAILY 10/19/19 03/25/20 10/18/19 History amlodipine 5 mg PO DAILY 11/02/19 03/25/20 03/25/20 History sotalol 80 mg tablet 80 mg PO BID 11/10/19 03/25/20 03/25/20 History 120 mg melatonin 3 mg capsule 3 mg PO BEDTIME PRN cap 03/08/20 03/25/20 Unknown History ondansetron HCl 4 mg tablet 4 mg PO Q6H PRN 03/08/20 03/25/20 Unknown History Multiple Vitamins 1 tab PO DAILY 03/25/20 03/25/20 Unknown History aspirin 325 mg PO DAILY 03/25/20 03/25/20 03/22/20 History hydrochlorothiazide 12.5 mg tablet 12.5 mg PO DAILY #90 tab 03/25/20 03/25/20 Unknown Rx Allergies Allergy/AdvReac Type Severity Reaction Status Date / Time codeine Allergy ALGY-Difficulty Verified 03/25/20 09:43 Breathing PFSH Acute PFSH: Medical History (Updated 04/11/20 @ 03:07 by Alexander Hernandez MD) Arthritis Atrial fibrillation Not anticoagulated secondary to vaginal bleeding from cancer Atrial fibrillation with RVR Degenerative disc disease Elevated troponin Gout History of CVA (cerebrovascular accident) Pulmonary nodule Surgical History History of hip replacement (~2014) Total hip replacement through anterior approach performed in [facility] History of hip surgery Incision and drainage of right thigh abscess History of hysterectomy (~2010) according to pcp documentation--- performed in [place] for noninvasive cancer partial colectomy for obstruction and adhesion at the same time. 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, stage IVB Father Heart disease Denies family history of Ovarian cancer Diabetes Hyperlipidemia Stroke Social History Alcohol intake: never Additional social history: - Tobacco use: Denies Alcohol use: Denies Drug use: Denies Vitals/I&O/Wt Last Vital Signs Temp 97.7 F 04/10/20 23:29 Pulse 113 H 04/11/20 02:45 Resp 18 04/11/20 02:45 BP 114/47 04/11/20 02:45 Pulse Ox 93 04/11/20 02:45 04/10/20 04/10/20 04/11/20 14:59 22:59 06:59 Intake Total 625.117 / 625.117 Balance 625.117 / 625.117 Weight last 48 hrs Weight 65.317 kg Physical Exam Narrative: EXAM NARRATIVE: General exam is a white female, no apparent distress, hard of hearing HEENT: Pupils equally round reactive light. Neck supple no lymphadenopathy or thyromegaly Cardiovascular irregular, irregular with heart rate when I am evaluating her at 100 Lungs clear no wheezing or crackles Abdomen is soft nontender, positive bowel sounds. No obvious organomegaly was deferred Extremities no cyanosis clubbing or edema, cap refill brisk Skin no rash Neuro no obvious focal deficits. Data : 04/10/20 23:42 04/10/20 23:42 Other data: LFTs normal with the exception of alk phos of 163. Initial troponin XIII with 120-minute troponin no significant change. Urinalysis with 2+ blood, 10-15 reds otherwise negative. BNP elevated at 504. Recent TSH was done and normal. I have ordered a magnesium level. Chest x-ray no acute changes A&P Assessment and plan (1) Atrial fibrillation: With rapid ventricular rate. In the emergency department, received esmolol, and then Cardizem. Last admission was for missing 1 dose of 80 mg sotalol in preparation for colonoscopy. She was recently reduced to 40 mg twice daily sotalol likely for bradycardia. During her last hospital stay on 80 mg twice daily her heart rate was approximately 48-60, sinus and asymptomatic. I will restart her sotalol at 80 mg twice daily Wean off Cardizem as tolerated. Check magnesium level TSH was recently checked and normal. No anticoagulation secondary to vaginal bleeding from vaginal cancer Could consider repeat cardiology consultation. Her bottom turner is Dr. Shannon Status: Inactive Qualifiers: Atrial fibrillation type: unspecified Qualified Code(s): I48.91 - Unspecified atrial fibrillation (2) Vaginal cancer: Undergoing evaluation in [place]. From my understanding she has been set up for radiation. Status: Acute (3) Hypertension: Hold antihypertensives that she normally takes orally at home as she is on Cardizem which can lower her blood pressure. Current blood pressure is 114/47 Status: Acute Additional A&P Information History of CVA, no obvious deficits currently History of pulmonary nodule, followed by primary SCDs for DVT prophylaxis, as anticoagulation contraindicated secondary to vaginal bleeding from vaginal cancer. Full code Attestations Medical Necessity Statement*: Will need less than 2 midnight stay for evaluation and treatment of atrial fibrillation with rapid ventricular rate. Time Spent in Patient Care: Greater than 35 minutes Coding Level of Care Code Acute Innovations Paraprofessional for [facility] Fwd Diagnoses Atrial fibrillation I48.91 Atrial fibrillation type: unspecified Vaginal cancer C52 Hypertension I10
[2020-04-11 02:57] LABS: Troponin 5 2HR 13.27 ng/L (0-10); Troponin 5 2HR Delta 0.27 ABS# (0-10)
--- NOTE | 2020-04-11 03:41 | PC.NURSE ---
Patient admitted to room 103. Patient alert and oriented and vitals obtained. Placed on telemetry. Patient med rec not done due to patient not bringing a med list from home. Patient states her pharmacy is [facility]. Patient oriented to the room, call light within reach, bed in low position and will continue to monitor.
[2020-04-11] MEDS: sodium chloride 0.9% 1,000 ML 75 ML IV (03:57)
--- NOTE | 2020-04-11 05:49 | ECG_ITS ---
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 Measurements Intervals [place] Rate: 89 P: [place]: -1 QRS: -26 QRSD: 85 T: 60 QT: 387 QTc: 472 Interpretive Statements ATRIAL FIBRILLATION BORDERLINE LEFT AXIS DEVIATION [QRS AXIS < -20] NONSPECIFIC ST & T-WAVE ABNORMALITY ABNORMAL RHYTHM ECG Compared to ECG 04/11/2020 01:26:46 T-wave abnormality now present Electronically Signed On 04-11-2020 8:26:18 CDT by Em Shannon M.D. [id number]
[2020-04-11 06:34] LABS: Magnesium 2.1 mg/dL (1.7-2.3)
[2020-04-11 07:00] LABS: Troponin 5 6HR 19.51 ng/L (0-10); Troponin 5 6HR Delta 6.51 ng/L (0-12)
[2020-04-11] MEDS: aspirin 325 mg Tablet PO (08:46)
[2020-04-11] MEDS: sotalol 80 mg Tablet PO ×2 (08:46→17:58)
[2020-04-11] MEDS: pantoprazole DR 40 mg Tablet PO (08:46)
[2020-04-11] MEDS: sertraline 50 mg Tablet 25 MG PO (08:46)
--- NOTE | 2020-04-11 10:12 | PC.NURSE ---
Cardizem now shut off patient hr tolerating PO medication well HR 82
--- NOTE | 2020-04-11 14:26 | P.PN_ITS ---
Subjective Subjective: Interval history: She is feeling better. Denies any chest pain pressure. Denies any shortness of breath. She denies any other recent events like fever, chills, or other signs or symptoms of infection anywhere. Reports that the only recent changes have been the change in dosing her medication. The other thing is her sister has been visiting from out of town. She is wondered whether she had gotten stressed out causing this, although he is not sure that should be the case with the visitor being her sister. Vitals/I&O/Wt Last Vital Signs Temp 97.5 F L 04/11/20 12:00 Pulse 94 04/11/20 12:00 Resp 13 04/11/20 12:00 BP 112/60 04/11/20 12:00 Pulse Ox 95 04/11/20 12:00 04/10/20 04/11/20 04/11/20 22:59 06:59 14:59 Intake Total 637.867 / 637.867 536.584 / 536.584 Balance 637.867 / 637.867 536.584 / 536.584 Weight last 48 hrs Weight 65.317 kg Physical Exam Const: COMMON NORMALS: no acute distress and patient oriented x3 HENMT: COMMON NORMALS: oropharynx normal Neck/C-Spine: COMMON NORMALS: no JVD Resp: COMMON NORMALS: normal respiratory effort and clear to auscultation bilaterally AUSCULTATION: clear to auscultation bilaterally Cardio: COMMON NORMALS: no JVD, S1 normal heart sound present, S2 normal heart sound present and No murmurs present (Cardio) RATE: tachycardic RHYTHM: abnormal rhythm irregularly irregular HEART SOUNDS: S1 normal heart sound present and S2 normal heart sound present GI: COMMON NORMALS: Normal to inspection, nondistended, normoactive bowel sounds present, Soft to palpation and non-tender PALPATION: Yes Soft to palp ation Extremity: COMMON NORMALS: no joint enlargement and no pedal edema Neuro: COMMON NORMALS: patient oriented x3 and moves all extremities Skin: COMMON NORMALS: no rashes or lesions noted GENERAL SKIN EXAM: no rashes or lesions noted Data : 04/10/20 23:42 04/10/20 23:42 A&P Assessment and plan (1) Atrial fibrillation: A. fib with RVR with improved rate. This morning was able to wean off of Cardizem drip entirely after receiving her morning dose of sotalol. Was doing well through the morning, but this afternoon heart rates have started trending up little bit into around 110. She is nonsymptomatic. For now we will monitor. Will be receiving 80 mg usual dose of sotalol around 6 PM. Monitor overnight on telemetry. She states that her sister to the visiting, is wondering whether stress may have caused that although he is not sure there should be that stressed out with her sister being there. Other than that denies any recent complaints, although does state that her dose of medication was recently decreased to 40 mg twice a day. Continues on Holter monitor. I do see scans from the monitor on 03/30-03/31 with heart rate of 60 bpm. Do not see anything lower. Cardiology is following her monitor. No bradycardia noted on telemetry here. Magnesium is normal. TSH was recently checked and normal. Troponin minimally elevated, not suggestive of acute MS. She has no chest pain. No anticoagulation secondary to vaginal bleeding from vaginal cancer. Discussed with her, encourage follow-up with PCP to reevaluate once anticoagulation becomes possible Appreciate cardiology recommendations. Status: Inactive Qualifiers: Atrial fibrillation type: unspecified Qualified Code(s): I48.91 - Unspecified atrial fibrillation (2) Vaginal cancer: Undergoing evaluation in [place]. From my understanding she has been set up for radiation. Status: Acute (3) Hypertension: Hold antihypertensives that she normally takes orally at home as she is on Cardizem which can lower her blood pressure. Current blood pressure is 114/47 Status: Acute Additional A&P Information History of CVA, no obvious deficits currently History of pulmonary nodule, followed by primary SCDs for DVT prophylaxis, as anticoagulation contraindicated secondary to vaginal bleeding from vaginal cancer. SCD Full code Attestations Medical Necessity Statement*: Continue hospitalization for optimization of medical treatment of A. leno with RVR, previously with episodes of bradycardia. Coding Level of Care Code Acute Systems Checkout Mechanic for Alejandro Vann Diagnoses Atrial fibrillation I48.91 Atrial fibrillation type: unspecified Vaginal cancer C52 Hypertension I10
--- NOTE | 2020-04-11 15:30 | PC.NURSE ---
Dr Carrasco on unit for assessments and rounding this nurse concerned about patient having continuos fluids running at 75ml/hr instructions obtained to stop fluids.
--- NOTE | 2020-04-11 15:43 | P.CONIM_ITS ---
Providers/Reason For Consult Consulting Physican/Specialty*: Dr. Shannon, cardiology Reason for Consult*: Atrial fibrillation with rapid ventricular response Attending Physician: Tyler Carrasco Primary Care Provider: Parag Norris DO History of Present Illness History of Present Illness Jayjay Campa (Iraj) is a 84 year old female with PMHx of paroxysmal atrial fibrilation on sotalol , h/o CV several years back, CAD details not known and hypertension. 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 She is due to be seen next week for radiation. She was admitted with complaints of atrial fibrillation w ith rapid ventricular response. This is her third hospitalization this year for atrial fibrillation with RVR. Usually these episodes happen when she misses her dose of sotalol. She was in the hospital from - 27 March. She was discharged home on event monitor given episodes of bradycardia after she converted back to sinus rhythm. As per patient for last week or so she has cut back on sotalol to half tablet twice a day as instructed by her primary care physician about 10 days back. Last night she went into atrial fibrillation with heart rate in 150s to 160s. She was started on Cardizem drip and dose of sotalol was increased to 80 mg twice daily. At the time of evaluation patient still is in atrial fibrillation heart rate is fairly controlled running 90s to 110s with occasional jumps in 130s I have been asked to assist in further management. Review of Systems Const: Denies: fatigue Eyes: Denies: change in vision ENMT: Denies: throat pain Card: Reports: palpitations and irregular heart rhythm; Denies: chest pain, edema, swelling of feet/ankles, lightheadedness, syncope, pre-syncope, dyspnea on exertion or orthopnea Resp: Denies: dyspnea, productive cough or non-productive cough GI: Denies: abdominal pain, nausea, vomiting, hematemesis, diarrhea, constipation or hematochezia : Denies: dysuria or hematuria Musc: Denies: back pain, extremity swelling, joint pain or muscle weakness Skin/Breast: Denies: rash Neuro: Denies: dizziness Psych: Denies: anxiety or depression Endo: Denies: tired all the time Meds/Allergies Home Medications and Allergies Home Medications Medication Instructions Recorded Confirmed Last Taken Type Vascepa 2 g PO BID 10/19/19 04/11/20 10/18/19 History alprazolam 0.25 mg PO TID PRN 10/19/19 04/11/20 03/25/20 History pantoprazole 40 mg PO DAILY PRN 10/19/19 04/11/20 10/18/19 History potassium chloride 10 meq PO DAILY 10/19/19 04/11/20 03/23/20 History promethazine 25 mg PO Q6H PRN 10/19/19 04/11/20 Unknown History sertraline 25 mg PO DAILY 10/19/19 04/11/20 10/18/19 History amlodipine 5 mg PO DAILY 11/02/19 04/11/20 03/25/20 History sotalol 80 mg tablet 80 mg PO BID 11/10/19 04/11/20 03/25/20 History 120 mg melatonin 3 mg capsule 3 mg PO BEDTIME PRN cap 03/08/20 04/11/20 Unknown History ondansetron HCl 4 mg tablet 4 mg PO Q6H PRN 03/08/20 04/11/20 Unknown History aspirin 325 mg PO DAILY 03/25/20 04/11/20 03/22/20 History hydrochlorothiazide 12.5 mg tablet 12.5 mg PO DAILY #90 tab 03/25/20 04/11/20 Unknown Rx multivitamin [Multiple Vitamins] 1 tab PO DAILY 03/25/20 04/11/20 Unknown History Allergies Allergy/AdvReac Type Severity Reaction Status Date / Time codeine Allergy ALGY-Difficulty Verified 04/11/20 08:33 Breathing Current Medications Current Medications Generic Name Dose Route Start Last Admin Trade Name Freq PRN Reason Stop Dose Admin Aspirin 325 mg 04/11/20 09:00 04/11/20 08:46 Aspirin PO 325 mg DAILY CATHERINE Administration Diltiazem HCl 125 mg/ Sodium 125 mls @ 0 mls/hr 04/11/20 01:45 04/11/20 09:53 Chloride IV 0 mg/hr .Q0M CATHERINE 0 mls/hr Titration Protocol Per Protocol Pantoprazole Sodium 40 mg 04/11/20 09:00 04/11/20 08:46 Protonix PO 40 mg DAILY CATHERINE Administration Sertraline HCl 25 mg 04/11/20 09:00 04/11/20 08:46 Zoloft PO 25 mg DAILY CATHERINE Administration Sotalol HCl 80 mg 04/11/20 09:00 04/11/20 08:46 Betapace PO 80 mg BID CATHERINE Administration PFSH Acute PFSH: Medical History Arthritis Atrial fibrillation Not anticoagulated secondary to vaginal bleeding from cancer Atrial fibrillation with RVR Degenerative disc disease Elevated troponin Gout History of CVA (cerebrovascular accident) Pulmonary nodule Surgical History History of hip replacement (~2014) Total hip replacement through anterior approach performed in [facility] History of hip surgery Incision and drainage of right thigh abscess History of hysterectomy (~2010) according to pcp documentation--- performed in [place] for noninvasive cancer partial colectomy for obstruction and adhesion at the same time. 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, stage IVB Father Heart disease Denies family history of Ovarian cancer Diabetes Hyperlipidemia Stroke Social History Alcohol intake: never Additional social history: - Tobacco use: Denies Alcohol use: Denies Drug use: Denies Vitals/I&O/Wt Last Vital Signs Temp 97.5 F L 04/11/20 12:00 Pulse 94 04/11/20 12:00 Resp 13 04/11/20 12:00 BP 112/60 04/11/20 12:00 Pulse Ox 95 04/11/20 12:00 04/11/20 04/11/20 04/11/20 06:59 14:59 22:59 Intake Total 637.867 / 637.867 536.584 / 536.584 Balance 637.867 / 637.867 536.584 / 536.584 Weight last 48 hrs Weight 144 lb Physical Exam Const: COMMON NORMALS: no acute distress, patient oriented x3 and alert GENERAL APPEARANCE: cooperative, comfortable, well kempt and well hydrated HENMT: COMMON NORMALS: hearing grossly normal bilaterally and external ears normal FACE & SINUS: normal facial exam EXTERNAL EAR: Yes external ears normal Eye: COMMON NORMALS: EOMs intact bilaterally and no scleral icterus GENERAL EYE: appearance normal, both eyes and all related structures ALIGNMENT: Yes alignment normal Neck/C-Spine: COMMON NORMALS: supple and no JVD GENERAL: Yes normal visual inspection and Yes trachea midline CAROTIDS: Yes normal carotid upstroke Chest: COMMONS NORMALS: normal inspection of the chest and normal palpation of entire chest wall CHEST: Yes Symmetrical chest wall rise and No tenderness Resp: COMMON NORMALS: clear to auscultation bilaterally AUSCULTATION: clear to auscultation bilaterally, no crackles, no rales, no rhonchi and no wheezes Cardio: COMMON NORMALS: no JVD and Peripheral pulses 2+ throughout PALPATION: normal PMI RATE: tachycardic RHYTHM: abnormal rhythm irregularly irregular HEART SOUNDS: no gallops and no murmurs BRUITS: no carotid bruits PERIPHERAL PULSES: Peripheral pulses 2+ throughout, radial pulses present, posterior tibial pulses present and dorsalis pedis present Extremity: GENERAL: No cyanosis, Yes edema and No pallor Neuro: COMMON NORMALS: patient oriented x3, CN's II-XII intact bilaterally and no focal motor deficits SENSORIUM/ORIENTATION: Yes alert Psych: COMMON NORMALS: Normal thought process present and speech normal APPEARANCE: Yes well kempt SPEECH: Yes normal speech MOOD & AFFECT: Yes euthymic mood THOUGHT PROCESS: Normal thought process present THOUGHT CONTENT: Yes Normal thought content present Data Imaging^: Other Imaging: I personally reviewed and interpreted this imaging study as follows: My impression: # TTE (10/19/19) CONCLUSIONS 1. Normal left ventricular size and systolic function with no regional wall motion abnormalities. Left ventricular ejection fraction is estimated at 69 %. Abnormal diastolic function. 2. Normal right ventricular size and systolic function. 3. Mildly increased left atrial size. 4. Mild mitral and tricuspid valve regurgitation. 5. Mild aortic valve regurgitation. 6. Moderate pulmonary hypertension with pulmonary artery pressure estimated at 48 mmHg. 7. When compared to previous echocardiogram dated 05/16/2013, there may not have been any significant change. #Lexiscan sestamibi myocardial perfusion imaging August 2018 SPECT RESULTS Technical Quality: Excellent Raw Data Analysis: Normal Image Corrections: No attenuation or motion correction applied Summed Stress Score: 1 Summed Rest Score: 0 Summed Difference Score: 1 PERFUSION FINDINGS Small area of persistently decreased tracer uptake noted from mid to distal anterior wall on both rest and stress images in the absence of wall motion abnormality could be an artifact. FUNCTIONAL RESULTS (calculated via Gated SPECT) Stress Image LV EF (%): 91 Stress EDV (mL):65 TID: 0.97 Stress ESV (mL):6 Rest Image LV EF (%): 90 FUNCTIONAL FINDINGS: There is hyperdynamic left ventricular systolic function. There is no wall motion abnormality IMPRESSIONS Myocardial perfusion imaging is normal and low probability for obstructive coronary artery disease. EKG segment will be documented separately. A&P Assessment and plan (1) Atrial fibrillation with RVR: His Pradaxa was stopped few days back due to vaginal spotting/bleeding given recently diagnosed vaginal adenocarcinoma. -I will restart Cardizem gtt. on low-dose and continue with sotalol 80 mg twice daily. -Iraj and her son Jerald were advised not to stop/decrease sotalol. It is quite possible that she might need to go on higher dose of sotalol if she has breakthrough atrial fibrillation on sotalol 80 mg twice a day and with her underlying early tachybradycardia syndrome she might end up needing a pacemaker. -Her event monitor so far were reviewed and seems like the lowest heart rate that I noticed was heart rate of 61 Status: Acute (2) Hypertension: Status: Acute Qualifiers: Hypertension type: essential hypertension Qualified Code(s): I10 - Essential (primary) hypertension (3) Coronary artery disease: Unspecified; no history available. Status: Acute Qualifiers: Coronary Disease-Associated Artery/Lesion type: [place] artery [place] vs. transplanted heart: [place] heart Associated angina: without angina Qualified Code(s): I25.10 - Atherosclerotic heart disease of [place] coronary artery without angina pectoris (4) Vaginal cancer: Status: Acute Consult Attestations Medical Necessity Statement: Needs hospital stay for management of atrial fibrillation with RVR. Coding Level of Care Code Acute [employer] Floorperson for [facility]one Diagnoses Atrial fibrillation with RVR I48.91 Hypertension I10 Hypertension type: essential hypertension Coronary artery disease I25.10 Coronary Disease-Associated Artery/Lesion type: [place] artery [place] vs. transplanted heart: [place] heart Associated angina: without angina Vaginal cancer C52
--- NOTE | 2020-04-11 18:41 | PC.NURSE ---
Notified Dr Shannon of patient continued elevated Hr even with Cardizem drip running at 5 and sotalol given 30 min ago patient Hr remains elevated instructions given to start cardizem 30 mg po Q8H PRN for Heart rate grater than 120 giving the first dose now
[2020-04-11] MEDS: dilTIAZem 30 mg Tablet PO (18:56)
--- NOTE | 2020-04-11 22:43 | PC.NURSE ---
Dr. Shannon called and gave verbal orders to retime scheduled sotalol to 0600 and 1800 daily.
[2020-04-12] VITALS (10 sets, daily range): BP systolic 105–123; BP diastolic 59–78; PULSE 68–131; RESP 13–19; TEMP 36.4–36.8; O2SAT 92–98
--- NOTE | 2020-04-12 00:06 | PC.NURSE ---
Patient continues on Cardizem gtt at this time. Heart rate is currently bouncing from high 80's to low 100's. Dr. Shannon aware. Will titrate per orders.
[2020-04-12] MEDS: acetaminophen 325 mg Tablet 650 MG PO ×2 (04:58→21:45)
[2020-04-12] MEDS: sotalol 80 mg Tablet PO ×2 (05:00→17:00)
[2020-04-12 05:09] LABS: Basophils # 0.1 10^3/uL (0.0-0.1); Basophils % 0.5 %; Eosinophils # 0.3 10^3/uL (0.0-0.8); Eosinophils % 3.1 %; Hematocrit 36.5 % (37.0-47.0); Hemoglobin 11.3 g/dL (11.5-15.3); Lymphocytes # 2.5 10^3/uL (0.8-4.8); Lymphocytes % 24.9 %; Mean Corpuscular Hemoglobin 26.7 pg (28.0-34.0); Mean Corpuscular Volume 86.1 fL (81-99); Mean Platelet Volume 10.6 fL (7.4-10.4); Monocytes # 0.9 10^3/uL (0.2-0.9); Monocytes % 9.5 %; Neutrophils # 6.09 10^3/uL (1.8-7.7); Neutrophils % 61.6 %; Nucleated Red Blood Cells % 0 %; Platelet Count 295 10^3/cmm (130-400); Red Blood Count 4.24 10^6/uL (4.1-5.3); Red Cell Distribution Width 15.3 % (12.1-15.1); White Blood Count 9.9 10^3/uL (4.0-10.0)
[2020-04-12 05:29] LABS: Anion Gap 13.6 (5-19); Blood Urea Nitrogen 18 mg/dL (8-23); Calcium 9.3 mg/dL (8.5-10.5); Carbon Dioxide 25 mmol/L (22-29); Chloride 107 mmol/L (98-107); Glucose 108 mg/dL (65-115); Osmolality Calculated 291 mOsm/kg (285-295); Potassium 3.6 mmol/L (3.5-5.1); Sodium 142 mmol/L (136-145)
[2020-04-12] MEDS: sertraline 50 mg Tablet 25 MG PO (08:27)
[2020-04-12] MEDS: pantoprazole DR 40 mg Tablet PO (08:28)
[2020-04-12] MEDS: aspirin 325 mg Tablet PO (08:28)
[2020-04-12] MEDS: dilTIAZem 30 mg Tablet PO ×5 (11:33→21:45)
--- NOTE | 2020-04-12 12:48 | P.PN_ITS ---
Subjective Subjective: Interval history: She is still on cardizem gtt at 5 mg/hr. She is anxious to go home as she has an appointment at [facility] for radiation treatment planning tomorrow. She denies any CP, SOB and states that she feels fluttering intermittently. She continues to have reddish brownish vaginal bleed and discharge and is using 2-3 pads everday. Medications: Reviewed: Yes Medication Review Details: Current Medications Acetaminophen (Tylenol) 650 mg PO Q6H PRN PRN Reason: Mild/Mod Pain Or Temp >/= 101 Last Admin: 04/12/20 04:58 Dose: 650 mg Documented by: Alprazolam (Xanax) 0.25 mg PO TID PRN PRN Reason: Anxiety Aspirin (Aspirin) 325 mg PO DAILY [facility] Last Admin: 04/12/20 08:28 Dose: 325 mg Documented by: Diltiazem HCl (Cardizem) 30 mg PO TID CATHERINE Ondansetron HCl (Zofran) 4 mg IVP Q6H PRN PRN Reason: vomiting, or N/V if npo Pantoprazole Sodium (Protonix) 40 mg PO DAILY [facility] Last Admin: 04/12/20 08:28 Dose: 40 mg Documented by: Sertraline HCl (Zoloft) 25 mg PO DAILY [facility] Last Admin: 04/12/20 08:27 Dose: 25 mg Documented by: Sotalol HCl (Betapace) 80 mg PO 0600,1800 [facility] Last Admin: 04/12/20 05:00 Dose: 80 mg Documented by: Vitals/I&O/Wt Last Vital Signs Temp 97.6 F 04/12/20 11:45 Pulse 86 04/12/20 11:45 Resp 19 H 04/12/20 11:45 BP 108/74 04/12/20 11:45 Pulse Ox 93 04/12/20 11:45 04/11/20 04/12/20 04/12/20 22:59 06:59 14:59 Intake Total 21.75 / 558.334 42.333 / 600.667 Balance 21.75 / 558.334 42.333 / 600.667 Weight last 48 hrs Weight 165 lb 11.2 oz Weight 165 lb 5 oz Weight 144 lb Physical Exam Const: COMMON NORMALS: no acute distress, patient oriented x3 and alert GENERAL APPEARANCE: cooperative, comfortable, well kempt and well hydrated HENMT: COMMON NORMALS: hearing grossly normal bilaterally and external ears normal FACE & SINUS: normal facial exam EXTERNAL EAR: Yes external ears normal Eye: COMMON NORMALS: EOMs intact bilaterally and no scleral icterus GENERAL EYE: appearance normal, both eyes and all related structures ALIGNMENT: Yes alignment normal Neck/C-Spine: COMMON NORMALS: supple and no JVD GENERAL: Yes normal visual inspection and Yes trachea midline CAROTIDS: Yes normal carotid upstroke Resp: COMMON NORMALS: clear to auscultation bilaterally AUSCULTATION: clear to auscultation bilaterally, no crackles, no rales, no rhonchi and no wheezes Cardio: COMMON NORMALS: no JVD and Peripheral pulses 2+ throughout PALPATION: normal PMI RATE: tachycardic RHYTHM: abnormal rhythm irregularly irregular HEART SOUNDS: no gallops and no murmurs BRUITS: no carotid bruits PERIPHERAL PULSES: Peripheral pulses 2+ throughout, radial pulses present, posterior tibial pulses present and dorsalis pedis present Extremity: GENERAL: No cyanosis, No edema and No pallor Neuro: COMMON NORMALS: patient oriented x3, CN's II-XII intact bilaterally and no focal motor deficits SENSORIUM/ORIENTATION: Yes alert GAIT: Yes Assistive device used cane Psych: COMMON NORMALS: Normal thought process present and speech normal APPEARANCE: Yes well kempt SPEECH: Yes normal speech MOOD & AFFECT: Yes euthymic mood THOUGHT PROCESS: Normal thought process present THOUGHT CONTENT: Yes Normal thought content present Data : 04/12/20 03:50 04/12/20 03:50 A&P Assessment and plan (1) Atrial fibrillation with RVR: Her Pradaxa was stopped few days back due to vaginal spotting/bleeding given recently diagnosed vaginal adenocarcinoma. -I will stop Cardizem gtt. start on cardizem 30 TID and continue with sotalol 80 mg twice daily. -Iraj and her son Jerald were advised not to stop/decrease sotalol. It is quite possible that she might need to go on higher dose of sotalol if she has breakthrough atrial fibrillation on sotalol 80 mg twice a day and with her underlying early tachybradycardia syndrome she might end up needing a pacemaker. -Her event monitor so far were reviewed and seems like the lowest heart rate that I noticed was heart rate of 61. continue with the event monitor. -I will reassess her HR later today and will send her home on sotalol 80 mg BID, cardizem 30 TID and ASA 325 mg. -f/u in office with me in 1 week. Status: Acute (2) Hypertension: Status: Acute Qualifiers: Hypertension type: essential hypertension Qualified Code(s): I10 - Essential (primary) hypertension (3) Coronary artery disease: Unspecified; no history available. Status: Acute Qualifiers: Coronary Disease-Associated Artery/Lesion type: [place] artery [place] vs. transplanted heart: [place] heart Associated angina: without angina Qualified Code(s): I25.10 - Atherosclerotic heart disease of [place] coronary artery without angina pectoris (4) Vaginal cancer: Status: Acute Attestations Medical Necessity Statement*: May be stable to go home later today. Coding Level of Care Code Acute Standpipe Tender for [facility] Diagnoses Atrial fibrillation with RVR I48.91 Hypertension I10 Hypertension type: essential hypertension Coronary artery disease I25.10 Coronary Disease-Associated Artery/Lesion type: [place] artery [place] vs. transplanted heart: [place] heart Associated angina: without angina Vaginal cancer C52
--- NOTE | 2020-04-12 16:14 | PC.NURSE ---
[address] Shannon in regards to patient HR instructions to give the new order of cardizem PO now plus a times one dose of cardizem 30mg PO for a total of 60mg and turn off cardizem drip.
--- NOTE | 2020-04-12 16:17 | PC.NURSE ---
[address] motta to report patients HR of 74-90'sinstruction to hold 1500 dose of cardizem until around 1600 and notifiy her of hr before giving.
--- NOTE | 2020-04-12 16:56 | PC.NURSE ---
1600 hr contniues to be irregular with occasional runs in the 120' instructions to go ahead and give the 30mg of cardizem and see how she dose and give the 1800 dose of sotalol at 1700
--- NOTE | 2020-04-12 18:52 | PM.PN ---
Subjective Subjective: Interval history: Today she reported she was feeling well. Denies chest pain or pressure. Denies shortness of breath. Heart rate somewhat better, but this morning still requiring Cardizem drip. Vitals/I&O/Wt Last Vital Signs Temp 97.9 F 04/12/20 15:32 Pulse 69 04/12/20 15:32 Resp 18 04/12/20 15:32 BP 105/78 04/12/20 15:32 Pulse Ox 95 04/12/20 15:32 04/12/20 04/12/20 04/12/20 06:59 14:59 22:59 Intake Total 42.333 / 600.667 279.833 / 279.833 240 / 519.833 Balance 42.333 / 600.667 279.833 / 279.833 240 / 519.833 Weight last 48 hrs Weight 75.16 kg Weight 74.984 kg Weight 65.317 kg Physical Exam Const: COMMON NORMALS: no acute distress and patient oriented x3 HENMT: COMMON NORMALS: oropharynx normal Neck/C-Spine: COMMON NORMALS: no JVD Resp: COMMON NORMALS: normal respiratory effort and clear to auscultation bilaterally AUSCULTATION: clear to auscultation bilaterally Cardio: COMMON NORMALS: no JVD, S1 normal heart sound present, S2 normal heart sound present and No murmurs present (Cardio) RATE: tachycardic RHYTHM: abnormal rhythm irregularly irregular HEART SOUNDS: S1 normal heart sound present and S2 normal heart sound present GI: COMMON NORMALS: Normal to inspection, nondistended, normoactive bowel sounds present, Soft to palpation and non-tender PALPATION: Yes Soft to palpation Extremity: COMMON NORMALS: no joint enlargement and no pedal edema Neuro: COMMON NORMALS: patient oriented x3 and moves all extremities Skin: COMMON NORMALS: no rashes or lesions noted GENERAL SKIN EXAM: no rashes or lesions noted Data : 04/12/20 03:50 04/12/20 03:50 A&P Assessment and plan (1) Atrial fibrillation: Yesterday was restarted on low-dose Cardizem drip. This morning Cardizem 30 mg every 8 hours was added in addition to sotalol 80 mg twice daily. Heart rate appeared to be improving, and was able to wean off of Cardizem drip. She has been wanting to leave the hospital as otherwise she is feeling well, and has an appointment tomorrow with her cancer doctor. We have been watching her heart rate through the afternoon, and late afternoon again heart rate started picking up staying 120s-130s. She received extra dose of 30 mg Cardizem. After that still heart rates variable and going into 150s. For now we will postpone discharge as she needs additional optimization of A. fib with RVR. Continues on Holter monitor. I do see scans from the monitor on 03/30-03/31 with heart rate of 60 bpm. Do not see anything lower. Cardiology is following her monitor. No bradycardia noted on telemetry here. Magnesium is normal. TSH was recently checked and normal. Troponin minimally elevated, not suggestive of acute AK. She has no chest pain. No anticoagulation secondary to vaginal bleeding from vaginal cancer. Discussed with her, encourage follow-up with PCP to reevaluate once anticoagulation becomes possible Appreciate cardiology recommendations. Status: Inactive Qualifiers: Atrial fibrillation type: unspecified Qualified Code(s): I48.91 - Unspecified atrial fibrillation (2) Vaginal cancer: Undergoing evaluation in [place]. From my understanding she has been set up for radiation. Status: Acute (3) Hypertension: Hold antihypertensives that she normally takes orally at home as she is on Cardizem which can lower her blood pressure. Status: Acute Qualifiers: Hypertension type: essential hypertension Qualified Code(s): I10 - Essential (primary) hypertension Additional A&P Information History of CVA, no obvious deficits currently History of pulmonary nodule, followed by primary SCDs for DVT prophylaxis, as anticoagulation contraindicated secondary to vaginal bleeding from vaginal cancer. SCD Full code Attestations Medical Necessity Statement*: Requires inpatient mission are all for 2 midnights for position of control of A. fib with RVR. Coding Level of Care Code Acute Paper Products Inspector for [facility] Fwd Diagnoses Atrial fibrillation I48.91 Atrial fibrillation type: unspecified Vaginal cancer C52 Hypertension I10 Hypertension type: essential hypertension
--- NOTE | 2020-04-12 19:11 | PC.NURSE ---
call from Dr Shannon to check on patients HR patient HR remains elevated instructions to give 40mg sotalol now and she would adjust other medication orders night nurse to call Shiva prior to giving next dose of cardizem
[2020-04-12] MEDS: sotalol 80 mg Tablet 40 MG PO (19:19)
--- NOTE | 2020-04-12 20:38 | ECG_ITS ---
[facility] Test Date: 2020-04-12 Pat Name: Jayjay Campa Department: Room: 112 Gender: Female Digital Account Coordinator: : 1935 Requested By: Em Shannon Order Number: [id number] Giovani MD: Em Shannon M.D. Measurements Intervals [place] Rate: 131 P: [place]: -1 QRS: -33 QRSD: 80 T: 80 QT: 319 QTc: 472 Interpretive Statements ATRIAL FIBRILLATION WITH RAPID VENTRICULAR RESPONSE MARKED LEFT AXIS DEVIATION [QRS AXIS < -30] NONSPECIFIC ST & T-WAVE ABNORMALITY Compared to ECG 04/11/2020 08:25:26 No significant changes Electronically Signed On 04-12-2020 22:47:40 CDT by Em Shannon M.D. [id number]
[2020-04-12] MEDS: enoxaparin 80 mg/0.8 mL Syringe 75 MG SUBCUT (21:47)
[2020-04-13] MEDS: ALPRAZolam 0.25 mg Tablet PO ×2 (02:56→19:10)
[2020-04-13 03:11] VITALS: BP 113/72; PULSE 131; RESP 24; TEMP 36.6; O2SAT 95
[2020-04-13] MEDS: acetaminophen 325 mg Tablet 650 MG PO ×2 (03:20→13:18)
[2020-04-13] MEDS: dilTIAZem 30 mg Tablet PO ×4 (03:47→19:46)
--- NOTE | 2020-04-13 04:06 | PC.NURSE ---
notified Dr Quiroz of HR jumping into 140's and 150's, 30 mg PO cardizem ordered now, continue to monitor
[2020-04-13 04:48] LABS: Basophils # 0.1 10^3/uL (0.0-0.1); Basophils % 0.6 %; Eosinophils # 0.3 10^3/uL (0.0-0.8); Eosinophils % 2.9 %; Hematocrit 36.2 % (37.0-47.0); Hemoglobin 11.3 g/dL (11.5-15.3); Lymphocytes # 2.4 10^3/uL (0.8-4.8); Lymphocytes % 23.5 %; Mean Corpuscular HGB Conc 31.2 g/dL (30.0-36.0); Mean Corpuscular Hemoglobin 26.8 pg (28.0-34.0); Mean Platelet Volume 10.8 fL (7.4-10.4); Monocytes % 10.1 %; Neutrophils # 6.28 10^3/uL (1.8-7.7); Neutrophils % 62.5 %; Nucleated Red Blood Cells % 0 %; Platelet Count 283 10^3/cmm (130-400); Red Blood Count 4.21 10^6/uL (4.1-5.3); Red Cell Distribution Width 15.3 % (12.1-15.1)
[2020-04-13] MEDS: sotalol 80 mg Tablet 120 MG PO (05:04)
[2020-04-13 05:48] LABS: Anion Gap 12.5 (5-19); Blood Urea Nitrogen 24 mg/dL (8-23); Calcium 8.7 mg/dL (8.5-10.5); Carbon Dioxide 25 mmol/L (22-29); Chloride 107 mmol/L (98-107); Glucose 130 mg/dL (65-115); Osmolality Calculated 291 mOsm/kg (285-295); Potassium 3.5 mmol/L (3.5-5.1); Sodium 141 mmol/L (136-145)
[2020-04-13 07:27] VITALS: BP 130/79; PULSE 107; RESP 19; TEMP 36.7; O2SAT 93
--- NOTE | 2020-04-13 08:00 | ECG_ITS ---
[facility] Test Date: 2020-04-13 Pat Name: Jayjay Campa Department: Room: 112 Gender: Female Agency Trainer: : 1935 Requested By: Em Shannon Order Number: [id number] Giovani MD: Em Shannon M.D. Measurements Intervals [place] Rate: 114 P: [place]: -1 QRS: -27 QRSD: 84 T: 93 QT: 316 QTc: 436 Interpretive Statements ATRIAL FIBRILLATION WITH RAPID VENTRICULAR RESPONSE BORDERLINE LEFT AXIS DEVIATION [QRS AXIS < -20] NONSPECIFIC ST & T-WAVE ABNORMALITY Compared to ECG 04/12/2020 21:13:31 No significant changes Electronically Signed On 04-13-2020 11:21:46 CDT by Em Shannon M.D. [id number]
[2020-04-13] MEDS: pantoprazole DR 40 mg Tablet PO (08:25)
[2020-04-13] MEDS: aspirin 325 mg Tablet PO (08:25)
[2020-04-13] MEDS: sertraline 50 mg Tablet 25 MG PO (08:25)
[2020-04-13] MEDS: potassium chloride ER 10 mEq Tablet 20 MEQ PO (08:27)
[2020-04-13] MEDS: enoxaparin 80 mg/0.8 mL Syringe 75 MG SUBCUT ×2 (08:28→21:46)
[2020-04-13 11:28] LABS: NT Pro B Type Natriuretic Pept 5373 pg/mL (0-450)
[2020-04-13 12:00] VITALS: BP 123/85; PULSE 126; RESP 22; TEMP 36.5; O2SAT 95
--- NOTE | 2020-04-13 13:01 | PC.NURSE ---
Verbal order from Dr. Shannon received to change Cardizem frequency to QID, give first dose now. RBVO.
--- NOTE | 2020-04-13 14:39 | PC.CHAP ---
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 [] Patient/Family/Request visit [] Outpatient visit [] Follow-up visit [] Physician referral [] Code/Alert [X] Routine visit [] Staff referral [] Actively dying [] Patient sleeping [] Family support [] [] Out of room [] Palliative care [] [] Receiving care in room [] Pre-surgical visit [] Trauma [] Long length of stay [] ICU visit [] Other: Relational/Emotional Strength [] Patient feels connected with others/family/visitors/staff [] Distress [] Loneliness/isolation [] Abandonment Spirituality of Patient [] Person of [place] [] Attends Sabianist of their [place] [] Believes in Prayer [] Reads Bible or Synagogue materials [] There are Spiritual 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 [] Prayer [] Active listening [] Non-anxious presence [] Spiritual/emotional support [] Crisis/trauma care [] Spiritual counseling [] Bereavement support [] Provided bereavement packet [] Provided Bible/devotional materials [] Provided toy/stuffed animal, coloring book to patient or family member [] Provided Communion [] Anointing/[place] [] Salvation [] Completed spiritual assessment [] Other: Impact on Illness or Injury [] Angry [] Fearful [] Anxious [] Often cries [] Exhaustion [] Unable to work [] Unable to attend holiness [] Unable to walk/stand [] Unable to read [] Unable to drive [] Unable to eat/drink [] Unable to sleep [] Unable to be with family [] Patient intubated [] Other: Summary Time spent with patient
[2020-04-13 15:33] VITALS: BP 110/64; PULSE 117; RESP 10; TEMP 36.6; O2SAT 94
--- NOTE | 2020-04-13 17:43 | PM.PN ---
Subjective Subjective: Interval history: She has not had any increased bleeding with Lovenox. Her heart rate continues to run from 110s to 140s in spite of increasing sotalol last night and this morning. Dose of Cardizem was increased as well. At the time of evaluation patient was very anxious and tearful or not being discharged today and missing her appointment with radiation oncology. Medications: Reviewed: Yes Medication Review Details: Current Medications Acetaminophen (Tylenol) 650 mg PO Q6H PRN PRN Reason: Mild/Mod Pain Or Temp >/= 101 Last Admin: 04/13/20 13:18 Dose: 650 mg Documented by: Alprazolam (Xanax) 0.25 mg PO TID PRN PRN Reason: Anxiety Last Admin: 04/13/20 19:10 Dose: 0.25 mg Documented by: Diltiazem HCl (Cardizem) 30 mg PO QID PRN PRN Reason: tachycardia Last Admin: 04/13/20 19:46 Dose: 30 mg Documented by: Diltiazem HCl (Cardizem Cd (24hr)) 180 mg PO DAILY [facility] Enoxaparin Sodium (Lovenox) 75 mg SUBCUT Q12H [facility] Last Admin: 04/13/20 08:28 Dose: 75 mg Documented by: Morphine Sulfate (Morphine) 2 mg IVP Q6H PRN PRN Reason: SEVERE PAIN Last Admin: 04/13/20 19:46 Dose: 2 mg Documented by: Ondansetron HCl (Zofran) 4 mg IVP Q6H PRN PRN Reason: vomiting, or N/V if npo Pantoprazole Sodium (Protonix) 40 mg PO DAILY [facility] Last Admin: 04/13/20 08:25 Dose: 40 mg Documented by: Sertraline HCl (Zoloft) 25 mg PO DAILY [facility] Last Admin: 04/13/20 08:25 Dose: 25 mg Documented by: Sotalol HCl (Betapace) 120 mg PO 0600 [facility] Sotalol HCl (Betapace) 80 mg PO 1800 [facility] Last Admin: 04/13/20 17:48 Dose: 80 mg Documented by: Vitals/I&O/Wt Last Vital Signs Temp 97.8 F 04/13/20 15:33 Pulse 117 H 04/13/20 15:33 Resp 10 L 04/13/20 15:33 BP 110/64 04/13/20 15:33 Pulse Ox 94 04/13/20 15:33 04/13/20 04/13/20 04/13/20 06:59 14:59 22:59 Intake Total 480 / 480 Balance 480 / 480 Weight last 48 hrs Weight 164 lb 12.8 oz Weight 165 lb 11.2 oz Weight 165 lb 5 oz Physical Exam Const: COMMON NORMALS: no acute distress, patient oriented x3 and alert GENERAL APPEARANCE: cooperative, comfortable, well kempt and well hydrated HENMT: COMMON NORMALS: hearing grossly normal bilaterally and external ears normal FACE & SINUS: normal facial exam EXTERNAL EAR: Yes external ears normal Eye: COMMON NORMALS: EOMs intact bilaterally and no scleral icterus GENERAL EYE: appearance normal, both eyes and all related structures ALIGNMENT: Yes alignment normal Neck/C-Spine: COMMON NORMALS: supple and no JVD GENERAL: Yes normal visual inspection and Yes trachea midline CAROTIDS: Yes normal carotid upstroke Resp: COMMON NORMALS: clear to auscultation bilaterally AUSCULTATION: clear to auscultation bilaterally, no crackles, no rales, no rhonchi and no wheezes Cardio: COMMON NORMALS: no JVD and Peripheral pulses 2+ throughout PALPATION: normal PMI RATE: tachycardic RHYTHM: abnormal rhythm irregularly irregular HEART SOUNDS: no gallops and no murmurs BRUITS: no carotid bruits PERIPHERAL PULSES: Peripheral pulses 2+ throughout, radial pulses present, posterior tibial pulses present and dorsalis pedis present Extremity: GENERAL: No cyanosis, No edema and No pallor Neuro: COMMON NORMALS: patient oriented x3 SENSORIUM/ORIENTATION: Yes alert GAIT: Yes Assistive device used cane Psych: COMMON NORMALS: Normal thought process present and speech normal APPEARANCE: Yes well kempt SPEECH: Yes normal speech MOOD & AFFECT: Yes euthymic mood THOUGHT PROCESS: Normal thought process present THOUGHT CONTENT: Yes Normal thought content present Data : 04/13/20 03:59 04/13/20 03:59 A&P Assessment and plan (1) Atrial fibrillation with RVR: Her Pradaxa was stopped few days back due to vaginal spotting/bleeding given recently diagnosed vaginal adenocarcinoma. She has tolerated lovenox so far. -Increase cardizem to 30 QID PRN and continue with sotalol 120 mg and 80 mg pm. -start on cardizem 180 mg daily tomorrow am. Discharge on pradaxa. -There is a component of anxiety as well. continue xanax PRN It is quite possible that with higher dose of sotalol and with her underlying tachybradycardia syndrome she might end up needing a pacemaker. -Her event monitor so far were reviewed and seems like the lowest heart rate that I noticed was heart rate of 61. continue with the event monitor. -After prolonged discussion with Iraj and Jerald about possible KINSEY/CV vs continuing medical management; it was decided to continue with medical management. Status: Acute (2) Hypertension: Status: Acute Qualifiers: Hypertension type: essential hypertension Qualified Code(s): I10 - Essential (primary) hypertension (3) Coronary artery disease: Unspecified; no history available. Status: Acute Qualifiers: Coronary Disease-Associated Artery/Lesion type: [place] artery [place] vs. transplanted heart: [place] heart Associated angina: without angina Qualified Code(s): I25.10 - Atherosclerotic heart disease of [place] coronary artery without angina pectoris (4) Vaginal cancer: Status: Acute Attestations Medical Necessity Statement*: needs hospital stay for a. 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 transplanted heart: [place] heart Associated angina: without angina Vaginal cancer C52
[2020-04-13] MEDS: FUROsemide 20 mg Tablet PO (17:48)
[2020-04-13] MEDS: sotalol 80 mg Tablet PO (17:48)
--- NOTE | 2020-04-13 18:46 | NUR.SHIFT ---
Dr. Shannon notified patient HR 130s-150s a fib. BP 120/98. Sotalol and Cardizem administered at 1748. Patient asymptomatic. Dr. Shannon gave telephone order to hold off on additional PO Cardizem until 1999. At 1999 obtain EKG before administering Cardizem. RBVO. Nurse to continue to monitor.
--- NOTE | 2020-04-13 19:15 | PC.NURSE ---
Dr. Shannon updated on patient condition. Patient reports pain 7/10 to right upper shoulder, attributes it to her arthritis. HR still 140-150s. Patient states she is SOB. BP 131/91. Physician gave nurse telephone order to administer morphine 2 mg q6H as needed for severe pain. Obtain EKG now. RBVO. Nurse to continue to monitor.
--- NOTE | 2020-04-13 19:17 | ECG_ITS ---
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 Measurements Intervals [place] Rate: 137 P: [place]: -1 QRS: -25 QRSD: 70 T: 57 QT: 320 QTc: 484 Interpretive Statements ATRIAL FIBRILLATION WITH RAPID VENTRICULAR RESPONSE BORDERLINE LEFT AXIS DEVIATION [QRS AXIS < -20] NONSPECIFIC ST & T-WAVE ABNORMALITY ABNORMAL RHYTHM ECG WARNING: DATA QUALITY MAY AFFECT INTERPRETATION Compared to ECG 04/13/2020 08:42:49 No significant changes Electronically Signed On 04-13-2020 20:14:24 CDT by Annemarie Quiroz M.D. [id number]
[2020-04-13] MEDS: morphine 4 mg/mL SDV 1 mL 2 MG IVP (19:46)
--- NOTE | 2020-04-13 19:55 | PM.PN ---
Subjective Subjective: Interval history: This morning she is feeling better. Early in the morning she had significant tachycardia, and that time was feeling some chest discomfort. This had resolved with improvement in her tachycardia without recurrence. Vitals/I&O/Wt Last Vital Signs Temp 97.8 F 04/13/20 15:33 Pulse 117 H 04/13/20 15:33 Resp 10 L 04/13/20 15:33 BP 110/64 04/13/20 15:33 Pulse Ox 94 04/13/20 15:33 04/13/20 04/13/20 04/13/20 06:59 14:59 22:59 Intake Total 480 / 480 240 / 720 Balance 480 / 480 240 / 720 Weight last 48 hrs Weight 74.752 kg Weight 75.16 kg Physical Exam Const: COMMON NORMALS: no acute distress and patient oriented x3 OTHER: Very hard of hearing. HENMT: COMMON NORMALS: oropharynx normal Neck/C-Spine: COMMON NORMALS: no JVD Resp: COMMON NORMALS: normal respiratory effort and clear to auscultation bilaterally AUSCULTATION: clear to auscultation bilaterally Cardio: COMMON NORMALS: no JVD, S1 normal heart sound present, S2 normal heart sound present and No murmurs present (Cardio) RATE: tachycardic RHYTHM: abnormal rhythm irregularly irregular HEART SOUNDS: S1 normal heart sound present and S2 normal heart sound present GI: COMMON NORMALS: Normal to inspection, nondistended, normoactive bowel sounds present, Soft to palpation and non-tender PALPATION: Yes Soft to palpation Extremity: COMMON NORMALS: no joint enlargement and no pedal edema Neuro: COMMON NORMALS: patient oriented x3 and moves all extremities Skin: COMMON NORMALS: no rashes or lesions noted GENERAL SKIN EXAM: no rashes or lesions noted Data : 04/13/20 03:59 04/13/20 03:59 A&P Assessment and plan (1) Atrial fibrillation: Again A. fib with RVR overnight, with pretty fast heart rates, and during that time short episode of chest discomfort. This had resolved with improvement in heart rates. Additional optimization as per cardiology. Heart rates still in about 120s this afternoon. Cardizem dose was increased and changed to long-acting, with addition of Cardizem as needed. Sotalol is continued with increased dosing after 120 mg in the morning, 80 in the evening. For now we will postpone discharge as she needs additional optimization of A. fib with RVR. Continues on Holter monitor. I do see scans from the monitor on 03/30-03/31 with heart rate of 60 bpm. Do not see anything lower. Cardiology is following her monitor. No bradycardia noted on telemetry here. Magnesium is normal. TSH was recently checked and normal. Troponin minimally elevated, not suggestive of acute TN. She has no chest pain. No anticoagulation secondary to vaginal bleeding from vaginal cancer. Discussed with her, encourage follow-up with PCP to reevaluate once anticoagulation becomes possible Appreciate cardiology recommendations. Status: Inactive Qualifiers: Atrial fibrillation type: unspecified Qualified Code(s): I48.91 - Unspecified atrial fibrillation (2) Vaginal cancer: Undergoing evaluation in [place]. From my understanding she has been set up for radiation. Appointment will need to be rescheduled. Status: Acute (3) Hypertension: Hold antihypertensives that she normally takes orally at home as she is on Cardizem which can lower her blood pressure. Status: Acute Qualifiers: Hypertension type: essential hypertension Qualified Code(s): I10 - Essential (primary) hypertension Additional A&P Information History of CVA, no obvious deficits currently History of pulmonary nodule, followed by primary SCDs for DVT prophylaxis, as anticoagulation contraindicated secondary to vaginal bleeding from vaginal cancer. SCD Full code Attestations Medical Necessity Statement*: Continue admission for optimization of medical management of A. fib with RVR. 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
[2020-04-13 20:00] VITALS: BP 115/58; PULSE 56; RESP 17; TEMP 36.8; O2SAT 93
[2020-04-13 22:52] VITALS: BP 129/58; PULSE 56; RESP 18; TEMP 36.6; O2SAT 93
--- NOTE | 2020-04-13 23:53 | PC.NURSE ---
Patient is currently resting with eyes closed. Will monitor.
[2020-04-14 04:00] VITALS: BP 126/56; PULSE 57; RESP 18; TEMP 36.6; O2SAT 93
[2020-04-14 04:53] LABS: Basophils # 0.1 10^3/uL (0.0-0.1); Basophils % 0.7 %; Eosinophils # 0.3 10^3/uL (0.0-0.8); Eosinophils % 3.7 %; Hematocrit 35.3 % (37.0-47.0); Lymphocytes # 2.3 10^3/uL (0.8-4.8); Lymphocytes % 28.4 %; Mean Corpuscular HGB Conc 31.2 g/dL (30.0-36.0); Mean Corpuscular Hemoglobin 27.2 pg (28.0-34.0); Mean Corpuscular Volume 87.2 fL (81-99); Mean Platelet Volume 10.7 fL (7.4-10.4); Monocytes # 0.9 10^3/uL (0.2-0.9); Monocytes % 11.4 %; Neutrophils # 4.54 10^3/uL (1.8-7.7); Neutrophils % 55.3 %; Nucleated Red Blood Cells % 0 %; Platelet Count 271 10^3/cmm (130-400); Red Blood Count 4.05 10^6/uL (4.1-5.3); Red Cell Distribution Width 15.6 % (12.1-15.1); White Blood Count 8.2 10^3/uL (4.0-10.0)
--- NOTE | 2020-04-14 05:00 | ECG_ITS ---
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 Measurements Intervals [place] Rate: 55 P: 64 ND: 152 QRS: -15 QRSD: 89 T: -4 QT: 429 QTc: 413 Interpretive Statements SINUS BRADYCARDIA NONSPECIFIC ST & T-WAVE ABNORMALITY Compared to ECG 04/13/2020 19:36:39 Atrial fibrillation no longer present T-wave abnormality still present Electronically Signed On 04-14-2020 12:54:08 CDT by Em Shannon M.D. [id number]
[2020-04-14 05:19] LABS: Anion Gap 14.5 (5-19); Blood Urea Nitrogen 24 mg/dL (8-23); Calcium 9.3 mg/dL (8.5-10.5); Carbon Dioxide 25 mmol/L (22-29); Chloride 106 mmol/L (98-107); Glucose 103 mg/dL (65-115); Osmolality Calculated 291 mOsm/kg (285-295); Potassium 3.5 mmol/L (3.5-5.1); Sodium 142 mmol/L (136-145)
--- NOTE | 2020-04-14 06:10 | PC.NURSE ---
Dr. Anthony notified that patient's heart rate is currently 53 SR and has been that way for several hours. Patient's heart rate at beginning of shift was 150s in a-fib. Patient currently has Sotalol 120 mg due. Ordered to hold Sotalol until doctor can come in to see patient today.
[2020-04-14 08:00] VITALS: BP 129/54; PULSE 60; RESP 17; O2SAT 97
--- NOTE | 2020-04-14 08:06 | PC.NURSE ---
Dr. Shannon updated on patient condition. Patient NSR HR 61. Physician notified that morning sotalol was not administered and cardizem is due now. Physician instructed nurse to hold cardizem dose and administer sotalol now. RBVO. Nurse to continue to monitor.
--- NOTE | 2020-04-14 08:19 | PC.NURSE ---
Dr. Shannon at bedside. Physician gave verbal order to change sotalol dose to 80 md BID and discontinue 120 mg/ 80mg schedule. RBVO. Nurse to continue to monitor.
[2020-04-14] MEDS: sertraline 50 mg Tablet 25 MG PO (08:21)
[2020-04-14] MEDS: pantoprazole DR 40 mg Tablet PO (08:21)
[2020-04-14] MEDS: sotalol 80 mg Tablet PO (08:23)
[2020-04-14] MEDS: enoxaparin 80 mg/0.8 mL Syringe 75 MG SUBCUT (08:24)
--- NOTE | 2020-04-14 09:23 | PM.PN ---
Subjective Subjective: Interval history: She converted to NSR last night at around 8:30 pm. She feels much better and is excited to go home. Slight increase in bloody vaginal discharge but not significant amount. Medications: Reviewed: Yes Medication Review Details: Current Medications Acetaminophen (Tylenol) 650 mg PO Q6H PRN PRN Reason: Mild/Mod Pain Or Temp >/= 101 Last Admin: 04/13/20 13:18 Dose: 650 mg Documented by: Alprazolam (Xanax) 0.25 mg PO TID PRN PRN Reason: Anxiety Last Admin: 04/13/20 19:10 Dose: 0.25 mg Documented by: Diltiazem HCl (Cardizem) 30 mg PO QID PRN PRN Reason: tachycardia Last Admin: 04/13/20 19:46 Dose: 30 mg Documented by: Enoxaparin Sodium (Lovenox) 75 mg SUBCUT Q12H [facility] Last Admin: 04/14/20 08:24 Dose: 75 mg Documented by: Morphine Sulfate (Morphine) 2 mg IVP Q6H PRN PRN Reason: SEVERE PAIN Last Admin: 04/13/20 19:46 Dose: 2 mg Documented by: Ondansetron HCl (Zofran) 4 mg IVP Q6H PRN PRN Reason: vomiting, or N/V if npo Pantoprazole Sodium (Protonix) 40 mg PO DAILY [facility] Last Admin: 04/14/20 08:21 Dose: 40 mg Documented by: Potassium Chloride (Klor-Con 10) 20 meq PO ONCE ONE Stop: 04/14/20 09:31 Sertraline HCl (Zoloft) 25 mg PO DAILY [facility] Last Admin: 04/14/20 08:21 Dose: 25 mg Documented by: Sotalol HCl (Betapace) 80 mg PO BID@0900,2100 [facility] Last Admin: 04/14/20 08:23 Dose: 80 mg Documented by: Vitals/I&O/Wt Last Vital Signs Temp 98 F 04/14/20 04:00 Pulse 60 04/14/20 08:00 Resp 17 04/14/20 08:00 BP 129/54 04/14/20 08:00 Pulse Ox 97 04/14/20 08:00 04/13/20 04/14/20 04/14/20 22:59 06:59 14:59 Intake Total 240 / 720 360 / 360 Balance 240 / 720 360 / 360 Weight last 48 hrs Weight 163 lb Weight 164 lb 12.8 oz Physical Exam Const: COMMON NORMALS: no acute distress, patient oriented x3 and alert GENERAL APPEARANCE: cooperative, comfortable, well kempt and well hydrated HENMT: COMMON NORMALS: hearing grossly normal bilaterally and external ears normal FACE & SINUS: normal facial exam EXTERNAL EAR: Yes external ears normal Eye: COMMON NORMALS: EOMs intact bilaterally and no scleral icterus GENERAL EYE: appearance normal, both eyes and all related structures ALIGNMENT: Yes alignment normal Neck/C-Spine: COMMON NORMALS: supple and no JVD GENERAL: Yes normal visual inspection and Yes trachea midline CAROTIDS: Yes normal carotid upstroke Resp: COMMON NORMALS: clear to auscultation bilaterally AUSCULTATION: clear to auscultation bilaterally, no crackles, no rales, no rhonchi and no wheezes Cardio: COMMON NORMALS: no JVD and Peripheral pulses 2+ throughout PALPATION: normal PMI RATE: tachycardic RHYTHM: abnormal rhythm irregularly irregular HEART SOUNDS: no gallops and no murmurs BRUITS: no carotid bruits PERIPHERAL PULSES: Peripheral pulses 2+ throughout, radial pulses present, posterior tibial pulses present and dorsalis pedis present Extremity: GENERAL: No edema and No pallor Neuro: COMMON NORMALS: patient oriented x3 SENSORIUM/ORIENTATION: Yes alert GAIT: Yes Assistive device used cane Psych: COMMON NORMALS: Normal thought process present and speech normal APPEARANCE: Yes well kempt SPEECH: Yes normal speech MOOD & AFFECT: Yes euthymic mood THOUGHT PROCESS: Normal thought process present THOUGHT CONTENT: Yes Normal thought content present Data : 04/14/20 04:22 04/14/20 04:22 A&P Assessment and plan (1) Atrial fibrillation with RVR: Her Pradaxa was stopped few days back due to vaginal spotting/bleeding given recently diagnosed vaginal adenocarcinoma. She has tolerated lovenox so far. -Use cardizem 30 TID PRN and continue with sotalol 80 mg q 12 hr - Discharge on pradaxa. In case bleeding increases will lower the dose rather than stopping it. -There is a component of anxiety as well. continue xanax PRN It is quite possible that with higher dose of sotalol and with her underlying tachybradycardia syndrome she might end up needing a pacemaker. -Her event monitor so far were reviewed and seems like the lowest heart rate that I noticed was heart rate of 61. continue with the event monitor. -f/u in 1 week. Status: Acute (2) Hypertension: Status: Acute Qualifiers: Hypertension type: essential hypertension Qualified Code(s): I10 - Essential (primary) hypertension (3) Coronary artery disease: Unspecified; no history available. Status: Acute Qualifiers: Coronary Disease-Associated Artery/Lesion type: [place] artery [place] vs. transplanted heart: [place] heart Associated angina: without angina Qualified Code(s): I25.10 - Atherosclerotic heart disease of [place] coronary artery without angina pectoris (4) Vaginal cancer: Status: Acute Attestations Medical Necessity Statement*: Stable to be discharged home. 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 transplanted heart: [place] heart Associated angina: without angina Vaginal cancer C52
--- NOTE | 2020-04-14 09:30 | ECG_ITS ---
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 Measurements Intervals [place] Rate: 55 P: 61 CT: 143 QRS: -14 QRSD: 88 T: -29 QT: 429 QTc: 412 Interpretive Statements SINUS BRADYCARDIA NONSPECIFIC ST & T-WAVE ABNORMALITY Compared to ECG 04/14/2020 05:07:05 No significant changes Electronically Signed On 04-14-2020 20:24:51 CDT by Omid Anthony M.D. [id number]
[2020-04-14] MEDS: potassium chloride ER 10 mEq Tablet 20 MEQ PO (09:46)
--- NOTE | 2020-04-14 09:51 | PM.DCS ---
Discharge Providers Date of Admission: 04/12/20 18:51 Date of Discharge: April 14, 2020 Attending Provider at Admission: Alexander Hernandez MD Attending Provider at Discharge: Tyler Carrasco Primary Care Provider: Parag Norris DO Diagnoses at Discharge Discharge Diagnosis (1) Atrial fibrillation with RVR: Status: Acute (2) Hypertension: Status: Acute Qualifiers: Hypertension type: essential hypertension Qualified Code(s): I10 - Essential (primary) hypertension (3) Coronary artery disease: Status: Acute Qualifiers: Coronary Disease-Associated Artery/Lesion type: [place] artery [place] vs. transplanted heart: [place] heart Associated angina: without angina Qualified Code(s): I25.10 - Atherosclerotic heart disease of [place] coronary artery without angina pectoris (4) Vaginal cancer: Status: Acute Reason for Visit Reason for Visit: cp Hospital Course Hospital Course: Pleasant 84-year-old lady with history of A. fib, vaginal cancer complicated by bleeding, history of CVA, other chronic morbidities was admitted for cyst management due to palpitations, found to be in A. fib with RVR heart rates 150-160. She initially required Cardizem drip, her sotalol dosing was increased back to 80 mg twice a day. Heart rates were difficult to control, and remain persistently tachycardic, requiring resumption of Cardizem drip after initial weaning, subsequently Cardizem p.o. was added scheduled in addition to sotalol dose of which while in hospital was increased up to 120 mg in the morning, 80 in the evening for cardiology consultation recommendations. Her troponin was minimally elevated, she had no chest pain, and no other finding suggestive of acute LA. TSH was recently checked and was normal. Magnesium was normal. Potassium was normal, although slightly low. She converted back to sinus rhythm on personnel manager of 04/14. She is feeling well. Denies any chest pain or pressure. No shortness of breath. She is very eager to leave the hospital, and says has been feeling like her usual self. She was cleared for discharge by cardiology, and may return home with continue sotalol 80 mg twice a day, and was given a prescription for Cardizem 30 mg 3 times daily only as needed if heart rate is persistently above 100. She is instructed to follow her blood pressures and heart rates 3 times daily and follow-up with cardiology in 1 week. Of note she had missed her. Initial appointment for radiation oncology in [place], and so this will need to be rescheduled of which family is aware and are going to arrange for an appointment for her. Due to vaginal cancer complicated by bleeding previously she is not candidate for anticoagulation at this time for defibrillation, but please explore with her other options, either reexamining again once bleeding is no longer risk, or other non-anticoagulation options for stroke reduction in atrial fibrillation. Physical Exam Const: COMMON NORMALS: no acute distress and patient oriented x3 OTHER: Very hard of hearing. HENMT: COMMON NORMALS: oropharynx normal Neck/C-Spine: COMMON NORMALS: no JVD Resp: COMMON NORMALS: normal respiratory effort and clear to auscultation bilaterally AUSCULTATION: clear to auscultation bilaterally Cardio: COMMON NORMALS: no JVD, regular rate, S1 normal heart sound present, S2 normal heart sound present and No murmurs present (Cardio) RATE: regular rate RHYTHM: abnormal rhythm irregularly irregular HEART SOUNDS: S1 normal heart sound present and S2 normal heart sound present GI: COMMON NORMALS: Normal to inspection, nondistended, normoactive bowel sounds present, Soft to palpation and non-tender PALPATION: Yes Soft to palpation Extremity: COMMON NORMALS: no joint enlargement and no pedal edema Neuro: COMMON NORMALS: patient oriented x3 and moves all extremities Skin: COMMON NORMALS: no rashes or lesions noted GENERAL SKIN EXAM: no rashes or lesions noted Discharge Data Data Completed and Pending: Completed Studies During Hospitalization Category Date Time Status XR chest 1V ciarra ble [id number] Stat Exams 04/10/20 23:49 Completed Pending at discharge Category Date Time Status Basic Metabolic P janes AM LABS Lab 04/15/20 04:00 Ordered Complete Blood Co unt w/Auto AM LABS Lab 04/15/20 04:00 Ordered Labs from last 24 hours 04/14/20 04/14/20 04/14/20 04:22 04:22 04:22 WBC 8.2 RBC 4.05 L Hgb 11.0 L Hct 35.3 L MCV 87.2 MCH 27.2 L MCHC 31.2 RDW 15.6 H Plt Count 271 MPV 10.7 H Neut % (Auto) 55.3 Lymph % (Auto) 28.4 [place] % (Auto) 11.4 Eos % (Auto) 3.7 Baso % (Auto) 0.7 Neut # (Auto) 4.54 Lymph # (Auto) 2.3 [place] # (Auto) 0.9 Eos # (Auto) 0.3 Baso # (Auto) 0.1 Nucleated RBC % (a uto) 0 Nucleated RBCs # 0.0 Sodium 142 Potassium 3.5 Chloride 106 Carbon Dioxide 25 Anion Gap 14.5 BUN 24 H Creatinine 1.1 H GFR Calculation Not Reportable Glucose 103 Calculated Osmolal ity 291 Calcium 9.3 Magnesium 2.0 NT-Pro-B Natriuret Pep 04/13/20 03:59 WBC RBC Hgb Hct MCV MCH MCHC RDW Plt Count MPV Neut % (Auto) Lymph % (Auto) [place] % (Auto) Eos % (Auto) Baso % (Auto) Neut # (Auto) Lymph # (Auto) [place] # (Auto) Eos # (Auto) Baso # (Auto) Nucleated RBC % (a uto) Nucleated RBCs # Sodium Potassium Chloride Carbon Dioxide Anion Gap BUN Creatinine GFR Calculation Glucose Calculated Osmolal ity Calcium Magnesium NT-Pro-B Natriuret Pep 5373 H Vitals: Last Vital Signs Temp 98 F 04/14/20 04:00 Pulse 60 04/14/20 08:00 Resp 17 04/14/20 08:00 BP 129/54 04/14/20 08:00 Pulse Ox 97 04/14/20 08:00 Discharge Plan Discharge Patient Disposition: Home Condition: Stable Prescriptions: New diltiazem HCl 30 mg Tablet 30 mg PO TID PRN (Reason: Tachycardia) Qty: 90 RF: 0 Continued sotalol 80 mg tablet 80 mg PO BID RF: 0 melatonin 3 mg capsule 3 mg PO BEDTIME PRN (Reason: Sleep) RF: 0 ondansetron HCl 4 mg tablet 4 mg PO Q6H PRN (Reason: nausea and vomiting) RF: 0 multivitamin [Multiple Vitamins] Tablet 1 tab PO DAILY RF: 0 aspirin 325 mg Tablet 325 mg PO DAILY RF: 0 potassium chloride 10 mEq Tablet Extended Release 10 meq PO DAILY RF: 0 promethazine 25 mg Tablet 25 mg PO Q6H PRN (Reason: Nausea) RF: 0 sertraline 25 mg Tablet 25 mg PO DAILY RF: 0 Vascepa 1 gram Capsule 2 g PO BID RF: 0 alprazolam 0.25 mg tablet 0.25 mg PO TID PRN (Reason: Anxiety) RF: 0 pantoprazole 40 mg Tablet,Delayed Release (Dr/Ec) 40 mg PO DAILY PRN (Reason: unknown) RF: 0 Discontinued hydrochlorothiazide 12.5 mg tablet 12.5 mg PO DAILY Qty: 90 RF: 3 amlodipine 5 mg Tablet 5 mg PO DAILY RF: 0 Discharge Orders: Discharge Order (Routine); Ordered 04/14/20 Ordered By: Tyler Carrasco Referrals: Parag Norris DO [Primary Care Provider] - 4-7 days (You have a hospital followup with Dr. Norris at [facility] on Saturday, April 20 at 10:00am.) Em Shannon MD [Physician] - 1 week Discharge Diet: Cardiac Discharge Activity: Increase activity as tolerated Patient Instructions: Atrial Fibrillation, Diltiazem (By mouth), Chest Pain Stoplight Activity Restrictions/Additional Instructions: Monitor your pulse rate and blood pressure at home 3 times daily, record values to bring for reassessment with Dr. Shannon in office. If your heart rate is persistently elevated remaining above 100 bpm despite taking sotalol, please take a cardizem 30mg tablet and recheck later in the day, If heart rates are persistently high, or your heart rate is very slow, below 55 bpm persistently, or you are feeling dizziness, chest pain or pressure, or have low blood pressure, please seek medical attention. Continue with cardiac monitoring as previously. Continue follow-up with regards to your cancer with cancer doctor. Follow-up also with your primary care provider and discuss further regarding anticoagulation and non-anticoagulation based strategies to reduce chance of stroke with atrial fibrillation, especially if risk of bleeding goes away. Continue follow-up with your primary care doctor with regards to lung nodules. Discharge Attestations Time Spent in Discharge Care*: greater than 30 min Quality Metrics Clinical Quality Measures During this hospital stay, did patient experience: None Coding Level of Care Code Acute Intelligence Clerk for Alejandro Fwd Diagnoses Atrial fibrillation with RVR I48.91 Hypertension I10 Hypertension type: essential hypertension Coronary artery disease I25.10 Coronary Disease-Associated Artery/Lesion type: [place] artery [place] vs. transplanted heart: [place] heart Associated angina: without angina Vaginal cancer C52
[2020-04-14 11:00] VITALS: BP 158/58; PULSE 54; RESP 16; TEMP 36.4; O2SAT 96
--- NOTE | 2020-04-14 11:28 | PC.NURSE ---
Discharge instructions given per the physician's orders. Patient verbalized understanding of teaching and did not have any further questions. IV has been removed. Patient dressed self. No further needs identified.
== END 2020-04-14 11:10 | disposition home or self-care (01) | DRG 310 ==
LOC: ER 23:37 → CSU 04-11 03:06
PROVIDERS: Emergency Medicine; Internal Medicine Cardiovascular Disease; Admitting Provider Internal Medicine; PCP Electrodiagnostic Medicine; Visit Provider Internal Medicine
DX: I48.91 Unspecified atrial fibrillation (principal); C52 Malignant neoplasm of vagina; I10 Essential (primary) hypertension; I25.10 Atherosclerotic heart disease of native coronary artery without angina pectoris; Z86.73 Personal history of transient ischemic attack (TIA), and cerebral infarction without residual deficits; Z79.82 Long term (current) use of aspirin
CPT/HCPCS: 12345; 36415; 71045; 80048; 80053; 81001; 82550; 83735; 83880; 84484; 85025; 93005; 96372; 96375; 99284; G0378; J1650; J2270; J2405; J3010; J3490; J7030; J7040

== ENCOUNTER → 2020-05-22 10:50 | Outpatient (BNVA) | payer MEDICARE, OTHER, SELFPAY | PROVIDERS: PCP Electrodiagnostic Medicine; Visit Provider Nurse Practitioner Family | DX: N39.0 Urinary tract infection, site not specified (principal); R10.30 Lower abdominal pain, unspecified | CPT/HCPCS: 81000 ==

== ENCOUNTER 2020-09-26 09:57 | Observation (INO) | payer MEDICARE, OTHER, SELFPAY ==
[2020-09-26] VITALS (25 sets, daily range): BP systolic 91–156; BP diastolic 50–96; PULSE 80–146; RESP 14–24; TEMP 36.4–37.1; O2SAT 87–97; BMI 26.4
--- NOTE | 2020-09-26 10:11 | ECG_ITS ---
[facility] Test Date: 2020-09-26 Pat Name: Jayjay Campa Department: Room: Gender: Female Glass Technician/Installer: : 1935 Requested By: Idris Johnston Order Number: [id number] Giovani MD: Em Shannon M.D. Measurements Intervals [place] Rate: 149 P: ID: QRS: -39 QRSD: 88 T: 85 QT: 282 QTc: 444 Interpretive Statements ATRIAL FIBRILLATION WITH RAPID VENTRICULAR RESPONSE LEFT AXIS DEVIATION [QRS AXIS < -30] NONSPECIFIC ST & T-WAVE ABNORMALITY Compared to ECG 04/14/2020 09:50:34 Left-axis deviation now present Sinus bradycardia no longer present T-wave abnormality still present Electronically Signed On 09-26-2020 12:37:41 HAND ORNAMENT MAKER by Em Shannon M.D. [email or web address].Fusebill/store/[id number] f
--- NOTE | 2020-09-26 10:11 | XR_ITS ---
WS: [id number] Exam: XR chest 1V portable [id number] Date/Time of Exam: 09/26/2020 10:18 AM Reason For Exam: chest pain Comparison 04/11/2020. The lungs are fully inflated and clear. Normal cardiomediastinal structures for technique. No pleural effusions. Monitoring leads superimpose the chest. XR/XR chest 1V portable [id number] IMPRESSION: 1. No acute cardiopulmonary finding.
--- NOTE | 2020-09-26 10:16 | PC.NURSE ---
Pt son reports pt has been off her Pradaxa for approx 2 months per her PCP order. Pt son states she started it again last night.
[2020-09-26] MEDS: aspirin 81 mg Chew Tablet 324 MG PO (10:20)
[2020-09-26 10:29] LABS: Basophils # 0.1 10^3/uL (0.0-0.1); Basophils % 0.6 %; Eosinophils # 0.2 10^3/uL (0.0-0.8); Eosinophils % 1.4 %; Hemoglobin 13.4 g/dL (11.5-15.3); Lymphocytes # 2.1 10^3/uL (0.8-4.8); Lymphocytes % 18.1 %; Mean Corpuscular HGB Conc 31.2 g/dL (30.0-36.0); Mean Corpuscular Hemoglobin 25.7 pg (28.0-34.0); Mean Corpuscular Volume 82.4 fL (81-99); Monocytes # 0.9 10^3/uL (0.2-0.9); Monocytes % 7.2 %; Neutrophils # 8.49 10^3/uL (1.8-7.7); Neutrophils % 72.3 %; Nucleated Red Blood Cells % 0 %; Platelet Count 324 10^3/cmm (130-400); Red Blood Count 5.22 10^6/uL (4.1-5.3); White Blood Count 11.8 10^3/uL (4.0-10.0)
--- NOTE | 2020-09-26 10:39 | W.ED.CHESTPA ---
HPI - Chest Pain General: Chief Complaint: Chest Pain Stated Complaint: CP Time Seen by Provider: 09/26/20 09:57 History of Present Illness: HPI narrative: 85-year-old female presents to the emergency room with complaint of rapid heart rate and shortness of breath. She also experiencing some mild chest discomfort. Began at 4 AM states she got up to go the bathroom she began experiencing a rapid heart rate and discomfort progressively worsened she should get it other times usually self-limiting. She has a known history of atrial fibrillation and coronary artery disease. (Details of her coronary artery disease are unknown according to cardiology note she had a normal stress test in 2019 and there is no record of intervention). She had stopped taking her anticoagulant over the last few months just recently started it. She is usually on sotalol for rate control states she is not had a change in dose or compliance with her medication. Additionally she has diltiazem listed in her medication list. Talk to the health technical writer she had been using using it on a as needed basis patient states she has not taken any for quite some time. MD complaint: chest pain and chest discomfort Pertinent past history: other (History of A. fib) Onset (ago): day(s) Timing of current episode: episodic Onset: during rest Associated symptoms: Reports dyspnea; Deny abdominal pain, fever(s), nausea or vomiting Review of Systems Const: Denies: fever(s), chills, body aches, change in appetite, fatigue or malaise ENMT: Denies: throat pain, ear or mastoid pain, nasal discharge or nasal congestion Card: Reports: dyspnea on exertion and orthopnea; Denies: chest pain or edema Resp: Reports: dyspnea; Denies: productive cough or non-productive cough GI: Denies: abdominal pain, nausea, vomiting, hematemesis, coffee ground emesis, diarrhea, constipation, bloating, hematochezia or melena : Denies: flank pain, difficulty voiding, dysuria, urinary frequency or urinary urgency Skin/Breast: Denies: rash or pruritus PFSH ED PFSH: Medical History Arthritis Atrial fibrillation Not anticoagulated secondary to vaginal bleeding from cancer Atrial fibrillation with RVR Degenerative disc disease Elevated troponin Gout History of CVA (cerebrovascular accident) Pulmonary nodule Surgical History History of hip replacement (~2014) Total hip replacement through anterior approach performed in [facility] History of hip surgery Incision and drainage of right thigh abscess History of hysterectomy (~2010) according to pcp documentation--- performed in [place] for noninvasive cancer partial colectomy for obstruction and adhesion at the same time. 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, stage IVB Father Heart disease Denies family history of Ovarian cancer Diabetes Hyperlipidemia Stroke Social History Alcohol intake: never Additional social history: - Tobacco use: Denies Alcohol use: Denies Drug use: Denies Physical Exam Const: COMMON NORMALS: no acute distress GENERAL APPEARANCE: cooperative and comfortable ORIENTATION/CONSCIOUSNESS: Yes awake, Yes oriented to person, Yes oriented to place and Yes oriented to time HENMT: COMMON NORMALS: normocephalic, atraumatic and hearing grossly normal bilaterally HEAD & SCALP: normocephalic and atraumatic Neck/C-Spine: COMMON NORMALS: no JVD Resp: COMMON NORMALS: normal respiratory effort, No retractions, No use of accessory muscles and clear to auscultation bilaterally AUSCULTATION: clear to auscultation bilaterally Cardio: COMMON NORMALS: no JVD and No murmurs present (Cardio) RATE: tachycardic RHYTHM: abnormal rhythm irregularly irregular GI: COMMON NORMALS: Soft to palpation and No hepatosplenomegaly present AUSCULTATION: Yes normoactive bowel sounds PALPATION: Yes Soft to palpation, No Tenderness to palpation present (GI), No Guarding due to palpation present (GI) and Yes No hepatosplenomegaly present Extremity: COMMON NORMALS: normal to inspection, capillary refill normal, no clubbing, cyanosis or edema, no calf tenderness and no pedal edema Neuro: SENSORIUM/ORIENTATION: Yes oriented to person, Yes oriented to place and Yes oriented to time Skin: COMMON NORMALS: no rashes or lesions noted GENERAL SKIN EXAM: no rashes or lesions noted Course Vital Signs: Vital signs: Vital Signs Temperature 96.3 F L 09/27/20 07:16 Pulse Rate 102 H 09/27/20 07:16 Respiratory Rate 18 09/27/20 07:16 Blood Pressure 125/67 09/27/20 07:16 Pulse Oximetry 94 09/27/20 07:16 MDM - Chest Pain Lab Data: Labs: Lab Results 09/26/20 09/26/20 09/26/20 Range/Units 10:18 10:18 10:18 WBC 11.8 H (4.0-10.0) 10^3/ uL RBC 5.22 (4.1-5.3) 10^6/u L Hgb 13.4 (11.5-15.3) g/dL Hct 43.0 (37.0-47.0) % MCV 82.4 (81-99) fL MCH 25.7 L (28.0-34.0) pg MCHC 31.2 (30.0-36.0) g/dL RDW 20.0 H (12.1-15.1) % Plt Count 324 (130-400) 10^3/c mm MPV 10.0 (7.4-10.4) fL Neut % (Auto) 72.3 % Lymph % (Auto) 18.1 % [place] % (Auto) 7.2 % Eos % (Auto) 1.4 % Baso % (Auto) 0.6 % Neut # (Auto) 8.49 H (1.8-7.7) 10^3/u L Lymph # (Auto) 2.1 (0.8-4.8) 10^3/u L [place] # (Auto) 0.9 (0.2-0.9) 10^3/u L Eos # (Auto) 0.2 (0.0-0.8) 10^3/u L Baso # (Auto) 0.1 (0.0-0.1) 10^3/u L Nucleated RBC % (a uto) 0 % Nucleated RBCs # 0.0 /100WBC Sodium 140 (136-145) mmol/L Potassium 3.7 (3.5-5.1) mmol/L Chloride 105 (98-107) mmol/L Carbon Dioxide 23 (22-29) mmol/L Anion Gap 15.7 (5-19) BUN 12 (8-23) mg/dL Creatinine 0.6 (0.5-0.9) mg/dL GFR Calculation Not Reportable Glucose 138 H (65-115) mg/dL Calculated Osmolal ity 292 (285-295) mOsm/k g Calcium 9.3 (8.5-10.5) mg/dL Magnesium (1.7-2.3) mg/dL Total Bilirubin 0.4 (0.15-1.2) mg/dL AST 20 (0-32) U/L ALT 9 (0-33) U/L Alkaline Phosphata se 119 H (35-105) IU/L Troponin T Baselin e 22 H (0-10) ng/L Troponin T 120 Min [place] (0-10) ng/L Delta Troponin T (0-10) ABS# NT-Pro-B Natriuret Pep (0-450) pg/mL Total Protein 6.8 (6.6-8.7) g/dL Albumin 4.0 (3.5-5.2) g/dL Globulin 2.8 (1.3-4.6) g/dL TSH (0.27-4.20) uIU/ mL 09/26/20 09/26/20 09/26/20 Range/Units 10:18 10:18 12:28 WBC (4.0-10.0) 10^3/ uL RBC (4.1-5.3) 10^6/u L Hgb (11.5-15.3) g/dL Hct (37.0-47.0) % MCV (81-99) fL MCH (28.0-34.0) pg MCHC (30.0-36.0) g/dL RDW (12.1-15.1) % Plt Count (130-400) 10^3/c mm MPV (7.4-10.4) fL Neut % (Auto) % Lymph % (Auto) % [place] % (Auto) % Eos % (Auto) % Baso % (Auto) % Neut # (Auto) (1.8-7.7) 10^3/u L Lymph # (Auto) (0.8-4.8) 10^3/u L [place] # (Auto) (0.2-0.9) 10^3/u L Eos # (Auto) (0.0-0.8) 10^3/u L Baso # (Auto) (0.0-0.1) 10^3/u L Nucleated RBC % (a uto) % Nucleated RBCs # /100WBC Sodium (136-145) mmol/L Potassium (3.5-5.1) mmol/L Chloride (98-107) mmol/L Carbon Dioxide (22-29) mmol/L Anion Gap (5-19) BUN (8-23) mg/dL Creatinine (0.5-0.9) mg/dL GFR Calculation Glucose (65-115) mg/dL Calculated Osmolal ity (285-295) mOsm/k g Calcium (8.5-10.5) mg/dL Magnesium 1.8 (1.7-2.3) mg/dL Total Bilirubin (0.15-1.2) mg/dL AST (0-32) U/L ALT (0-33) U/L Alkaline Phosphata se (35-105) IU/L Troponin T Baselin e (0-10) ng/L Troponin T 120 Min [place] 28.82 H (0-10) ng/L Delta Troponin T 6.82 (0-10) ABS# NT-Pro-B Natriuret Pep 3297 H (0-450) pg/mL Total Protein (6.6-8.7) g/dL Albumin (3.5-5.2) g/dL Globulin (1.3-4.6) g/dL TSH 1.73 (0.27-4.20) uIU/ mL Discharge Plan Discharge Patient Disposition: Admitted As Inpatient Admit Provider: Vinayak Hicks Clinical Impression: Atrial fibrillation, Hypertension, Coronary artery disease, Diabetes mellitus, Vaginal cancer Condition: Stable Coding Level of Care Code ED Lead Performance Support Analyst for Alejandro Vann
--- NOTE | 2020-09-26 10:47 | PC.NURSE ---
patient stated more pressure to left shoulder, less pressure to chest. no acute distress noted at this time.
--- NOTE | 2020-09-26 10:52 | PC.NURSE ---
pt denied any nausea at this time.
[2020-09-26 10:54] LABS: Alanine Aminotransferase 9 U/L (0-33); Alkaline Phosphatase 119 IU/L (35-105); Anion Gap 15.7 (5-19); Aspartate Amino Transferase 20 U/L (0-32); Blood Urea Nitrogen 12 mg/dL (8-23); Calcium 9.3 mg/dL (8.5-10.5); Carbon Dioxide 23 mmol/L (22-29); Chloride 105 mmol/L (98-107); Globulin 2.8 g/dL (1.3-4.6); Glucose 138 mg/dL (65-115); Osmolality Calculated 292 mOsm/kg (285-295); Potassium 3.7 mmol/L (3.5-5.1); Sodium 140 mmol/L (136-145); Total Bilirubin 0.4 mg/dL (0.15-1.2); Total Protein 6.8 g/dL (6.6-8.7)
[2020-09-26 10:57] LABS: Troponin(5th) Baseline 22 ng/L (0-10)
[2020-09-26] MEDS: dilTIAZem 60 mg Tablet PO (11:09)
--- NOTE | 2020-09-26 11:53 | PC.NURSE ---
patient stated dont have any pain at this time
--- NOTE | 2020-09-26 12:11 | ECG_ITS ---
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 Measurements Intervals [place] Rate: 99 P: [place]: QRS: -35 QRSD: 88 T: 47 QT: 388 QTc: 498 Interpretive Statements ATRIAL FIBRILLATION LEFT AXIS DEVIATION [QRS AXIS < -30] MINIMAL VOLTAGE CRITERIA FOR LVH, CONSIDER NORMAL VARIANT [MEETS CRITERIA IN ONE OF: R(aVL), S(V1), R(V5), R(V5/V6)+S(V1)] NONSPECIFIC ST & T-WAVE ABNORMALITY Compared to ECG 09/26/2020 10:10:35 No significant changes Electronically Signed On 09-27-2020 6:11:13 STRAIGHT EDGER by Em Shannon M.D. [email or web address] CorpProximagencorewell health lud[facility] hospital.AdKeeper/store/[id number] f
[2020-09-26 13:10] LABS: Troponin 5 2HR 28.82 ng/L (0-10); Troponin 5 2HR Delta 6.82 ABS# (0-10)
--- NOTE | 2020-09-26 13:11 | PC.NURSE ---
patient denied any chest pain, no acute distress noted at this time
--- NOTE | 2020-09-26 13:13 | ECG_ITS ---
[facility] Test Date: 2020-09-26 Pat Name: Jayjay Campa Department: Room: Gender: Female Telephone Lineman: : 1935 Requested By: Idris Johnston Order Number: [id number] Giovani MD: Em Shannon M.D. Measurements Intervals [place] Rate: 90 P: [place]: QRS: -36 QRSD: 82 T: 59 QT: 373 QTc: 459 Interpretive Statements ATRIAL FIBRILLATION LEFT AXIS DEVIATION [QRS AXIS < -30] MINIMAL VOLTAGE CRITERIA FOR LVH, CONSIDER NORMAL VARIANT [MEETS CRITERIA IN ONE OF: R(aVL), S(V1), R(V5), R(V5/V6)+S(V1)] NONSPECIFIC ST & T-WAVE ABNORMALITY Compared to ECG 09/26/2020 10:52:21 No significant changes Electronically Signed On 09-27-2020 6:09:33 SELF PROPELLED MINING MACHINE OPERATOR by Em Shannon M.D. [email or web address] SciencescPacket Networkscorewell health [facility].Kinetic Social/store/OM/[id number]
[2020-09-26 15:02] LABS: Magnesium 1.8 mg/dL (1.7-2.3); Thyroid Stimulating Hormone 1.73 uIU/mL (0.27-4.20)
--- NOTE | 2020-09-26 15:24 | PC.NURSE ---
snack provided, patient tolerated well. denied any pain or shortness of breath at this time. no acute distress noted.
[2020-09-26] MEDS: dilTIAZem 30 mg Tablet PO (15:58)
--- NOTE | 2020-09-26 16:08 | PC.NURSE ---
report called to SUSAN Everett
--- NOTE | 2020-09-26 16:11 | ECG_ITS ---
[facility] Test Date: 2020-09-26 Pat Name: Jayjay Campa Department: Room: 106 Gender: Female Claim Benefit Specialist: : 1935 Requested By: Idris Johnston Order Number: [id number] Giovani MD: Em Shannon M.D. Measurements Intervals [place] Rate: 103 P: 52 SD: 103 QRS: -58 QRSD: 98 T: 28 QT: 328 QTc: 430 Interpretive Statements ATRIAL FIBRILLATION WITH ABBERENTLY CONDUCTED BEATS LEFT AXIS DEVIATION NONSPECIFIC ST & T-WAVE ABNORMALITY Compared to ECG 09/26/2020 11:55:50 Short SD interval now present T-wave abnormality still present Electronically Signed On 09-27-2020 6:37:22 DATA PROCESSING AUDITOR by Em Shannon M.D. [email or web address] ([email or web address] by [employer])[facility].[employer]store/OM/[id number]
[2020-09-26 16:24] LABS: Troponin 5 6HR 50.38 ng/L (0-10)
[2020-09-26 16:29] LABS: Troponin 5 6HR Delta 28.38 ng/L (0-12)
--- NOTE | 2020-09-26 16:51 | P.HP_ITS ---
Providers/Chief Complaint Admitting Physician: Vinayak Hicks DO Primary Care Provider: Parag Norris DO Chief Complaint: SOME CHEST PAIN, SUSPECTS HEART ISSUES History of Present Illness Jayjay Campa is a 85 year old female with history of chronic atrial fibrillation treated with sotalol 80 mg p.o. twice daily and very rare diltiazem 30 mg p.o. 3 times daily as needed. History was taken from son. He states that she has been hospice hospitalized multiple times for inability to control heart rate. However he states at home using diltiazem her heart rate dropped to 33. He was unable to tell me her heart rate prior to giving the diltiazem. He also states that she has been tried on sotalol 120 mg twice daily with low heart rate. I asked them if they have ever talked about a pacemaker and he says I do not want to do that this early . Per the ER physician he spoke with patient's senior interior designer and decided with her history it was best to keep her overnight and monitor her blood pressure. In the ED they stopped her Cardizem drip, they gave her an IV push and p.o. short acting Cardizem. When I saw the patient in the emergency department she no longer complained of chest pain or pressure. She had no nausea or vomiting. She did states she was short of breath on presentation with rapid heartbeat. This is also resolved. The symptoms started at 4 AM this morning after she got out of bed to go to the bathroom. She has experienced this before and knew right away what it was. The son states all the times with her elevated heart rate was when she had missed a dose of sotalol; however, this time he states that he that she has not missed a dose. He checks on her daily and he saw that she had taken her sotalol. Review of Systems Narrative: Patient admits to chest pain and pressure in the mid chest radiating into the left arm. This is resolved. She admits that associated with the palpitations was some shortness of breath. This is also resolved. Patient denies headaches visual changes seizures. Patient denies changes in hearing vision sore throat or swollen glands. Patient denies nausea vomiting constipation or diarrhea. Patient denies dysuria or hematuria. Patient is being treated for a female cancer it is documented differently in various place s. Patient describes it as cervical cancer. She is received recent 30 days of radiation in [place]. Patient denies any skin lesions or rashes. Patient denies any focal or generalized weakness. Patient admits to diabetes mellitus denies any thyroid problems. It is noted that her last TSH was 1 year ago and it was normal. Patient denies depression or anxiety. Medications/Allergies Home Medications Medication Instructions Recorded Confirmed Last Taken Type alprazolam 0.25 mg PO TID PRN 10/19/19 09/26/20 09/26/20 History icosapent ethyl [Vascepa] 2 g PO BID@,10/19/19 09/26/20 09/25/20 History pantoprazole 40 mg PO DAILY PRN 10/19/19 09/26/20 10/18/19 History potassium chloride 10 meq PO DAILY@08 10/19/19 09/26/20 09/25/20 History promethazine 25 mg PO Q6H PRN 10/19/19 09/26/20 Unknown History sertraline 25 mg PO DAILY@08 10/19/19 09/26/20 09/25/20 History melatonin 3 mg capsule 3 mg PO BEDTIME PRN cap 03/08/20 09/26/20 Unknown History ondansetron HCl 4 mg tablet 4 mg PO Q6H PRN 03/08/20 09/26/20 Unknown History multivitamin [Multiple Vitamins] 1 tab PO DAILY@0800 03/25/20 09/26/20 09/26/20 History diltiazem HCl 30 mg PO TID PRN #90 tab 04/12/20 09/26/20 Unknown Rx diphenoxylate-atropine 2.5 1 tab PO Q6H PRN 05/22/20 09/26/20 Unknown History mg-0.025 mg tablet Sotalol AF 80 mg PO BID@09/26/20 09/26/20 09/26/20 History dabigatran etexilate [Pradaxa] 150 mg PO BID@,09/26/20 09/26/20 09/25/20 History dicyclomine 10 mg PO QID PRN 09/26/20 09/26/20 Unknown History Allergies Allergy/AdvReac Type Severity Reaction Status Date / Time codeine Allergy ALGY-Difficulty Verified 07/21/20 09:43 Breathing PFSH Acute PFSH: Medical History Arthritis Atrial fibrillation Not anticoagulated secondary to vaginal bleeding from cancer Atrial fibrillation with RVR Degenerative disc disease Elevated troponin Gout History of CVA (cerebrovascular accident) Pulmonary nodule Surgical History History of hip replacement (~2014) Total hip replacement through anterior approach performed in [facility] History of hip surgery Incision and drainage of right thigh abscess History of hysterectomy (~2010) according to pcp documentation--- performed in [place] for noninvasive cancer partial colectomy for obstruction and adhesion at the same time. 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, stage IVB Father Heart disease Denies family history of Ovarian cancer Diabetes Hyperlipidemia Stroke Social History Alcohol intake: never Additional social history: - Tobacco use: Denies Alcohol use: Denies Drug use: Denies Vitals/I&O/Wt Last Vital Signs Temp 97.5 F L 09/26/20 10:05 Pulse 95 09/26/20 16:49 Resp 18 09/26/20 16:49 BP 130/68 09/26/20 16:49 Pulse Ox 95 09/26/20 16:49 09/26/20 09/26/20 09/26/20 06:59 14:59 22:59 Intake Total Balance Weight last 48 hrs Weight 69.853 kg Physical Exam Const: COMMON NORMALS: no acute distress, average body habitus and patient oriented x3 GENERAL APPEARANCE: cooperative, comfortable and well kempt ORIENTATION/CONSCIOUSNESS: Yes awake, Yes oriented to person, Yes oriented to place, Yes oriented to time and Yes confused OTHER: Patient is hard of hea ring HENMT: COMMON NORMALS: normocephalic, EAC's normal, oropharynx normal and gingiva normal HEAD & SCALP: normocephalic and atraumatic GENERAL EAR: hearing grossly impaired THROAT: posterior oropharynx normal Eye: COMMON NORMALS: Equal, round and reactive pupils present and EOMs intact bilaterally GENERAL EYE: appearance normal, both eyes and all related structures Neck/C-Spine: COMMON NORMALS: no lymphadenopathy, supple, no meningeal signs, no JVD, Thyroid normal and No carotid bruits Lymph: LYMPHATIC: no lymphadenopathy noted Chest: COMMONS NORMALS: normal inspection of the chest and normal palpation of entire chest wall CHEST: Yes Symmetrical chest wall rise Resp: COMMON NORMALS: normal respiratory effort and clear to auscultation bilaterally Cardio: COMMON NORMALS: no JVD JUGULAR VENOUS DISTENTION: no JVD RATE: tachycardic RHYTHM: abnormal rhythm irregularly irregular PERIPHERAL PULSES: Peripheral pulses 2+ throughout GI: COMMON NORMALS: Normal to inspection, nondistended, normoactive bowel sounds present, Soft to palpation, non-tender, No hepatosplenomegaly present and no masses : BLADDER/KIDNEY EXAM: Yes bladder normal to palpation and Yes no CVA tenderness Back/Pelvis: COMMON NORMALS: no CVA tenderness and thoracic and lumbar spine normal to inspection Extremity: COMMON NORMALS: no calf tenderness and no pedal edema Neuro: COMMON NORMALS: patient oriented x3, CN's II-XII intact bilaterally, mo ves all extremities and no focal motor deficits Psych: COMMON NORMALS: mental status grossly normal, Normal thought process present, cooperative and normal affect Skin: LESIONS: lesion noted (Seborrheic keratosis noted on back) Data : 09/26/20 10:18 09/26/20 10:18 A&P Assessment and plan (1) Atrial fibrillation: Patient has history of atrial fibrillation being treated with sotalol. Every few months patient has episode of rapid ventricular response where she with palpitations and chest pain. Today is worse because she also suffered with shortness of breath. After talking with son he is reluctant to make many further changes. He is uncomfortable with diltiazem but also uncomfortable considering pacemaker. I have decided to start digoxin and will load with with 500 mcg in the next 24 hours and then start daily 0.125 mg. My next question is do we consider pacemaker. Status: Acute Qualifiers: Atrial fibrillation type: unspecified Qualified Code(s): I48.91 - Unspecified atrial fibrillation (2) Vaginal cancer: Currently stable. Patient received radiation in [place] recently. Status: Acute (3) Hypertension: Patient currently only on sotalol patient has not been taking diltiazem at home. Letter Status: Acute Qualifiers: Hypertension type: essential hypertension Qualified Code(s): I10 - Essential (primary) hypertension (4) Bradycardia: Son reports. Of severe bradycardia after taking diltiazem at home where her pulse got as low as 33. This closely which is why she is on telemetry. Status: Acute (5) Diabetes mellitus: Patient is on diet control only. No need for Accu-Cheks while in the hospital Status: Acute (6) Coronary artery disease: Patient not treated with aspirin or anticoagulation due to cancer and recent bleeding. Status: Acute Qualifiers: Coronary Disease-Associated Artery/Lesion type: [place] artery [place] vs. transplanted heart: [place] heart Associated angina: without angina Qualified Code(s): I25.10 - Atherosclerotic heart disease of [place] coronary artery without angina pectoris Attestations Medical Necessity Statement*: Patient with long history of atrial fibrillation with difficult to controlling heart rate. She requires admission for new medication follow-up of symptoms and repeat troponin. Coding Level of Care Code Acute [facility] Fwd Diagnoses Atrial fibrillation I48.91 Atrial fibrillation type: unspecified Vaginal cancer C52 Hypertension I10 Hypertension type: essential hypertension Bradycardia R00.1 Diabetes mellitus E11.9 Coronary artery disease I25.10 Coronary Disease-Associated Artery/Lesion type: [place] artery [place] vs. transplanted heart: [place] heart Associated angina: without angina
--- NOTE | 2020-09-26 19:06 | P.CONIM_ITS ---
Providers/Reason For Consult Consulting Physican/Specialty*: Dr. Shannon, Cardiology Reason for Consult*: A. fib with RVR Attending Physician: Vinayak Hicks DO Primary Care Provider: Parag Norris DO History of Present Illness History of Present Illness Jayjay Campa (Iraj) is a 85 year old female with PMHx of paroxysmal atrial fibrillation on sotalol , h/o CV several years back, CAD details not known (patient denies any interventions, normal stress test 08/2018) and hypertension. She also has h/o vaginal adenocarcinoma s/p radiation therapy. She has had at least three hospitalizations last year with complaints of atrial fibrillation with rapid ventricular response. Usually these episodes happen when she misses her dose of sotalol. Her A. fib is difficult to rate control and she has significant dyspnea with it. She was doing well until this morning when she woke up and did not feel well. She had some chest tightness, dyspnea and nausea. She was in atrial fibrillation with RVR on arrival to ER. She received diltiazem bolus f/b gtt and is currently rate controlled. She tends to have intermittent diarrhea that is bloody and hence she was holding Pradaxa as per PCP's recommendation. It was restarted last night. Currently she has no CP/SOB. Review of Systems General: Reports: 10 or more systems reviewed and unremarkable except in HPI and below Const: Denies: fever(s) or chills Eyes: Denies: change in vision ENMT: Reports: other (hearing loss); Denies: epistaxis Card: Reports: chest pain and palpitations; Denies: edema or swelling of feet/ankles Resp: Reports: dyspnea; Denies: productive cough or non-productive cough GI: Reports: nausea; Denies: vomiting, hematemesis or hematochezia : Denies: difficulty voiding, hematuria or vaginal bleeding Musc: Denies: extremity swelling Skin/Breast: Denies: rash Neuro: Denies: headache(s), weakness in extremities, dizziness or vertigo Psych: Denies: anxiety or depression Endo: Denies: polyuria [place]/Lymph: Reports: easy bleeding; Denies: petechiae or purpura All/Imm: Denies: tongue swelling Meds/Allergies Home Medications and Allergies Home Medications Medication Instructions Recorded Confirmed Last Taken Type alprazolam 0.25 mg PO TID PRN 03/16/20 02/22/21 02/22/21 History icosapent ethyl [Vascepa] 2 g PO BID@,10/19/19 09/26/20 09/25/20 History pantoprazole 40 mg PO DAILY PRN 10/19/19 09/26/20 10/18/19 History potassium chloride 10 meq PO DAILY@08 10/19/19 09/26/20 09/25/20 History promethazine 25 mg PO Q6H PRN 10/19/19 09/26/20 Unknown History sertraline 25 mg PO DAILY@08 10/19/19 09/26/20 09/25/20 History melatonin 3 mg capsule 3 mg PO BEDTIME PRN cap 03/08/20 09/26/20 Unknown History ondansetron HCl 4 mg tablet 4 mg PO Q6H PRN 03/08/20 09/26/20 Unknown History multivitamin [Multiple Vitamins] 1 tab PO DAILY@0800 03/25/20 09/26/20 09/26/20 History diltiazem HCl 30 mg PO TID PRN #90 tab 04/12/20 09/26/20 Unknown Rx diphenoxylate-atropine 2.5 1 tab PO Q6H PRN 05/22/20 09/26/20 Unknown History mg-0.025 mg tablet Sotalol AF 80 mg PO BID@,09/26/20 09/26/20 09/26/20 History dabigatran etexilate [Pradaxa] 150 mg PO BID@09/26/20 09/26/20 09/25/20 History dicyclomine 10 mg PO QID PRN 09/26/20 09/26/20 Unknown History Allergies Allergy/AdvReac Type Severity Reaction Status Date / Time codeine Allergy ALGY-Difficulty Verified 07/21/20 09:43 Breathing Current Medications Current Medications Generic Name Dose Route Start Last Admin Trade Name Freq PRN Reason Stop Dose Admin Diltiazem HCl 125 mg/ Sodium 125 mls @ 5 mls/hr 09/26/20 10:30 09/26/20 12:03 Chloride IV 0 mg/hr .Q24H CATHERINE 0 mls/hr Titration Protocol 5 MG/HR PFSH Acute PFSH: Medical History Arthritis Atrial fibrillation Not anticoagulated secondary to vaginal bleeding from cancer Atrial fibrillation with RVR Degenerative disc disease Elevated troponin Gout History of CVA (cerebrovascular accident) Pulmonary nodule Surgical History History of hip replacement (~2014) Total hip replacement through anterior approach performed in [facility] History of hip surgery Incision and drainage of right thigh abscess History of hysterectomy (~2010) according to pcp documentation--- performed in [place] for noninvasive cancer partial colectomy for obstruction and adhesion at the same time. 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, stage IVB Father Heart disease Denies family history of Ovarian cancer Diabetes Hyperlipidemia Stroke Social History Alcohol intake: never Additional social history: - Tobacco use: Denies Alcohol use: Denies Drug use: Denies Vitals/I&O/Wt Last Vital Signs Temp 97.5 F L 09/26/20 10:05 Pulse 96 09/26/20 17:18 Resp 18 09/26/20 17:18 BP 155/96 09/26/20 17:18 Pulse Ox 96 09/26/20 17:18 09/26/20 09/26/20 09/26/20 06:59 14:59 22:59 Intake Total Balance Weight last 48 hrs Weight 154 lb Physical Exam Const: COMMON NORMALS: no acute distress, patient oriented x3 and alert GENERAL APPEARANCE: cooperative, comfortable, well kempt and well hydrated HENMT: COMMON NORMALS: hearing grossly normal bilaterally and external ears normal FACE & SINUS: normal facial exam EXTERNAL EAR: Yes external ears normal Eye: COMMON NORMALS: EOMs intact bilaterally and no scleral icterus GENERAL EYE: appearance normal, both eyes and all related structures ALIGNMENT: Yes alignment normal Neck/C-Spine: COMMON NORMALS: supple and no JVD GENERAL: Yes normal visual inspection and Yes trachea midline CAROTIDS: Yes normal carotid upstroke Resp: COMMON NORMALS: clear to auscultation bilaterally AUSCULTATION: clear to auscultation bilaterally, no crackles, no rales, no rhonchi and no wheezes Cardio: COMMON NORMALS: no JVD and Peripheral pulses 2+ throughout PALPATION: normal PMI RATE: tachycardic RHYTHM: abnormal rhythm i rregularly irregular HEART SOUNDS: no gallops and no murmurs BRUITS: no carotid bruits PERIPHERAL PULSES: Peripheral pulses 2+ throughout, radial pulses present, posterior tibial pulses present and dorsalis pedis present GI: COMMON NORMALS: Normal to inspection, nondistended, normoactive bowel sounds present, Soft to palpation and non-tender PALPATION: Yes Soft to palpation Extremity: GENERAL: No edema and No pallor Neuro: COMMON NORMALS: patient oriented x3 SENSORIUM/ORIENTATION: Yes alert GAIT: Yes Assistive device used cane Psych: COMMON NORMALS: Normal thought process present and speech normal APPEARANCE: Yes well kempt SPEECH: Yes normal speech MOOD & AFFECT: Yes euthymic mood THOUGHT PROCESS: Normal thought process present THOUGHT CONTENT: Yes Normal thought content present Skin: COMMON NORMALS: no rashes or lesions noted GENERAL SKIN EXAM: no rashes or lesions noted A&P Assessment and plan (1) Atrial fibrillation with RVR: Her Pradaxa was just restarted. -Increase sotalol 80 mg am and 120 mg pm. F/U EKG. -wean off cardizem gtt. -It is quite possible that with higher dose of sotalol and with her underlying tachybradycardia syndrome she might end up needing a pacemaker. -This was discussed with patient and her son Jerald. Status: Resolved (2) NSTEMI (non-ST elevation myocardial infarction): NSTEMI type 2 in setting of A. fib with RVR. -No ASA given h/o bleeding. May consider low dose statins, however unclear benefit of statins at her advanced age. Status: Acute (3) Hypertension: Status: Acute Qualifiers: Hypertension type: essential hypertension Qualified Code(s): I10 - Ess ential (primary) hypertension (4) Coronary artery disease: Unspecified; no history available. Status: Acute Qualifiers: Coronary Disease-Associated Artery/Lesion type: [place] artery [place] vs. transplanted heart: [place] heart Associated angina: without angina Qualified Code(s): I25.10 - Atherosclerotic heart disease of [place] coronary artery without angina pectoris (5) Vaginal cancer: Status: Acute Additional A&P Information Leucocytosis Mildly elevated alkaline phosphatase H/O CVA Thank you for allowing me to participate in patient's care. Please feel free to call with questions or concerns. Consult Attestations Medical Necessity Statement: Hospital stay for A. fib with RVR Time Spent in Patient Care: Greater than 35 minutes (>than 50% of time spent in counselling and/or direct pt care on unit) . Coding Level of Care Code Acute [employer] Fwd Diagnoses Atrial fibrillation with RVR I48.91 NSTEMI (non-ST elevation myocardial infarction) I21.4 Hypertension I10 Hypertension type: essential hypertension Coronary artery disease I25.10 Coronary Disease-Associated Artery/Lesion type: [place] artery [place] vs. transplanted heart: [place] heart Associated angina: without angina Vaginal cancer C52
[2020-09-26 19:22] LABS: NT Pro B Type Natriuretic Pept 3297 pg/mL (0-450)
[2020-09-26] MEDS: sotalol 80 mg Tablet 120 MG PO (19:45)
--- NOTE | 2020-09-26 22:28 | PC.NURSE ---
At 1900, patient's heart rate was running 90s-115. At 0, Dr. Wilson (cheese specialist distribution engineer) notified of patient's heart rate of 140s, starting at 2100. Patient was asymptomatic. Blood pressure stable. Ordered to restart Genesis richardson.
[2020-09-27] VITALS (18 sets, daily range): BP systolic 96–165; BP diastolic 52–88; PULSE 53–123; RESP 16–20; TEMP 35.7–36.8; O2SAT 89–99
[2020-09-27] MEDS: ALPRAZolam 0.25 mg Tablet PO (01:00)
[2020-09-27 03:56] LABS: Basophils % 0.5 %; Eosinophils # 0.2 10^3/uL (0.0-0.8); Eosinophils % 2.5 %; Hemoglobin 11.8 g/dL (11.5-15.3); Lymphocytes # 1.5 10^3/uL (0.8-4.8); Lymphocytes % 20.1 %; Mean Corpuscular HGB Conc 31.1 g/dL (30.0-36.0); Mean Corpuscular Hemoglobin 25.5 pg (28.0-34.0); Mean Corpuscular Volume 82.1 fL (81-99); Mean Platelet Volume 9.9 fL (7.4-10.4); Monocytes % 13.1 %; Neutrophils # 4.71 10^3/uL (1.8-7.7); Neutrophils % 63.1 %; Nucleated Red Blood Cells % 0 %; Platelet Count 257 10^3/cmm (130-400); Red Blood Count 4.63 10^6/uL (4.1-5.3); Red Cell Distribution Width 20.2 % (12.1-15.1); White Blood Count 7.5 10^3/uL (4.0-10.0)
[2020-09-27 04:22] LABS: Alanine Aminotransferase 8 U/L (0-33); Albumin Level 3.4 g/dL (3.5-5.2); Alkaline Phosphatase 103 IU/L (35-105); Anion Gap 12.3 (5-19); Aspartate Amino Transferase 20 U/L (0-32); Blood Urea Nitrogen 15 mg/dL (8-23); Calcium 9.2 mg/dL (8.5-10.5); Carbon Dioxide 26 mmol/L (22-29); Chloride 109 mmol/L (98-107); Glucose 105 mg/dL (65-115); Osmolality Calculated 299 mOsm/kg (285-295); Potassium 3.3 mmol/L (3.5-5.1); Sodium 144 mmol/L (136-145); Total Bilirubin 0.4 mg/dL (0.15-1.2); Total Protein 6.4 g/dL (6.6-8.7)
--- NOTE | 2020-09-27 07:21 | PC.NURSE ---
Dr. Shannon called and ordered to give 40 of Sotalol along with 80 of sotalol that is due at this time, totalling 120 mg.
[2020-09-27] MEDS: sotalol 80 mg Tablet 40 MG PO (07:35)
[2020-09-27] MEDS: sotalol 80 mg Tablet PO ×2 (07:35→18:24)
[2020-09-27] MEDS: pantoprazole DR 40 mg Tablet PO (08:56)
[2020-09-27] MEDS: sertraline 50 mg Tablet 25 MG PO (08:56)
--- NOTE | 2020-09-27 09:42 | PC.CHAP ---
Pastoral Care Encounter/Spiritual Assessment Type of Contact [] Declined milking machine mechanic visit [] Patient/Family/Request visit [] Outpatient visit [] Follow-up visit [] Physician referral [] Code/Alert [x] Routine visit [] Staff referral [] Actively dying [] Patient sleeping [] Family support [] [] Out of room [] Palliative care [] [] Receiving care in room [] Pre-surgical visit [] Trauma [] Long length of stay [] ICU visit [] Other: Relational/Emotional Strength [] Patient feels connected with others/family/visitors/staff [] Distress [] Loneliness/isolation [] Abandonment Spirituality of Patient [x] Person of [place] [] Attends Pentecostalism of their [place] [] Believes in Prayer [] Reads Bible or Restoration materials [] There are Spiritual issues to be addressed Hearing Impaired Teacher Interventions [x] Prayer [x] Active listening [x] Non-anxious presence [x] Spiritual/emotional support [] Crisis/trauma care [] Spiritual counseling [] Bereavement support [] Provided bereavement packet [] Provided Bible/devotional materials [] Provided toy/stuffed animal, coloring book to patient or family member [] Provided Communion [] Anointing/Spur [] Salvation [x] Completed spiritual assessment [] Other: Impact on Illness or Injury [] Angry [] Fearful [] Anxious [] Often cries [] Exhaustion [] Unable to work [] Unable to attend yarsanism [] Unable to walk/stand [] Unable to read [] Unable to drive [] Unable to eat/drink [] Unable to sleep [] Unable to be with family [] Patient intubated [] Other: Summary patient had gotten up brushed her teeth and in the process of brushing hair.. feeling better but not completed healed as of yet. Time spent with patient 10 min
--- NOTE | 2020-09-27 09:54 | P.PN_ITS ---
Subjective Subjective: Interval history: Complains of some palpitations overnight. She received sotalol 120 mg last night and this morning. She has converted to sinus bradycardia. Medications: Reviewed: Yes Medication Review Details: Current Medications Acetaminophen (Acetaminophen 325 Mg Tablet) 650 mg PO Q6H PRN PRN Reason: Mild/Mod Pain Or Temp >/= 101 Alprazolam (Alprazolam 0.25 Mg Tablet) 0.25 mg PO TID PRN PRN Reason: Anxiety Last Admin: 09/27/20 01:00 Dose: 0.25 mg Documented by: Dicyclomine HCl (Dicyclomine 10 Mg Capsule) 10 mg PO QID PRN PRN Reason: Stomach Cramps Diltiazem HCl (Diltiazem 30 Mg Tablet) 30 mg PO TID PRN PRN Reason: HR >120 Enoxaparin Sodium (Enoxaparin 80 Mg/0.8 Ml Syringe) 70 mg SUBCUT Q12H [facility] Diltiazem HCl 125 mg/ Sodium (Chloride) 125 mls @ 5 mls/hr IV .Q24H CATHERINE; Protocol Last Titration: 09/27/20 04:21 Dose: 5 mg/hr, 5 mls/hr Documented by: Ondansetron HCl (Ondansetron 2 Mg/Ml Sdv 2 Ml) 4 mg IVP Q8H PRN PRN Reason: vomiting, or N/V if npo Pantoprazole Sodium (Pantoprazole Dr 40 Mg Tablet) 40 mg PO DAILY [facility] Last Admin: 09/27/20 08:56 Dose: 40 mg Documented by: Sertraline HCl (Sertraline 50 Mg Tablet) 25 mg PO DAILY@08 [facility] Last Admin: 09/27/20 08:56 Dose: 25 mg Documented by: Sotalol HCl (Sotalol 80 Mg Tablet) 80 mg PO 0700 [facility] Last Admin: 09/27/20 07:35 Dose: 80 mg Documented by: Sotalol HCl (Sotalol 80 Mg Tablet) 120 mg PO 1900 [facility] Last Admin: 09/26/20 19:45 Dose: 120 mg Documented by: Vitals/I&O/Wt Last Vital Signs Temp 96.3 F L 09/27/20 07:16 Pulse 102 H 09/27/20 07:16 Resp 18 09/27/20 07:16 BP 125/67 09/27/20 07:16 Pulse Ox 94 09/27/20 07:16 09/26/20 09/27/20 09/27/20 22:59 06:59 14:59 Intake Total 2. / . 269.083 / 278.333 360 / 360 Balance 2.25 / 9.25 269.083 / 278.333 360 / 360 Weight last 48 hrs Weight 154 lb Physical Exam Const: COMMON NORMALS: no acute distress, patient oriented x3 and alert GENERAL APPEARANCE: cooperative, comfortable, well kempt and well hydrated HENMT: COMMON NORMALS: hearing grossly normal bilaterally and external ears normal FACE & SINUS: normal facial exam EXTERNAL EAR: Yes external ears normal Eye: COMMON NORMALS: EOMs intact bilaterally and no scleral icterus GENERAL EYE: appearance normal, both eyes and all related structures ALIGNMENT: Yes alignment normal Neck/C-Spine: COMMON NORMALS: supple and no JVD GENERAL: Yes normal visual inspection and Yes trachea midline CAROTIDS: Yes normal carotid upstroke Resp: COMMON NORMALS: clear to auscultation bilaterally AUSCULTATION: clear to auscultation bilaterally, no crackles, no rales, no rhonchi and no wheezes Cardio: COMMON NORMALS: no JVD and Peripheral pulses 2+ throughout PALPATION: normal PMI RATE: tachycardic RHYTHM: abnormal rhythm irregularly irregular HEART SOUNDS: no gallops and no murmurs BRUITS: no carotid bruits PERIPHERAL PULSES: Peripheral pulses 2+ throughout, radial pul ses present, posterior tibial pulses present and dorsalis pedis present GI: COMMON NORMALS: Normal to inspection, nondistended, normoactive bowel sounds present, Soft to palpation and non-tender PALPATION: Yes Soft to palpation Extremity: GENERAL: No edema and No pallor Neuro: COMMON NORMALS: patient oriented x3 SENSORIUM/ORIENTATION: Yes alert GAIT: Yes Assistive device used cane Psych: COMMON NORMALS: Normal thought process present and speech normal APPEARANCE: Yes well kempt SPEECH: Yes normal speech MOOD & AFFECT: Yes eu thymic mood THOUGHT PROCESS: Normal thought process present THOUGHT CONTENT: Yes Normal thought content present Skin: COMMON NORMALS: no rashes or lesions noted GENERAL SKIN EXAM: no rashes or lesions noted Data : 09/27/20 03:26 09/27/20 03:26 A&P Assessment and plan (1) Atrial fibrillation with RVR: Her Pradaxa was just restarted. I have transition him to Lovenox just in case if he needs to do a pacemaker -Increase sotalol 120 mg am and 80 mg pm. F/U EKG. -wean off cardizem gtt. -It is quite possible that with higher dose of sotalol and with her underlying tachybradycardia syndrome she might end up needing a pacemaker. -This was discussed with patient and her son Jerald. Status: Resolved (2) NSTEMI (non-ST elevation myocardial infarction): NSTEMI type 2 in setting of A. fib with RVR. -No ASA given h/o bleeding. May consider low dose statins, however unclear benefit of statins at her advanced age. Status: Acute (3) Hypertension: Status: Acute (4) Coronary artery disease: Unspecified; no history available. Status: Acute (5) Vaginal cancer: Status: Acute Additional A&P Information Leucocytosis Mildly elevated alkaline phosphatase H/O CVA Hypokalemia: Replaced Thank you for allowing me to participate in patient's care. Please feel free to call with questions or concerns. Attestations Medical Necessity Statement*: Needs hospital stay for management of A. fib with RVR for medication titration Coding Level of Care Code Acute Support Dba for Chg Fwd Diagnoses Atrial fibrillation with RVR I48.91 NSTEMI (non-ST elevation myocardial infarction) I21.4 Hypertension I10 Coronary artery disease I25.10 Vaginal cancer C52
[2020-09-27] MEDS: enoxaparin 80 mg/0.8 mL Syringe 70 MG SUBCUT ×2 (10:49→20:41)
[2020-09-27] MEDS: potassium chloride ER 20 mEq Tablet PO (10:50)
[2020-09-27 11:24] LABS: Glucose Point of Care 130 mg/dL (70-110)
[2020-09-27 11:29] LABS: Chol HDL Ratio 5.13 mg/dL (0.0-4.40); Cholesterol 195 mg/dL (0-200); HDL Cholesterol 38 mg/dL (60-100); LDL Cholesterol Calculated 129 mg/dL (50-129); LDL HDL Ratio 3.39 RATIO (0.00-3.22); Magnesium 1.8 mg/dL (1.7-2.3); Triglycerides 141 mg/dL (0-150)
--- NOTE | 2020-09-27 12:52 | ECG_ITS ---
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 Measurements Intervals [place] Rate: 50 P: 35 CT: 130 QRS: -32 QRSD: 72 T: -52 QT: 460 QTc: 423 Interpretive Statements SINUS BRADYCARDIA MARKED LEFT AXIS DEVIATION [QRS AXIS < -30] ST DEVIATION AND MODERATE T-WAVE ABNORMALITY, CONSIDER LATERAL ISCHEMIA [-0.1+ mV T WAVE IN I/aVL/V5/V6] Compared to ECG 09/26/2020 19:14:43 Possible ischemia now present Atrial fibrillation no longer present T-wave abnormality still present Electronically Signed On 09-27-2020 17:44:46 [employer] by Arsen Wilson M.D. [id number]
--- NOTE | 2020-09-27 15:47 | PM.PN ---
Subjective Subjective: Interval history: Patient denies chest pain or pressure. She denies shortness of breath or nausea. She is feeling well. She is laying flat in bed. Medications: Reviewed: Yes Vitals/I&O/Wt Last Vital Signs Temp 98.0 F 09/27/20 14:48 Pulse 55 L 09/27/20 14:48 Resp 20 H 09/27/20 14:48 BP 134/73 09/27/20 14:48 Pulse Ox 99 09/27/20 14:48 09/27/20 09/27/20 09/27/20 06:59 14:59 22:59 Intake Total 269.083 / 278.333 600 / 600 Balance 269.083 / 278.333 600 / 600 Weight last 48 hrs Weight 69.853 kg Physical Exam Const: COMMON NORMALS: no acute distress and average body habitus GENERAL APPEARANCE: cooperative and comfortable Neck/C-Spine: COMMON NORMALS: no JVD Resp: COMMON NORMALS: normal respiratory effort and clear to auscultation bilaterally AUSCULTATION: clear to auscultation bilaterally Cardio: COMMON NORMALS: no JVD RHYTHM: abnormal rhythm (At time of exam this morning she was still in A. fib. She converted to nor) irregularly irregular GI: COMMON NORMALS: Normal to inspection, nondistended, normoactive bowel sounds present, Soft to palpation, non-tender, No hepatosplenomegaly present and no masses PALPATION: Yes Soft to palpation and Yes No hepatosplenomegaly present Extremity: COMMON NORMALS: no calf tenderness and no pedal edema Data : 09/27/20 03:26 09/27/20 03:26 A&P Assessment and plan (1) Atrial fibrillation: Reviewed chart. 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 Patient was also restarted on Cardizem overnight. I met with to discuss this patient's case. She explained to me that patient had been tried on Cardizem digoxin and higher dose of sotalol without success. She has added a few doses of sotalol and while we were talking she noted that the patient had returned to normal sinus rhythm with a heart rate of 50. At this time I told the nurse to discontinue the diltiazem drip. Cardiology would like the patient to remain overnight and plans to increase the sotalol from 80 mg twice daily to 80 mg once a day and 120 mg at night. Status: Acute (2) Vaginal cancer: Currently stable. Patient received radiation in [place] recently. 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 I did discuss this with cardiology. Dr. Shannon discussed with patient and son about possibility of pacemaker. I also spoke with the patient who admits to not understanding previously. Status: Acute (5) Diabetes mellitus: Patient is on diet control only. No need for Accu-Cheks while in the hospital Status: Acute (6) Coronary artery disease: Patient not treated with aspirin or anticoagulation due to cancer and recent bleeding. Status: Acute Attestations Medical Necessity Statement*: Patient with A. fib with RVR history of difficult control. Need to monitor on changed regimen. Coding Level of Care Code Acute Inside Steward/Stewardess for [facility] Fwd Exam Detailed Diagnoses Atrial fibrillation I48.91 Vaginal cancer C52 Hypertension I10 Bradycardia R00.1 Diabetes mellitus E11.9 Coronary artery disease I25.10
--- NOTE | 2020-09-27 22:33 | PC.NURSE ---
PT IS RESTING IN BED. PT DENIES PAIN AT THIS TIME. WILL CONTINUE TO MONITOR.
[2020-09-28] VITALS: BP 149/67; PULSE 60; RESP 13; TEMP 36.7; O2SAT 94
[2020-09-28 04:00] VITALS: BP 166/79; PULSE 60; RESP 13; TEMP 36.8; O2SAT 94
[2020-09-28 05:20] VITALS: PULSE 70
--- NOTE | 2020-09-28 05:24 | PC.NURSE ---
PT HAD AN UNEVENTFUL NIGHT. PT DENIES PAIN AT THIS TIME. WILL CONTINUE TO MONITOR.
[2020-09-28] MEDS: dicyclomine 10 mg Capsule PO (06:30)
[2020-09-28] MEDS: sotalol 80 mg Tablet 120 MG PO (06:30)
[2020-09-28 07:11] VITALS: BP 155/73; PULSE 60; RESP 15; TEMP 36.5; O2SAT 99
[2020-09-28] MEDS: sertraline 50 mg Tablet 25 MG PO (08:03)
[2020-09-28] MEDS: potassium chloride ER 20 mEq Tablet PO (08:03)
[2020-09-28] MEDS: pantoprazole DR 40 mg Tablet PO (08:03)
[2020-09-28] MEDS: enoxaparin 80 mg/0.8 mL Syringe 70 MG SUBCUT (08:03)
[2020-09-28 08:34] LABS: Anion Gap 12.5 (5-19); Blood Urea Nitrogen 23 mg/dL (8-23); Calcium 9.3 mg/dL (8.5-10.5); Carbon Dioxide 24 mmol/L (22-29); Chloride 107 mmol/L (98-107); Glucose 104 mg/dL (65-115); Magnesium 1.8 mg/dL (1.7-2.3); Osmolality Calculated 294 mOsm/kg (285-295); Potassium 3.5 mmol/L (3.5-5.1); Sodium 140 mmol/L (136-145)
[2020-09-28 08:41] VITALS: BP 155/73; PULSE 60; RESP 15; TEMP 36.5; O2SAT 99
--- NOTE | 2020-09-28 08:45 | P.DS_ITS ---
Discharge Providers Date of Admission: 09/26/20 13:59 Date of Discharge: September 28, 2020 Attending Provider at Admission: Vinayak Hicks DO Attending Provider at Discharge: Vinayak Hicks DO Primary Care Provider: Parag Norris DO Diagnoses at Discharge Discharge Diagnosis (1) Atrial fibrillation: Status: Acute Permanent problem details: Not anticoagulated secondary to vaginal bleeding from cancer (2) Vaginal cancer: Status: Acute (3) Hypertension: Status: Acute (4) Bradycardia: Status: Acute (5) Diabetes mellitus: Status: Acute Permanent problem details: Diet controlled (6) Coronary artery disease: Status: Acute Reason for Visit Reason for Visit: SOME CHEST PAIN, SUSPECTS HEART ISSUES Hospital Course Hospital Course Mrs. Campa is an 85-year-old white female with known history of atrial fibrillation and frequent bouts of rapid ventricular response. She presented to [facility] with similar episode. She felt palpitations chest pain and pressure into her left chest and radiating into her left shoulder. She was also dips neck with this episode. This was very worrisome for her. The patient reports this happens frequently. 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 Patient was admitted placed on a Cardizem drip in the emergency room. She was also given oral diltiazem. Initially when the Cardizem drip was discontinued her heart rate bounced back into the 120s to 140s. Fortunately the patient's symptoms resolved at a heart rate of about 120. Cardiology was consulted and decision to add additional doses of sotalol occurred giving her an additional 80 mg in a 24-hour period. This resulted in conversion to normal sinus rhythm with a heart rate around 60. Thus (cardiology) has increased the morning dose to 120 mg and maintain 80 mg in the evening. Today on discharge patient is feeling well she has no symptoms of chest pain or shortness of breath. Unfortunately her only complaint is post radiation diarrhea. However she has medications to assist with this at home. Thus this morning she will be discharged in stable and improved condition in normal sinus rhythm heart rate 60. Physical Exam Const: COMMON NORMALS: no acute distress GENERAL APPEARANCE: cooperative and comfortable Neck/C-Spine: COMMON NORMALS: no JVD Resp: COMMON NORMALS: normal respiratory effort and clear to auscultation bilaterally AUSCULTATION: clear to auscultation bilaterally Cardio: COMMON NORMALS: no JVD, regular rate, regular rhythm, S1 normal heart sound present and S2 normal heart sound present RATE: regular rate RHYTHM: regular rhythm HEART SOUNDS: S1 normal heart sound present and S2 normal heart sound present GI: COMMON NORMALS: Soft to palpation and non-tender AUSCULTATION: Yes Hyperactive bowel sounds present PALPATION: Yes Soft to palpation Extremity: COMMON NORMALS: no clubbing, cyanosis or edema, no calf tenderness and no pedal edema Discharge Data Data Completed and Pending: Completed Studies During Hospitalization Category Date Time Status XR chest 1V ciarra ble [id number] Stat Exams 09/26/20 10:11 Completed Labs from last 24 hours 09/28/20 09/27/20 09/27/20 07:49 11:09 03:26 Sodium 140 Potassium 3.5 Chloride 107 Carbon Dioxide 24 Anion Gap 12.5 BUN 23 Creatinine 0.7 GFR Calculation Not Reportable Glucose 104 POC Glucose 130 H Calculated Osmolal ity 294 Calcium 9.3 Magnesium 1.8 1.8 Triglycerides 141 Cholesterol 195 LDL Cholesterol, C alc 129 HDL Cholesterol 38 L LDL/HDL Ratio 3.39 H Cholesterol/HDL Ra elgin 5.13 H Vitals: Last Vital Signs Temp 97.7 F 09/28/20 08:41 Pulse 60 09/28/20 08:41 Resp 15 09/28/20 08:41 BP 155/73 09/28/20 08:41 Pulse Ox 99 09/28/20 08:41 Discharge Plan Discharge Patient Disposition: Home Condition: Stable Prescriptions: New sotalol 80 mg Tablet 80 mg PO 1900 Qty: 30 RF: 0 potassium chloride [Klor-Con M20] 20 mEq Tablet,Er Particles/Crystals 20 meq PO DAILY Qty: 30 RF: 0 sotalol 120 mg tablet 120 mg PO 0700 Qty: 30 RF: 0 Continued melatonin 3 mg capsule 3 mg PO BEDTIME PRN (Reason: Sleep) RF: 0 ondansetron HCl 4 mg tablet 4 mg PO Q6H PRN (Reason: nausea and vomiting) RF: 0 diphenoxylate-atropine 2.5-0.025 mg tablet 1 tab PO Q6H PRN (Reason: Diarrhea) RF: 0 multivitamin [Multiple Vitamins] Tablet 1 tab PO DAILY@0800 RF: 0 dicyclomine 10 mg Capsule 10 mg PO QID PRN (Reason: Stomach Cramps) RF: 0 Pradaxa 150 mg Capsule 150 mg PO BID@,19 RF: 0 promethazine 25 mg Tablet 25 mg PO Q6H PRN (Reason: Nausea) RF: 0 sertraline 25 mg Tablet 25 mg PO DAILY@08 RF: 0 icosapent ethyl [Vascepa] 1 gram Capsule 2 g PO BID@,19 RF: 0 alprazolam 0.25 mg tablet 0.25 mg PO TID PRN (Reason: Anxiety) RF: 0 pantoprazole 40 mg Tablet,Delayed Release (Dr/Ec) 40 mg PO DAILY PRN (Reason: Acid Reflux) RF: 0 Discontinued Sotalol AF 80 mg tablet 80 mg PO BID@, RF: 0 potassium chloride 10 mEq Tablet Extended Release 10 meq PO DAILY@08 RF: 0 diltiazem HCl 30 mg Tablet 30 mg PO TID PRN (Reason: Tachycardia) Qty: 90 RF: 0 Discharge Orders: Discharge Order (Routine); Ordered 09/28/20 Ordered By: Vinayak Hicks Other Ambulatory Orders: Basic Metabolic Panel (Routine) Timeframe: 1 Week Facility: [facility] - Location: Lab - Main Lab Ordered By: Vinayak Hicks Magnesium (Routine) Timeframe: 1 Week Facility: [facility] - Location: Lab - Main Lab Ordered By: Vinayak Hicks Referrals: Em Shannon MD [Physician] - 4-7 days (Please follow-up with Dr. Shannon on October 04 at 3:00P.M. If you have any questions or need to reschedule. 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
--- NOTE | 2020-09-28 09:10 | PM.PN ---
Subjective Subjective: Interval history: She complains of diarrhea 6 episodes this morning. No cardiac complaints. HR in 50--60's on tele; remains in SR/SB. Medications: Reviewed: Yes Medication Review Details: Current Medications Acetaminophen (Acetaminophen 325 Mg Tablet) 650 mg PO Q6H PRN PRN Reason: Mild/Mod Pain Or Temp >/= 101 Alprazolam (Alprazolam 0.25 Mg Tablet) 0.25 mg PO TID PRN PRN Reason: Anxiety Last Admin: 09/27/20 01:00 Dose: 0.25 mg Documented by: Dicyclomine HCl (Dicyclomine 10 Mg Capsule) 10 mg PO QID PRN PRN Reason: Stomach Cramps Last Admin: 09/28/20 06:30 Dose: 10 mg Documented by: Diltiazem HCl (Diltiazem 30 Mg Tablet) 30 mg PO TID PRN PRN Reason: HR >120 Enoxaparin Sodium (Enoxaparin 80 Mg/0.8 Ml Syringe) 70 mg SUBCUT Q12H [facility] Last Admin: 09/28/20 08:03 Dose: 70 mg Documented by: Ondansetron HCl (Ondansetron 2 Mg/Ml Sdv 2 Ml) 4 mg IVP Q8H PRN PRN Reason: vomiting, or N/V if npo Pantoprazole Sodium (Pantoprazole Dr 40 Mg Tablet) 40 mg PO DAILY [facility] Last Admin: 09/28/20 08:03 Dose: 40 mg Documented by: Potassium Chloride (Potassium Chloride Er 20 Meq Tablet) 20 meq PO DAILY [facility] Last Admin: 09/28/20 08:03 Dose: 20 meq Documented by: Sertraline HCl (Sertraline 50 Mg Tablet) 25 mg PO DAILY@08 [facility] Last Admin: 09/28/20 08:03 Dose: 25 mg Documented by: Sotalol HCl (Sotalol 80 Mg Tablet) 80 mg PO 1900 [facility] Last Admin: 09/27/20 18:24 Dose: 80 mg Documented by: Sotalol HCl (Sotalol 80 Mg Tablet) 120 mg PO 0700 [facility] Last Admin: 09/28/20 06:30 Dose: 120 mg Documented by: Vitals/I&O/Wt Last Vital Signs Temp 97.7 F 09/28/20 08:41 Pulse 60 09/28/20 08:41 Resp 15 09/28/20 08:41 BP 155/73 09/28/20 08:41 Pulse Ox 99 09/28/20 08:41 09/27/20 09/28/20 09/28/20 22:59 06:59 14:59 Intake Total 240 / 840 0 / 840 Balance 240 / 840 0 / 840 Weight last 48 hrs Weight 154 lb Physical Exam Const: COMMON NORMALS: no acute distress, patient oriented x3 and alert GENERAL APPEARANCE: cooperative, comfortable, well kempt and well hydrated HENMT: COMMON NORMALS: hearing grossly normal bilaterally and external ears normal FACE & SINUS: normal facial exam EXTERNAL EAR: Yes external ears normal Eye: COMMON NORMALS: EOMs intact bilaterally and no scleral icterus GENERAL EYE: appearance normal, both eyes and all related structures ALIGNMENT: Yes alignment normal Neck/C-Spine: COMMON NORMALS: supple and no JVD GENERAL: Yes normal visual inspection and Yes trachea midline CAROTIDS: Yes normal carotid upstroke Resp: COMMON NORMALS: clear to auscultation bilaterally AUSCULTATION: clear to auscultation bilaterally, no crackles, no rales, no rhonchi and no wheezes Cardio: COMMON NORMALS: no JVD, regular rhythm and Peripheral pulses 2+ throughout PALPATION: normal PMI RATE: tachycardic RHYTHM: regular rhythm HEART SOUNDS: no gallops and no murmurs BRUITS: no carotid bruits PERIPHERAL PULSES: Peripheral pulses 2+ throughout, radial pulses present, posterior tibial pulses present and dorsalis pedis present GI: COMMON NORMALS: Normal to inspection, nondistended, normoactive bowel sounds present, Soft to palpation and non-tender PALPATION: Yes Soft to palpation Extremity: GENERAL: No edema and No pallor Neuro: COMMON NORMALS: patient oriented x3 SENSORIUM/ORIENTATION: Yes alert Psych: COMMON NORMALS: Normal thought process present and speech normal APPEARANCE: Yes well kempt SPEECH: Yes normal speech MOOD & AFFECT: Yes euthymic mood THOUGHT PROCESS: Normal thought process present THOUGHT CONTENT: Yes Normal thought content present Skin: COMMON NORMALS: no rashes or lesions noted GENERAL SKIN EXAM: no rashes or lesions noted Data : 09/27/20 03:26 09/28/20 07:49 A&P Assessment and plan (1) Atrial fibrillation with RVR: Transition back to Pradaxa 150 mg twice a day -Increase sotalol 120 mg am and 80 mg pm. F/U EKG yesterday with sinus bradycardia, LAD ST-T wave abnormality in lateral leads. QRSd 72 msec. HI 130 msec, QT/QTc 460/423 msec. -It is quite possible that with higher dose of sotalol and with her underlying tachybradycardia syndrome she might end up needing a pacemaker. -This was discussed with patient and her son Jerald. -BP/HR log on discharge. -F/U with me in [facility] in 1 week. I will plan for Holter as outpatient. Status: Resolved (2) NSTEMI (non-ST elevation myocardial infarction): NSTEMI type 2 in setting of A. fib with RVR. -No ASA given h/o bleeding. May consider low dose statins, however unclear benefit of statins at her advanced age. Status: Acute (3) Hypertension: Elevated today, runs pretty normal at home. -Changes based on BP log. Status: Acute (4) Coronary artery disease: Unspecified; no history available. Status: Acute (5) Vaginal cancer: s/p RT Status: Acute Additional A&P Information Leucocytosis: resolved Mildly elevated alkaline phosphatase: resolved H/O CVA Hypokalemia: Replaced Thank you for allowing me to participate in patient's care. Please feel free to call with questions or concerns. Attestations Medical Necessity Statement*: stable to be discharged from cardiac standpoint Time Spent in Patient Care: Greater than 35 minutes (>than 50% of time spent in counselling and/or direct pt care on unit). Coding Level of Care Code Acute Chest Pain Coordinator for [facility] Diagnoses Atrial fibrillation with RVR I48.91 NSTEMI (non-ST elevation myocardial infarction) I21.4 Hypertension I10 Coronary artery disease I25.10 Vaginal cancer C52
== END 2020-09-28 09:38 | disposition home or self-care (01) ==
LOC: ER 13:28 → CSU 15:59
PROVIDERS: Internal Medicine; Internal Medicine Cardiovascular Disease; Admitting Provider Internal Medicine; Emergency Provider Family Medicine; PCP Electrodiagnostic Medicine; Visit Provider Internal Medicine
DX: I21.4 Non-ST elevation (NSTEMI) myocardial infarction (principal); I48.91 Unspecified atrial fibrillation; C52 Malignant neoplasm of vagina; I10 Essential (primary) hypertension; R00.1 Bradycardia, unspecified; E11.9 Type 2 diabetes mellitus without complications; I25.10 Atherosclerotic heart disease of native coronary artery without angina pectoris; D72.829 Elevated white blood cell count, unspecified; Z86.73 Personal history of transient ischemic attack (TIA), and cerebral infarction without residual deficits; E87.6 Hypokalemia
CPT/HCPCS: 36415; 36416; 71045; 80048; 80053; 80061; 82962; 83735; 83880; 84443; 84484; 85025; 93005; 96365; 96366; 96372; 96375; 99285; G0378; J1650; J3490

== ENCOUNTER 2020-10-17 06:35 | Inpatient (IN) | payer MEDICARE, OTHER, SELFPAY ==
[2020-10-17] VITALS (17 sets, daily range): BP systolic 111–184; BP diastolic 47–115; PULSE 47–144; RESP 12–47; TEMP 36.2–36.6; O2SAT 89–97; BMI 26.1
--- NOTE | 2020-10-17 06:39 | ED_ITS ---
HPI - Arrhythmia/Palpitations General: Chief Complaint: Arrhythmia/Palpitations Stated Complaint: Afib Time Seen by Provider: 10/17/20 06:37 History of Present Illness: HPI narrative: 85-year-old female presents emergency room with complaint of palpitations and rapid heart rate. She has been admitted for this recently. She has had some problems in the past with rate control has tried various medications and currently is on sotalol according to the last notes from cardiology they were concerned that with the increasing doses required she may eventually need a pacemaker. 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 This morning around 4 AM she began having rapid heart rates she has some chest discomfort associated with it lightheadedness and dizziness. She presents here in A. fib with RVR with a rate in the 150s and above. MD complaint: rapid heart beat, heart racing , irregular heart beat and atrial fibrillation Duration: constant Severity: severe Context: occurred during rest Arrhythmia history: atrial fibrillation Associated symptoms: Reports anxiety; Deny cough, diaphoresis, muscle cramps, nausea, paresthesias, pre-syncope, sense of impending doom, short of breath, syncope or vomiting Treatments prior to arrival: beta-biju Review of Systems Const: Denies: diaphoresis ENMT: Denies: throat pain, ear or mastoid pain, nasal discharge or nasal congestion Card: Denies: syncope or pre-syncope Resp: Denies: dyspnea, productive cough or non-productive cough GI: Denies: nausea or vomiting : Denies: flank pain, difficulty voiding, dysuria, urinary frequency or urinary urgency Musc: Denies: muscle cramps Skin/Breast: Denies: rash or pruritus Psych: Reports: anxiety PFS ED PFSH: Medical History Arthritis Atrial fibrillation Not anticoagulated secondary to vaginal bleeding from cancer Atrial fibrillation with RVR Degenerative disc disease Elevated troponin Gout History of CVA (cerebrovascular accident) Pulmonary nodule Surgical History History of hip replacement (~2014) Total hip replacement through anterior approach performed in [facility] History of hip surgery Incision and drainage of right thigh abscess History of hysterectomy (~2010) according to pcp documentation--- performed in [place] for noninvasive cancer partial colectomy for obstruction and adhesion at the same time. 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, stage IVB Father Heart disease Denies family history of Ovarian cancer Diabetes Hyperlipidemia Stroke Social History Alcohol intake: never Additional social history: - Tobacco use: Denies Alcohol use: Denies Drug use: Denies Physical Exam Const: COMMON NORMALS: no acute distress GENERAL APPEARANCE: cooperative and comfortable ORIENTATION/CONSCIOUSNESS: Yes awake, Yes oriented to person, Yes oriented to place and Yes oriented to time HENMT: COMMON NORMALS: normocephalic, atraumatic and hearing grossly normal bilaterally HEAD & SCALP: normocephalic and atraumatic Neck/C-Spine: COMMON NORMALS: no JVD Resp: COMMON NORMALS: normal respiratory effort, No retractions, No use of accessory muscles and clear to auscultation bilaterally AUSCULTATION: clear to auscultation bilaterally Cardio: COMMON NORMALS: no JVD, regular rate, regular rhythm and No murmurs present (Cardio) RATE: regular rate RHYTHM: regular rhythm GI: COMMON NORMALS: Soft to palpation and No hepatosplenomegaly present AUSCULTATION: Yes normoactive bowel sounds PALPATION: Yes Soft to palpation, No Tenderness to palpation present (GI), No Guarding due to palpation present (GI) and Yes No hepatosplenomegaly present Extremity: COMMON NORMALS: normal to inspection, capillary refill normal, no clubbing, cyanosis or edema, no calf tenderness and no pedal edema Neuro: SENSORIUM/ORIENTATION: Yes oriented to person, Yes oriented to place and Yes oriented to time Skin: COMMON NORMALS: no rashes or lesions noted GENERAL SKIN EXAM: no rashes or lesions noted Course Vital Signs: Vital signs: Vital Signs Temperature 97.4 F L 10/17/20 06:41 Pulse Rate 116 H 10/17/20 07:54 Respiratory Rate 18 10/17/20 07:54 Blood Pressure 136/69 10/17/20 07:54 Pulse Oximetry 94 10/17/20 07:54 MDM - Arrhythmia/Palpitations MDM Narrative: Medical decision making narrative: Extra dose of sotalol given his start on Cardizem previously when patient was admitted we had success with conversion on Cardizem. Her rate did improve for a brief period she converted to sinus rhythm and then reverted back to A. fib. Will admit to the ICU serial enzymes medication adjustment for rate control Lab Data: Labs: Lab Results 10/17/20 10/17/20 10/17/20 Range/Units 07:01 07:01 07:01 WBC 9.3 (4.0-10.0) 10^3/ uL RBC 4.89 (4.1-5.3) 10^6/u L Hgb 12.6 (11.5-15.3) g/dL Hct 40.0 (37.0-47.0) % MCV 81.8 (81-99) fL MCH 25.8 L (28.0-34.0) pg MCHC 31.5 (30.0-36.0) g/dL RDW 18.9 H (12.1-15.1) % Plt Count 322 (130-400) 10^3/c mm MPV 9.7 (7.4-10.4) fL Neut % (Auto) 67.1 % Lymph % (Auto) 15.5 % [place] % (Auto) 9.8 % Eos % (Auto) 5.9 % Baso % (Auto) 0.6 % Neut # (Auto) 6.26 (1.8-7.7) 10^3/u L Lymph # (Auto) 1.4 (0.8-4.8) 10^3/u L [place] # (Auto) 0.9 (0.2-0.9) 10^3/u L Eos # (Auto) 0.6 (0.0-0.8) 10^3/u L Baso # (Auto) 0.1 (0.0-0.1) 10^3/u L Nucleated RBC % (a uto) 0 % Nucleated RBCs # 0.0 /100WBC Sodium 141 (136-145) mmol/L Potassium 3.5 (3.5-5.1) mmol/L Chloride 105 (98-107) mmol/L Carbon Dioxide 23 (22-29) mmol/L Anion Gap 16.5 (5-19) BUN 10 (8-23) mg/dL Creatinine 0.6 (0.5-0.9) mg/dL GFR Calculation Not Reportable Glucose 118 H (65-115) mg/dL Calculated Osmolal ity 292 (285-295) mOsm/k g Calcium 8.8 (8.5-10.5) mg/dL Total Bilirubin 0.3 (0.15-1.2) mg/dL AST 14 (0-32) U/L ALT 8 (0-33) U/L Alkaline Phosphata se 122 H (35-105) IU/L Troponin T Baselin e 13 H (0-10) ng/L Total Protein 6.9 (6.6-8.7) g/dL Albumin 3.8 (3.5-5.2) g/dL Globulin 3.1 (1.3-4.6) g/dL Discharge Plan Discharge Patient Disposition: Admitted As Inpatient Admit Provider: Carlos Donovan Clinical Impression: Atrial fibrillation with rapid ventricular response, Hypertension, Coronary artery disease, Vaginal cancer Condition: Stable Coding Level of Care Code ED Lens Assistant for g Fwd Exam Comprehensive
--- NOTE | 2020-10-17 06:40 | XR_ITS ---
WS: [id number] XR chest 1V portable [id number] REASON FOR EXAM: palpitations FINDINGS: The chest is unchanged compared to previous examination of 09/26/2020. Moderately tortuous thoracic aorta. Heart size at the upper limits of normal. Calcified granulomatous disease bilaterally. Left lung nodule. (Previous CT scans have demonstrated s table lung nodules in left lower lung.) No active pulmonary parenchymal or pleural disease. Moderate degenerative arthropathy in both acromioclavicular and glenohumeral joints. S-shaped scoliosis thoracic spine with moderate degenerative spondylosis. XR/XR chest 1V portable [id number] IMPRESSION: No acute chest abnormality.
--- NOTE | 2020-10-17 06:40 | ECG_ITS ---
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 Measurements Intervals [place] Rate: 148 P: [place]: QRS: -28 QRSD: 84 T: 132 QT: 282 QTc: 444 Interpretive Statements ATRIAL FIBRILLATION WITH RAPID VENTRICULAR RESPONSE BORDERLINE LEFT AXIS DEVIATION [QRS AXIS < -20] VOLTAGE CRITERIA FOR LVH [MEETS CRITERIA IN ONE OF: R(aVL), S(V1), R(V5), R(V5/V6)+S(V1)] ST DEVIATION AND MODERATE T-WAVE ABNORMALITY, CONSIDER LATERAL ISCHEMIA [-0.1+ mV T WAVE IN I/aVL/V5/V6] Compared to ECG 09/27/2020 13:06:11 Left ventricular hypertrophy now present Sinus bradycardia no longer present T-wave abnormality still present Possible ischemia still present Electronically Signed On 10-19-2020 7:37:28 CDT by Em Shannon M.D. [email or web address]/store/[id number] saul
[2020-10-17 07:13] LABS: Basophils # 0.1 10^3/uL (0.0-0.1); Basophils % 0.6 %; Eosinophils # 0.6 10^3/uL (0.0-0.8); Eosinophils % 5.9 %; Hemoglobin 12.6 g/dL (11.5-15.3); Lymphocytes # 1.4 10^3/uL (0.8-4.8); Lymphocytes % 15.5 %; Mean Corpuscular HGB Conc 31.5 g/dL (30.0-36.0); Mean Corpuscular Hemoglobin 25.8 pg (28.0-34.0); Mean Corpuscular Volume 81.8 fL (81-99); Mean Platelet Volume 9.7 fL (7.4-10.4); Monocytes # 0.9 10^3/uL (0.2-0.9); Monocytes % 9.8 %; Neutrophils # 6.26 10^3/uL (1.8-7.7); Neutrophils % 67.1 %; Nucleated Red Blood Cells % 0 %; Platelet Count 322 10^3/cmm (130-400); Red Blood Count 4.89 10^6/uL (4.1-5.3); Red Cell Distribution Width 18.9 % (12.1-15.1); White Blood Count 9.3 10^3/uL (4.0-10.0)
[2020-10-17 07:27] LABS: Alanine Aminotransferase 8 U/L (0-33); Albumin Level 3.8 g/dL (3.5-5.2); Alkaline Phosphatase 122 IU/L (35-105); Anion Gap 16.5 (5-19); Aspartate Amino Transferase 14 U/L (0-32); Blood Urea Nitrogen 10 mg/dL (8-23); Calcium 8.8 mg/dL (8.5-10.5); Carbon Dioxide 23 mmol/L (22-29); Chloride 105 mmol/L (98-107); Globulin 3.1 g/dL (1.3-4.6); Glucose 118 mg/dL (65-115); Osmolality Calculated 292 mOsm/kg (285-295); Potassium 3.5 mmol/L (3.5-5.1); Sodium 141 mmol/L (136-145); Total Bilirubin 0.3 mg/dL (0.15-1.2); Total Protein 6.9 g/dL (6.6-8.7)
[2020-10-17 07:28] LABS: Troponin(5th) Baseline 13 ng/L (0-10)
[2020-10-17] MEDS: sotalol 80 mg Tablet PO (07:30)
[2020-10-17] MEDS: ondansetron 2 mg/ML SDV 2 mL 4 MG IVP (07:48)
--- NOTE | 2020-10-17 08:30 | PC.NURSE ---
From ER Received pt from Er. Pt is alert, oriented, denies any pain or dizziness. Cardizem drip at 10 mg/hr. Increased to 15 mls/hr. Call light within reach. Oriented pt to staff.
--- NOTE | 2020-10-17 09:12 | PC.NURSE ---
Converted to Sinus Bradycardia Pt converted to Sinus bradycardia HR- 45s-50s. Pt denies any pain or other symptoms. Diltiazem drip stopped and called doctor Donovan via voalte phone. Received telephone order to go ahead stopped the cardizem drip. Call light within reach.
[2020-10-17 09:41] LABS: Troponin 5 2HR 13.93 ng/L (0-10); Troponin 5 2HR Delta 0.93 ABS# (0-10)
--- NOTE | 2020-10-17 11:26 | PM.HP ---
Providers/Chief Complaint Admitting Physician: Carlos Donovan MD Primary Care Provider: Parag Norris DO Chief Complaint: Afib History of Present Illness 85 year old female with PMHx of paroxysmal atrial fibrillation on sotalol ,as well as on pradaxa h/o CVA several years back, CAD details not known (patient denies any interventions, normal stress test 08/2018) and hypertension. She also has h/o vaginal adenocarcinoma s/p radiation therapy.She was admitted with c/o palpitations on the day of admission early in the morning she started having racing of heart as well as chest discomfort along with associated lightheadedness and dizziness.When she decided to come to the [facility] upon arrival in the she was found to be in afib with rvr with H/R in 130s she was given sotalol 80 mg po * 1 dose as well as started on cardizem drip.Troponin T: Baseline : 13 , 2H : 13.9, 2H D: 0.93, 6H: 16 6 H Delta : 3. Xray chest : No acute chest abnormality.Upon arrival in the [facility] she converted to asymptomatic Sinus Bradycardia with rate in mid 40s.Cardizem drip was stopped.When I examined the patient.She denied any chest pain shortness of breath, dizziness, Lightheadedness, nausea vomiting, headache. She has had at least three hospitalizations last year with complaints of atrial fibrillation with rapid ventricular response. Usually these episodes happen when she misses her dose of sotalol. Her A. fib is difficult to rate control and she has significant dyspnea with it. 2D echo: TTE (10/19/19) CONCLUSIONS 1. Normal left ventricular size and systolic function with no regional wall motion abnormalities. Left ventricular ejection fraction is estimated at 69 %. Abnormal diastolic function. 2. Normal right ventricular size and systolic function. 3. Mildly increased left atrial size. 4. Mild mitral and tricuspid valve regurgitation. 5. Mild aortic valve regurgitation. 6. Moderate pulmonary hypertension with pulmonary artery pressure estimated at 48 mmHg. 7. When compared to previous echocardiogram dated 05/16/2013, there may not have been any significant change. Lexiscan sestamibi myocardial perfusion imaging August 2018 IMPRESSIONS Myocardial perfusion imaging is normal and low probability for obstructive coronary artery disease. EKG segment will be documented separately. [facility] () Conclusion: 1. Baseline rhythm is sinus rhythm or sinus bradycardia. 2. There was sustained atrial fibrillation with rapid ventricular response with heart rate ranging from 76 to 189 bpm. 3. No patient symptoms were mentioned. Review of Systems Const: Denies: fever(s), chills, body aches, change in appetite or diaphoresis Card: Denies: edema, swelling of feet/ankles or orthopnea Resp: Denies: productive cough, wheezing or pain on inspiration GI: Denies: abdominal pain, nausea, vomiting, diarrhea or constipation : Denies: flank pain Musc: Denies: back pain, extremity pain or extremity swelling Neuro: Denies: headache(s), difficulty walking or confusion Medications/Allergies Home Medications Medication Instructions Recorded Confirmed Last Taken Type alprazolam 0.25 mg PO TID PRN 10/19/19 10/17/20 09/26/20 History icosapent ethyl [Vascepa] 2 g PO BID@10/19/19 10/17/20 10/16/20 History pantoprazole 40 mg PO DAILY PRN 10/19/19 10/17/20 10/18/19 History promethazine 25 mg PO Q6H PRN 10/19/19 10/17/20 Unknown History sertraline 25 mg PO DAILY@08 10/19/19 10/17/20 10/16/20 History melatonin 3 mg capsule 3 mg PO BEDTIME PRN cap 03/08/20 10/17/20 Unknown History ondansetron HCl 4 mg tablet 4 mg PO Q6H PRN 03/08/20 10/17/20 Unknown History multivitamin [Multiple Vitamins] 1 tab PO DAILY@0800 03/25/20 10/17/20 10/16/20 History diphenoxylate-atropine 2.5 1 tab PO Q6H PRN 05/22/20 10/17/20 Unknown History mg-0.025 mg tablet Pradaxa 150 mg PO BID@09/26/20 10/17/20 10/17/20 History dicyclomine 10 mg PO QID PRN 09/26/20 10/17/20 Unknown History sotalol 80 mg PO 1900 #30 tab 09/28/20 10/17/20 10/16/20 Rx potassium chloride [Klor-Con M20] 20 meq PO DAILY@08 10/17/20 10/17/20 10/16/20 History sotalol 120 mg PO DAILY@07 10/17/20 10/17/20 10/17/20 History Allergies Allergy/AdvReac Type Severity Reaction Status Date / Time codeine Allergy ALGY-Difficulty Verified 10/17/20 06:50 Breathing PFSH Acute PFSH: Medical History Arthritis Atrial fibrillation Not anticoagulated secondary to vaginal bleeding from cancer Atrial fibrillation with RVR Degenerative disc disease Elevated troponin Gout History of CVA (cerebrovascular accident) Pulmonary nodule Surgical History History of hip replacement (~2014) Total hip replacement through anterior approach performed in [facility] History of hip surgery Incision and drainage of right thigh abscess History of hysterectomy (~2010) according to pcp documentation--- performed in [place] for noninvasive cancer partial colectomy for obstruction and adhesion at the same time. 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, stage IVB Father Heart disease Denies family history of Ovarian cancer Diabetes Hyperlipidemia Stroke Social History Alcohol intake: never Additional social history: - Tobacco use: Denies Alcohol use: Denies Drug use: Denies Vitals/I&O/Wt Last Vital Signs Temp 97.4 F L 10/17/20 06:41 Pulse 47 L 10/17/20 11:00 Resp 47 H 10/17/20 11:10 BP 120/47 10/17/20 11:10 Pulse Ox 91 10/17/20 10:22 10/16/20 10/17/20 10/17/20 22:59 06:59 14:59 Intake Total 16.542 / 16.542 Balance 16.542 / 16.542 Weight last 48 hrs Weight 68.946 kg Physical Exam Const: COMMON NORMALS: patient oriented x3 HENMT: COMMON NORMALS: normocephalic, atraumatic and external ears normal HEAD & SCALP: normocephalic and atraumatic Resp: COMMON NORMALS: No retractions and clear to auscultation bilaterally EFFORT & INSPECTION: Yes symmetric chest movement AUSCULTATION: clear to auscultation bilaterally Cardio: COMMON NORMALS: regular rate, regular rhythm, S1 normal heart sound present, S2 normal heart sound present, No gallops present (Cardio), No murmurs present (Cardio), No rub (Cardio) and Peripheral pulses 2+ throughout RATE: regular rate RHYTHM: regular rhythm HEART SOUNDS: S1 normal heart sound present and S2 normal heart sound present PERIPHERAL PULSES: Peripheral pulses 2+ throughout GI: COMMON NORMALS: Normal to inspection, nondistended, normoactive bowel sounds present, Soft to palpation, non-tender, No hepatosplenomegaly present and no masses AUSCULTATION: Yes normoactive bowel sounds PALPATION: Yes Soft to palpation and Yes No hepatosplenomegaly present RECTAL EXAM: deferred Extremity: COMMON NORMALS: no clubbing, cyanosis or edema and no pedal edema Neuro: COMMON NORMALS: patient oriented x3 Data : 10/17/20 07:01 10/17/20 07:01 A&P Assessment and plan (1) Atrial fibrillation with rapid ventricular response: Currently converted to sinus bradycardia: Continue sotalol 120 mg p.o. in the morning as well as 80 mg p.o. daily in the evening. Continue Pradaxa Status: Acute (2) Tachycardia-bradycardia syndrome: Possible cardiology consult. Status: Acute (3) Hypertension: Status: Acute (4) Diabetes mellitus: Sliding scale insulin Monitor fingerstick glucose Carbohydrate consistent diet Status: Acute Additional A&P Information DVT prophylaxis: Not needed as the patient is on Pradaxa CODE STATUS: Full code Disposition: Home Attestations Medical Necessity Statement*: Patient needs to be in hospital for management of A. fib with RVR, as well as tachybradycardia syndrome.Anticipated length of stay greater than 2 midnights. Coding Level of Care Code Acute Broaching Machine Operator for Chg Fwd Diagnoses Atrial fibrillation with rapid ventricular response I48.91 Tachycardia-bradycardia syndrome I49.5 Hypertension I10 Diabetes mellitus E11.9
--- NOTE | 2020-10-17 12:40 | ECG_ITS ---
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 Measurements Intervals [place] Rate: 49 P: 52 [place]: 140 QRS: -18 QRSD: 84 T: 246 QT: 547 QTc: 497 Interpretive Statements SINUS BRADYCARDIA MODERATE T-WAVE ABNORMALITY, CONSIDER ANTEROLATERAL ISCHEMIA [-0.1+ mV T WAVE IN V3-V6] WARNING: DATA QUALITY MAY AFFECT INTERPRETATION Compared to ECG 10/17/2020 06:44:25 Atrial fibrillation no longer present Left ventricular hypertrophy no longer present T-wave abnormality still present Possible ischemia still present Electronically Signed On 10-18-2020 0:08:42 CDT by Annemarie Quiroz M.D. [id number]
[2020-10-17] MEDS: omega-3 fatty acids 1,000 mg Capsule 2 MG PO (18:14)
--- NOTE | 2020-10-17 19:37 | PC.NURSE ---
Received bed side shift report from off going nurse. Pt's plan of care reviewed. Pt is alert and oriented and able to make her own decisions. Pt sitting up in chair. Respirations are even and unlabored. No s/sx of distress noted. Pt denies any pains at this time. Pt states she is constipated and would like to go to the bathroom. Pt is able to ambulate on her own using a walker with no complications. Pt's HR is in the 50s/SB. Educated pt on risk of vagaling down and passing while straining to have a BM. Educated to pull alarm cord in bathroom if she becomes dizzy or feeling different. Pt verbally stated she understood. Will continue to monitor pt.
--- NOTE | 2020-10-17 20:34 | P.CONIM_ITS ---
Providers/Reason For Consult Consulting Physican/Specialty*: Dr. Shannon, Cardiology Reason for Consult*: A. fib with RVR Attending Physician: Carlos Donovan MD Primary Care Provider: Parag Norris DO History of Present Illness History of Present Illness Jayjay Campa is a 85 year old female with PMHx of paroxysmal atrial fibrillation on sotalol , h/o CV several years back, CAD details not known (patient denies any interventions, normal stress test 08/2018) and hypertension. She also has h/o vaginal adenocarcinoma s/p radiation therapy. She has had multiple hospitalizations last year with one about 3 weeks ago with complaints of atrial fibrillation with rapid ventricular response. Her A. fib is difficult to rate control and she has significant dyspnea with it. She was doing well until this morning when she woke up and did not feel well. She had some chest tightness, dyspnea and palpitations. She was in atrial fibrillation with RVR on arrival to ER. She received diltiazem bolus f/b sotalol 80 mg PO x 1 and converted to SB. No fever, chills or URI/UTI like symptoms. Cur rently she has no CP/SOB. Review of Systems General: Reports: 10 or more systems reviewed and unremarkable except in HPI and below Const: Denies: fever(s), chills, body aches, change in appetite or diaphoresis Card: Denies: edema, swelling of feet/ankles or orthopnea Resp: Denies: productive cough, wheezing or pain on inspiration GI: Denies: abdominal pain, nausea, vomiting, diarrhea or constipation : Denies: flank pain Musc: Denies: back pain, extremity pain or extremity swelling Neuro: Denies: headache(s), difficulty walking or confusion Psych: Reports: depression Meds/Allergies Home Medications and Allergies Home Medications Medication Instructions Recorded Confirmed Last Taken Type alprazolam 0.25 mg PO TID PRN 10/19/19 10/17/20 09/26/20 History icosapent ethyl [Vascepa] 2 g PO BID@08,19 10/19/19 10/17/20 10/16/20 History pantoprazole 40 mg PO DAILY PRN 10/19/19 10/17/20 10/18/19 History promethazine 25 mg PO Q6H PRN 10/19/19 10/17/20 Unknown History sertraline 25 mg PO DAILY@08 10/19/19 10/17/20 10/16/20 History melatonin 3 mg capsule 3 mg PO BEDTIME PRN cap 03/08/20 10/17/20 Unknown History ondansetron HCl 4 mg tablet 4 mg PO Q6H PRN 03/08/20 10/17/20 Unknown History multivitamin [Multiple Vitamins] 1 tab PO DAILY@0800 03/25/20 10/17/20 10/16/20 History diphenoxylate-atropine 2.5 1 tab PO Q6H PRN 05/22/20 10/17/20 Unknown History mg-0.025 mg tablet Pradaxa 150 mg PO BID@09/26/20 10/17/20 10/17/20 History dicyclomine 10 mg PO QID PRN 09/26/20 10/17/20 Unknown History sotalol 80 mg PO 1900 #30 tab 09/28/20 10/17/20 10/16/20 Rx potassium chloride [Klor-Con M20] 20 meq PO DAILY@08 10/17/20 10/17/20 10/16/20 History sotalol 120 mg PO DAILY@07 10/17/20 10/17/20 10/17/20 History Allergies Allergy/AdvReac Type Severity Reaction Status Date / Time codeine Allergy ALGY-Difficulty Verified 10/17/20 06:50 Breathing Current Medications Current Medications Generic Name Dose Route Start Last Admin Trade Name Freq PRN Reason Stop Dose Admin Diltiazem HCl 125 mg/ Sodium 125 mls @ 0 mls/hr 10/17/20 07:00 10/17/20 09:15 Chloride IV 0 mg/hr .Q0M CATHERINE 0 mls/hr Titration Protocol Per Protocol [id number]-8-[id number] Ethyl Esters 2 mg 10/17/20 19:00 10/17/20 18:14 [place]-3 Fatty Acids 1,000 Mg Capsule PO 2 mg BID@ CATHERINE Administration PFSH Acute PFSH: Medical History Arthritis Atrial fibrillation Not anticoagulated secondary to vaginal bleeding from cancer Atrial fibrillation with RVR Degenerative disc disease Elevated troponin Gout History of CVA (cerebrovascular accident) Pulmonary nodule Surgical History History of hip replacement (~2014) Total hip replacement through anterior approach performed in [facility] History of hip surgery Incision and drainage of right thigh abscess History of hysterectomy (~2010) according to pcp documentation--- performed in [place] for noninvasive cancer partial colectomy for obstruction and adhesion at the same time. 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, stage IVB Father Heart disease Denies family history of Ovarian cancer Diabetes Hyperlipidemia Stroke Social History Alcohol intake: never Additional social history: - Tobacco use: Denies Alcohol use: Denies Drug use: Denies Vitals/I&O/Wt Last Vital Signs Temp 98 F 10/17/20 19:41 Pulse 51 L 10/17/20 19:41 Resp 12 10/17/20 19:41 BP 184/63 10/17/20 19:41 Pulse Ox 94 10/17/20 19:41 10/17/20 10/17/20 10/17/20 06:59 14:59 22:59 Intake Total 216.542 / 216.542 100 / 316.542 Balance 216.542 / 216.542 100 / 316.542 Weight last 48 hrs Weight 152 lb Physical Exam Const: COMMON NORMALS: no acute distress, patient oriented x3 and alert GENERAL APPEARANCE: cooperative, comfortable, well kempt and well hydrated HENMT: COMMON NORMALS: hearing grossly normal bilaterally and external ears normal FACE & SINUS: normal facial exam EXTERNAL EAR: Yes external ears normal Eye: COMMON NORMALS: EOMs intact bilaterally and no scleral icterus GENERAL EYE: appearance normal, both eyes and all related structures ALIGNMENT: Yes alignment normal Neck/C-Spine: COMMON NORMALS: supple and no JVD GENERAL: Yes normal visual inspection and Yes trachea midline CAROTIDS: Yes normal carotid upstroke Resp: COMMON NORMALS: clear to auscultation bilaterally AUSCULTATION: clear to auscultation bilaterally, no crackles, no rales, no rhonchi and no wheezes Cardio: COMMON NORMALS: no JVD, regular rhythm and Peripheral pulses 2+ throughout PALPATION: normal PMI RATE: bradycardic RHYTHM: regular rhythm HEART SOUNDS: no gallops and no murmurs BRUITS: no carotid bruits PERIPHERAL PULSES: Peripheral pulses 2+ throughout, radial pulses present, posterior tibial pulses present and dorsalis pedis present GI: COMMON NORMALS: Normal to inspection, nondistended, normoactive bowel sounds present, Soft to palpation and non-tender PALPATION: Yes Soft to palpation Extremity: GENERAL: No edema and No pallor Neuro: COMMON NORMALS: patient oriented x3 SENSORIUM/ORIENTATION: Yes alert GAIT: Yes Assistive device used cane Psych: COMMON NORMALS: Normal thought process present and speech normal APPEARANCE: Yes well kempt SPEECH: Yes normal speech MOOD & AFFECT: Yes euthymic mood THOUGHT PROCESS: Normal thought process present THOUGHT CONTENT: Yes Normal thought content present Skin: COMMON NORMALS: no rashes or lesions noted GENERAL SKIN EXAM: no rashes or lesions noted Data Other Data: Attestation for Other Data: I personally reviewed and interpreted the following: Other data: TTE (10/19/19) CONCLUSIONS 1. Normal left ventricular size and systolic function with no regional wall motion abnormalities. Left ventricular ejection fraction is estimated at 69 %. Abnormal diastolic function. 2. Normal right ventricular size and systolic function. 3. Mildly increased left atrial size. 4. Mild mitral and tricuspid valve regurgitation. 5. Mild aortic valve regurgitation. 6. Moderate pulmonary hypertension with pulmonary artery pressure estimated at 48 mmHg. 7. When compared to previous echocardiogram dated 05/16/2013, there may not have been any significant change. Lexiscan sestamibi myocardial perfusion imaging August 2018 IMPRESSIONS Myocardial perfusion imaging is normal and low probability for obstructive coronary artery disease. EKG segment will be documented separately. [facility] () Conclusion: 1. Baseline rhythm is sinus rhythm or sinus bradycardia. 2. There was sustained atrial fibrillation with rapid ventricular response with heart rate ranging from 76 to 189 bpm. 3. No patient symptoms were mentioned. A&P Assessment and plan (1) Atrial fibrillation with RVR: -Converted to SB, received 200 mg sotalol today. -Increase sotalol 120 mg am and 120 mg pm. -weaned off cardizem gtt. -With higher dose of sotalol and with her underlying tachybradycardia syndrome she will need pacemaker. -This was discussed with patient and her son Jerald. -I will talk to Dr. Quiroz about this in morning. Status: Resolved (2) Tachycardia-bradycardia syndrome: Status: Acute (3) Hypertension: Status: Acute Qualifiers: Hypertension type: essential hypertension Qualified Code(s): I10 - Essential (primary) hypertension (4) Coronary artery disease: Unspecified; no history available. Status: Acute Qualifiers: Coronary Disease-Associated Artery/Lesion type: unspecified vessel or lesion type (5) Vaginal cancer: Status: Acute Additional A&P Information H/O CVA Thank you for allowing me to participate in patient's care. Please feel free to call with questions or concerns. Coding Level of Care Code Acute Filling Mixer for [facility] Diagnoses Atrial fibrillation with RVR I48.91 Tachycardia-bradycardia syndrome I49.5 Hypertension I10 Hypertension type: essential hypertension Coronary artery disease I25.10 Coronary Disease-Associated Artery/Lesion type: unspecified vessel or lesion type Vaginal cancer C52
[2020-10-18] VITALS (73 sets, daily range): BP systolic 132–205; BP diastolic 49–92; PULSE 52–78; RESP 11–27; TEMP 36.6–36.7; O2SAT 91–97
[2020-10-18 04:59] LABS: Basophils # 0.1 10^3/uL (0.0-0.1); Basophils % 0.6 %; Eosinophils # 0.5 10^3/uL (0.0-0.8); Eosinophils % 6.1 %; Hematocrit 34.6 % (37.0-47.0); Hemoglobin 10.6 g/dL (11.5-15.3); Lymphocytes # 1.5 10^3/uL (0.8-4.8); Lymphocytes % 18.6 %; Mean Corpuscular HGB Conc 30.6 g/dL (30.0-36.0); Mean Corpuscular Hemoglobin 25.9 pg (28.0-34.0); Mean Corpuscular Volume 84.4 fL (81-99); Monocytes # 0.9 10^3/uL (0.2-0.9); Neutrophils # 4.83 10^3/uL (1.8-7.7); Neutrophils % 61.6 %; Nucleated Red Blood Cells % 0 %; Platelet Count 263 10^3/cmm (130-400); Red Cell Distribution Width 19.3 % (12.1-15.1); White Blood Count 7.9 10^3/uL (4.0-10.0)
[2020-10-18 05:21] LABS: Alanine Aminotransferase 6 U/L (0-33); Albumin Level 3.2 g/dL (3.5-5.2); Alkaline Phosphatase 92 IU/L (35-105); Anion Gap 13.5 (5-19); Aspartate Amino Transferase 12 U/L (0-32); Blood Urea Nitrogen 19 mg/dL (8-23); Calcium 8.9 mg/dL (8.5-10.5); Carbon Dioxide 26 mmol/L (22-29); Chloride 106 mmol/L (98-107); Globulin 2.8 g/dL (1.3-4.6); Glucose 103 mg/dL (65-115); Osmolality Calculated 297 mOsm/kg (285-295); Potassium 3.5 mmol/L (3.5-5.1); Sodium 142 mmol/L (136-145); Total Bilirubin 0.3 mg/dL (0.15-1.2)
[2020-10-18] MEDS: potassium chloride ER 20 mEq Tablet PO (08:47)
[2020-10-18] MEDS: multivitamin therapeutic Tablet 1 TAB PO (08:48)
[2020-10-18] MEDS: bisacodyl 5 mg Tablet 10 MG PO (08:48)
[2020-10-18] MEDS: sotalol 80 mg Tablet 120 MG PO ×2 (08:48→18:39)
[2020-10-18] MEDS: pantoprazole DR 40 mg Tablet PO (08:48)
[2020-10-18] MEDS: sertraline 50 mg Tablet 25 MG PO (08:48)
--- NOTE | 2020-10-18 08:51 | PC.CHAP ---
Pastoral Care Encounter/Spiritual Assessment Type of Contact [] Declined enrichment teacher visit [] Patient/Family/Request visit [] Outpatient visit [] Follow-up visit [] Physician referral [] Code/Alert [x] Routine visit [] Staff referral [] Actively dying [] Patient sleeping [] Family support [] [] Out of room [] Palliative care [] [] Receiving care in room [] Pre-surgical visit [] Trauma [] Long length of stay [] ICU visit [] Other: Relational/Emotional Strength [] Patient feels connected with others/family/visitors/staff [] Distress [] Loneliness/isolation [] Abandonment Spirituality of Patient [] Person of [place] [] Attends Islam of their [place] [] Believes in Prayer [] Reads Bible or Baptism materials [] There are Spiritual issues to be addressed Auditing Specialist Interventions [x] Prayer [x] Active listening [x] Non-anxious presence [x] Spiritual/emotional support [] Crisis/trauma care [] Spiritual counseling [] Bereavement support [] Provided bereavement packet [] Provided Bible/devotional materials [] Provided toy/stuffed animal, coloring book to patient or family member [] Provided Communion [] Anointing/[place] [] Salvation [x] Completed spiritual assessment [] Other: Impact on Illness or Injury [] Angry [] Fearful [] Anxious [] Often cries [] Exhaustion [] Unable to work [] Unable to attend buddhist [] Unable to walk/stand [] Unable to read [] Unable to drive [] Unable to eat/drink [] Unable to sleep [] Unable to be with family [] Patient intubated [] Other: Summary patient setting up in chair... ate breakfast.. a little hard of hearing, but afib issue no longer bothering her Time spent with patient 10 min
--- NOTE | 2020-10-18 10:25 | P.PN_ITS ---
Subjective Subjective: Interval history: She was seen and examined this morning, seen comfortably sitting in the chair, denies any chest pain, dizziness, shortness of breath. Blood pressure has been on the higher side. AM EKG has shown sinus bradycardia. Vitals/I&O/Wt Last Vital Signs Temp 97.9 F 10/18/20 07:31 Pulse 56 L 10/18/20 08:56 Resp 18 10/18/20 07:31 BP 180/61 10/18/20 07:31 Pulse Ox 92 10/18/20 08:56 10/17/20 10/18/20 10/18/20 22:59 06:59 14:59 Intake Total 100 / 316.542 Balance 100 / 316.542 Weight last 48 hrs Weight 68.492 kg Weight 68.946 kg Physical Exam Const: COMMON NORMALS: patient oriented x3 HENMT: COMMON NORMALS: normocephalic, atraumatic and external ears normal HEAD & SCALP: normocephalic and atraumatic EXTERNAL EAR: Yes external ears normal Resp: COMMON NORMALS: No retractions and clear to auscultation bilaterally EFFORT & INSPECTION: Yes symmetric chest movement AUSCULTATION: clear to auscultation bilaterally Cardio: COMMON NORMALS: regular rate, regular rhythm, S1 normal heart sound present, S2 normal heart sound present, No gallops present (Cardio), No murmurs present (Cardio), No rub (Cardio) and Peripheral pulses 2+ throughout RATE: regular rate RHYTHM: regular rhythm HEART SOUNDS: S1 normal heart sound present and S2 normal heart sound present PERIPHERAL PULSES: Peripheral pulses 2+ throughout GI: COMMON NORMALS: Normal to inspection, nondistended, normoactive bowel sounds present, Soft to palpation, non-tender, No hepatosplenomegaly present and no masses AUSCULTATION: Yes normoactive bowel sounds PALPATION: Yes Soft to palpation and Yes No hepatosplenomegaly present RECTAL EXAM: deferred Extremity: COMMON NORMALS: no clubbing, cyanosis or edema and no pedal edema Neuro: COMMON NORMALS: patient oriented x3 Data : 10/18/20 04:13 10/18/20 04:13 A&P Assessment and plan (1) Atrial fibrillation with rapid ventricular response: Currently converted to sinus bradycardia: Continue sotalol 120 mg PO BID. Repeat Serial EKG has shown sinus Bradycardia. Will Continue Pradaxa.Currently on hold anticipating any pacemaker placement. Status: Acute (2) Tachycardia-bradycardia syndrome: Cardiology consult appreciated. Status: Acute (3) Hypertension: Currently on hydralazine 25 mg po TID Status: Acute Qualifiers: Hypertension type: essential hypertension Qualified Code(s): I10 - Essential (primary) hypertension (4) Diabetes mellitus: Sliding scale insulin Monitor fingerstick glucose Carbohydrate consistent diet Status: Acute Additional A&P Information DVT prophylaxis: Not needed as the patient is on Pradaxa CODE STATUS: Full code Disposition: Home Attestations Medical Necessity Statement*: Patient is to be in hospital for management of tachybradycardia syndrome. Coding Level of Care Code Acute Production Grader for [facility] [place] Diagnoses Atrial fibrillation with rapid ventricular response I48.91 Tachycardia-bradycardia syndrome I49.5 Hypertension I10 Hypertension type: essential hypertension Diabetes mellitus E11.9
[2020-10-18] MEDS: omega-3 fatty acids 1,000 mg Capsule 2000 MG PO ×2 (10:27→18:40)
[2020-10-18] MEDS: hyDRALAzine 25 mg Tablet PO ×2 (10:27→18:40)
--- NOTE | 2020-10-18 10:30 | ECG_ITS ---
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 Measurements Intervals [place] Rate: 50 P: 48 AK: 151 QRS: -22 QRSD: 72 T: -6 QT: 428 QTc: 394 Interpretive Statements SINUS BRADYCARDIA MODERATE VOLTAGE CRITERIA FOR LVH, CONSIDER NORMAL VARIANT [MEETS CRITERIA IN ONE OF: R(aVL), S(V1), R(V5), R(V5/V6)+S(V1)] POSSIBLE ANTERIOR MYOCARDIAL INFARCTION [30 ms Q WAVE IN V3/V4, OR R < 0.2 mV IN V4], PROBABLY OLD Compared to ECG 10/17/2020 14:01:14 Myocardial infarct finding now present T-wave abnormality no longer present Possible ischemia no longer present Electronically Signed On 10-19-2020 7:46:54 CDT by Em Shannon M.D. [email or web address]
--- NOTE | 2020-10-18 18:36 | PM.CONSULT ---
Providers/Reason For Consult Consulting Physican/Specialty*: OLIVA Quiroz MD/neurology Reason for Consult*: Patient with a symptomatic tacky bradycardia arrhythmia, for possible permanent pacemaker implantation Attending Physician: Carlos Donovan MD Primary Care Provider: Parag Norris DO History of Present Illness History of Present Illness Jayjay Campa is a 85 year old female is admitted to hospital with palpitations/chest discomfort. She was found to be atrial fibrillation with rapid ventricular rate. She was started on an IV Cardizem drip in the emergency room and was subsequently admitted to the hospital for further monitoring and management. While being in the telemetry floor, her rhythm returned to normal sinus with a rate of 40 bpm. Apparently this patient had several episodes of bradycardia in the past. Bradycardia episodes usually happens with medication changes. According to the patient, she never had any syncopal episodes. He has no fever or chills. She has history of hypertension, diet-controlled diabetes, gouty arthritis and multiple other medical problems. She has no previous history for any coronary artery disease, myocardial infarction or congestive heart failure. No previous history for cardiac arrhythmia. No fever, chills or cough. No other specific complaints. Review of Systems Narrative: CONSTITUTIONAL: No fever or chills. EYES: No blurring of vision or other visual disturbances lately. ENT: No hoarseness of voice, auditory disturbances or sore throat. CARDIOVASCULAR: As mentioned above. RESPIRATORY: No significant cough. GASTROINTESTINAL: No hematemesis or melena. 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 NEURO: No transient ischemic attacks or amaurosis. PSYCHIATRIC: No history of psychosis or major depression. HEMATOLOGIC: No bleeding disorders or significant anemia. ENDOCRINE: No history of polyuria or polydipsia. MUSCULOSKELETAL: No recent joint pain or swelling. ALLERGY/IMMUNOLOGY: As mentioned above. Meds/Allergies Home Medications and Allergies Home Medications Medication Instructions Recorded Confirmed Last Taken Type alprazolam 0.25 mg PO TID PRN 10/19/19 10/17/20 09/26/20 History icosapent ethyl [Vascepa] 2 g PO BID@08,19 10/19/19 10/17/20 10/16/20 History pantoprazole 40 mg PO DAILY PRN 10/19/19 10/17/20 10/18/19 History promethazine 25 mg PO Q6H PRN 10/19/19 10/17/20 Unknown History sertraline 25 mg PO DAILY@08 10/19/19 10/17/20 10/16/20 History melatonin 3 mg capsule 3 mg PO BEDTIME PRN cap 03/08/20 10/17/20 Unknown History ondansetron HCl 4 mg tablet 4 mg PO Q6H PRN 03/08/20 10/17/20 Unknown History multivitamin [Multiple Vitamins] 1 tab PO DAILY@0800 03/25/20 10/17/20 10/16/20 History diphenoxylate-atropine 2.5 1 tab PO Q6H PRN 05/22/20 10/17/20 Unknown History mg-0.025 mg tablet Pradaxa 150 mg PO BID@08,09/26/20 10/17/20 10/17/20 History dicyclomine 10 mg PO QID PRN 09/26/20 10/17/20 Unknown History Klor-Con M20 20 meq PO DAILY@08 10/17/20 10/17/20 10/16/20 History hydralazine 25 mg PO TID #90 tab 10/19/20 Unknown Rx sotalol 120 mg PO BID #60 tab 10/19/20 Unknown Rx Allergies Allergy/AdvReac Type Severity Reaction Status Date / Time codeine Allergy ALGY-Difficulty Verified 10/17/20 06:50 Breathing Current Medications Current Medications Generic Name Dose Route Start Last Admin Trade Name Freq PRN Reason Stop Dose Admin Bisacodyl 10 mg 10/17/20 11:19 10/18/20 08:48 Bisacodyl 5 Mg Tablet PO 10 mg DAILY PRN Administration CONSTIPATION Hydralazine HCl 25 mg 10/18/20 10:15 10/18/20 10:27 Hydralazine 25 Mg Tablet PO 25 mg Q8H CATHERINE Administration Diltiazem HCl 125 mg/ Sodium 125 mls @ 0 mls/hr 10/17/20 07:00 10/17/20 09:15 Chloride IV 0 mg/hr .Q0M CATHERINE 0 mls/hr Titration Protocol Per Protocol Multivitamins Therapeutic 1 tab 10/18/20 08:00 10/18/20 08:48 Multivitamin Therapeutic Tablet PO 1 tab DAILY@0800 CATHERINE Administration Huphc-8-[id number] Ethyl Esters 2,000 mg 10/18/20 09:00 10/18/20 10:27 [place]-3 Fatty Acids 1,000 Mg Capsule PO 2,000 mg BID@ CATHERINE Administration Pantoprazole Sodium 40 mg 10/17/20 11:23 10/18/20 08:[address] 40 Mg Tablet PO 40 mg DAILY PRN Administration Acid Reflux Potassium Chloride 20 meq 10/18/20 08:00 10/18/20 08:47 Potassium Chloride Er 20 Meq Tablet PO 20 meq DAILY@08 CATHERINE Administration Sertraline HCl 25 mg 10/18/20 08:00 10/18/20 08:48 Sertraline 50 Mg Tablet PO 25 mg DAILY@08 CATHERINE Administration PFSH Acute PFSH: Medical History Arthritis Atrial fibrillation Not anticoagulated secondary to vaginal bleeding from cancer Atrial fibrillation with rapid ventricular response Atrial fibrillation with RVR Atypical chest pain Bradycardia Coronary artery disease Degenerative disc disease Diabetes mellitus Diet controlled Elevated troponin Gout History of CVA (cerebrovascular accident) Hypertension Pulmonary nodule Tachycardia-bradycardia syndrome Vaginal cancer Surgical History History of hip replacement (~2014) Total hip replacement through anterior approach performed in [facility] History of hip surgery Incision and drainage of right thigh abscess History of hysterectomy (~2010) according to pcp documentation--- performed in [place] for noninvasive cancer partial colectomy for obstruction and adhesion at the same time. 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, stage IVB Father Heart disease Denies family history of Ovarian cancer Diabetes Hyperlipidemia Stroke Social History Alcohol intake: never Additional social history: - Tobacco use: Denies Alcohol use: Denies Drug use: Denies Vitals/I&O/Wt Last Vital Signs Temp 98.0 F 10/18/20 15:14 Pulse 61 10/18/20 15:14 Resp 24 H 10/18/20 15:14 BP 172/68 10/18/20 15:14 Pulse Ox 95 10/18/20 15:14 10/18/20 10/18/20 10/18/20 06:59 14:59 22:59 Intake Total 120 / 120 236 / 356 Balance 120 / 120 236 / 356 Weight last 48 hrs Weight 151 lb Weight 152 lb Physical Exam Narrative: EXAM NARRATIVE: GENERAL: The patient is alert and oriented times three. Not in any acute distress. Patient is very hard of hearing HEENT: No significant pallor, icterus or lymphadenopathy. The pupils are symmetrical NECK: Trachea appears to be central. No masses noted. No JVD or thyromegaly appreciated. No carotid bruit. RESPIRATORY: Chest is symmetrical. No intercostals muscle retraction or any accessory muscle activation. There is no chest wall tenderness. Breath sounds are heard bilaterally. No rales or rhonchi heard. No evidence of any consolidation. BREASTS: Deferred. HEART: The heart sounds are normal. No S3 or S4. Short systolic murmur in the left sternal border. No diastolic murmurs. ABDOMEN: No vessel pulsations or distention. No tenderness. No organomegaly appreciated. No abdominal bruit. Bowel sounds are normally heard. : Deferred. RECTAL: Deferred. LYMPHATIC: No lymphadenopathy noted in the neck or groin. EXTREMITIES: No edema or cyanosis. No clubbing. The peripheral pulses are palpable but weak bilaterally. MUSCULOSKELETAL: No acute joint deformities or swelling SKIN: There are no significant scars or skin rash noted. NEUROPSYCHIATRIC: The patient is alert and oriented x3. Appears to be in a good mood. The higher functions are grossly within normal limits. No tremors or rigidity noted. Data Labs: Other Labs: Laboratory Last Values WBC 7.9 10^3/uL (4.0- 10.0) 10/18/20 04:13 RBC 4.10 10^6/uL (4.1 -5.3) 10/18/20 04:13 Hgb 10.6 g/dL (11.5-1 5.3) L 10/18/20 04:13 Hct 34.6 % (37.0-47.0 ) L 10/18/20 04:13 MCV 84.4 fL (81-99) 10/18/20 04:13 MCH 25.9 pg (28.0-34. 0) L 10/18/20 04:13 MCHC 30.6 g/dL (30.0-3 6.0) 10/18/20 04:13 RDW 19.3 % (12.1-15.1 ) H 10/18/20 04:13 Plt Count 263 10^3/cmm (130 -400) 10/18/20 04:13 MPV 10.0 fL (7.4-10.4 ) 10/18/20 04:13 Neut % (Auto) 61.6 % 10/18/20 04:13 Lymph % (Auto) 18.6 % 10/18/20 04:13 [place] % (Auto) 12.0 % 10/18/20 04:13 Eos % (Auto) 6.1 % 10/18/20 04:13 Baso % (Auto) 0.6 % 10/18/20 04:13 Neut # (Auto) 4.83 10^3/uL (1.8 -7.7) 10/18/20 04:13 Lymph # (Auto) 1.5 10^3/uL (0.8- 4.8) 10/18/20 04:13 [place] # (Auto) 0.9 10^3/uL (0.2- 0.9) 10/18/20 04:13 Eos # (Auto) 0.5 10^3/uL (0.0- 0.8) 10/18/20 04:13 Baso # (Auto) 0.1 10^3/uL (0.0- 0.1) 10/18/20 04:13 Nucleated RBC % (a uto) 0 % 10/18/20 04:13 Nucleated RBCs # 0.0 /100WBC 10/18/20 04:13 Sodium 142 mmol/L (136-1 45) 10/18/20 04:13 Potassium 3.5 mmol/L (3.5-5 .1) 10/18/20 04:13 Chloride 106 mmol/L (98-10 7) 10/18/20 04:13 Carbon Dioxide 26 mmol/L (22-29) 10/18/20 04:13 Anion Gap 13.5 (5-19) 10/18/20 04:13 BUN 19 mg/dL (8-23) 10/18/20 04:13 Creatinine 0.8 mg/dL (0.5-0. 9) 10/18/20 04:13 GFR Calculation Not Reportable 10/18/20 04:13 Glucose 103 mg/dL (65-115 ) 10/18/20 04:13 Calculated Osmolal ity 297 mOsm/kg (285- 295) H 10/18/20 04:13 Calcium 8.9 mg/dL (8.5-10 .5) 10/18/20 04:13 Magnesium 2.0 mg/dL (1.7-2. 3) 10/18/20 04:13 Total Bilirubin 0.3 mg/dL (0.15-1 .2) 10/18/20 04:13 AST 12 U/L (0-32) 10/18/20 04:13 ALT 6 U/L (0-33) 10/18/20 04:13 Alkaline Phosphata se 92 IU/L (35-105) 10/18/20 04:13 Troponin T Baselin e 13 ng/L (0-10) H 10/17/20 07:01 Troponin T 120 Min matthew 13.93 ng/L (0-10) H 10/17/20 09:16 Delta Troponin T 0.93 ABS# (0-10) 10/17/20 09:16 Troponin T Hi Sens 6Hr 16.00 ng/L (0-10) H 10/17/20 13:16 Troponin T Hi Sens 6Hr Delta 3.00 ng/L (0-12) 10/17/20 13:16 Total Protein 6.0 g/dL (6.6-8.7 ) L 10/18/20 04:13 Albumin 3.2 g/dL (3.5-5.2 ) L 10/18/20 04:13 Globulin 2.8 g/dL (1.3-4.6 ) 10/18/20 04:13 A&P Assessment and plan (1) Bradycardia: Patient apparently had a bradycardia with a heart rate in the 40s for a while. Currently the heart rate is back to normal. (2) Atrial fibrillation with rapid ventricular response: Patient is converted to sinus rhythm now with a normal heart rate. Continue monitoring on telemetry. Since the bradycardia happened following a higher dose of sotalol and IV Cardizem, it may be appropriate to watch her on telemetry to see whether she develops any recurrent bradycardia with the current dose of the sotalol. (3) Hypertension: She is a stage II. Antihypertensive medications need to be optimized. Patient may be started on losartan 50 mg p.o. now and daily. Qualifiers: Hypertension type: essential hypertension Qualified Code(s): I10 - Essential (primary) hypertension (4) Atypical chest pain: Patient had unremarkable Miochol perfusion imaging. Most likely the chest pain is related to the atrial fibrillation rapid ventricular rate. Additional A&P Information Discussed with . If the patient continues remain in sinus rhythm with normal heart rate, it may be appropriate to discharge her home on the current dose of the medication. She may discharged home on an event monitor. If she develops symptomatic bradycardia, need to bring her back for the permanent pacemaker plantation. Coding Level of Care Code Acute Crane Ladle Person for Alejandro Vann Diagnoses Bradycardia R00.1 Atrial fibrillation with rapid ventricular response I48.91 Hypertension I10 Hypertension type: essential hypertension Atypical chest pain R07.89
--- NOTE | 2020-10-18 19:44 | PC.NURSE ---
Physician notification Bedside rounding with night RN Herlinda. Pt has been hypertensive BP-187/73 on right arm, 190/[address] Donovan notified in person. He will put orders for hydralazine PRN and increase dosing.
[2020-10-18] MEDS: hyDRALAzine 50 mg Tablet PO (19:45)
[2020-10-18] MEDS: enoxaparin 80 mg/0.8 mL Syringe 70 MG SUBCUT (21:12)
[2020-10-18] MEDS: hyDRALAzine 20 mg/mL INJ 1 mL 10 MG IVP (22:09)
[2020-10-18] MEDS: acetaminophen 325 mg Tablet 650 MG PO (23:08)
[2020-10-19] VITALS (35 sets, daily range): BP systolic 124–166; BP diastolic 52–70; PULSE 60–75; RESP 12–31; TEMP 36.3–37.1; O2SAT 89–99
[2020-10-19] MEDS: ALPRAZolam 0.25 mg Tablet PO ×2 (00:33→11:30)
[2020-10-19 04:53] LABS: Basophils # 0.1 10^3/uL (0.0-0.1); Basophils % 0.6 %; Eosinophils # 0.4 10^3/uL (0.0-0.8); Eosinophils % 3.8 %; Hematocrit 35.6 % (37.0-47.0); Hemoglobin 11.3 g/dL (11.5-15.3); Lymphocytes # 1.7 10^3/uL (0.8-4.8); Lymphocytes % 17.3 %; Mean Corpuscular HGB Conc 31.7 g/dL (30.0-36.0); Mean Corpuscular Hemoglobin 26.2 pg (28.0-34.0); Mean Corpuscular Volume 82.4 fL (81-99); Mean Platelet Volume 9.7 fL (7.4-10.4); Monocytes # 0.9 10^3/uL (0.2-0.9); Monocytes % 9.4 %; Neutrophils # 6.75 10^3/uL (1.8-7.7); Nucleated Red Blood Cells % 0 %; Platelet Count 275 10^3/cmm (130-400); Red Blood Count 4.32 10^6/uL (4.1-5.3); Red Cell Distribution Width 19.2 % (12.1-15.1); White Blood Count 9.9 10^3/uL (4.0-10.0)
--- NOTE | 2020-10-19 05:00 | ECG_ITS ---
[facility] Test Date: 2020-10-19 Pat Name: Jayjay Campa Department: Room: 101 Gender: Female Billing Representative: : [id number] Requested By: Annemarie Quiroz Order Number: [id number] Reading MD: HOLDEN SHAY Measurements Intervals [place] Rate: 66 P: 72 [place]: 147 QRS: -26 QRSD: 79 T: 22 QT: 430 QTc: 451 Interpretive Statements SINUS RHYTHM ANTEROSEPTAL MYOCARDIAL INFARCTION [40+ ms Q WAVE IN V1-V4], OF INDETERMINATE AGE Compared to ECG 10/18/2020 10:49:04 Sinus bradycardia no longer present Myocardial infarct finding still present Electronically Signed On 10-19-2020 21:17:47 CDT by HOLDEN SHAY [id number]
[2020-10-19 05:10] LABS: Anion Gap 13.3 (5-19); Blood Urea Nitrogen 18 mg/dL (8-23); Carbon Dioxide 24 mmol/L (22-29); Chloride 107 mmol/L (98-107); Glucose 124 mg/dL (65-115); Osmolality Calculated 295 mOsm/kg (285-295); Potassium 3.3 mmol/L (3.5-5.1); Sodium 141 mmol/L (136-145)
[2020-10-19] MEDS: sotalol 80 mg Tablet 120 MG PO (07:34)
--- NOTE | 2020-10-19 08:08 | P.PN_ITS ---
Subjective Subjective: Interval history: Complains of headaches. BP better today. remains in SB/SR Medications: Reviewed: Yes Vitals/I&O/Wt Last Vital Signs Temp 97.4 F L 10/19/20 07:12 Pulse 63 10/19/20 07:12 Resp 20 H 10/19/20 07:12 BP 129/53 10/19/20 07:12 Pulse Ox 96 10/19/20 07:12 10/18/20 10/19/20 10/19/20 22:59 06:59 14:59 Intake Total 236 / 356 150 / 506 Balance 236 / 356 150 / 506 Weight last 48 hrs Weight 143 lb 3.2 oz Weight 143 lb 3.2 oz Weight 151 lb Physical Exam Const: COMMON NORMALS: no acute distress, patient oriented x3 and alert GENERAL APPEARANCE: cooperative, comfortable, well kempt and well hydrated HENMT: COMMON NORMALS: hearing grossly normal bilaterally and external ears normal FACE & SINUS: normal facial exam EXTERNAL EAR: Yes external ears normal Eye: COMMON NORMALS: EOMs intact bilaterally and no scleral icterus GENERAL EYE: appearance normal, both eyes and all related structures ALIGNMENT: Yes alignment normal Neck/C-Spine: COMMON NORMALS: supple and no JVD GENERAL: Yes normal visual inspection and Yes trachea midline CAROTIDS: Yes normal carotid upstroke Resp: COMMON NORMALS: clear to auscultation bilaterally AUSCULTATION: clear to auscultation bilaterally, no crackles, no rales, no rhonchi and no wheezes Cardio: COMMON NORMALS: no JVD, regular rhythm and Peripheral pulses 2+ throughout PALPATION: normal PMI RATE: bradycardic RHYTHM: regular rhythm HEART SOUNDS: no gallops and no murmurs BRUITS: no carotid bruits PERIPHERAL PULSES: Peripheral pulses 2+ throughout, radial pulses present, posterior tibial pulses present and dorsalis pedis present GI: COMMON NORMALS: Normal to inspection, nondistended, normoactive bowel sounds present, Soft to palpation and non-tender PALPATION: Yes Soft to palpation Extremity: GENERAL: No edema and No pallor Neuro: COMMON NORMALS: patient oriented x3 SENSORIUM/ORIENTATION: Yes alert GAIT: Yes Assistive device used cane Psych: COMMON NORMALS: Normal thought process present and speech normal APPEARANCE: Yes well kempt SPEECH: Yes normal speech MOOD & AFFECT: Yes euthymic mood THOUGHT PROCESS: Normal thought process present THOUGHT CONTENT: Yes Normal thought content present Skin: COMMON NORMALS: no rashes or lesions noted GENERAL SKIN EXAM: no rashes or lesions noted Data : 10/19/20 04:08 10/19/20 04:08 A&P Assessment and plan (1) Atrial fibrillation with RVR: -Converted to SB, received 200 mg sotalol 10/17. -Increase sotalol 120 mg am and 120 mg pm. -With higher dose of sotalol and with her underlying tachybradycardia syndrome she will need pacemaker. -This was discussed with patient and her son Jerald. 10/18/20 Patient maintained her HR in 50's-60's overnight. I spoke to Dr. Quiroz just before he saw Iraj. I did discuss with him that patient currently is not exhibiting the need for PPM. The only reason for consult for PPM today is to expedite the process in case she needs it in future. In recent past her HR has been noted to be in mid 30's-low 40's while in office with symptoms of tiredness and fatigue while she was on sotalol 120 BID. I had cut back on the dose of sotalol after that. Patient definitely has signs of early tachy-mirta and eventually will most likely need PPM. It is also important to not that she has not yet actually received sotalol 120 BID in this admission and her course overnight today and in near future would decide further management. I did discuss this with the patient as well. She is agreeable with the plan. 10/19/20 HR has been in decent range overnight. BP/HR log x two to three times/day. Advised to call if HR consistently less than 50 bpm -Just had holter last week which is not yet available to me. -Follow up in 2 weeks. -Discharge on hydralazine 50 mg TID. -I had a long discussion with Jerald and Iraj and all their questions were answered to their satisfaction. Status: Resolved (2) Tachycardia-bradycardia syndrome: Status: Acute (3) Hypertension: BP elevated. -started on hydralazine 50 mg TID. Status: Acute Qualifiers: Hypertension type: essential hypertension Qualified Code(s): I10 - Essential (primary) hypertension (4) Vaginal cancer: Status: Acute Additional A&P Information H/O CVA Thank you for allowing me to participate in patient's care. Please feel free to call with questions or concerns. Attestations Medical Necessity Statement*: stable to be discharged from cardiac standpoint Time Spent in Patient Care: Greater than 35 minutes (>than 50% of time spent in counselling and/or direct pt care on unit) . Coding Level of Care Code Acute Credit Front Office Developer for Blanquita Fwd Exam Comprehensive Diagnoses Atrial fibrillation with RVR I48.91 Tachycardia-bradycardia syndrome I49.5 Hypertension I10 Hypertension type: essential hypertension Vaginal cancer C52
[2020-10-19] MEDS: hyDRALAzine 50 mg Tablet PO ×2 (08:55→15:04)
[2020-10-19] MEDS: omega-3 fatty acids 1,000 mg Capsule 2000 MG PO (08:55)
[2020-10-19] MEDS: potassium chloride ER 20 mEq Tablet PO (08:55)
[2020-10-19] MEDS: pantoprazole DR 40 mg Tablet PO (08:56)
[2020-10-19] MEDS: sertraline 50 mg Tablet 25 MG PO (08:56)
[2020-10-19] MEDS: multivitamin therapeutic Tablet 1 TAB PO (08:57)
[2020-10-19] MEDS: acetaminophen 325 mg Tablet 650 MG PO (11:24)
--- NOTE | 2020-10-19 14:02 | P.DS_ITS ---
Discharge Providers Date of Admission: 10/17/20 07:59 Date of Discharge: October 19, 2020 Attending Provider at Admission: Carlos Donovan MD Attending Provider at Discharge: Carlos Donovan MD Primary Care Provider: Parga Norris DO Diagnoses at Discharge Discharge Diagnosis (1) Atrial fibrillation with RVR: Status: Chronic (2) Tachycardia-bradycardia syndrome: Status: Chronic (3) Hypertension: Status: Chronic Qualifiers: Hypertension type: essential hypertension Qualified Code(s): I10 - Essential (primary) hypertension Reason for Visit Reason for Visit: Afib Hospital Course Hospital Course MHx of paroxysmal atrial fibrillation on sotalol ,as well as on pradaxa h/o CVA several years back, CAD details not known (patient denies any interventions, normal stress test 08/2018) and hypertension. She also has h/o vaginal adenocarcinoma s/p radiation therapy.She was admitted with c/o palpitations on the day of admission early in the morning she started having racing of heart as well as chest discomfort along with associated lightheadedness and dizziness.When she decided to come to the [facility] upon arrival in the she was found to be in afib with rvr with H/R in 130s she was given sotalol 80 mg po * 1 dose , early on the day of admission in the morning she was given 120 mg sotalol by his son. Additional dose of 80 of sotalol in the ER initially helped but she later went back into A. fib with RVR at that point in time she was started on Cardizem drip. T: Baseline : 13 , 2H : 13.9, 2H D: 0.93, 6H: 16 6 H Delta : 3.Xray chest : No acute chest abnormality.Upon arrival in the [facility] she converted to asymptomatic Sinus Bradycardia with rate in mid 40s.Cardizem drip was stopped.When I examined the patient.She denied any chest pain shortness of breath, dizziness, Lightheadedness, nausea vomiting, headache.She was admitted for the management A.fib with RVR and for underlying tachybardysyndrome.cardiology was consulted: She was continued on sotalol 120. mg p.o. every 12 hours daily. During initial hospital stay she remained asymptomatic bradycardic to high high 40s, but later heart rate picked, and she remained in high 50s to high 60, going into 70s. She will need continued monitoring for possible pacemaker placement in the future. During this hospital stay she was also managed for uncontrolled hypertension, she was kept on hydralazine, and was also discharged on hydralazine 25 mg p.o. every 8 hour daily. She will continue to follow-up with cardiology as an outpatient. Physical Exam Const: COMMON NORMALS: patient oriented x3 HENMT: COMMON NORMALS: normocephalic, atraumatic and external ears normal HEAD & SCALP: normocephalic and atraumatic EXTERNAL EAR: Yes external ears normal Resp: COMMON NORMALS: No retractions and clear to auscultation bilaterally EFFORT & INSPECTION: Yes symmetric chest movement AUSCULTATION: clear to auscultation bilaterally Cardio: COMMON NORMALS: regular rate, regular rhythm, S1 normal heart sound present, S2 normal heart sound present, No gallops present (Cardio), No murmurs present (Cardio), No rub (Cardio) and Peripheral pulses 2+ throughout RATE: regular rate RHYTHM: regular rhythm HEART SOUNDS: S1 normal heart sound present and S2 normal heart sound present PERIPHERAL PULSES: Peripheral pulses 2+ throughout GI: COMMON NORMALS: Normal to inspection, nondistended, normoactive bowel sounds present, Soft to palpation, non-tender, No hepatosplenomegaly present and no masses AUSCULTATION: Yes normoactive bowel sounds PALPATION: Yes Soft to palpation and Yes No hepatosplenomegaly present RECTAL EXAM: deferred Extremity: COMMON NORMALS: no clubbing, cyanosis or edema and no pedal edema Neuro: COMMON NORMALS: patient oriented x3 Discharge Data Data Completed and Pending: Completed Studies During Hospitalization Category Date Time Status XR chest 1V ciarra ble [id number] Stat Exams 10/17/20 06:40 Completed Labs from last 24 hours 10/19/20 10/19/20 04:08 04:08 WBC 9.9 RBC 4.32 Hgb 11.3 L Hct 35.6 L MCV 82.4 MCH 26.2 L MCHC 31.7 RDW 19.2 H Plt Count 275 MPV 9.7 Neut % (Auto) 68.0 Lymph % (Auto) 17.3 [place] % (Auto) 9.4 Eos % (Auto) 3.8 Baso % (Auto) 0.6 Neut # (Auto) 6.75 Lymph # (Auto) 1.7 [place] # (Auto) 0.9 Eos # (Auto) 0.4 Baso # (Auto) 0.1 Nucleated RBC % (a uto) 0 Nucleated RBCs # 0.0 Sodium 141 Potassium 3.3 L Chloride 107 Carbon Dioxide 24 Anion Gap 13.3 BUN 18 Creatinine 0.8 GFR Calculation Not Reportable Glucose 124 H Calculated Osmolal ity 295 Calcium 9.0 Vitals: Last Vital Signs Temp 97.6 F 10/19/20 10:59 Pulse 63 10/19/20 10:59 Resp 15 10/19/20 10:59 BP 145/70 10/19/20 10:59 Pulse Ox 99 10/19/20 10:59 Discharge Plan Discharge Patient Disposition: Home Condition: Stable Prescriptions: New hydralazine 50 mg tablet 25 mg PO TID Qty: 90 RF: 0 sotalol 120 mg tablet 120 mg PO BID Qty: 60 RF: 0 Continued melatonin 3 mg capsule 3 mg PO BEDTIME PRN (Reason: Sleep) RF: 0 ondansetron HCl 4 mg tablet 4 mg PO Q6H PRN (Reason: nausea and vomiting) RF: 0 diphenoxylate-atropine 2.5-0.025 mg tablet 1 tab PO Q6H PRN (Reason: Diarrhea) RF: 0 multivitamin [Multiple Vitamins] Tablet 1 tab PO DAILY@0800 RF: 0 dicyclomine 10 mg Capsule 10 mg PO QID PRN (Reason: Stomach Cramps) RF: 0 Pradaxa 150 mg Capsule 150 mg PO BID@ RF: 0 promethazine 25 mg Tablet 25 mg PO Q6H PRN (Reason: Nausea) RF: 0 sertraline 25 mg Tablet 25 mg PO DAILY@08 RF: 0 icosapent ethyl [Vascepa] 1 gram Capsule 2 g PO BID@ RF: 0 alprazolam 0.25 mg tablet 0.25 mg PO TID PRN (Reason: Anxiety) RF: 0 pantoprazole 40 mg Tablet,Delayed Release (Dr/Ec) 40 mg PO DAILY PRN (Reason: Acid Reflux) RF: 0 Klor-Con M20 20 mEq tablet,ER particles/crystals 20 meq PO DAILY@08 RF: 0 Discontinued sotalol 80 mg Tablet 80 mg PO 1900 Qty: 30 RF: 0 sotalol 120 mg tablet 120 mg PO DAILY@07 RF: 0 Discharge Orders: Discharge Order (Routine); Ordered 10/19/20 Ordered By: Carlos Donovan Referrals: Em Shannon MD [Physician] - 2 weeks (You have a Cardiology follow up on November 02, at 11:00am with Dr. Shannon. If you have any questions or concerns please call [facility]. ) Discharge Diet: Low Salt Discharge Activity: Resume usual activity Patient Instructions: Hydralazine (By mouth), Sotalol (By mouth), Atrial Fibrillation (DC), Chest Pain Stoplight Discharge Attestations Time Spent in Discharge Care*: greater than 30 min Specific Discharge Activities: educating patient, educating and/or supporting family/caregiver, discussing with pcp/other providers, discussing with embedded case manager/social workers/dc planners, documenting/other paperwork and evaluating patient/reviewing data Status at Discharge: Cognitive status at discharge: cognitively intact , Behavioral status at discharge: cooperative , Functional status at discharge: independent ambulation Overall status at discharge: patient is back to baseline Quality Metrics Clinical Quality Measures During this hospital stay, did patient experience: None Coding Level of Care Code Acute Chg FW DC note Exam Detailed Diagnoses Atrial fibrillation with RVR I48.91 Tachycardia-bradycardia syndrome I49.5 Hypertension I10 Hypertension type: essential hypertension
== END 2020-10-19 16:15 | disposition home or self-care (01) | DRG 310 ==
LOC: ER 07:15 → CSU 08:11
PROVIDERS: Admitting Provider Internal Medicine; Emergency Provider Family Medicine; PCP Electrodiagnostic Medicine; Visit Provider Internal Medicine
DX: I48.91 Unspecified atrial fibrillation (principal); I49.5 Sick sinus syndrome; I25.10 Atherosclerotic heart disease of native coronary artery without angina pectoris; C52 Malignant neoplasm of vagina; I10 Essential (primary) hypertension; Z86.73 Personal history of transient ischemic attack (TIA), and cerebral infarction without residual deficits; Z85.89 Personal history of malignant neoplasm of other organs and systems; Z92.3 Personal history of irradiation
CPT/HCPCS: 36415; 71045; 80048; 80053; 83735; 84484; 85025; 93005; 96365; 96375; 99285; J0360; J1650; J2405; J3490

== ENCOUNTER → 2020-11-02 11:50 | Outpatient (BNVA) | payer MEDICARE, OTHER, SELFPAY | PROVIDERS: PCP Electrodiagnostic Medicine; Visit Provider Internal Medicine Cardiovascular Disease | DX: I48.0 Paroxysmal atrial fibrillation (principal); R00.1 Bradycardia, unspecified; I10 Essential (primary) hypertension; E11.9 Type 2 diabetes mellitus without complications; Z09 Encounter for follow-up examination after completed treatment for conditions other than malignant neoplasm | CPT/HCPCS: 80048; 83735 ==

== ENCOUNTER 2020-12-01 18:51 | Observation (INO) | payer MEDICARE, OTHER, SELFPAY ==
[2020-12-01] VITALS (40 sets, daily range): BP systolic 98–160; BP diastolic 49–107; PULSE 84–148; RESP 16–32; TEMP 36.6–37; O2SAT 81–99; BMI 26.4
--- NOTE | 2020-12-01 19:19 | ECG_ITS ---
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 Measurements Intervals [place] Rate: 143 P: ID: QRS: -45 QRSD: 78 T: 62 QT: 322 QTc: 497 Interpretive Statements ATRIAL FIBRILLATION WITH RAPID VENTRICULAR RESPONSE POSSIBLE RIGHT VENTRICULAR CONDUCTION DELAY [RSR (QR) IN V1/V2] LEFT ANTERIOR FASCICULAR BLOCK [QRS AXIS <= -45, QR IN I, RS IN II] MINIMAL VOLTAGE CRITERIA FOR LVH, CONSIDER NORMAL VARIANT [MEETS CRITERIA IN ONE OF: R(aVL), S(V1), R(V5), R(V5/V6)+S(V1)] SEPTAL MYOCARDIAL INFARCTION , OF INDETERMINATE AGE [40+ ms Q WAVE IN V1/V2] Compared to ECG 10/19/2020 04:48:24 Left anterior fascicular block now present Sinus rhythm no longer present Myocardial infarct finding still present Electronically Signed On 12-02-2020 7:16:05 CDT by Em Shannon M.D. [id number]
--- NOTE | 2020-12-01 19:20 | XRR_ITS ---
PROCEDURE INFORMATION: Exam: XR Chest Exam date and time: 12/01/2020 7:39 PM Age: 85 years old Clinical indication: Shortness of breath. Palpitations. TECHNIQUE: Imaging protocol: XR of the chest. Views: 1 view. COMPARISON: CR XR chest 1V portable [id number] 10/17/2020 6:38 AM FINDINGS: Lungs: A pulmonary nodule in the left lower lobe appears similar to prior. No pulmonary consolidation. Pleural spaces: No pleural effusion. No pneumothorax. Heart/Mediastinum: The cardiac silhouette is unchanged. No gross evidence of pneumomediastinum. Vasculature: Unchanged tortuosity of the aorta. Bones/joints: No gross fracture. XR/XR chest 1V portable [id number] IMPRESSION: 1. Cardiomegaly with tortuous aorta; similar to prior. 2. Similar appearing pulmonary nodule at the left base.
[2020-12-01] MEDS: metoprolol tartrate 1 mg/1 mL SDV 5 mL 5 MG IV (19:47)
--- NOTE | 2020-12-01 19:49 | ED_ITS ---
HPI - General Adult General: Chief complaint: General Medical Stated complaint: High Heart Rate Time Seen by Provider: 12/01/20 19:19 Source: patient and family Mode of arrival: ambulatory History of Present Illness: HPI narrative: 85-year-old female with a history of atrial fibrillation started feeling palpitations 1 hour prior to arrival, shortly after waking up from a nap. Associated chest pressure, dizziness, lightheadedness,l paresthesias, nausea, shortness of breath. Denies any recent illness-no fever, vomiting, diarrhea, cough. Has been taking her sotalol as scheduled. She was in the ER last month with similar presentation. She is followed by cardiology, Dr. Shannon. Onset (ago): hour(s) Associated symptoms: Reports chest pain, dyspnea, headache(s), nausea and palpitations; Deny rash, syncope or vomiting Review of Systems General: Reports: 10 or more systems reviewed and unremarkable except in HPI and below Const: Denies: fever(s), chills or body aches Eyes: Denies: change in vision or blurry vision ENMT: Denies: odynophagia or swelling of lips/tongue Card: Reports: chest pain, palpitations, irregular heart rhythm, lightheadedness and dyspnea on exertion; Denies: edema, syncope or acrocyanosis Resp: Reports: dyspnea; Denies: productive cough, non-productive cough or wheezing GI: Reports: nausea; Denies: abdominal pain, vomiting or heartburn : Denies: difficulty voiding, dysuria or urinary frequency Musc: Denies: neck pain, back pain, extremity pain or extremity swelling Skin/Breast: Denies: rash, pruritus or erythema Neuro: Reports: headache(s); Denies: numbness in extremities or weakness in extremities Psych: Denies: anxiety, depression or mood swings Endo: Denies: polyuria Juan Manuel/Lymph: Denies: easy bruising or easy bleeding All/Imm: Denies: urticaria, throat swelling or tongue swelling PFSH ED PFSH: Medical History Arthritis Atrial fibrillation Atrial fibrillation with rapid ventricular response Atrial fibrillation with RVR Atypical chest pain Bradycardia Coronary artery disease Degenerative disc disease Diabetes mellitus Diet controlled Elevated troponin Gout History of CVA (cerebrovascular accident) Hypertension Pulmonary nodule Tachycardia-bradycardia syndrome Vaginal cancer Surgical History History of hip replacement (~2014) Total hip replacement through anterior approach performed in [facility] History of hip surgery Incision and drainage of right thigh abscess History of hysterectomy (~2010) according to pcp documentation--- performed in [place] for noninvasive cancer partial colectomy for obstruction and adhesion at the same time. 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, stage IVB Father Heart disease Denies family history of Ovarian cancer Diabetes Hyperlipidemia Stroke Social History Alcohol intake: never Additional social history: - Tobacco use: Denies Alcohol use: Denies Drug use: Denies Physical Exam Const: COMMON NORMALS: patient oriented x3 GENERAL APPEARANCE: well kempt, anxious and frail appearing; not ill appearing NUTRITIONAL APPEARANCE: underweight HENMT: COMMON NORMALS: normocephalic and atraumatic HEAD & SCALP: normal to inspection, normocephalic and atraumatic FACE & SINUS: normal facial exam Eye: COMMON NORMALS: Equal, round and reactive pupils present, EOMs intact bilaterally and conjunctivae normal CONJUNCTIVA: Yes conjunctivae normal PUPIL: Yes Equal, round and reactive pupils present Neck/C-Spine: COMMON NORMALS: full ROM, no lymphadenopathy and supple GENERAL: Yes normal visual inspection Chest: COMMONS NORMALS: normal inspection of the chest and normal palpation of entire chest wall Resp: EFFORT & INSPECTION: Yes able to speak in complete sentences, Yes tachypneic, No respiratory distress, No stridor, No Actively coughing and No retractions Cardio: COMMON NORMALS: S1 normal heart sound present RATE: tachycardic RHYTHM: abnormal rhythm irregularly irregular HEART SOUNDS: S1 normal heart sound present GI: COMMON NORMALS: Normal to inspection, nondistended, normoactive bowel sounds present, Soft to palpation and non-tender PALPATION: Yes Soft to palpation Extremity: OTHER: Trace bilateral edema, otherwise warm and well-perfused. Neuro: COMMON NORMALS: patient oriented x3, moves all extremities and no focal motor deficits Psych: APPEARANCE: Yes well kempt Skin: COMMON NORMALS: no rashes or lesions noted, no wounds, turgor normal, no jaundice and no petechiae GENERAL SKIN EXAM: no rashes or lesions noted and turgor normal Course Reevaluation(s): Reevaluation #1: rate did not respond to metoprolol bolus after 10-12 minutes, will give a 20mg bolus of cardizem and continue to monitor closely. Time: 20:02 Vital Signs: Vital signs: Vital Signs Temperature 98.9 F 12/02/20 04:03 Pulse Rate 58 L 12/02/20 04:03 Respiratory Rate 20 H 12/02/20 04:03 Blood Pressure 93/58 12/02/20 04:03 Pulse Oximetry 95 12/02/20 04:03 MDM - General Adult MDM Narrative: Medical decision making narrative: 85-year-old female with history of A. fib presenting with chest pain, palpitations, lightheadedness, EKG shows her to be in A. fib with RVR with a rate of 147. No response to IV Toprol bolus. Responded well to 20 mg IV push diltiazem, so a 180 mg p.o. dose was given. An additional 10 mg IV push dose was given later his heart rate went back up into the 120s. Lab work does not show any obvious electrolyte abnormalities that could be contributing. Urinalysis does not show any acute UTI. She continues to have a rapid rate despite 2 IV push doses of diltiazem and a p.o. dose. Discussed the case with Dr. Quiñones, she can be admitted for diltiazem drip at a fixed rate of 10 mg/h and make further oral medication titration can be then to [place]. Discussed the case with Dr. Quiñones, hospitalist, he accepts the admission. Lab Data: Labs: Lab Results 12/01/20 12/01/20 12/01/20 Range/Units 19:50 19:50 19:50 WBC 6.6 (4.0-10.0) 10^3/ uL RBC 4.45 (4.1-5.3) 10^6/u L Hgb 12.2 (11.5-15.3) g/dL Hct 38.0 (37.0-47.0) % MCV 85.4 (81-99) fL MCH 27.4 L (28.0-34.0) pg MCHC 32.1 (30.0-36.0) g/dL RDW 16.2 H (12.1-15.1) % Plt Count 284 (130-400) 10^3/c mm MPV 10.2 (7.4-10.4) fL Neut % (Auto) 51.4 % Lymph % (Auto) 28.8 % [place] % (Auto) 13.7 % Eos % (Auto) 4.5 % Baso % (Auto) 1.1 % Neut # (Auto) 3.42 (1.8-7.7) 10^3/u L Lymph # (Auto) 1.9 (0.8-4.8) 10^3/u L [place] # (Auto) 0.9 (0.2-0.9) 10^3/u L Eos # (Auto) 0.3 (0.0-0.8) 10^3/u L Baso # (Auto) 0.1 (0.0-0.1) 10^3/u L Nucleated RBC % (a uto) 0 % Nucleated RBCs # 0.0 /100WBC Sodium 137 (136-145) mmol/L Potassium 3.7 (3.5-5.1) mmol/L Chloride 104 (98-107) mmol/L Carbon Dioxide 20 L (22-29) mmol/L Anion Gap 16.7 (5-19) BUN 17 (8-23) mg/dL Creatinine 0.8 (0.5-0.9) mg/dL GFR Calculation Not Reportable Glucose 88 (65-115) mg/dL Calculated Osmolal ity 285 (285-295) mOsm/k g Calcium 8.8 (8.5-10.5) mg/dL Magnesium 2.1 (1.7-2.3) mg/dL Total Bilirubin 0.3 (0.15-1.2) mg/dL AST 21 (0-32) U/L ALT 10 (0-33) U/L Alkaline Phosphata se 93 (35-105) IU/L Troponin T Baselin e 14 H (0-10) ng/L Troponin T 120 Min [place] (0-10) ng/L Delta Troponin T (0-10) ABS# NT-Pro-B Natriuret Pep 1145 H (0-450) pg/mL Total Protein 6.8 (6.6-8.7) g/dL Albumin 3.8 (3.5-5.2) g/dL Globulin 3.0 (1.3-4.6) g/dL Urine Color (Yellow) Urine Appearance (CLEAR) Urine pH (5-7) Ur Specific Gravit y (1.005-1.030) Urine Protein (Negative) Urine Glucose (UA) (Normal) Urine Ketones (Negative) Urine Blood (Negative) Urine Nitrate (Negative) Urine Bilirubin (Negative) Prot Sulfosalicyli c Acd (Negative) Urine Urobilinogen (Negative) mg/dL Ur Leukocyte Kalina ase (Negative) 12/01/20 12/01/20 Range/Units 19:50 21:30 WBC (4.0-10.0) 10^3/ uL RBC (4.1-5.3) 10^6/u L Hgb (11.5-15.3) g/dL Hct (37.0-47.0) % MCV (81-99) fL MCH (28.0-34.0) pg MCHC (30.0-36.0) g/dL RDW (12.1-15.1) % Plt Count (130-400) 10^3/c mm MPV (7.4-10.4) fL Neut % (Auto) % Lymph % (Auto) % [place] % (Auto) % Eos % (Auto) % Baso % (Auto) % Neut # (Auto) (1.8-7.7) 10^3/u L Lymph # (Auto) (0.8-4.8) 10^3/u L [place] # (Auto) (0.2-0.9) 10^3/u L Eos # (Auto) (0.0-0.8) 10^3/u L Baso # (Auto) (0.0-0.1) 10^3/u L Nucleated RBC % (a uto) % Nucleated RBCs # /100WBC Sodium (136-145) mmol/L Potassium (3.5-5.1) mmol/L Chloride (98-107) mmol/L Carbon Dioxide (22-29) mmol/L Anion Gap (5-19) BUN (8-23) mg/dL Creatinine (0.5-0.9) mg/dL GFR Calculation Glucose (65-115) mg/dL Calculated Osmolal ity (285-295) mOsm/k g Calcium (8.5-10.5) mg/dL Magnesium (1.7-2.3) mg/dL Total Bilirubin (0.15-1.2) mg/dL AST (0-32) U/L ALT (0-33) U/L Alkaline Phosphata se (35-105) IU/L Troponin T Baselin e (0-10) ng/L Troponin T 120 Min [place] 13.85 H (0-10) ng/L Delta Troponin T -0.15 L (0-10) ABS# NT-Pro-B Natriuret Pep (0-450) pg/mL Total Protein (6.6-8.7) g/dL Albumin (3.5-5.2) g/dL Globulin (1.3-4.6) g/dL Urine Color Yellow (Yellow) Urine Appearance Clear (CLEAR) Urine pH 8 H (5-7) Ur Specific Gravit y 1.005 (1.005-1.030) Urine Protein Neg (Negative) Urine Glucose (UA) Norm (Normal) Urine Ketones Negative (Negative) Urine Blood Neg (Negative) Urine Nitrate Negative (Negative) Urine Bilirubin Neg (Negative) Prot Sulfosalicyli c Acd Negative (Negative) Urine Urobilinogen Norm (Negative) mg/dL Ur Leukocyte Kalina ase Negative (Negative) Critical Care Time Critical Care Time: Critical Care Time: Yes Total Critical Care Time: 45 Attestation: This case had a high probability of a clinically significant, sudden, or life threatening deterioration of this patient's condition which required my full and direct attention, intervention and personal management. Discharge Plan Discharge Patient Disposition: Admitted As Inpatient Admit Provider: Omid Quiñones Clinical Impression: Atrial fibrillation with rapid ventricular response Atrial fibrillation Qualifiers: Atrial fibrillation type: longstanding persistent Qualified Code(s): I48.11 - Longstanding persistent atrial fibrillation Condition: Stable Coding Level of Care Code ED Incoming Inspector for [facility] Fwd Exam Comprehensive
[2020-12-01] MEDS: sodium chloride 0.9% 500 ML IV (19:54)
[2020-12-01 20:01] LABS: Basophils # 0.1 10^3/uL (0.0-0.1); Basophils % 1.1 %; Eosinophils # 0.3 10^3/uL (0.0-0.8); Eosinophils % 4.5 %; Hemoglobin 12.2 g/dL (11.5-15.3); Lymphocytes # 1.9 10^3/uL (0.8-4.8); Lymphocytes % 28.8 %; Mean Corpuscular HGB Conc 32.1 g/dL (30.0-36.0); Mean Corpuscular Hemoglobin 27.4 pg (28.0-34.0); Mean Corpuscular Volume 85.4 fL (81-99); Mean Platelet Volume 10.2 fL (7.4-10.4); Monocytes # 0.9 10^3/uL (0.2-0.9); Monocytes % 13.7 %; Neutrophils # 3.42 10^3/uL (1.8-7.7); Neutrophils % 51.4 %; Nucleated Red Blood Cells % 0 %; Platelet Count 284 10^3/cmm (130-400); Red Blood Count 4.45 10^6/uL (4.1-5.3); Red Cell Distribution Width 16.2 % (12.1-15.1); White Blood Count 6.6 10^3/uL (4.0-10.0)
[2020-12-01 20:03] LABS: Add Urine Microscopic? NO; Charge for UA Resulting for Rev
[2020-12-01 20:11] LABS: Bilirubin Urine Neg (Negative); Blood Urine Neg (Negative); Glucose Urine UA Norm (Normal); Ketones Urine Negative (Negative); Leukocyte Esterase Urine Negative (Negative); Nitrate Urine Negative (Negative); Protein Urine Neg (Negative); Specific Gravity, Urine 1.005 (1.005-1.030); Sulfosalicylic Acid Urine Negative (Negative); Urine Appearance Clear (CLEAR); Urine Color Yellow (Yellow); Urobilinogen Urine Norm (Negative); pH Urine 8 (5-7)
[2020-12-01 20:20] LABS: Troponin(5th) Baseline 14 ng/L (0-10)
[2020-12-01] MEDS: dilTIAZem ER (24HR) 180 mg Capsule PO (20:23)
[2020-12-01 20:27] LABS: Alanine Aminotransferase 10 U/L (0-33); Albumin Level 3.8 g/dL (3.5-5.2); Alkaline Phosphatase 93 IU/L (35-105); Aspartate Amino Transferase 21 U/L (0-32); Blood Urea Nitrogen 17 mg/dL (8-23); Calcium 8.8 mg/dL (8.5-10.5); Carbon Dioxide 20 mmol/L (22-29); Chloride 104 mmol/L (98-107); Glucose 88 mg/dL (65-115); Magnesium 2.1 mg/dL (1.7-2.3); NT Pro B Type Natriuretic Pept 1145 pg/mL (0-450); Osmolality Calculated 285 mOsm/kg (285-295); Sodium 137 mmol/L (136-145); Total Bilirubin 0.3 mg/dL (0.15-1.2); Total Protein 6.8 g/dL (6.6-8.7)
[2020-12-01 20:30] LABS: Anion Gap 16.7 (5-19); Potassium 3.7 mmol/L (3.5-5.1)
--- NOTE | 2020-12-01 21:23 | ECG_ITS ---
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 Measurements Intervals [place] Rate: 117 P: [place]: QRS: -54 QRSD: 85 T: 81 QT: 375 QTc: 525 Interpretive Statements ATRIAL FIBRILLATION WITH RAPID VENTRICULAR RESPONSE POSSIBLE RIGHT VENTRICULAR CONDUCTION DELAY [RSR (QR) IN V1/V2] LEFT ANTERIOR FASCICULAR BLOCK [QRS AXIS <= -45, QR IN I, RS IN II] SEPTAL MYOCARDIAL INFARCTION , OF INDETERMINATE AGE [40+ ms Q WAVE IN V1/V2] Compared to ECG 12/01/2020 19:52:34 No significant changes Electronically Signed On 12-02-2020 7:26:22 CDT by Em Shannon M.D. [id number]
--- NOTE | 2020-12-01 21:52 | P.HP_ITS ---
Providers/Chief Complaint Primary Care Provider: Parag Norris DO Chief Complaint: High Heart Rate History of Present Illness Jayjay Campa is a 85 year old female with a history of chronic atrial fibrillation difficult to control heart rate, takes sotalol, anticoagulation with Pradaxa presented today with chief complaint of palpitations. Patient was in her usual state of health until today when she started experiencing palpitations which were associated with chest discomfort which she is describing as pressure-like sensation. Her symptoms lasted until she received medications in the ER for rate control. She denied shortness of breath, diaphoresis. Son is at the bedside who is endorsing that his mother seemed very anxious today and when he checked her heart rate it was 185. Sotalol dose was administered before she was brought to the ER. She did not miss any medication at home. Diagnosis in the ER revealed A. fib RVR she received multiple doses of Cardizem IV boluses without much improvement however she was also given Cardizem extended release 180 mg, by the time I saw her her heart rate was in 80s and she just came back from the bathroom, she was not complaining of active chest pain shortness of breath, she is very hard of hearing, not endorsing new complaints. Looks anxious. Potassium and magnesium reviewed, I will give her potassium supplementation to bring it up to 4, EKG consistent with A. fib RVR, troponin not significantly high mild signs of fluid overload on clinical examination BNP 1100 Review of Systems Const: Denies: fever(s) or body aches Eyes: Denies: change in vision ENMT: Denies: throat pain Card: Reports: chest pain, palpitations and irregular heart rhythm Resp: Denies: dyspnea GI: Denies: abdominal pain : Denies: flank pain Musc: Denies: neck pain Skin/Breast: Denies: rash Neuro: Denies: headache(s) Psych: Denies: anxiety Endo: Denies: polyuria Juan Manuel/Lymph: Denies: easy bruising All/Imm: Denies: urticaria Medications/Allergies Home Medications Medication Instructions Recorded Confirmed Last Taken Type alprazolam 0.25 mg PO TID PRN 10/19/19 12/01/20 09/26/20 History icosapent ethyl [Vascepa] 2 g PO BID@08,10/19/19 12/01/20 12/01/20 History pantoprazole 40 mg PO DAILY@0800 10/19/19 12/01/20 12/01/20 History sertraline 25 mg PO DAILY@08 10/19/19 12/01/20 12/01/20 History melatonin 3 mg capsule 3 mg PO BEDTIME PRN cap 03/08/20 12/01/20 Unknown History ondansetron HCl 4 mg tablet 4 mg PO Q6H PRN 03/08/20 12/01/20 Unknown History multivitamin [Multiple Vitamins] 1 tab PO DAILY@0800 03/25/20 12/01/20 12/01/20 History diphenoxylate-atropine 2.5 1 tab PO Q6H PRN 05/22/20 12/01/20 Unknown History mg-0.025 mg tablet Pradaxa 150 mg PO BID@08,19 09/26/20 12/01/20 12/01/20 History dicyclomine 10 mg PO QID PRN 09/26/20 12/01/20 Unknown History potassium chloride 20 mEq 20 meq PO DAILY@08 #90 tab 11/02/20 12/01/20 12/01/20 Rx tablet,extended release(part/cryst) sotalol 120 mg tablet 120 mg PO BID #60 tab 11/23/20 12/01/20 12/01/20 Rx ergocalciferol (vitamin D2) 1,250 mcg PO Q7D 12/01/20 12/01/20 11/30/20 History [Vitamin D2] hydralazine 50 mg PO BID 12/01/20 12/01/20 12/01/20 History tizanidine 2 mg PO TID PRN 12/01/20 12/01/20 Unknown History Allergies Allergy/AdvReac Type Severity Reaction Status Date / Time codeine Allergy ALGY-Difficulty Verified 11/02/20 11:11 Breathing PFSH Acute PFSH: Medical History Arthritis Atrial fibrillation Atrial fibrillation with rapid ventricular response Atrial fibrillation with RVR Atypical chest pain Bradycardia Coronary artery disease Degenerative disc disease Diabetes mellitus Diet controlled Elevated troponin Gout History of CVA (cerebrovascular accident) Hypertension Pulmonary nodule Tachycardia-bradycardia syndrome Vaginal cancer Surgical History History of hip replacement (~2014) Total hip replacement through anterior approach performed in [facility] History of hip surgery Incision and drainage of right thigh abscess History of hysterectomy (~2010) according to pcp documentation--- performed in [place] for noninvasive cancer partial colectomy for obstruction and adhesion at the same time. 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, stage IVB Father Heart disease Denies family history of Ovarian cancer Diabetes Hyperlipidemia Stroke Social History Alcohol intake: never Additional social history: - Tobacco use: Denies Alcohol use: Denies Drug use: Denies Vitals/I&O/Wt Last Vital Signs Temp 98.6 F 12/01/20 19:09 Pulse 96 12/01/20 21:30 Resp 32 H 12/01/20 20:25 BP 118/96 12/01/20 21:30 Pulse Ox 94 12/01/20 21:30 Weight last 48 hrs Weight 69.853 kg Physical Exam Narrative: EXAM NARRATIVE: Very pleasant elderly female, she is very hard of hearing, was laying supine when entered room heart rate in 80s with normal blood pressure Seemed anxious Son at the bedside No active chest pain shortness of breath abdominal pain Variable S1-S2 no murmur appreciated Mild signs of CHF exacerbation with bilateral lower extremity 1+ pitting edema Abdomen soft nontender bowel sound present central obesity Bilateral breath sounds no audible stridor or wheezing EOMI, PERRLA Awake alert oriented x3 GCS 15 no neurological deficits She just came back from the bathroom heart rate is in 80s Data : 12/01/20 19:50 12/01/20 19:50 A&P Assessment and plan (1) Atrial fibrillation with rapid ventricular response: Status: Acute (2) Acute exacerbation of CHF (congestive heart failure): Status: Acute Additional A&P Information Atrial fibrillation with acute RVR Chest pain subsided after rate control Left atrial diameter 4.6 cm, width 3.1 cm, Received multiple IV boluses of Cardizem and metoprolol At the time of my evaluation heart rate is in 80s she just received Cardizem extended release I would not add Cardizem gtt. Continue sotalol and monitor overnight Troponin not elevated, EKG without ischemic or infarctive changes, Her QTC is prolonged, currently consider cardiology evaluation if we can increase her sotalol dose We will check TSH, magnesium normal, will replete potassium with 40 mEq Mild CHF exacerbation EF 69% abnormal diastolic dysfunction moderate pulmonary hypertension Lower extremity pitting edema High BNP 1100, Chest x-ray shows pulmonary nodule I would add low-dose Lasix with potassium supplementation Hypertension: She takes hydralazine along with sotalol, hydralazine can cause reflex tachycardia kindly reevaluate if she would benefit from lisinopril and amlodipine combination Full code Cardiac diet DVT prophylaxis Lovenox Attestations Medical Necessity Statement*: Anticipating discharge in less than 48 hours has symptomatic palpitations with A. fib acute RVR overnight monitoring needed because patient complained of chest pain however her heart rate is in 80s, her A. fib is very difficult to control and needs overnight monitoring Time Spent in Patient Care: (>than 50% of time spent in counselling and/or direct pt care on unit) . 35mins Coding Level of Care Code Acute Hand Crocheter for Chg Fwd Diagnoses Atrial fibrillation with rapid ventricular response I48.91 Acute exacerbation of CHF (congestive heart failure) I50.9
[2020-12-01 21:54] LABS: Troponin 5 2HR 13.85 ng/L (0-10)
[2020-12-01 21:55] LABS: Troponin 5 2HR Delta -0.15 ABS# (0-10)
--- NOTE | 2020-12-01 22:17 | PC.NURSE ---
This nurse got verbal ok to have patient on a fixed rate Cardizem drip in order to go to the floor due to not having any CSU beds.
[2020-12-02] MEDS: potassium chloride ER 20 mEq Tablet 40 MEQ PO (00:33)
[2020-12-02] MEDS: acetaminophen 325 mg Tablet PO (00:33)
[2020-12-02 03:24] VITALS: PULSE 85; O2SAT 96
[2020-12-02 04:03] VITALS: BP 93/58; PULSE 58; RESP 20; TEMP 37.2; O2SAT 95
[2020-12-02 05:54] LABS: Thyroid Stimulating Hormone 2.05 uIU/mL (0.27-4.20)
[2020-12-02 07:34] VITALS: BP 121/55; PULSE 54; RESP 16; TEMP 36.9; O2SAT 95
[2020-12-02] MEDS: potassium chloride ER 20 mEq Tablet PO (08:08)
[2020-12-02] MEDS: pantoprazole DR 40 mg Tablet PO (08:09)
[2020-12-02] MEDS: FUROsemide 20 mg Tablet PO (08:09)
[2020-12-02] MEDS: lisinopril 10 mg Tablet PO (08:13)
[2020-12-02] MEDS: hyDRALAzine 50 mg Tablet PO (08:14)
[2020-12-02] MEDS: sertraline 50 mg Tablet 25 MG PO (08:15)
[2020-12-02] MEDS: sotalol 80 mg Tablet 120 MG PO (08:17)
[2020-12-02] MEDS: amlodipine 10 mg Tablet PO (08:21)
[2020-12-02 12:00] VITALS: BP 124/67; PULSE 52; RESP 17; TEMP 37.1; O2SAT 95
--- NOTE | 2020-12-02 14:22 | ECG_ITS ---
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 Measurements Intervals [place] Rate: 51 P: 88 MA: 123 QRS: -28 QRSD: 70 T: 55 QT: 423 QTc: 393 Interpretive Statements SINUS BRADYCARDIA BORDERLINE LEFT AXIS DEVIATION [QRS AXIS < -20] NONSPECIFIC T-WAVE ABNORMALITY Compared to ECG 12/01/2020 21:40:05 T-wave abnormality now present Atrial fibrillation no longer present Left anterior fascicular block no longer present Myocardial infarct finding no longer present Electronically Signed On 12-06-2020 22:17:29 CDT by Em Shannon M.D. [id number]
[2020-12-02 15:50] VITALS: BP 145/65; PULSE 49; RESP 17; TEMP 36.4; O2SAT 98
--- NOTE | 2020-12-02 16:45 | PC.NURSE ---
Reviewed discharge with patient and son at this time. Patient and son verbalized understanding of when and how to take new medication of Cardizem. Patient and son verbalized understanding of making follow up appointments. IV removed intact. Patient tolerated well. Patient is A&Ox3. Respirations even and non-labored on room air. Patient wheel chaired to private car at this time.
[2020-12-02 16:51] VITALS: BP 145/65; PULSE 55; RESP 18; TEMP 36.7; O2SAT 98
--- NOTE | 2020-12-02 16:52 | PM.DCS ---
Discharge Providers Date of Admission: 12/01/20 22:05 Date of Discharge: December 02, 2020 Attending Provider at Admission: Omid Quiñones MD Attending Provider at Discharge: Qi Boykin MD Primary Care Provider: Parag Norris DO Diagnoses at Discharge Discharge Diagnosis (1) Atrial fibrillation with rapid ventricular response: Status: Acute (2) Acute exacerbation of CHF (congestive heart failure): Status: Acute Reason for Visit Reason for Visit: High Heart Rate Hospital Course Hospital Course 85 year old lady with A fib with RVR currently on sotalol 120mg po BID with recurrent episodes of breakthrough RVR episodes presnted last night with c/o palpitations, chest discomfort, HR up to 185, found to have A fib with RVR for which she received multiple doses of both IV and PO cardizem. She converted back to sinus rhythm, since this morning, heart rate has been sinus rhythm at 50-60 bpm. Patient feels much improved this afternoon. EKG shows sinus rhythm @51bpm, qtc interval <400msec. Discussed case with patient's outpatient sheet catcher Dr. Shannon. Patient is being discharged today with recommendations to continue sotalol 120mg BID, po cardizem 30mg immediate release and cardizem CD 240mg has been added, both to be used on a prn basis for HR >140 bpm. F/up with Dr. Shannon in one week. 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: no focal neuro deficits Discharge Data Data Completed and Pending: Completed Studies During Hospitalization Category Date Time Status XR chest 1V ciarra ble [id number] Stat Exams 12/01/20 19:20 Completed Labs from last 24 hours 12/02/20 12/01/20 12/01/20 04:44 21:30 19:50 WBC RBC Hgb Hct MCV MCH MCHC RDW Plt Count MPV Neut % (Auto) Lymph % (Auto) Refugio % (Auto) Eos % (Auto) Baso % (Auto) Neut # (Auto) Lymph # (Auto) Refugio # (Auto) Eos # (Auto) Baso # (Auto) Nucleated RBC % (a uto) Nucleated RBCs # Sodium Potassium Chloride Carbon Dioxide Anion Gap BUN Creatinine GFR Calculation Glucose Calculated Osmolal ity Calcium Magnesium Total Bilirubin AST ALT Alkaline Phosphata se Troponin T Baselin e Troponin T 120 Min [place] 13.85 H Delta Troponin T -0.15 L NT-Pro-B Natriuret Pep Total Protein Albumin Globulin TSH 2.05 Urine Color Yellow Urine Appearance Clear Urine pH 8 H Ur Specific Gravit y 1.005 Urine Protein Neg Urine Glucose (UA) Norm Urine Ketones Negative Urine Blood Neg Urine Nitrate Negative Urine Bilirubin Neg Prot Sulfosalicyli c Acd Negative Urine Urobilinogen Norm Ur Leukocyte Kalina ase Negative 12/01/20 12/01/20 12/01/20 19:50 19:50 19:50 WBC 6.6 RBC 4.45 Hgb 12.2 Hct 38.0 MCV 85.4 MCH 27.4 L MCHC 32.1 RDW 16.2 H Plt Count 284 MPV 10.2 Neut % (Auto) 51.4 Lymph % (Auto) 28.8 Refug[place] % (Auto) 13.7 Eos % (Auto) 4.5 Baso % (Auto) 1.1 Neut # (Auto) 3.42 Lymph # (Auto) 1.9 Refugio # (Auto) 0.9 Eos # (Auto) 0.3 Baso # (Auto) 0.1 Nucleated RBC % (a uto) 0 Nucleated RBCs # 0.0 Sodium 137 Potassium 3.7 Chloride 104 Carbon Dioxide 20 L Anion Gap 16.7 BUN 17 Creatinine 0.8 GFR Calculation Not Reportable Glucose 88 Calculated Osmolal ity 285 Calcium 8.8 Magnesium 2.1 Total Bilirubin 0.3 AST 21 ALT 10 Alkaline Phosphata se 93 Troponin T Baselin e 14 H Troponin T 120 Min [place] Delta Troponin T NT-Pro-B Natriuret Pep 1145 H Total Protein 6.8 Albumin 3.8 Globulin 3.0 TSH Urine Color Urine Appearance Urine pH Ur Specific Gravit y Urine Protein Urine Glucose (UA) Urine Ketones Urine Blood Urine Nitrate Urine Bilirubin Prot Sulfosalicyli c Acd Urine Urobilinogen Ur Leukocyte Kalina ase Vitals: Last Vital Signs Temp 97.5 F L 12/02/20 15:50 Pulse 49 L 12/02/20 15:50 Resp 17 12/02/20 15:50 BP 145/65 12/02/20 15:50 Pulse Ox 98 12/02/20 15:50 Discharge Plan Discharge Patient Disposition: Home Condition: Stable Prescriptions: New Cardizem CD 240 mg capsule,extended release 24hr 240 mg PO PRN Qty: 20 RF: 0 Cardizem 30 mg tablet 30 mg PO PRN Qty: 20 RF: 0 Continued Klor-Con M20 20 mEq tablet,ER particles/crystals 20 meq PO DAILY@08 Qty: 90 RF: 2 melatonin 3 mg capsule 3 mg PO BEDTIME PRN (Reason: Sleep) RF: 0 ondansetron HCl 4 mg tablet 4 mg PO Q6H PRN (Reason: nausea and vomiting) RF: 0 diphenoxylate-atropine 2.5-0.025 mg tablet 1 tab PO Q6H PRN (Reason: Diarrhea) RF: 0 sotalol 120 mg tablet 120 mg PO BID Qty: 60 RF: 0 multivitamin [Multiple Vitamins] Tablet 1 tab PO DAILY@0800 RF: 0 dicyclomine 10 mg Capsule 10 mg PO QID PRN (Reason: Stomach Cramps) RF: 0 Pradaxa 150 mg Capsule 150 mg PO BID@ RF: 0 sertraline 25 mg Tablet 25 mg PO DAILY@08 RF: 0 icosapent ethyl [Vascepa] 1 gram Capsule 2 g PO BID@, RF: 0 alprazolam 0.25 mg tablet 0.25 mg PO TID PRN (Reason: Anxiety) RF: 0 pantoprazole 40 mg Tablet,Delayed Release (Dr/Ec) 40 mg PO DAILY@0800 RF: 0 hydralazine 50 mg tablet 50 mg PO BID RF: 0 tizanidine 2 mg Tablet 2 mg PO TID PRN (Reason: Muscle Pain) RF: 0 Vitamin D2 1,250 mcg (50,000 unit) Capsule 1,250 mcg PO Q7D RF: 0 Discharge Orders: Discharge Order (Routine); Ordered 12/02/20 Ordered By: Qi Boykin Referrals: Parag Norris DO [Primary Care Provider] - (Call Saturday to schedule a follow up appointment. ) Em Shannon MD [Physician] - 1 week (Call the office on Saturday to schedule the appointment.) Discharge Diet: Cardiac Discharge Activity: Resume usual activity Patient Instructions: Diltiazem (By mouth), Heart Failure (DC), Atrial Fibrillation (DC), Opioid Safety Activity Restrictions/Additional Instructions: Continue to take sotalol 120mg twice a day. If there is recurrent episode of rapid heart rate more than 140 beats per minute, take one pill each of short acting acting cardisem (30mg) and long acting cardizem (240mg). Follow up [facility] Dr. Shannon in one week as outpatient Discharge Attestations Time Spent in Discharge Care*: greater than 30 min Specific Discharge Activities: educating and/or supporting family/caregiver and discussing with pcp/other providers Status at Discharge: Cognitive status at discharge: cognitively intact, Behavioral status at discharge: cooperative, Quality Metrics Clinical Quality Measures During this hospital stay, did patient experience: None Coding Level of Care Code Acute Chg FW DC note Diagnoses Atrial fibrillation with rapid ventricular response I48.91 Acute exacerbation of CHF (congestive heart failure) I50.9
== END 2020-12-02 16:45 | disposition home or self-care (01) ==
LOC: ER 22:20 → MEDSURG 12-02 08:50
PROVIDERS: Admitting Provider Internal Medicine; Emergency Provider Family Medicine; PCP Electrodiagnostic Medicine; Visit Provider Student in an Organized Health Care Education/Training Program
DX: I48.91 Unspecified atrial fibrillation (principal); I50.9 Heart failure, unspecified; M19.90 Unspecified osteoarthritis, unspecified site; I25.10 Atherosclerotic heart disease of native coronary artery without angina pectoris; E11.9 Type 2 diabetes mellitus without complications; Z86.73 Personal history of transient ischemic attack (TIA), and cerebral infarction without residual deficits; I10 Essential (primary) hypertension
CPT/HCPCS: 36415; 71045; 80053; 81003; 83735; 83880; 84443; 84484; 85025; 93005; 96365; 96366; 96375; 99285; G0378; J3490; J7040

== ENCOUNTER 2020-12-24 03:32 | Inpatient (IN) | payer MEDICARE, OTHER, SELFPAY ==
[2020-12-24] VITALS (15 sets, daily range): BP systolic 143–177; BP diastolic 45–72; PULSE 67–79; RESP 13–27; TEMP 36.4–36.8; O2SAT 91–100; BMI 26.1
--- NOTE | 2020-12-24 03:48 | ECG_ITS ---
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 Measurements Intervals [place] Rate: 77 P: -12 TX: 150 QRS: 100 QRSD: 85 T: 24 QT: 388 QTc: 441 Interpretive Statements SINUS RHYTHM POSSIBLE RIGHT VENTRICULAR HYPERTROPHY [SOME/ALL OF: PROMINENT R IN V1, LATE TRANSITION, RAD, RHETT, SSS] NONSPECIFIC T-WAVE ABNORMALITY Compared to ECG 12/02/2020 14:34:01 Atrial abnormality now present Sinus bradycardia no longer present T-wave abnormality still present Electronically Signed On 12-24-2020 16:49:01 CDT by Arsen Wilson M.D. [id number]
--- NOTE | 2020-12-24 03:49 | ED_ITS ---
HPI - Abdominal Pain General: Chief Complaint: Abdominal Pain Stated Complaint: abd pain Time Seen by Provider: 12/24/20 03:35 Source: patient Mode of arrival: ambulatory Limitations: no limitations History of Present Illness: HPI narrative: 85-year-old female states she been having right lower quadrant and right upper quadrant pain that started last night and is worsened today. Pain going on for roughly 7 hours and she rates pain an 8 out of 10 currently. States pain is sharp in nature. Denies any worsening improving factors. She has had some nausea no vomiting. Denies any chest pain. Denies any fevers. MD elicited complaint: abdominal pain Pertinent past history: none Onset (ago): hour(s) Location: None Severity: moderate Quality: stabbing Associated Symptoms: Denies chills, dysuria and fever(s) Review of Systems Const: Denies: fever(s), chills, body aches or change in appetite Eyes: Denies: blurry vision or eye discomfort ENMT: Denies: throat pain or dental pain Card: Denies: chest pain Resp: Denies: dyspnea GI: Reports: abdominal pain : Denies: dysuria Musc: Denies: neck pain or back pain Skin/Breast: Denies: rash Neuro: Denies: headache(s) Psych: Denies: depression Juan Manuel/Lymph: Denies: easy bruising All/Imm: Denies: urticaria PFSH ED PFSH: Medical History Arthritis Atrial fibrillation Atrial fibrillation with rapid ventricular response Atrial fibrillation with RVR Atypical chest pain Bradycardia Coronary artery disease Degenerative disc disease Diabetes mellitus Diet controlled Elevated troponin Gout History of CVA (cerebrovascular accident) Hypertension Pulmonary nodule Tachycardia-bradycardia syndrome Vaginal cancer Surgical History History of hip replacement (~2014) Total hip replacement through anterior approach performed in [facility] History of hip surgery Incision and drainage of right thigh abscess History of hysterectomy (~2010) according to pcp documentation--- performed in [place] for noninvasive cancer partial colectomy for obstruction and adhesion at the same time. 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, stage IVB Father Heart disease Denies family history of Ovarian cancer Diabetes Hyperlipidemia Stroke Social History Alcohol intake: never Additional social history: - Tobacco use: Denies Alcohol use: Denies Drug use: Denies Physical Exam Const: COMMON NORMALS: no acute distress, patient oriented x3 and healthy appearing HENMT: COMMON NORMALS: normocephalic and atraumatic HEAD & SCALP: normocephalic and atraumatic Eye: COMMON NORMALS: Equal, round and reactive pupils present and EOMs intact bilaterally PUPIL: Yes Equal, round and reactive pupils present Neck/C-Spine: COMMON NORMALS: full ROM and supple Chest: COMMONS NORMALS: normal inspection of the chest and normal palpation of entire chest wall Resp: COMMON NORMALS: normal respiratory effort, No retractions, No use of accessory muscles and clear to auscultation bilaterally AUSCULTATION: clear to auscultation bilaterally Cardio: COMMON NORMALS: regular rate, regular rhythm and No murmurs present (Cardio) RATE: regular rate RHYTHM: regular rhythm GI: COMMON NORMALS: Normal to inspection, nondistended, normoactive bowel sounds present, Soft to palpation, non-tender and no masses PALPATION: Yes Soft to palpation and Yes Tenderness to palpation present (GI) Details: RLQ and RUQ Extremity: COMMON NORMALS: normal to inspection and full ROM Neuro: COMMON NORMALS: patient oriented x3, moves all extremities and no focal motor deficits Psych: COMMON NORMALS: mental status grossly normal, Normal thought process present and cooperative THOUGHT PROCESS: Normal thought process present Skin: COMMON NORMALS: no rashes or lesions noted and no wounds GENERAL SKIN EXAM: no rashes or lesions noted Course Vital Signs: Vital signs: Vital Signs Temperature 97.9 F 12/24/20 03:41 Pulse Rate 74 12/24/20 05:35 Respiratory Rate 18 12/24/20 05:35 Blood Pressure 155/50 12/24/20 05:35 Pulse Oximetry 96 12/24/20 05:35 MDM - Abdominal Pain MDM Narrative: Medical decision making narrative: Patient presents here with a small bowel obstruction likely causing her abdominal pain. Patient had an NG tube placed and I spoke to hospitalist who will admit. Patient has been stable while here. Lab Data: Labs: Lab Results 12/24/20 12/24/20 12/24/20 Range/Units 03:55 03:55 03:55 WBC 8.9 (4.0-10.0) 10^3/ uL RBC 4.22 (4.1-5.3) 10^6/u L Hgb 11.7 (11.5-15.3) g/dL Hct 37.1 (37.0-47.0) % MCV 87.9 (81-99) fL MCH 27.7 L (28.0-34.0) pg MCHC 31.5 (30.0-36.0) g/dL RDW 17.0 H (12.1-15.1) % Plt Count 293 (130-400) 10^3/c mm MPV 9.7 (7.4-10.4) fL Neut % (Auto) 72.2 % Lymph % (Auto) 16.4 % [place] % (Auto) 7.9 % Eos % (Auto) 2.6 % Baso % (Auto) 0.6 % Neut # (Auto) 6.44 (1.8-7.7) 10^3/u L Lymph # (Auto) 1.5 (0.8-4.8) 10^3/u L [place] # (Auto) 0.7 (0.2-0.9) 10^3/u L Eos # (Auto) 0.2 (0.0-0.8) 10^3/u L Baso # (Auto) 0.1 (0.0-0.1) 10^3/u L Nucleated RBC % (a uto) 0 % Nucleated RBCs # 0.0 /100WBC Sodium 144 (136-145) mmol/L Potassium 3.7 (3.5-5.1) mmol/L Chloride 106 (98-107) mmol/L Carbon Dioxide 25 (22-29) mmol/L Anion Gap 16.7 (5-19) BUN 20 (8-23) mg/dL Creatinine 1.0 H (0.5-0.9) mg/dL GFR Calculation Not Reportable Glucose 129 H (65-115) mg/dL Calculated Osmolal ity 302 H (285-295) mOsm/k g Lactate 1.5 (0.5-2.2) mmol/L Calcium 9.4 (8.5-10.5) mg/dL Total Bilirubin 0.4 (0.15-1.2) mg/dL AST 20 (0-32) U/L ALT 8 (0-33) U/L Alkaline Phosphata se 106 H (35-105) IU/L Total Protein 7.2 (6.6-8.7) g/dL Albumin 4.0 (3.5-5.2) g/dL Globulin 3.2 (1.3-4.6) g/dL Lipase 20 (13-60) U/L Urine Color (Yellow) Urine Appearance (CLEAR) Urine pH (5-7) Ur Specific Gravit y (1.005-1.030) Urine Protein (Negative) Urine Glucose (UA) (Normal) Urine Ketones (Negative) Urine Blood (Negative) Urine Nitrate (Negative) Urine Bilirubin (Negative) Urine Urobilinogen (Negative) mg/dL Ur Leukocyte Kalina ase (Negative) Urine RBC (0-2) /hpf Urine WBC (0-5) /hpf Ur Squamous Epith Cells (0-5) /hpf Amorphous Sediment Urine Bacteria (NONE) /hpf 12/24/ Range/Units 04:09 WBC (4.0-10.0) 10^3/ uL RBC (4.1-5.3) 10^6/u L Hgb (11.5-15.3) g/dL Hct (37.0-47.0) % MCV (81-99) fL MCH (28.0-34.0) pg MCHC (30.0-36.0) g/dL RDW (12.1-15.1) % Plt Count (130-400) 10^3/c mm MPV (7.4-10.4) fL Neut % (Auto) % Lymph % (Auto) % [place] % (Auto) % Eos % (Auto) % Baso % (Auto) % Neut # (Auto) (1.8-7.7) 10^3/u L Lymph # (Auto) (0.8-4.8) 10^3/u L [place] # (Auto) (0.2-0.9) 10^3/u L Eos # (Auto) (0.0-0.8) 10^3/u L Baso # (Auto) (0.0-0.1) 10^3/u L Nucleated RBC % (a uto) % Nucleated RBCs # /100WBC Sodium (136-145) mmol/L Potassium (3.5-5.1) mmol/L Chloride (98-107) mmol/L Carbon Dioxide (22-29) mmol/L Anion Gap (5-19) BUN (8-23) mg/dL Creatinine (0.5-0.9) mg/dL GFR Calculation Glucose (65-115) mg/dL Calculated Osmolal ity (285-295) mOsm/k g Lactate (0.5-2.2) mmol/L Calcium (8.5-10.5) mg/dL Total Bilirubin (0.15-1.2) mg/dL AST (0-32) U/L ALT (0-33) U/L Alkaline Phosphata se (35-105) IU/L Total Protein (6.6-8.7) g/dL Albumin (3.5-5.2) g/dL Globulin (1.3-4.6) g/dL Lipase (13-60) U/L Urine Color Yellow (Yellow) Urine Appearance Clear (CLEAR) Urine pH 7 (5-7) Ur Specific Gravit y 1.010 (1.005-1.030) Urine Protein Neg (Negative) Urine Glucose (UA) Norm (Normal) Urine Ketones Negative (Negative) Urine Blood Neg (Negative) Urine Nitrate Negative (Negative) Urine Bilirubin Neg (Negative) Urine Urobilinogen Norm (Negative) mg/dL Ur Leukocyte Kalina ase Trace H (Negative) Urine RBC None (0-2) /hpf Urine WBC 0-4 H (0-5) /hpf Ur Squamous Epith Cells 0-4 H (0-5) /hpf Amorphous Sediment Not Reportable Urine Bacteria Trace (NONE) /hpf Imaging Data ^: CT Abd/Pel: Attestation: I personally reviewed and interpreted this imaging study as follows: Radiologist's impression: [address] [address] [address] Scan Report Signed Patient: Jayjay Campa Unit #: [id number] : 1935 Age/Sex: 85 / F ADM Date: 12/24/20 Loc: ER Room/Bed: Attending Dr: Ordering Provider/Ordering MD: Stephen King MD Date of Service: 12/24/20 Procedure(s): CT abdomen pelvis w con* [id number] Accession Number(s): [id number] Report Number: [id number] PROCEDURE INFORMATION: Exam: CT Abdomen And Pelvis With Contrast Exam date and time: 12/24/2020 3:51 AM Age: 85 years old Clinical indication: Abdominal pain; Generalized; Prior surgery; Surgery type: Gb. Thr; Patient HX: Abd pain with nausea TECHNIQUE: Imaging protocol: Computed tomography of the abdomen and pelvis with contrast. Radiation optimization: All CT scans at this facility use at least one of these dose optimization techniques: automated exposure control; mA and/or kV adjustment per patient size (includes targeted exams where dose is matched to clinical indication); or iterative reconstruction. Contrast material: OMNI 300; Contrast volume: 95 ml; Contrast route: INTRAVENOUS (IV); COMPARISON: 1. CT abdomen pelvis w con* [id number] 2017-12-17 15:06 2. CR Hips Sunny 5v wwo Pelvis* [id number] 2019-04-21 11:40 RADIATION DOSE METRICS: Total DLP (mGy-cm): 1313.89 FINDINGS: Lungs: 1.5 cm left lower lobe noncalcified nodule, previously 1 cm in 2018. Recommend continued follow-up, on some of the images appears to possibly contains some macroscopic fat which would suggest a benign hematoma. Liver: Small metallic density in the left hepatic lobe. Gallbladder and bile ducts: Clips in the left upper abdomen. Cholecystectomy. There is a mild, expected degree of intrahepatic and common bile duct dilation. Cholecystectomy clips in the right upper quadrant. Pancreas: Normal. No ductal dilation. Spleen: Small, less than 5 mm, splenic hypodensity. The spleen demonstrates punctate calcifications, consistent with remote granulomatous organism exposure. Adrenal glands: Normal. No mass. Kidneys and ureters: Normal. No hydronephrosis. Stomach and bowel: Numerous dilated small bowel loops with air-fluid levels in the mid abdomen with transition point in the left lower abdomen (series 602, image 38). Small amount of interloop fluid and stranding. Evidence for small bowel obstruction. Mild colonic diverticulosis without evidence for acute diverticulitis. Appendix: No evidence of appendicitis. Intraperitoneal space: Unremarkable. No free air. No significant fluid collection. Vasculature: Unremarkable. No abdominal aortic aneurysm. Lymph nodes: Unremarkable. No enlarged lymph nodes. Urinary bladder: Unremarkable as visualized. Reproductive: Unremarkable as visualized. Bones/joints: Left hip arthroplasty hardware secured with cerclage wires and lucency around the intramedullary robyn partially seen. Severe lower lumbar spondylosis and spinal stenosis. Bulky degenerative disc bulges, osteophytes, and facet arthropathy of the lumbar spine. Moderate right hip degenerative joint disease. Mild dextroconvex lumbar scoliosis. Soft tissues: Unremarkable. Other findings: Trace presacral fluid. CT/CT abdomen pelvis w con* [id number] IMPRESSION: 1. Numerous dilated small bowel loops with air-fluid levels in the mid abdomen with transition point in the left lower abdomen (series 602, image 38). Small amount of interloop fluid and stranding. Evidence for small bowel obstruction. 2. Severe lower lumbar spondylosis and spinal stenosis. 3. 1.5 cm left lower lobe noncalcified nodule, previously 1 cm in 2018. Recommend continued follow-up, on some of the images appears to possibly contains some macroscopic fat which would suggest a benign hematoma. COMMENTS: As per Fleischner Society guidelines for follow-up and management of pulmonary nodules: Recommend initial follow-up chest CT at 3, 9 and 24 months. Consider contrast enhanced chest CT, PET scan and/or biopsy as clinically warranted. Radiation Dose CTDIVOL = (mGy): DLP = 1313.89 EKG Data ^: EKG 1: Attestation: I personally reviewed and interpreted this EKG as follows: EKG interpretation date: 12/24/20 EKG interpretation time: 03:51 Interpretation: nsr hr [address] or t wave abnormalities qrs 85 qtc 420 Discharge Plan Discharge Patient Disposition: Admitted As Inpatient Clinical Impression: Small bowel obstruction Condition: Stable Coding Level of Care Code ED Fuel Conversion Technician for Chg Fwd Exam Comprehensive
[2020-12-24 04:03] LABS: Basophils # 0.1 10^3/uL (0.0-0.1); Basophils % 0.6 %; Eosinophils # 0.2 10^3/uL (0.0-0.8); Eosinophils % 2.6 %; Hematocrit 37.1 % (37.0-47.0); Hemoglobin 11.7 g/dL (11.5-15.3); Lymphocytes # 1.5 10^3/uL (0.8-4.8); Lymphocytes % 16.4 %; Mean Corpuscular HGB Conc 31.5 g/dL (30.0-36.0); Mean Corpuscular Hemoglobin 27.7 pg (28.0-34.0); Mean Corpuscular Volume 87.9 fL (81-99); Mean Platelet Volume 9.7 fL (7.4-10.4); Monocytes # 0.7 10^3/uL (0.2-0.9); Monocytes % 7.9 %; Neutrophils # 6.44 10^3/uL (1.8-7.7); Neutrophils % 72.2 %; Nucleated Red Blood Cells % 0 %; Platelet Count 293 10^3/cmm (130-400); Red Blood Count 4.22 10^6/uL (4.1-5.3); White Blood Count 8.9 10^3/uL (4.0-10.0)
[2020-12-24] MEDS: morphine 4 mg/mL SDV 1 mL IVP (04:05)
[2020-12-24] MEDS: ondansetron 2 mg/ML SDV 2 mL 4 MG IVP (04:06)
--- NOTE | 2020-12-24 04:12 | PC.NURSE ---
patient to CT
[2020-12-24] MEDS: iohexol 300 mg/mL 100 mL Btl IV (04:20)
[2020-12-24 04:25] LABS: Alanine Aminotransferase 8 U/L (0-33); Alkaline Phosphatase 106 IU/L (35-105); Anion Gap 16.7 (5-19); Aspartate Amino Transferase 20 U/L (0-32); Blood Urea Nitrogen 20 mg/dL (8-23); Calcium 9.4 mg/dL (8.5-10.5); Carbon Dioxide 25 mmol/L (22-29); Chloride 106 mmol/L (98-107); Globulin 3.2 g/dL (1.3-4.6); Glucose 129 mg/dL (65-115); Lipase 20 U/L (13-60); Osmolality Calculated 302 mOsm/kg (285-295); Potassium 3.7 mmol/L (3.5-5.1); Sodium 144 mmol/L (136-145); Total Bilirubin 0.4 mg/dL (0.15-1.2); Total Protein 7.2 g/dL (6.6-8.7)
[2020-12-24 04:26] LABS: Lactate (Lactic Acid level) 1.5 mmol/L (0.5-2.2)
[2020-12-24 04:29] LABS: Add Urine Microscopic? YES; Bilirubin Urine Neg (Negative); Blood Urine Neg (Negative); Glucose Urine UA Norm (Normal); Ketones Urine Negative (Negative); Leukocyte Esterase Urine Trace (Negative); Nitrate Urine Negative (Negative); Protein Urine Neg (Negative); Urine Appearance Clear (CLEAR); Urine Color Yellow (Yellow); Urobilinogen Urine Norm (Negative); pH Urine 7 (5-7)
[2020-12-24 04:31] LABS: Add Urine Culture? No; Bacteria Urine TRACE /hpf; Squamous Epithelial Cell Urine 0-4 /hpf (0-5); WBC Urine 0-4 /hpf (0-5)
--- NOTE | 2020-12-24 04:54 | PC.NURSE ---
patient placed on 2 liters nasal cannula oxygen to maintain spo2 over 91%.
[2020-12-24] MEDS: LORazepam 2 mg/mL INJ 1 mL 0.5 MG IVP ×2 (05:33→05:48)
--- NOTE | 2020-12-24 06:18 | P.HP_ITS ---
Providers/Chief Complaint Admitting Physician: Luis Jennings Primary Care Provider: Parag Norris DO Chief Complaint: abd pain History of Present Illness Jayjay Campa is a 85 year old female with past medical history of atrial fibrillation, on amiodarone and Pradaxa, hypertension, cervical cancer, recently completed radiation therapy who presents with complaints of abdominal pain which started yesterday. Onset was pretty sudden. Pain was moderate to severe intensity, worsening. Associated with vomiting. Abdominal CT revealed small bowel obstruction. Transition point in the left lower abdomen. NG tube was placed. Now she feels much better. There was some nosebleeding immediately after NG tube insertion. It seems to be stopping now. The patient denies any similar problems in the past. She denies any prior abdominal surgeries. Denies diarrhea. No fever or chills. No chest pain, shortness of breath, cough, palpitations. Review of Systems General: Reports: 10 or more systems reviewed and unremarkable except in HPI and below Medications/Allergies Home Medications Medication Instructions Recorded Confirmed Last Taken Type alprazolam 0.25 mg PO TID PRN 10/19/19 12/01/20 09/26/20 History icosapent ethyl [Vascepa] 2 g PO BID@,10/19/19 12/01/20 12/01/20 History pantoprazole 40 mg PO DAILY@0800 10/19/19 12/01/20 12/01/20 History sertraline 25 mg PO DAILY@08 10/19/19 12/01/20 12/01/20 History melatonin 3 mg capsule 3 mg PO BEDTIME PRN cap 03/08/20 12/01/20 Unknown History ondansetron HCl 4 mg tablet 4 mg PO Q6H PRN 03/08/20 12/01/20 Unknown History multivitamin [Multiple Vitamins] 1 tab PO DAILY@0800 03/25/20 12/01/20 12/01/20 History diphenoxylate-atropine 2.5 1 tab PO Q6H PRN 05/22/20 12/01/20 Unknown History mg-0.025 mg tablet Pradaxa 150 mg PO BID@,09/26/20 12/01/20 12/01/20 History dicyclomine 10 mg PO QID PRN 09/26/20 12/01/20 Unknown History potassium chloride 20 mEq 20 meq PO DAILY@08 #90 tab 11/02/20 12/01/20 12/01/20 Rx tablet,extended release(part/cryst) sotalol 120 mg tablet 120 mg PO BID #60 tab 11/23/20 12/01/20 12/01/20 Rx Vitamin D2 1,250 mcg PO Q7D 12/01/20 12/01/20 11/30/20 History hydralazine 50 mg PO BID 12/01/20 12/01/20 12/01/20 History tizanidine 2 mg PO TID PRN 12/01/20 12/01/20 Unknown History diltiazem HCl [Cardizem CD] 240 mg PO PRN #20 cap 12/02/20 Unknown Rx diltiazem HCl [Cardizem] 30 mg PO PRN #20 tab 12/02/20 Unknown Rx amiodarone 200 mg tablet 200 mg PO DAILY #65 tab 12/12/20 Unknown Rx Allergies Allergy/AdvReac Type Severity Reaction Status Date / Time codeine Allergy ALGY-Difficulty Verified 12/24/20 03:44 Breathing PFSH Acute PFSH: Medical History Arthritis Atrial fibrillation Atrial fibrillation with rapid ventricular response Atrial fibrillation with RVR Atypical chest pain Bradycardia Coronary artery disease Degenerative disc disease Diabetes mellitus Diet controlled Elevated troponin Gout History of CVA (cerebrovascular accident) Hypertension Pulmonary nodule Tachycardia-bradycardia syndrome Vaginal cancer Surgical History History of hip replacement (~2014) Total hip replacement through anterior approach performed in [facility] History of hip surgery Incision and drainage of right thigh abscess History of hysterectomy (~2010) according to pcp documentation--- performed in [place] for noninvasive cancer partial colectomy for obstruction and adhesion at the same time. 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 Awake alert oriented. Responses are adequate. Mood and affect are appropriate. Normal speech. Skin is warm and dry. Evidence of recent nosebleed. No evidence of active bleeding at this time. Moist mucous membranes Neck supple. No JVD Lungs clear bilaterally. No respiratory distress Heart S1, S2, irregular Abdomen soft, distended, nontender, bowel sounds are present Extremities no edema cyanosis or calf tenderness bilaterally Eyes PERRL, extraocular muscles are intact no facial asymmetry. No focal deficits. Data : 12/24/20 03:55 12/24/20 03:55 Other Labs: Laboratory Results WBC 8.9 10^3/uL (4.0-10.0) 12/24/20 03:55 RBC 4.22 10^6/uL (4.1-5.3) 12/24/20 03:55 Hgb 11.7 g/dL (11.5-15.3) 12/24/20 03:55 Hct 37.1 % (37.0-47.0) 12/24/20 03:55 MCV 87.9 fL (81-99) 12/24/20 03:55 MCH 27.7 pg (28.0-34.0) L 12/24/20 03:55 MCHC 31.5 g/dL (30.0-36.0) 12/24/20 03:55 RDW 17.0 % (12.1-15.1) H 12/24/20 03:55 Plt Count 293 10^3/cmm (130-400) 12/24/20 03:55 MPV 9.7 fL (7.4-10.4) 12/24/20 03:55 Neut % (Auto) 72.2 % 12/24/20 03:55 Lymph % (Auto) 16.4 % 12/24/20 03:55 [place] % (Auto) 7.9 % 12/24/20 03:55 Eos % (Auto) 2.6 % 12/24/20 03:55 Baso % (Auto) 0.6 % 12/24/20 03:55 Neut # (Auto) 6.44 10^3/uL (1.8-7.7) 12/24/20 03:55 Lymph # (Auto) 1.5 10^3/uL (0.8-4.8) 12/24/20 03:55 [place] # (Auto) 0.7 10^3/uL (0.2-0.9) 12/24/20 03:55 Eos # (Auto) 0.2 10^3/uL (0.0-0.8) 12/24/20 03:55 Baso # (Auto) 0.1 10^3/uL (0.0-0.1) 12/24/20 03:55 Nucleated RBC % (auto) 0 % 12/24/20 03:55 Nucleated RBCs # 0.0 /100WBC 12/24/20 03:55 Sodium 144 mmol/L (136-145) 12/24/20 03:55 Potassium 3.7 mmol/L (3.5-5.1) 12/24/20 03:55 Chloride 106 mmol/L (98-107) 12/24/20 03:55 Carbon Dioxide 25 mmol/L (22-29) 12/24/20 03:55 Anion Gap 16.7 (5-19) 12/24/20 03:55 BUN 20 mg/dL (8-23) 12/24/20 03:55 Creatinine 1.0 mg/dL (0.5-0.9) H 12/24/20 03:55 GFR Calculation Not Reportable 12/24/20 03:55 Glucose 129 mg/dL (65-115) H 12/24/20 03:55 Calculated Osmolality 302 mOsm/kg (285-295) H 12/24/20 03:55 Lactate 1.5 mmol/L (0.5-2.2) 12/24/20 03:55 Calcium 9.4 mg/dL (8.5-10.5) 12/24/20 03:55 Total Bilirubin 0.4 mg/dL (0.15-1.2) 12/24/20 03:55 AST 20 U/L (0-32) 12/24/20 03:55 ALT 8 U/L (0-33) 12/24/20 03:55 Alkaline Phosphatase 106 IU/L (35-105) H 12/24/20 03:55 Total Protein 7.2 g/dL (6.6-8.7) 12/24/20 03:55 Albumin 4.0 g/dL (3.5-5.2) 12/24/20 03:55 Globulin 3.2 g/dL (1.3-4.6) 12/24/20 03:55 Lipase 20 U/L (13-60) 12/24/20 03:55 Urine Color Yellow (Yellow) 12/24/20 04:09 Urine Appearance Clear (CLEAR) 12/24/20 04:09 Urine pH 7 (5-7) 12/24/20 04:09 Ur Specific [place] 1.010 (1.005-1.030) 12/24/20 04:09 Urine Protein Neg (Negative) 12/24/20 04:09 Urine Glucose (UA) Norm (Normal) 12/24/20 04:09 Urine Ketones Negative (Negative) 12/24/20 04:09 Urine Blood Neg (Negative) 12/24/20 04:09 Urine Nitrate Negative (Negative) 12/24/20 04:09 Urine Bilirubin Neg (Negative) 12/24/20 04:09 Urine Urobilinogen Norm mg/dL (Negative) 12/24/20 04:09 Ur Leukocyte Esterase Trace (Negative) H 12/24/20 04:09 Urine RBC None /hpf (0-2) 12/24/20 04:09 Urine WBC 0-4 /hpf (0-5) H 12/24/20 04:09 Ur Squamous Epith Cells 0-4 /hpf (0-5) H 12/24/20 04:09 Amorphous Sediment Not Reportable 12/24/20 04:09 Urine Bacteria Trace /hpf (NONE) 12/24/20 04:09 Impressions Abdomen/Pelvis CT 12/24/20 03:48 IMPRESSION: 1. Numerous dilated small bowel loops with air-fluid levels in the mid abdomen with transition point in the left lower abdomen (series 602, image 38). Small amount of interloop fluid and stranding. Evidence for small bowel obstruction. 2. Severe lower lumbar spondylosis and spinal stenosis. 3. 1.5 cm left lower lobe noncalcified nodule, previously 1 cm in 2018. Recommend continued follow-up, on some of the images appears to possibly contains some macroscopic fat which would suggest a benign hematoma. COMMENTS: As per Fleischner Society guidelines for follow-up and management of pulmonary nodules: Recommend initial follow-up chest CT at 3, 9 and 24 months. Consider contrast enhanced chest CT, PET scan and/or biopsy as clinically warranted. Radiation Dose CTDIVOL = (mGy): DLP = 1313.89 (mGy-cm) A&P Additional A&P Information 85 year old female with past medical history of atrial fibrillation, on amiodarone and Pradaxa, hypertension, cervical cancer, recently completed radiation therapy who presents with complaints of abdominal pain. CT revealed small bowel obstruction. Small bowel obstruction. NG tube is placed. We will continue bowel rest, IV fluids, will monitor and replace electrolytes as needed. Will consider surgical consultation if no improvement. Mild nosebleed. The patient is on Pradaxa. Will hold Pradaxa due to nosebleed and small bowel obstruction. Atrial fibrillation. Rate controlled currently. We will continue home sotalol. As needed metoprolol for rate control and hypertension. Will consider Lovenox if remains n.p.o. for longer than 1 to 2 days. History of anxiety. We will continue home alprazolam p.o. Can consider IV eq uivalent of lorazepam if p.o. is not effective due to small bowel obstruction. DVT prophylaxis. Teds and SCDs. Left lower lobe nodule. Will inform the patient prior to discharge and asked to follow-up with the PCP for long-term monitoring and management. History of GERD. We will start IV famotidine while she is n.p.o. CODE STATUS. She wants to be full code. The plan of care was discussed with the patient and family member. They verbalized understanding and agreement. Attestations Medical Necessity Statement*: Based on my assessment of patient's current condition, findings and plan of care I expect that the patient will spend more than 2 midnights in the hospital. Coding Level of Care Code Acute Scientific Process Operator for Alejandro Vann
--- NOTE | 2020-12-24 06:32 | XRR_ITS ---
PROCEDURE INFORMATION: Exam: XR Chest Exam date and time: 12/24/2020 6:33 AM Age: 85 years old Clinical indication: Device placement; Ng tube TECHNIQUE: Imaging protocol: XR of the chest. Views: 1 view. COMPARISON: CR (CHEST, ) 12/01/2020 7:29 PM FINDINGS: Tubes, catheters and devices: Termination of feeding tube in the gastric antrum. Lungs: Interstitial prominence. Pleural spaces: No significant pleural effusion. Heart/Mediastinum: No cardiomegaly. Vasculature: Ectasia of the thoracic aorta. Bones/joints: Degenerative change and scoliosis. XR/XR chest 1V portable [id number] IMPRESSION: 1. Termination of feeding tube in the gastric antrum. 2. Additional findings as described above.
[2020-12-24] MEDS: famotidine 20 mg/2 mL INJ IVP ×2 (06:46→17:20)
[2020-12-24] MEDS: lactated ringers 1,000 ML 100 ML IV ×2 (06:46→17:18)
--- NOTE | 2020-12-24 17:20 | PM.PN ---
Subjective Subjective: Interval history: Overnight labs and H&P reviewed. Abdominal distention and abdominal pain is improving. Not passed flatus or had bowel movement yet. Medications: Reviewed: Yes Vitals/I&O/Wt Last Vital Signs Temp 98.2 F 12/24/20 15:29 Pulse 67 12/24/20 15:29 Resp 18 12/24/20 15:29 BP 161/69 12/24/20 15:29 Pulse Ox 98 12/24/20 15:29 12/24/20 12/24/20 12/24/20 06:59 14:59 22:59 Intake Total 1000 / 1000 Balance 1000 / 1000 Weight last 48 hrs Weight 68.946 kg Data : 12/24/20 03:55 12/24/20 03:55 A&P Additional A&P Information 85 year old female with past medical history of atrial fibrillation, on amiodarone and Pradaxa, hypertension, cervical cancer, recently completed radiation therapy who presents with complaints of abdominal pain. CT revealed small bowel obstruction. Small bowel obstruction. NG tube is placed. We will continue bowel rest, IV fluids, will monitor and replace electrolytes as needed. Will consider surgical consultation if no improvement. Mild nosebleed. The patient is on Pradaxa. Will hold Pradaxa due to nosebleed and small bowel obstruction. Atrial fibrillation. Rate controlled currently. We will continue home sotalol. As needed metoprolol for rate control and hypertension. Will consider Lovenox if remains n.p.o. for longer than 1 to 2 days. Will resume home dose of amiodarone as soon as feasible Place on telemetry given h/o labile HR and rhythm History of anxiety. We will continue home alprazolam p.o. Can consider IV equivalent of lorazepam if p.o. is not effective due to small bowel obstruction. DVT prophylaxis. Teds and SCDs. History of GERD. We will start IV famotidine while she is n.p.o. CODE STATUS. She wants to be full code. The plan of care was discussed with the patient and family member. They verbalized understanding and agreement. 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
--- NOTE | 2020-12-24 18:59 | PC.NURSE ---
Report to Taylor DAVIS at this time.
[2020-12-25] VITALS (11 sets, daily range): BP systolic 128–196; BP diastolic 64–80; PULSE 61–72; RESP 16–18; TEMP 36.2–36.9; O2SAT 90–99
--- NOTE | 2020-12-25 01:58 | XRR_ITS ---
PROCEDURE INFORMATION: Exam: XR Chest Exam date and time: 12/25/2020 2:02 AM Age: 85 years old Clinical indication: Device placement; Ng tube; Additional info: Ng tube placement TECHNIQUE: Imaging protocol: XR of the chest. Views: 1 view. COMPARISON: CR (CHEST, ) 12/24/2020 8:24 AM FINDINGS: Tubes, catheters and devices: Nasogastric tube side port is in the distal esophagus and should be advanced approximately 8 cm. Lungs: Unremarkable. No consolidation. Pleural spaces: Unremarkable. No pleural effusion. No pneumothorax. Heart/Mediastinum: Unremarkable. No cardiomegaly. Bones/joints: Unremarkable. Organs: There has been a cholecystectomy. XR/XR chest 1V portable [id number] IMPRESSION: Nasogastric tube side port is in the distal esophagus and should be advanced approximately 8 cm.
--- NOTE | 2020-12-25 02:02 | PC.NURSE ---
pt up to bathrroom, sneezed and NG tube fell to floor. New 14F NG tube placed in right nare. pt tolerated well, awaiting portable chest xray to verify placement.
[2020-12-25] MEDS: ketorolac 30 mg/mL INJ 15 MG IVP ×2 (03:28→16:58)
[2020-12-25] MEDS: famotidine 20 mg/2 mL INJ IVP ×2 (05:46→18:54)
[2020-12-25] MEDS: lactated ringers 1,000 ML 100 ML IV (05:46)
[2020-12-25 05:59] LABS: Basophils % 0.6 %; Eosinophils # 0.3 10^3/uL (0.0-0.8); Eosinophils % 3.9 %; Hematocrit 31.3 % (37.0-47.0); Hemoglobin 9.7 g/dL (11.5-15.3); Lymphocytes % 13.3 %; Mean Corpuscular Hemoglobin 27.8 pg (28.0-34.0); Mean Corpuscular Volume 89.7 fL (81-99); Monocytes # 0.7 10^3/uL (0.2-0.9); Monocytes % 10.1 %; Neutrophils % 71.8 %; Nucleated Red Blood Cells % 0 %; Platelet Count 228 10^3/cmm (130-400); Red Blood Count 3.49 10^6/uL (4.1-5.3); Red Cell Distribution Width 16.3 % (12.1-15.1); White Blood Count 7.2 10^3/uL (4.0-10.0)
[2020-12-25 06:11] LABS: INR 1.34 (0.8-1.2)
[2020-12-25 06:26] LABS: Anion Gap 11.6 (5-19); Blood Urea Nitrogen 10 mg/dL (8-23); Calcium 8.5 mg/dL (8.5-10.5); Carbon Dioxide 28 mmol/L (22-29); Chloride 106 mmol/L (98-107); Glucose 87 mg/dL (65-115); Magnesium 1.9 mg/dL (1.7-2.3); Osmolality Calculated 292 mOsm/kg (285-295); Phosphorus 3.5 mg/dL (2.5-4.5); Potassium 3.6 mmol/L (3.5-5.1); Sodium 142 mmol/L (136-145)
[2020-12-25] MEDS: amiodarone 200 mg Tablet PO (10:33)
--- NOTE | 2020-12-25 12:24 | PM.CONSULT ---
Providers/Reason For Consult Consulting Physican/Specialty*: General Surgery Wm Gant MD Reason for Consult*: Small bowel obstruction. Attending Physician: Qi Boykin MD Primary Care Provider: Parag Norris DO History of Present Illness History of Present Illness Jayjay Campa is a 85 year old female who says that she developed mid and lower abdominal pain yesterday. She denies any nausea or vomiting. She says her last bowel movement was the day before yesterday, but was fairly normal for her. She came into the hospital and a CAT scan showed some changes consistent with a small bowel obstruction. The radiologist thought he could see a transition point in the left lower quadrant. She got an NG tube and says she feels much better now. She says she has minimal discomfort remaining, but she still has not passed any flatus or stool. She says this has never happened to her before. 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 She does not recall having a cholecystectomy or hysterectomy. She admits that my mind is going. The details of these procedures and some of her other medical conditions are not known as they occurred elsewhere. Review of Systems General: Reports: 10 or more systems reviewed and unremarkable except in HPI and below Const: Denies: fever(s) ENMT: Reports: other (Hard of hearing) GI: Reports: abdominal pain; Denies: nausea Meds/Allergies Home Medications and Allergies Home Medications Medication Instructions Recorded Confirmed Last Taken Type alprazolam 0.25 mg PO TID PRN 10/19/19 12/24/20 09/26/20 History icosapent ethyl [Vascepa] 2 g PO BID@08,10/19/19 12/24/20 12/23/20 History pantoprazole 40 mg PO DAILY@0800 10/19/19 12/24/20 12/23/20 History sertraline 25 mg PO DAILY@08 10/19/19 12/24/20 12/23/20 History melatonin 3 mg capsule 3 mg PO BEDTIME PRN cap 03/08/20 12/24/20 12/22/20 History ondansetron HCl 4 mg tablet 4 mg PO Q6H PRN 03/08/20 12/24/20 Unknown History multivitamin [Multiple Vitamins] 1 tab PO DAILY@0800 03/25/20 12/24/20 12/23/20 History diphenoxylate-atropine 2.5 1 tab PO Q6H PRN 05/22/20 12/24/20 Unknown History mg-0.025 mg tablet Pradaxa 150 mg PO BID@08,09/26/20 12/24/20 12/23/20 History dicyclomine 10 mg PO QID PRN 09/26/20 12/24/20 Unknown History ergocalciferol (vitamin D2) 1,250 mcg PO Q7D 12/01/20 12/24/20 12/21/20 History [Vitamin D2] hydralazine 50 mg PO BID 12/01/20 12/24/20 12/23/20 History tizanidine 2 mg PO TID PRN 12/01/20 12/24/20 Unknown History amiodarone 200 mg PO DAILY 12/24/20 12/24/20 12/23/20 History diltiazem HCl 30 mg PO DAILY PRN 12/24/20 12/24/20 Unknown History diltiazem HCl 240 mg PO DAILY PRN 12/24/20 12/24/20 Unknown History potassium chloride [Klor-Con M20] 20 meq PO DAILY@0800 12/24/20 12/24/20 12/23/20 History Allergies Allergy/AdvReac Type Severity Reaction Status Date / Time codeine Allergy ALGY-Difficulty Verified 12/24/20 03:44 Breathing tramadol Allergy Unknown Unverified 12/25/20 12:39 Current Medications Current Medications Generic Name Dose Route Start Last Admin Trade Name Freq PRN Reason Stop Dose Admin Amiodarone HCl 200 mg 12/25/20 09:00 12/25/20 10:33 Amiodarone 200 Mg Tablet PO 200 mg DAILY CATHERINE Administration Famotidine 20 mg 12/24/20 06:15 12/25/20 05:46 Famotidine 20 Mg/2 Ml Inj IVP 20 mg Q12H CATHERINE Administration Lactated Ringer's 1,000 mls @ 100 mls/hr 12/24/20 06:15 12/25/20 05:46 Lactated Ringers IV 100 mls/hr .Q10H CATHERINE Administration Ketorolac Tromethamine 15 mg 12/24/20 06:16 12/25/20 03:28 Ketorolac 30 Mg/Ml Inj IVP 12/29/20 06:15 15 mg Q6H PRN Administration MODERATE PAIN PFSH Acute PFSH: Medical History (Updated 12/25/20 @ 12:41 by Wm Gant MD) Arthritis Atrial fibrillation with RVR Atypical chest pain Bradycardia Coronary artery disease Degenerative disc disease Diabetes mellitus Diet controlled Diverticulosis Elevated troponin Gout History of CVA (cerebrovascular accident) Hypertension Pulmonary nodule Tachycardia-bradycardia syndrome Vaginal cancer Surgical History (Updated 12/25/20 @ 12:35 by Wm Gant MD) History of hemorrhoidectomy History of hip replacement (~2014) Left total hip replacement through anterior approach performed in [facility] History of hip surgery Right -- Incision and drainage of right thigh abscess that communicated with the hip joint capsule History of hysterectomy (~2010) according to pcp documentation--- performed in [place] for noninvasive cancer partial colectomy for obstruction and adhesion at the same time. 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, stage IVB Father Heart disease Denies family history of Ovarian cancer Diabetes Hyperlipidemia Stroke Social History Alcohol intake: never Additional social history: - Tobacco use: Denies Alcohol use: Denies Drug use: Denies Vitals/I&O/Wt Last Vital Signs Temp 97.2 F L 12/25/20 11:57 Pulse 70 12/25/20 11:57 Resp 18 12/25/20 11:57 BP 180/70 12/25/20 11:57 Pulse Ox 96 12/25/20 11:57 12/24/20 12/25/20 12/25/20 22:59 06:59 14:59 Intake Total 1000 / 2000 1000 / 2000 Output Total 400 / 500 100 / 500 Balance 600 / 1500 900 / 1500 Weight last 48 hrs Weight 152 lb Physical Exam Narrative: EXAM NARRATIVE: The patient was encountered in her hospital room. She does not appear to be in any distress. The patient has a nasogastric tube in place which is draining some light yellow fluid. She seems to be quite hard of hearing and even after putting in her hearing aid she still had difficulty hearing what I was saying. Her son, who lives with her and usually accompanies her, is not here at the present time. The pupils are equal. No carotid bruits are heard. Lungs are clear anteriorly. The heart is regular. The abdomen reveals a midline scar from the midepigastrium to the lower abdomen. Auscultation reveals very few bowel sounds but the abdomen is very soft on palpation. She has some mild tenderness across the lower abdomen particularly in the center and perhaps the right side but nothing suggestive of peritoneal signs. No obvious masses are palpated. The extremities reveal no edema. The patient can move all limbs to command. Data Imaging^: CT Abd/Pel: Radiologist's impression: CT abdomen/pelvis 12/24/2020 IMPRESSION: 1. Numerous dilated small bowel loops with air-fluid levels in the mid abdomen with transition point in the left lower abdomen (series 602, image 38). Small amount of interloop fluid and stranding. Evidence for small bowel obstruction. 2. Severe lower lumbar spondylosis and spinal stenosis. 3. 1.5 cm left lower lobe noncalcified nodule, previously 1 cm in 2018. Recommend continued follow-up, on some of the images appears to possibly contains some macroscopic fat which would suggest a benign hematoma. A&P Assessment and plan (1) Small bowel obstruction: CT reviewed. I agree with the assessment of at least a partial small bowel obstruction. I cannot identify an obvious transition point in the left lower quadrant. To me, it seems like it is probably more deep in the pelvis. Nevertheless, the patient does not have much in the way of bowel sounds at present but is very comfortable. I tried to discuss small bowel obstructions with her in some detail but I am not sure how much she is understanding due to her difficulty hearing. I tried to tell her we are going to continue the nasogastric tube suction for now but surgery may be necessary eventually, which she did seem to understand. I will be happy to continue following the patient with you while she is hospitalized. Status: Acute Consult Attestations Medical Necessity Statement: See admitting service's notation. Coding Level of Care Code Acute Hvac Service Manager for [facility] Diagnoses Small bowel obstruction K56.609
--- NOTE | 2020-12-25 15:36 | PM.PN ---
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 CT revealed small bowel obstruction. Small bowel obstruction. NG tube is placed. We will continue bowel rest, IV fluids, will monitor and replace electrolytes as needed. no significant improvement, not passing flatus yet. Surgery consult with Dr. Gant. 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 The patient is on Pradaxa. Will hold Pradaxa due to nosebleed and small bowel obstruction. Consider Atrial fibrillation. Rate controlled currently. We will continue home sotalol. As needed metoprolol for rate control and hypertension. Will consider Lovenox if remains n.p.o. for longer than 1 to 2 days. Will resume home dose of amiodarone as soon as feasible Place on telemetry given h/o labile HR and rhythm History of anxiety. We will continue home alprazolam p.o. Can consider IV equivalent of lorazepam if p.o. is not effective due to small bowel obstruction. DVT prophylaxis. Teds and SCDs. History of GERD. We will start IV famotidine while she is n.p.o. CODE STATUS. She wants to be full code. 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
[2020-12-25] MEDS: metoprolol tartrate 1 mg/1 mL SDV 5 mL 2.5 MG IV ×2 (16:42→20:21)
[2020-12-25] MEDS: ALPRAZolam 0.25 mg Tablet PO (16:42)
[2020-12-25] MEDS: dextrose 5%-sod chloride 0.9% 1,000 ML 50 ML IV (16:44)
[2020-12-25] MEDS: enalaprilat 1.25 mg/mL Inj 0.625 MG IVP (19:17)
[2020-12-25] MEDS: phenol oral Spray 177 mL 3 SPRAY MUCOUS MEM (22:32)
[2020-12-26] VITALS (9 sets, daily range): BP systolic 134–181; BP diastolic 58–76; PULSE 55–73; RESP 17–20; TEMP 36.6–36.9; O2SAT 93–98
[2020-12-26] MEDS: metoprolol tartrate 1 mg/1 mL SDV 5 mL 2.5 MG IV ×6 (00:04→20:44)
[2020-12-26 05:36] LABS: Basophils # 0.1 10^3/uL (0.0-0.1); Basophils % 0.7 %; Eosinophils # 0.2 10^3/uL (0.0-0.8); Eosinophils % 3.2 %; Hematocrit 35.4 % (37.0-47.0); Hemoglobin 10.3 g/dL (11.5-15.3); Lymphocytes # 0.7 10^3/uL (0.8-4.8); Lymphocytes % 9.5 %; Mean Corpuscular HGB Conc 29.1 g/dL (30.0-36.0); Mean Corpuscular Hemoglobin 27.2 pg (28.0-34.0); Mean Corpuscular Volume 93.7 fL (81-99); Mean Platelet Volume 10.3 fL (7.4-10.4); Monocytes # 0.8 10^3/uL (0.2-0.9); Monocytes % 10.8 %; Neutrophils # 5.72 10^3/uL (1.8-7.7); Neutrophils % 75.4 %; Nucleated Red Blood Cells % 0 %; Platelet Count 232 10^3/cmm (130-400); Red Blood Count 3.78 10^6/uL (4.1-5.3); Red Cell Distribution Width 15.8 % (12.1-15.1); White Blood Count 7.6 10^3/uL (4.0-10.0)
[2020-12-26 06:12] LABS: Alanine Aminotransferase 15 U/L (0-33); Albumin Level 3.5 g/dL (3.5-5.2); Alkaline Phosphatase 117 IU/L (35-105); Aspartate Amino Transferase 28 U/L (0-32); Blood Urea Nitrogen 10 mg/dL (8-23); Calcium 8.7 mg/dL (8.5-10.5); Carbon Dioxide 25 mmol/L (22-29); Chloride 102 mmol/L (98-107); Globulin 3.2 g/dL (1.3-4.6); Glucose 88 mg/dL (65-115); Magnesium 1.9 mg/dL (1.7-2.3); Osmolality Calculated 290 mOsm/kg (285-295); Sodium 141 mmol/L (136-145); Total Bilirubin 0.4 mg/dL (0.15-1.2); Total Protein 6.7 g/dL (6.6-8.7)
[2020-12-26 06:16] LABS: Anion Gap 17.4 (5-19); Potassium 3.4 mmol/L (3.5-5.1)
[2020-12-26] MEDS: famotidine 20 mg/2 mL INJ IVP ×2 (06:51→17:17)
[2020-12-26] MEDS: amiodarone 200 mg Tablet PO (08:12)
--- NOTE | 2020-12-26 11:45 | PM.PN ---
Subjective Subjective: Interval history: Nursing reports that the patient pulled her nasogastric tube out last night, but she does not remember it. She is not passing flatus but says she feels well. She denies pain and nausea. Vitals/I&O/Wt Last Vital Signs Temp 98.1 F 12/26/20 07:45 Pulse 60 12/26/20 07:45 Resp 18 12/26/20 07:45 BP 146/63 12/26/20 07:45 Pulse Ox 96 12/26/20 07:45 12/25/20 12/26/20 12/26/20 22:59 06:59 14:59 Intake Total 1000 / 1000 Output Total 250 / 450 200 / 450 Balance 750 / 550 -200 / 550 Physical Exam Narrative: EXAM NARRATIVE: Bowel sounds are more active today. The patient has limited tenderness in the right lower quadrant. Data : 12/26/20 05:20 12/26/20 05:20 A&P Assessment and plan (1) Small bowel obstruction: There is no clear evidence of return of apparently accidentally pulling it out last night. I told her we would leave it out for now and see how she does. I am hesitant to start an oral diet until I am sure she is passing flatus. Status: Acute Attestations Medical Necessity Statement*: See admitting service's notation. Coding Level of Care Code Acute International Account Representative for Alej[facility] Vann Diagnoses Small bowel obstruction K56.609
--- NOTE | 2020-12-26 13:12 | P.PN_ITS ---
Subjective Subjective: Interval history: Currently she was passing gas as well as had 1 bowel movement, denied any nausea vomiting abdominal pain. Tolerated the clear liquid diet well, has been advanced to regular diet. Medications: Reviewed: Yes Vitals/I&O/Wt Last Vital Signs Temp 98.2 F 12/26/20 12:00 Pulse 58 L 12/26/20 12:00 Resp 18 12/26/20 12:00 BP 174/66 12/26/20 12:00 Pulse Ox 93 12/26/20 12:00 12/25/20 12/26/20 12/26/20 22:59 06:59 14:59 Intake Total 1000 / 1000 Output Total 250 / 250 200 / 450 Balance 750 / 750 -200 / 550 Physical Exam Const: COMMON NORMALS: patient oriented x3 HENMT: COMMON NORMALS: normocephalic and atraumatic HEAD & SCALP: normocephalic and atraumatic Chest: CHEST: Yes Symmetrical chest wall rise Resp: COMMON NORMALS: normal respiratory effort and clear to auscultation bilaterally EFFORT & INSPECTION: Yes symmetric chest movement AUSCULTATION: clear to auscultation bilaterally Cardio: COMMON NORMALS: regular rate, regular rhythm, S1 normal heart sound present, S2 normal heart sound present, No gallops present (Cardio), No murmurs present (Cardio), No rub (Cardio) and Peripheral pulses 2+ throughout RATE: regular rate RHYTHM: regular rhythm HEART SOUNDS: S1 normal heart sound present and S2 normal heart sound present PERIPHERAL PULSES: Peripheral pulses 2+ throughout GI: COMMON NORMALS: Normal to inspection, nondistended, normoactive bowel sounds present, Soft to palpation, non-tender, No hepatosplenomegaly present and no masses AUSCULTATION: Yes normoactive bowel sounds PALPATION: Yes Soft to palpation and Yes No hepatosplenomegaly present RECTAL EXAM: deferred Extremity: COMMON NORMALS: no clubbing, cyanosis or edema and no pedal edema Neuro: COMMON NORMALS: patient oriented x3 Data : 12/26/20 05:20 12/26/20 05:20 A&P Additional A&P Information 85 year old female with past medical history of atrial fibrillation, on amiodarone and Pradaxa, hypertension, cervical cancer, recently completed radiation therapy who presents with complaints of abdominal pain. CT revealed small bowel obstruction. Small bowel obstruction. Initially NG tube was placed on bowel rest, IV fluids. Currently she was passing gas as well as had 1 bowel movement, denied any nausea vomiting abdominal pain. Tolerated the clear liquid diet well, has been advanced to regular diet. Surgery consult with Dr. Gant. 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 The patient is on Pradaxa. Will hold Pradaxa due to nosebleed and small bowel obstruction. Consider Atrial fibrillation. Rate controlled currently. We will continue home sotalol. As needed metoprolol for rate control and hypertension. Will consider Lovenox if remains n.p.o. for longer than 1 to 2 days. Will resume home dose of amiodarone as soon as feasible Place on telemetry given h/o labile HR and rhythm History of anxiety. We will continue home alprazolam p.o. Can consider IV equivalent of lorazepam if p.o. is not effective due to small bowel obstruction. DVT prophylaxis. Teds and SCDs. History of GERD. We will start IV famotidine while she is n.p.o. CODE STATUS. She wants to be full code. Attestations Medical Necessity Statement*: Patient needs to be in hospital for management of small bowel obstruction. Coding Level of Care Code Acute Industrial Electrical Engineer for [facility]jandro Vann
[2020-12-26] MEDS: hyDRALAzine 50 mg Tablet PO (18:30)
[2020-12-27] MEDS: metoprolol tartrate 1 mg/1 mL SDV 5 mL 2.5 MG IV ×2 (00:42→04:50)
[2020-12-27 04:06] VITALS: BP 133/66; PULSE 62; RESP 17; TEMP 37.1; O2SAT 96
[2020-12-27 06:00] VITALS: PULSE 65
[2020-12-27 07:45] VITALS: BP 182/66; PULSE 61; RESP 20; TEMP 36.3; O2SAT 97
[2020-12-27] MEDS: sertraline 50 mg Tablet 25 MG PO (09:10)
[2020-12-27] MEDS: pantoprazole DR 40 mg Tablet PO (09:10)
[2020-12-27] MEDS: potassium chloride ER 20 mEq Tablet PO (09:10)
[2020-12-27] MEDS: amiodarone 200 mg Tablet PO (09:11)
[2020-12-27] MEDS: ALPRAZolam 0.25 mg Tablet PO (09:17)
[2020-12-27] MEDS: FUROsemide 10 mg/mL SDV 2mL 20 MG IVP (09:17)
[2020-12-27] MEDS: amlodipine 10 mg Tablet PO (09:17)
[2020-12-27 11:06] LABS: Basophils % 0.6 %; Eosinophils # 0.3 10^3/uL (0.0-0.8); Eosinophils % 3.7 %; Hematocrit 34.8 % (37.0-47.0); Hemoglobin 11.2 g/dL (11.5-15.3); Lymphocytes # 0.9 10^3/uL (0.8-4.8); Mean Corpuscular HGB Conc 32.2 g/dL (30.0-36.0); Mean Corpuscular Hemoglobin 28.2 pg (28.0-34.0); Mean Corpuscular Volume 87.7 fL (81-99); Mean Platelet Volume 9.6 fL (7.4-10.4); Monocytes # 0.7 10^3/uL (0.2-0.9); Monocytes % 10.1 %; Neutrophils # 4.76 10^3/uL (1.8-7.7); Nucleated Red Blood Cells % 0 %; Platelet Count 264 10^3/cmm (130-400); Red Blood Count 3.97 10^6/uL (4.1-5.3); Red Cell Distribution Width 15.9 % (12.1-15.1); White Blood Count 6.7 10^3/uL (4.0-10.0)
--- NOTE | 2020-12-27 11:11 | P.DS_ITS ---
Discharge Providers Date of Admission: 12/24/20 05:29 Date of Discharge: December 27, 2020 Attending Provider at Admission: Luis Jennings Attending Provider at Discharge: Carlos Donovan MD Primary Care Provider: Parag Norris DO Diagnoses at Discharge Discharge Diagnosis (1) Small bowel obstruction: Status: Resolved Permanent problem details: Partial small bowel obstruction Reason for Visit Reason for Visit: abd pain Hospital Course Hospital Course 85 year old female with past medical history of atrial fibrillation, on amiodarone and Pradaxa, hypertension, cervical cancer, recently completed radiation therapy who presents with complaints of abdominal pain which started yesterday. Onset was pretty sudden. Pain was moderate to severe intensity, worsening. Associated with vomiting. Abdominal CT revealed small bowel obstruction. Transition point per radiologist in the left lower abdomen. NG tube was placed. She was kept n.p.o. surgery was consulted they, Wm Huerta was of the opinion that there is partial small bowel obstruction, he was not able to identify any obvious transition point in the left lower quadrant, she was continued to be managed conservatively, unfortunately she pulled her NG tube out, but she was eventually able to pass flatus, as well as she was having bowel movements,her abdominal pain nausea, vomiting, had resolved at the time of discharge. She was tolerating regular diet well. With regard to her hypertension, hydralazine 50 TID was discontinued. She was switched to lisinopril 20 mg p.o. daily, she was continued on amiodarone 200 mg p.o. daily, continued on Pradaxa, had no nosebleed at the time of discharge, H&H was stable. She continued to remain in normal sinus rhythm throughout the hospital stay. She was continued on as needed diltiazem for her A. fib as per her commercial art instructor recommendations. She was also started on Lasix 20 mg p.o. daily, she will follow-up with repeat BMP in 1 week, with a primary care physician, as she has been started on lis inopril.Oral potassium was discontinued. Patient responded well to the above medical management, and is being discharged in stable condition.She will continue to follow-up with her primary care physi jessi as well as her commercial art instructor as an outpatient. Physical Exam Const: COMMON NORMALS: patient oriented x3 HENMT: COMMON NORMALS: normocephalic and atraumatic HEAD & SCALP: normocephalic and atraumatic Chest: CHEST: Yes Symmetrical chest wall rise Resp: COMMON NORMALS: normal respiratory effort and clear to auscultation bilaterally EFFORT & INSPECTION: Yes symmetric chest movement AUSCULTATION: clear to auscultation bilaterally Cardio: COMMON NORMALS: regular rate, regular rhythm, S1 normal heart sound present, S2 normal heart sound present, No gallops present (Cardio), No murmurs present (Cardio), No rub (Cardio) and Peripheral pulses 2+ throughout RATE: regular rate RHYTHM: regular rhythm HEART SOUNDS: S1 normal heart sound present and S2 normal heart sound present PERIPHERAL PULSES: Peripheral pulses 2+ throughout GI: COMMON NORMALS: Normal to inspection, nondistended, normoactive bowel sounds present, Soft to palpation, non-tender, No hepatosplenomegaly present and no masses AUSCULTATION: Yes normoactive bowel sounds PALPATION: Yes Soft to palpation and Yes No hepatosplenomegaly present RECTAL EXAM: deferred Extremity: COMMON NORMALS: no clubbing, cyanosis or edema and no pedal edema Neuro: COMMON NORMALS: patient oriented x3 Discharge Data Data Completed and Pending: Completed Studies During Hospitalization Category Date Time Status CT abdomen pelvis w con* [id number] Urge nt Cat Scan 12/24/20 03:48 Completed XR chest 1V ciarra ble [id number] Routine Exams 12/24/20 06:32 Completed XR chest 1V ciarra ble [id number] Routine Exams 12/25/20 01:58 Completed Pending at discharge Category Date Time Status Basic Metabolic P janes Routine Lab 12/27/20 10:55 Received Labs from last 24 hours 12/27/20 12/27/20 10:55 10:55 WBC 6.7 RBC 3.97 L Hgb 11.2 L Hct 34.8 L MCV 87.7 MCH 28.2 MCHC 32.2 RDW 15.9 H Plt Count 264 MPV 9.6 Neut % (Auto) 71.0 Lymph % (Auto) 14.0 Troup % (Auto) 10.1 Eos % (Auto) 3.7 Baso % (Auto) 0.6 Neut # (Auto) 4.76 Lymph # (Auto) 0.9 [place]oup # (Auto) 0.7 Eos # (Auto) 0.3 Baso # (Auto) 0.0 Nucleated RBC % (a uto) 0 Nucleated RBCs # 0.0 Sodium Pending Potassium Pending Chloride Pending Carbon Dioxide Pending Anion Gap Pending BUN Pending Creatinine Pending GFR Calculation Pending Glucose Pending Calculated Osmolal ity Pending Calcium Pending Vitals: Last Vital Signs Temp 97.4 F L 12/27/20 07:45 Pulse 61 12/27/20 07:45 Resp 20 H 12/27/20 07:45 BP 182/66 12/27/20 07:45 Pulse Ox 97 12/27/20 07:45 Discharge Plan Discharge Patient Disposition: Home Condition: Stable Prescriptions: New lisinopril 20 mg tablet 20 mg PO DAILY Qty: 30 RF: 0 Lasix 20 mg tablet 20 mg PO DAILY Qty: 30 RF: 0 Continued melatonin 3 mg capsule 3 mg PO BEDTIME PRN (Reason: Sleep) RF: 0 ondansetron HCl 4 mg tablet 4 mg PO Q6H PRN (Reason: nausea and vomiting) RF: 0 diphenoxylate-atropine 2.5-0.025 mg tablet 1 tab PO Q6H PRN (Reason: Diarrhea) RF: 0 multivitamin [Multiple Vitamins] Tablet 1 tab PO DAILY@0800 RF: 0 dicyclomine 10 mg Capsule 10 mg PO QID PRN (Reason: Stomach Cramps) RF: 0 Pradaxa 150 mg Capsule 150 mg PO BID@ RF: 0 diltiazem HCl 240 mg capsule,extended release 24hr 240 mg PO DAILY PRN (Reason: HR > 140) RF: 0 diltiazem HCl 30 mg tablet 30 mg PO DAILY PRN (Reason: hr > 40) RF: 0 amiodarone 200 mg tablet 200 mg PO DAILY RF: 0 sertraline 25 mg Tablet 25 mg PO DAILY@08 RF: 0 icosapent ethyl [Vascepa] 1 gram Capsule 2 g PO BID@ RF: 0 alprazolam 0.25 mg tablet 0.25 mg PO TID PRN (Reason: Anxiety) RF: 0 pantoprazole 40 mg Tablet,Delayed Release (Dr/Ec) 40 mg PO DAILY@0800 RF: 0 tizanidine 2 mg Tablet 2 mg PO TID PRN (Reason: Muscle Pain) RF: 0 ergocalciferol (vitamin D2) [Vitamin D2] 1,250 mcg (50,000 unit) Capsule 1,250 mcg PO Q7D RF: 0 Discontinued potassium chloride [Klor-Con M20] 20 mEq tablet,ER particles/crystals 20 meq PO DAILY@0800 RF: 0 hydralazine 50 mg tablet 50 mg PO BID RF: 0 Discharge Orders: Discharge Order (Routine); Ordered 12/27/20 Ordered By: Carlos Donovan Other Ambulatory Orders: Basic Metabolic Panel (Routine) Timeframe: 1 Week Facility: [facility] - Location: Lab - Main Lab Ordered By: Carlos Donovan Referrals: Parag Norris DO [Primary Care Provider] - 01/03/21 9:40 am Em Shannon MD [Physician] - 01/11/21 10:00 am Discharge Diet: Regular Discharge Activity: Resume usual activity Patient Instructions: Lisinopril (By mouth), Furosemide (By mouth), Bowel Obstruction (GEN), Opioid Safety Discharge Attestations Time Spent in Discharge Care*: less than 30 min Specific Discharge Activities: educating patient, educating and/or supporting family/caregiver, discussing with pcp/other providers, discussing with registered nurse hh case manager/social workers/dc planners, documenting/other paperwork and evaluating patient/reviewing data Status at Discharge: Cognitive status at discharge: cognitively intact , Behavioral status at discharge: cooperative , Quality Metrics Clinical Quality Measures During this hospital stay, did patient experience: None Coding Level of Care Code Acute Chg DC note Diagnoses Small bowel obstruction K56.609
[2020-12-27 11:31] VITALS: BP 146/76; PULSE 60; RESP 14; TEMP 36.8; O2SAT 96
[2020-12-27 11:44] LABS: Blood Urea Nitrogen 11 mg/dL (8-23); Carbon Dioxide 28 mmol/L (22-29); Chloride 104 mmol/L (98-107); Glucose 136 mg/dL (65-115); Osmolality Calculated 299 mOsm/kg (285-295); Sodium 144 mmol/L (136-145)
--- NOTE | 2020-12-27 11:49 | P.PN_ITS ---
Subjective Subjective: Interval history: The patient feels well. She had a bowel movement last night. She has been advanced to solid food and says that breakfast went very well. She is anticipating being discharged today. Vitals/I&O/Wt Last Vital Signs Temp 98.2 F 12/27/20 11:31 Pulse 60 12/27/20 11:31 Resp 14 12/27/20 11:31 BP 146/76 12/27/20 11:31 Pulse Ox 96 12/27/20 11:31 12/26/20 12/27/20 12/27/20 22:59 06:59 14:59 Intake Total 240 / 1600 240 / 240 Output Total 0 / 0 Balance 240 / 1600 0 / 1600 240 / 240 Physical Exam Narrative: EXAM NARRATIVE: Bowel sounds are present. The abdomen is soft. Data : 12/27/20 10:55 12/27/20 10:55 A&P Assessment and plan (1) Small bowel obstruction: The patient appears to be doing well. Her bowel function seems to have returned. I am still not certain if this was an actual obstructive process versus an ileus, but either way, she is much better. I am fine with the patient being discharged. I will not necessarily need to see her in follow-up. Status: Acute Attestations Medical Necessity Statement*: See admitting service's notation. Coding Level of Care Code Acute Service And Repair Supervisor for Alejandro Vann Diagnoses Small bowel obstruction K56.609
--- NOTE | 2020-12-27 13:39 | NUR.SHIFT ---
pt verbalizes understanding of discharge instructions, home medications, and follow up appointments.
[2020-12-27 13:41] VITALS: BP 146/76; PULSE 60; RESP 14; TEMP 36.8; O2SAT 96
--- NOTE | 2020-12-27 14:34 | PC.SOCIAL ---
*IMM UPDATE* Gave patient IMM update with patient's son at bedside. Provided copy of pg 2. Verbalized understanding. 12/27/20 @ 0900 Initialed, dated, timed and placed in chart.
== END 2020-12-27 13:42 | disposition home or self-care (01) | DRG 390 ==
LOC: ER 05:19 → MEDSURG 05:40
PROVIDERS: Student in an Organized Health Care Education/Training Program; Admitting Provider Internal Medicine; Emergency Provider Emergency Medicine; PCP Electrodiagnostic Medicine; Visit Provider Internal Medicine
DX: K56.600 Partial intestinal obstruction, unspecified as to cause (principal); I48.91 Unspecified atrial fibrillation; I10 Essential (primary) hypertension; Z85.41 Personal history of malignant neoplasm of cervix uteri; Z92.3 Personal history of irradiation; M19.90 Unspecified osteoarthritis, unspecified site; I25.10 Atherosclerotic heart disease of native coronary artery without angina pectoris; E11.9 Type 2 diabetes mellitus without complications; M10.9 Gout, unspecified; Z86.73 Personal history of transient ischemic attack (TIA), and cerebral infarction without residual deficits; R91.8 Other nonspecific abnormal finding of lung field; Z90.49 Acquired absence of other specified parts of digestive tract; Z96.649 Presence of unspecified artificial hip joint; R04.0 Epistaxis
CPT/HCPCS: 36415; 71045; 74177; 80048; 80053; 81001; 83605; 83690; 83735; 84100; 85025; 85610; 85730; 93005; 96374; 96375; 96376; 99285; J1885; J1940; J2060; J2270; J2405; J3490; Q9967

== ENCOUNTER → 2021-01-11 10:57 | Outpatient (BNVA) | payer MEDICARE, OTHER, SELFPAY | PROVIDERS: PCP Electrodiagnostic Medicine; Visit Provider Internal Medicine Cardiovascular Disease | DX: I10 Essential (primary) hypertension (principal); R06.00 Dyspnea, unspecified; I48.11 Longstanding persistent atrial fibrillation; R00.1 Bradycardia, unspecified; E11.9 Type 2 diabetes mellitus without complications; Z09 Encounter for follow-up examination after completed treatment for conditions other than malignant neoplasm | CPT/HCPCS: 80053; 83735; 83880 ==

== ENCOUNTER 2021-02-03 06:01 | Outpatient (CLI) | payer MEDICARE, OTHER, SELFPAY ==
--- NOTE | 2021-02-03 07:02 | W.ED.GENADLT ---
HPI - General Adult General: Source: patient Mode of arrival: ambulatory Limitations: no limitations History of Present Illness: HPI narrative: Patient here for Covid infusion. Patient diagnosed this week with Covid. Patient was vaccinated earlier this year. Patient states she had mild headache and felt poorly early this week and got tested and was positive for Covid. She denies any shortness of breath fever chills or cough. complaint: Covid infusion Location: head Radiation: non-radiation Severity: mild Quality: aching Pain Consistency: intermittent Relieving factors: none Exacerbating factors: none Associated symptoms: Reports headache(s) and malaise; Deny chest pain, confusion, cough, diaphoresis, dyspnea, fevers/chills, nausea, rash, short of breath or vomiting Treatments prior to arrival: none Review of Systems Const: Reports: malaise; Denies: diaphoresis Eyes: Denies: change in vision ENMT: Denies: throat pain Card: Denies: chest pain Resp: Denies: dyspnea GI: Denies: nausea or vomiting : Denies: flank pain Musc: Denies: neck pain or back pain Skin/Breast: Denies: rash or pruritus Neuro: Reports: headache(s); Denies: confusion Psych: Denies: anxiety Juan Manuel/Lymph: Denies: enlarged lymph nodes PFSH ED PFSH: Medical History Arthritis Atrial fibrillation with RVR Atypical chest pain Bradycardia Coronary artery disease Degenerative disc disease Diabetes mellitus Diet controlled Diverticulosis Elevated troponin Gout History of CVA (cerebrovascular accident) Hypertension Pulmonary nodule Small bowel obstruction Partial small bowel obstruction Tachycardia-bradycardia syndrome Vaginal cancer Surgical History History of hemorrhoidectomy History of hip replacement (~2014) Left total hip replacement through anterior approach performed in [facility] History of hip surgery Right -- Incision and drainage of right thigh abscess that communicated with the hip joint capsule History of hysterectomy (~2010) according to pcp documentation--- performed in [place] for noninvasive cancer partial colectomy for obstruction and adhesion at the same time. 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, stage IVB Father Heart disease Denies family history of Ovarian cancer Diabetes Hyperlipidemia Stroke Social History Alcohol intake: never Additional social history: - Tobacco use: Denies Alcohol use: Denies Drug use: Denies Physical Exam Const: COMMON NORMALS: no acute distress, patient oriented x3, no limitations and well nourished GENERAL APPEARANCE: cooperative HENMT: COMMON NORMALS: normocephalic and atraumatic HEAD & SCALP: normocephalic and atraumatic FACE & SINUS: normal facial exam Eye: COMMON NORMALS: EOMs intact bilaterally Neck/C-Spine: COMMON NORMALS: full ROM, no lymphadenopathy, supple and no meningeal signs GENERAL: Yes normal visual inspection Lymph: LYMPHATIC: no lymphadenopathy noted Chest: COMMONS NORMALS: normal inspection of the chest and normal palpation of entire chest wall CHEST: No Ecchymosis present and No rash Resp: COMMON NORMALS: normal respiratory effort, No retractions and clear to auscultation bilaterally EFFORT & INSPECTION: No respiratory distress AUSCULTATION: clear to auscultation bilaterally Cardio: COMMON NORMALS: regular rate, regular rhythm and Peripheral pulses 2+ throughout JUGULAR VENOUS DISTENTION: no JVD RATE: regular rate RHYTHM: regular rhythm PERIPHERAL PULSES: Peripheral pulses 2+ throughout GI: COMMON NORMALS: Normal to inspection, nondistended, normoactive bowel sounds present and non-tender Extremity: COMMON NORMALS: normal to inspection, full ROM and capillary refill normal Neuro: COMMON NORMALS: patient oriented x3, CN's II-XII intact bilaterally, no focal motor deficits and no sensory deficits noted MENINGEAL SIGNS: Yes no meningeal signs Psych: COMMON NORMALS: mental status grossly normal and Normal thought process present THOUGHT PROCESS: Normal thought process present Skin: COMMON NORMALS: no rashes or lesions noted and no wounds GENERAL SKIN EXAM: no rashes or lesions noted Discharge Plan Discharge Patient Disposition: Home Prescriptions: No Action melatonin 3 mg capsule 3 mg PO BEDTIME PRN (Reason: Sleep) RF: 0 ondansetron HCl 4 mg tablet 4 mg PO Q6H PRN (Reason: nausea and vomiting) RF: 0 diphenoxylate-atropine 2.5-0.025 mg tablet 1 tab PO Q6H PRN (Reason: Diarrhea) RF: 0 amiodarone 200 mg tablet 200 mg PO DAILY Qty: 90 RF: 3 lisinopril 20 mg tablet 20 mg PO DAILY Qty: 30 RF: 6 Lasix 20 mg tablet 20 mg PO DAILY Qty: 30 RF: 6 multivitamin [Multiple Vitamins] Tablet 1 tab PO DAILY@0800 RF: 0 dicyclomine 10 mg Capsule 10 mg PO QID PRN (Reason: Stomach Cramps) RF: 0 Pradaxa 150 mg Capsule 150 mg PO BID@,19 RF: 0 diltiazem HCl 240 mg capsule,extended release 24hr 240 mg PO DAILY PRN (Reason: HR > 140) RF: 0 diltiazem HCl 30 mg tablet 30 mg PO DAILY PRN (Reason: hr > 40) RF: 0 sertraline 25 mg Tablet 25 mg PO DAILY@08 RF: 0 icosapent ethyl [Vascepa] 1 gram Capsule 2 g PO BID@ RF: 0 alprazolam 0.25 mg tablet 0.25 mg PO TID PRN (Reason: Anxiety) RF: 0 pantoprazole 40 mg Tablet,Delayed Release (Dr/Ec) 40 mg PO DAILY@0800 RF: 0 tizanidine 2 mg Tablet 2 mg PO TID PRN (Reason: Muscle Pain) RF: 0 ergocalciferol (vitamin D2) [Vitamin D2] 1,250 mcg (50,000 unit) Capsule 1,250 mcg PO Q7D RF: 0 Discharge Orders: Discharge Order (Routine); Ordered 02/03/21 Ordered By: Marko Rascon Referrals: Parag Norris DO [Primary Care Provider] - Activity: Increase activity as tolerated Patient Instructions: Viral Syndrome - Adult Activity Restrictions/Additional Instructions: Return if any problems. Coding Level of Care Code ED Security Developer for Chg Fwd Exam Comprehensive
--- NOTE | 2021-02-03 07:27 | PC.ADMIT ---
[address] Admission Note: The patient,Jayjay Campa,85 y/o, was given written information regarding hospital policies, unit procedures and contact persons. Patient's smoking status: . Vitals: Temp 98.5 Hrt Rt 65 BP 159/68 97% RA IV in
--- NOTE | 2021-02-03 07:37 | PC.NURSE ---
IV in RT AC 20ga,
[2021-02-03 07:59] VITALS: BP 162/80; PULSE 68; RESP 18; TEMP 36.7; O2SAT 94
--- NOTE | 2021-02-08 12:44 | DCPLANNER ---
human resources project manager had message that patient had received the BAM infusion. human resources project manager called to check on patient after getting the infusion. Spoke with patients son, he stated that patient seems to be doing a little better. Was told that before the infusion patient was coughing, was tired and was weak. Did not run a fever. Was told that patient is feeling a little better but can not tell a big difference.
== END 2021-02-03 06:02 | disposition home or self-care (01) ==
PROVIDERS: PCP Electrodiagnostic Medicine; Visit Provider Family Medicine
DX: U07.1 COVID-19 (principal)
CPT/HCPCS: 96365

== ENCOUNTER 2021-03-29 15:11 | Outpatient (CLI) | payer MEDICARE, OTHER, SELFPAY ==
--- NOTE | 2021-03-29 15:20 | XR_ITS ---
WS: [id number] Exam: XR chest 2V* [id number] Date/Time of Exam: 03/29/2021 3:29 PM Reason For Exam: BACK PAIN, THORACIC REGION/L R SIDED RIB PAIN 1.7 cm nodular density seen in the left lower lobe stable since multiple previous exams as well as [facility] CT as far back as 2012. The lungs are otherwise clear. Normal cardiomediastinal structures and fely ny elements. No pleural effusions. Numerous surgical clips in the upper abdomen. XR/XR chest 2V* [id number] IMPRESSION: 1. Stable-appearing 1.7 cm left lower lobe pulmonary nodule almost surely benig n. This has been noted on previous imaging exams. 2. No acute cardiopulmonary finding.
--- NOTE | 2021-03-29 15:20 | XR_ITS ---
WS: [id number] Exam: XR thoracic spine 3V* [id number] Date/Time of Exam: 03/29/2021 3:29 PM Reason For Exam: BACK PAIN THORACIC REGION No fracture or dislocation. There is spondylosis. There is mild thoracic scoliosis. Osteopenia. Kirby van soft tissues are unremarkable. XR/XR thoracic spine 3V* [id number] IMPRESSION: 1. Degenerative changes and osteopenia. Mild scoliosis. 2. No fracture or malalignment.
== END 2021-03-29 15:12 | disposition home or self-care (01) ==
LOC: RAD 15:15
PROVIDERS: PCP Electrodiagnostic Medicine; Visit Provider Electrodiagnostic Medicine
DX: M54.6 Pain in thoracic spine (principal); R07.81 Pleurodynia; C52 Malignant neoplasm of vagina; M41.84 Other forms of scoliosis, thoracic region; R91.1 Solitary pulmonary nodule
CPT/HCPCS: 71046; 72072

== ENCOUNTER → 2021-04-14 09:42 | Outpatient (BNVA) | payer MEDICARE, OTHER, SELFPAY | PROVIDERS: PCP Electrodiagnostic Medicine; Visit Provider Internal Medicine Cardiovascular Disease | DX: I10 Essential (primary) hypertension (principal); R06.00 Dyspnea, unspecified; I48.91 Unspecified atrial fibrillation; I48.11 Longstanding persistent atrial fibrillation; R00.1 Bradycardia, unspecified; E11.9 Type 2 diabetes mellitus without complications | CPT/HCPCS: 80053; 80061; 84439; 84443; 84481; 85025 ==

== ENCOUNTER → 2021-08-25 16:25 | Outpatient (BNVA) | payer MEDICARE, OTHER, SELFPAY | PROVIDERS: PCP Electrodiagnostic Medicine; Visit Provider Nurse Practitioner Women's Health | DX: N89.8 Other specified noninflammatory disorders of vagina (principal) | CPT/HCPCS: 87070; 87205 ==

== ENCOUNTER 2021-08-28 04:05 | Emergency (ER) | payer MEDICARE, OTHER, SELFPAY ==
[2021-08-28 04:27] VITALS: BP 139/78; PULSE 72; RESP 18; TEMP 36.3; O2SAT 99; BMI 26.4
[2021-08-28 04:54] LABS: Basophils # 0.1 10^3/uL (0.0-0.1); Basophils % 0.4 %; Eosinophils # 0.2 10^3/uL (0.0-0.8); Eosinophils % 1.4 %; Hematocrit 45.1 % (37.0-47.0); Hemoglobin 14.7 g/dL (11.5-15.3); Lymphocytes # 0.6 10^3/uL (0.8-4.8); Lymphocytes % 3.7 %; Mean Corpuscular HGB Conc 32.6 g/dL (30.0-36.0); Mean Corpuscular Hemoglobin 29.2 pg (28.0-34.0); Mean Corpuscular Volume 89.7 fl (81-99); Mean Platelet Volume 10.4 fL (7.4-10.4); Monocytes # 1.4 10^3/uL (0.2-0.9); Monocytes % 8.2 %; Neutrophils % 85.8 %; Nucleated Red Blood Cells % 0 %; Platelet Count 312 10^3/cmm (130-400); Red Blood Count 5.03 10^6/uL (4.1-5.3); Red Cell Distribution Width 14.5 % (12.1-15.1); White Blood Count 17.4 10^3/uL (4.0-10.0)
[2021-08-28 05:15] LABS: Alanine Aminotransferase 38 U/L (0-33); Albumin Level 4.2 g/dL (3.5-5.2); Alkaline Phosphatase 242 IU/L (35-105); Aspartate Amino Transferase 46 U/L (0-32); Blood Urea Nitrogen 23 mg/dL (8-23); C Reactive Protein 17.5 mg/L (0.0-4.9); Carbon Dioxide 21 mmol/L (22-29); Chloride 103 mmol/L (98-107); Globulin 3.1 g/dL (1.3-4.6); Glucose 165 mg/dL (65-115); Lipase 19 U/L (13-60); Osmolality Calculated 305 mOsm/kg (285-295); Sodium 144 mmol/L (136-145); Total Bilirubin 0.4 mg/dL (0.15-1.2); Total Protein 7.3 g/dL (6.6-8.7)
[2021-08-28 05:19] LABS: Procalcitonin 0.55 ng/mL (0-0.5)
--- NOTE | 2021-08-28 08:28 | W.ED.NAVMDI ---
HPI - Nausea/Vomiting/Diarrhea General: Chief complaint: Nausea/Vomiting/Diarrhea Stated complaint: N/V/D Time Seen by Provider: 08/28/21 06:56 History of Present Illness: HPI Narrative: 85-year-old female presents emergency room complaining of diarrhea and nausea began last night around 10:00 persisted through the night she has been here for several hours this morning states she has not had any further symptoms. She denies any hematochezia melena hematemesis coffee-ground emesis she is not had any cough or respiratory symptoms. MD elicited complaint: nausea and diarrhea Description of vomiting: food contents and watery Associated nausea: Yes Associated abdominal pain: No Quality: cramping Exacerbating factors: none Relieving factors: none Associated symtoms: Reports anorexia, nausea and weakness; Denies altered mental status, anxiety, bloating, change in vision, chest pain, cough, diaphoresis, decreased urine output, dizziness, dysuria, epistaxis, fatigue, fecal incontinence, fevers/chills, headache(s), malaise, myalgias, numbness, palpitations, rash, short of breath, syncope, tenesmus or tinnitus Review of Systems Const: Denies: fatigue, malaise or diaphoresis Eyes: Denies: change in vision ENMT: Denies: tinnitus or epistaxis Card: Denies: chest pain, palpitations or syncope Resp: Denies: dyspnea, productive cough or non-productive cough GI: Reports: nausea; Denies: bloating or fecal incontinence : Denies: dysuria Skin/Breast: Denies: rash or pruritus Neuro: Denies: headache(s) or dizziness Psych: Denies: anxiety PFSH ED PFSH: Medical History Arthritis Atrial fibrillation Atypical chest pain Bradycardia Coronary artery disease Degenerative disc disease Diabetes mellitus Diet controlled Diverticulosis Elevated troponin Gout History of CVA (cerebrovascular accident) Hypertension Pulmonary nodule Small bowel obstruction Partial small bowel obstruction Vaginal cancer Surgical History History of hemorrhoidectomy History of hip replacement (~2014) Left total hip replacement through anterior approach performed in [facility] History of hip surgery Right -- Incision and drainage of right thigh abscess that communicated with the hip joint capsule History of hysterectomy (~2010) according to pcp documentation--- performed in [place] for noninvasive cancer partial colectomy for obstruction and adhesion at the same time. 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, stage IVB Father Heart disease Denies family history of Ovarian cancer Diabetes Hyperlipidemia Stroke Social History Smoking and tobacco status: former smoker Alcohol intake: never Additional social history: - Tobacco use: Denies Alcohol use: Denies Drug use: Denies Physical Exam Const: COMMON NORMALS: no acute distress EXAM LIMITATIONS: no altered mental status GENERAL APPEARANCE: cooperative and comfortable ORIENTATION/CONSCIOUSNESS: Yes awake, Yes oriented to person, Yes oriented to place and Yes oriented to time HENMT: COMMON NORMALS: normocephalic, atraumatic and hearing grossly normal bilaterally HEAD & SCALP: normocephalic and atraumatic Neck/C-Spine: COMMON NORMALS: no JVD Resp: COMMON NORMALS: normal respiratory effort, No retractions, No use of accessory muscles and clear to auscultation bilaterally AUSCULTATION: clear to auscultation bilaterally Cardio: COMMON NORMALS: no JVD, regular rate, regular rhythm and No murmurs present (Cardio) RATE: regular rate RHYTHM: regular rhythm GI: COMMON NORMALS: Soft to palpation and No hepatosplenomegaly present AUSCULTATION: Yes normoactive bowel sounds PALPATION: Yes Soft to palpation, No Tenderness to palpation present (GI), No Guarding due to palpation present (GI) and Yes No hepatosplenomegaly present : COMMON NORMALS: Yes no CVA tenderness BLADDER/KIDNEY EXAM: Yes no CVA tenderness Back/Pelvis: COMMON NORMALS: no CVA tenderness Extremity: COMMON NORMALS: normal to inspection, capillary refill normal, no clubbing, cyanosis or edema, no calf tenderness and no pedal edema Neuro: SENSORIUM/ORIENTATION: Yes oriented to person, Yes oriented to place and Yes oriented to time Skin: COMMON NORMALS: no rashes or lesions noted GENERAL SKIN EXAM: no rashes or lesions noted Course Vital Signs: Vital signs: Vital Signs Temperature 97.4 F L 08/28/21 04:27 Pulse Rate 72 08/28/21 04:27 Respiratory Rate 18 08/28/21 04:27 Blood Pressure 139/78 08/28/21 04:27 Pulse Oximetry 99 08/28/21 04:27 MDM - Nausea/Vomiting/Diarrhea MDM Narrative: Medical decision making narrative: Patient does have a cystitis she is feeling better. Her white count is little high but clinically she looks good. She feels improved we replaced her potassium and gave her some fluids some and start her on Macrobid and give her Zofran to use as needed. She does have some mild lymphocytopenia I am going to swab her for Covid at the time of discharge. Chest x-ray appeared normal. Overall she is feeling better I think we can safely discharge her home she has any further problems return to the emergency room. Lab Data: Labs: Lab Results 08/28/21 08/28/21 08/28/21 04:45 04:45 09:33 WBC 17.4 10^3/uL H 10 ^3/uL (4.0-10.0) RBC 5.03 10^6/uL 10^6 /uL (4.1-5.3) Hgb 14.7 g/dL g/dL (11.5-15.3) Hct 45.1 % % (37.0-47.0) MCV 89.7 fl fl (81-99) MCH 29.2 pg pg (28.0-34.0) MCHC 32.6 g/dL g/dL (30.0-36.0) RDW 14.5 % % (12.1-15.1) Plt Count 312 10^3/cmm 10^3 /cmm (130-400) MPV 10.4 fL fL (7.4-10.4) Neut % (Auto) 85.8 % % Lymph % (Auto) 3.7 % % [place] % (Auto) 8.2 % % Eos % (Auto) 1.4 % % Baso % (Auto) 0.4 % % Neut # (Auto) 14.90 10^3/uL H 1 0^3/uL (1.8-7.7) Lymph # (Auto) 0.6 10^3/uL L 10^ 3/uL (0.8-4.8) [place] # (Auto) 1.4 10^3/uL H 10^ 3/uL (0.2-0.9) Eos # (Auto) 0.2 10^3/uL 10^3/ uL (0.0-0.8) Baso # (Auto) 0.1 10^3/uL 10^3/ uL (0.0-0.1) Nucleated RBC % (a uto) 0 % % Nucleated RBCs # 0.0 /100WBC /100W BC Sodium 144 mmol/L mmol/L (136-145) Potassium 3.0 mmol/L L mmol /L (3.5-5.1) Chloride 103 mmol/L mmol/L (98-107) Carbon Dioxide 21 mmol/L L mmol/ L (22-29) Anion Gap 23.0 H (5-19) BUN 23 mg/dL mg/dL (8-23) Creatinine 1.2 mg/dL H mg/dL (0.5-0.9) GFR Calculation Not Reportable Glucose 165 mg/dL H mg/dL (65-115) Calculated Osmolal ity 305 mOsm/kg H mOs m/kg (285-295) Calcium 9.0 mg/dL mg/dL (8.5-10.5) Total Bilirubin 0.4 mg/dL mg/dL (0.15-1.2) AST 46 U/L H U/L (0-32) ALT 38 U/L H U/L (0-33) Alkaline Phosphata se 242 IU/L H IU/L (35-105) C-Reactive Protein 17.5 mg/L H mg/L (0.0-4.9) Total Protein 7.3 g/dL g/dL (6.6-8.7) Albumin 4.2 g/dL g/dL (3.5-5.2) Globulin 3.1 g/dL g/dL (1.3-4.6) Lipase 19 U/L U/L (13-60) Procalcitonin 0.55 ng/mL H ng/m L (0-0.5) Urine Color [place] (Yellow) Urine Appearance Hazy A (CLEAR) Urine pH 5 (5-7) Ur Specific Gravit y 1.030 (1.005-1.030) Urine Protein 1+ H (Negative) Urine Glucose (UA) Norm (Normal) Urine Ketones 1+ H (Negative) Urine Blood 3+ H (Negative) Urine Nitrate Negative (Negative) Urine Bilirubin 2+ H (Negative) Urine Urobilinogen 4 mg/dL H mg/dL (Negative) Ur Leukocyte [place] ase 1+ H (Negative) Urine RBC 5-10 /hpf H /hpf (0-2) Urine WBC 5-10 /hpf H /hpf (0-5) Ur Squamous Epith Cells 5-10 /hpf H /hpf (0-5) Ur Transition Epit h Cell 0-4 /hpf /hpf Amorphous Sediment 1+ /hpf /hpf Urine Bacteria 1+ /hpf H /hpf (NONE) Discharge Plan Discharge Patient Disposition: Home Clinical Impression: Cystitis, Diarrhea Condition: Stable Prescriptions: New Macrobid 100 mg capsule 100 mg PO BID 7 Days Qty: 14 RF: 0 Zofran 4 mg tablet 4 mg PO Q6H PRN (Reason: nausea and vomiting) Qty: 15 RF: 0 No Action melatonin 3 mg capsule 3 mg PO BEDTIME PRN (Reason: Sleep) RF: 0 ondansetron HCl 4 mg tablet 4 mg PO Q6H PRN (Reason: nausea and vomiting) RF: 0 diphenoxylate-atropine 2.5-0.025 mg tablet 1 tab PO Q6H PRN (Reason: Diarrhea) RF: 0 hydrocodone-acetaminophen 5-325 mg tablet 1 tab PO Q6H PRNRF: 0 amiodarone 200 mg tablet 200 mg PO DAILY Qty: 90 RF: 3 Lasix 20 mg tablet 20 mg PO DAILY Qty: 30 RF: 6 lisinopril 20 mg tablet 20 mg PO DAILY Qty: 30 RF: 6 potassium chloride 20 mEq/15 mL liquid 20 meq PO DAILY Qty: 1419 RF: 5 multivitamin [Multiple Vitamins] Tablet 1 tab PO DAILY@0800 RF: 0 dicyclomine 10 mg Capsule 10 mg PO QID PRN (Reason: Stomach Cramps) RF: 0 Pradaxa 150 mg Capsule 150 mg PO BID@08,19 RF: 0 diltiazem HCl 240 mg capsule,extended release 24hr 240 mg PO DAILY PRN (Reason: HR > 140) RF: 0 diltiazem HCl 30 mg tablet 30 mg PO DAILY PRN (Reason: hr > 40) RF: 0 sertraline 25 mg Tablet 25 mg PO DAILY@08 RF: 0 icosapent ethyl [Vascepa] 1 gram Capsule 2 g PO BID@08,19 RF: 0 alprazolam 0.25 mg tablet 0.25 mg PO TID PRN (Reason: Anxiety) RF: 0 pantoprazole 40 mg Tablet,Delayed Release (Dr/Ec) 40 mg PO DAILY@0800 RF: 0 tizanidine 2 mg Tablet 2 mg PO TID PRN (Reason: Muscle Pain) RF: 0 ergocalciferol (vitamin D2) [Vitamin D2] 1,250 mcg (50,000 unit) Capsule 1,250 mcg PO Q7D RF: 0 Discharge Orders: Discharge ED (Routine); Ordered 08/28/21 Ordered By: Idris Pratt Referrals: Parag Norris DO [Primary Care Provider] - Discharge Diet: Clear Liquid Discharge Activity: Resume usual activity Patient Instructions: Opioid Safety Activity Restrictions/Additional Instructions: Clear liquid diet for 24 to 48 hours advance as tolerated. Start Macrobid twice daily for 7 days Zofran as needed if has any worsening change symptoms return. Coding Level of Care Code ED [employer] [place] Fwd Exam Comprehensive
--- NOTE | 2021-08-28 09:26 | XR_ITS ---
WS: [id number] Portable AP upright chest, 08/28/2021 Clinical Data: cough Comparison: PA and lateral chest, 03/29/2021. Findings: No new nodules, masses or effusions are seen. There is a 1.7 cm nodule unchanged slightly o bscured by the left cardiac border. The heart is normal. The pulmonary vascularity is not increased. No pneumonia or pneumothorax is seen. The aortic arch and descending thoracic aorta show tortuosity. There is a dextroscoliosis. There are numerous upper abdominal surgical clips. There is osteoarthriti s of the left shoulder. XR/XR chest 1V portable [id number] Impression: 1. Atherosclerosis. 2. No change in 1.7 cm left lower lobe nodule.
--- NOTE | 2021-08-28 09:41 | PC.NURSE ---
PORTABLE CXR BEING PERFORMED AT BEDSIDE
[2021-08-28] MEDS: sodium chloride 0.9% 1,000 ML 999 ML IV (09:45)
[2021-08-28] MEDS: potassium chloride oral liq 20 mEq/15 mL UDC 40 MEQ PO (09:46)
[2021-08-28 10:10] LABS: Blood Urine 3+ (Negative); Glucose Urine UA Norm (Normal); Ketones Urine 1+ (Negative); Protein Urine 1+ (Negative); Urine Appearance Hazy (CLEAR); Urine Color Amber (Yellow); pH Urine 5 (5-7)
[2021-08-28 10:11] LABS: Add Urine Culture? Yes; Add Urine Microscopic? YES; Amorphous Sediment Urine 1+ /hpf; Bacteria Urine 1+ /hpf; Bilirubin Urine 2+ (Negative); Leukocyte Esterase Urine 1+ (Negative); Nitrate Urine Negative (Negative); Transitional Epi Cells Urine 0-4 /hpf; Urobilinogen Urine 4 mg/dL (Negative)
[2021-08-29 17:08] LABS: Quest SARS-CoV-2 RNA NOT DETECTED (NOT DETECTED)
--- NOTE | 2021-08-31 18:21 | PC.NURSE ---
Informed pt of Negative COVID
== END 2021-08-28 11:13 | disposition home or self-care (01) ==
PROVIDERS: Emergency Medicine; Emergency Provider Family Medicine; PCP Electrodiagnostic Medicine
DX: N30.90 Cystitis, unspecified without hematuria (principal); R19.7 Diarrhea, unspecified; I25.10 Atherosclerotic heart disease of native coronary artery without angina pectoris; E11.9 Type 2 diabetes mellitus without complications; Z86.73 Personal history of transient ischemic attack (TIA), and cerebral infarction without residual deficits; I10 Essential (primary) hypertension; Z85.44 Personal history of malignant neoplasm of other female genital organs; Z87.891 Personal history of nicotine dependence; Z20.822 Contact with and (suspected) exposure to COVID-19
CPT/HCPCS: 71045; 80053; 81001; 83690; 84145; 85025; 86140; 87086; 87635; 96360; 99284; J7030

== ENCOUNTER → 2021-10-11 10:34 | Outpatient (BNVA) | payer MEDICARE, OTHER, SELFPAY | PROVIDERS: PCP Electrodiagnostic Medicine; Visit Provider Internal Medicine Cardiovascular Disease | DX: I48.11 Longstanding persistent atrial fibrillation (principal); I11.0 Hypertensive heart disease with heart failure; I50.9 Heart failure, unspecified | CPT/HCPCS: 99214 ==

== ENCOUNTER 2021-11-18 12:51 | Inpatient (IN) | payer MEDICARE, OTHER, SELFPAY ==
[2021-11-18] VITALS (24 sets, daily range): BP systolic 79–193; BP diastolic 44–91; PULSE 54–84; RESP 14–22; TEMP 36.3–36.4; O2SAT 94–100; BMI 29.0
--- NOTE | 2021-11-18 12:55 | PC.NURSE ---
PT PLACED ON CONTINUOUS SPO2, NIBP, AND CM.
--- NOTE | 2021-11-18 13:07 | XRR_ITS ---
PROCEDURE INFORMATION: Exam: XR Chest Exam date and time: 11/18/2021 1:12 PM Age: 86 years old Clinical indication: Patient HX: Apparently she was found by family lying on the floor and unresponsive. Her last known well time was approximately 10 am 11/18. ; Additional info: Ett/ngt TECHNIQUE: Imaging protocol: XR of the chest. Views: 1 view. COMPARISON: CR XR chest 1V portable [id number] 08/28/2021 9:37 AM FINDINGS: Tubes, catheters and devices: Feeding tube is off the bottom edge of the stomach. Endotracheal tube is the superior margin clavicles. Lungs: Unremarkable. No consolidation. Pleural spaces: Unremarkable. No pleural effusion. No pneumothorax. Heart/Mediastinum: Unremarkable. No cardiomegaly. Bones/joints: Unremarkable. Other findings: There is a suspected nodule or mass measuring 15 mm overlying the inferior aspect of the left lower lobe. This appears stable since the previous examination. XR/XR chest 1V portable [id number] IMPRESSION: 1. No change in left lung nodule. 2. New endotracheal tube and feeding tube.
--- NOTE | 2021-11-18 13:12 | PC.NURSE ---
PLACED BY HENRIQUE RODRIGUEZ
--- NOTE | 2021-11-18 13:13 | CTR_ITS ---
PROCEDURE INFORMATION: Exam: CT Head Without Contrast Exam date and time: 11/18/2021 1:36 PM Age: 86 years old Clinical indication: Coma or unconsciousness; Patient HX: Found unresponsive; Additional info: Acute AMS TECHNIQUE: Imaging protocol: Computed tomography of the head without contrast. Radiation optimization: All CT scans at this facility use at least one of these dose optimization techniques: automated exposure control; mA and/or kV adjustment per patient size (includes targeted exams where dose is matched to clinical indication); or iterative reconstruction. COMPARISON: CT head wo con* [id number] 05/16/2018 9:43 AM RADIATION DOSE METRICS: Total DLP (mGy-cm): 950.42 FINDINGS: Brain: There is a large area of intraparenchymal hemorrhage involving the left frontal and parietal lobes and left basal ganglia measuring 8.5 cm in greatest dimension image 37. There is intraventricular hemorrhage and left frontal subdural hemorrhage measuring up to 1.8 cm in thickness. There is midline shift to the right measuring 1.3 cm. There is subfalcine herniation, descending transtentorial herniation and early uncal herniation. The axel is enlarged/edematous with intraparenchymal hemorrhage measuring 1.7 x 2.1 cm in size. Parenchymal hypodensity/edema is noted in the left hemisphere compatible with infarction. Basilar cisterns are nearly completely effaced compatible with cerebral edema. Cerebral ventricles: The right lateral ventricle is trapped with marked enlargement of the temporal and occipital horns. Paranasal sinuses: Small air-fluid levels are noted in the sinuses. There is mucosal thickening in the sinuses. Mastoid air cells: Visualized mastoid air cells are well aerated. Bones/joints: Unremarkable. No acute fracture. Soft tissues: Unremarkable. CT/CT head wo con* [id number] IMPRESSION: 1. Large intraparenchymal hemorrhage involving the majority of the left frontal and parietal lobes with midline shift, trapping of the right lateral ventricle, subfalcine herniation, descending transtentorial herniation and early uncal herniation. Hemorrhage extends into the lateral ventricles in there is also left frontal parietal subdural hematoma. 2. Edema/intraparenchymal hemorrhage is noted within the axel.
--- NOTE | 2021-11-18 13:18 | ED_ITS ---
HPI - Trauma General: Chief Complaint: Altered Mental Status Stated Complaint: UNRESPONSIVE Time Seen by Provider: 11/18/21 13:12 Source: EMS Mode of arrival: EMS Limitations: altered mental status History of Present Illness: This patient was transported to the emergency department by EMS from home. Apparently she was found by family lying on the floor and unresponsive. Her last known well time was approximately 10 AM. No other history is available at the time of this note. She arrived via an EMS. They noted that she had been unresponsive since there arrival on scene. They also noted that she had spontaneous respirations but they were soreness at best. He received an IO as well as supplemental oxygen via nasal cannula prior to arrival. Loss of Consciousness: yes Severity: severe Context: unsure Treatments prior to arrival: oxygen Review of Systems General: Reports: ROS unobtainable due to mental status PFS ED PFSH: Medical History Arthritis Atrial fibrillation Atypical chest pain Bradycardia CHF (congestive heart failure), NYHA class III Coronary artery disease Degenerative disc disease Diabetes mellitus Diet controlled Diverticulosis Elevated troponin Gout History of CVA (cerebrovascular accident) Hypertension Pulmonary nodule Small bowel obstruction Partial small bowel obstruction Vaginal cancer Surgical History History of hemorrhoidectomy History of hip replacement (~2014) Left total hip replacement through anterior approach performed in [facility] History of hip surgery Right -- Incision and drainage of right thigh abscess that communicated with the hip joint capsule History of hysterectomy (~2010) according to pcp documentation--- performed in [place] for noninvasive cancer partial colectomy for obstruction and adhesion at the same time. 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 She did have spontaneous respirations but they were shallow in nature. There was no verbal response or avoidance response to noxious stimuli. Const: EXAM LIMITATIONS: altered mental status ORIENTATION/CONSCIOUSNESS: Yes patient obtunded HENMT: COMMON NORMALS: normocephalic, atraumatic and Normal external nose present HEAD & SCALP: normocephalic and atraumatic FACE & SINUS: normal facial exam NOSE: Normal external nose present OTHER: She had dried vomitus around her mouth. There is no active bleeding. She had dry mucous membranes noted. Eye: COMMON NORMALS: conjunctivae normal and no scleral icterus CONJUNCTIVA: Yes conjunctivae normal PUPIL: Yes Other pupil findings (Pupils approximately 8 mm dilated bilaterally. Slow or poor response to li) Neck/C-Spine: COMMON NORMALS: supple, no JVD and No carotid bruits Chest: COMMONS NORMALS: normal inspection of the chest Resp: EFFORT & INSPECTION: Yes decreased respiratory effort AUSCULTATION: rhonchi Cardio: COMMON NORMALS: no JVD, regular rate, No murmurs present (Cardio) and Peripheral pulses 2+ throughout RATE: regular rate PERIPHERAL PULSES: Peripheral pulses 2+ throughout GI: COMMON NORMALS: Soft to palpation and no masses PALPATION: Yes Soft to palpation : COMMON NORMALS: Yes normal external appearance Back/Pelvis: GENERAL BACK: No erythema and No ecchymosis Extremity: COMMON NORMALS: normal to inspection, no joint enlargement and no pedal edema Neuro: RADHA COMA SCALE: document GCS findings [place] coma scale eye opening: None [place] coma scale verbal response: None Radha coma scale motor response: None [place] coma scale total score: 3 Skin: COMMON NORMALS: no rashes or lesions noted and no wounds NARRATIVE SKIN EXAM: Decreased skin turgor GENERAL SKIN EXAM: no rashes or lesions noted Procedures Intubation Time out performed: Yes sedative: Etomidate Mg Given: 20 paralytic: Succinylcholine Mg Given: 120 Laryngoscope: other ([place] scope 3.0 blade) Assist Device Used: fiber optic device ET Tube Size: 8 Tube Secured Depth (cm): 21 Tube Secured Location: lips Tube Placement Confirmation: visualized tube passing through cords, equal breath sounds bilaterally, no breath sounds over epigastrium and confirmation by capnometry Patient Tolerated Procedure: no complications Intubation Complications: none Course Reevaluation(s): Reevaluation #1: Patient remains unchanged however CT scan shows a immense interparenchymal more hemorrhage with effacement and early herniation. Time: 13:58 Reevaluation #2: I discussed current findings and their implications with the patient's family. They voiced understanding and requested that we continue with supportive and palliative care until the remainder of the family can arrive before she is extubated. Time: 14:22 Consultations: Consultation #1: Discussed with hospitalist who agreed to place the patient in a palliative care status. Time: 14:23 Vital Signs: Vital signs: Vital Signs Temperature 97.3 F L 11/18/21 12:53 Pulse Rate 84 11/18/21 12:53 Respiratory Rate 16 11/18/21 13:48 Blood Pressure 127/57 11/18/21 12:53 Pulse Oximetry 100 11/18/21 12:53 MDM - Trauma Medical Decision Making Patient has suffered a large hemorrhagic stroke. Given the size and her current clinical picture this is not a survivable event. I discussed this in detail with the family and will provide palliative care until the patient's family can arrive. Lab Data : 11/18/21 13:10 11/18/21 13:[address] 11/18/21 13:13 IMPRESSION: 1. Large intraparenchymal hemorrhage involving the majority of the left frontal and parietal lobes with midline shift, trapping of the right lateral ventricle, subfalcine herniation, descending transtentorial herniation and early uncal herniation. Hemorrhage extends into the lateral ventricles in there is also left frontal parietal subdural hematoma. 2. Edema/intraparenchymal hemorrhage is noted within the axel. ADDENDUM: 11/18/21 1357 THIS REPORT CONTAINS FINDINGS THAT MAY BE CRITICAL TO PATIENT CARE. The findings were verbally communicated via telephone conference with LLOYD CONNER at 1:56 PM CDT on 11/18/2021. The findings were acknowledged and understood. Laboratory Results WBC 19.0 10^3/uL (4.0-10.0) H 11/18/21 13:10 RBC 4.28 10^6/uL (4.1-5.3) 11/18/21 13:10 Hgb 12.7 g/dL (11.5-15.3) 11/18/21 13:10 Hct 41.0 % (37.0-47.0) 11/18/21 13:10 MCV 95.8 fl (81-99) 11/18/21 13:10 MCH 29.7 pg (28.0-34.0) 11/18/21 13:10 MCHC 31.0 g/dL (30.0-36.0) 11/18/21 13:10 RDW 14.5 % (12.1-15.1) 11/18/21 13:10 Plt Count 342 10^3/cmm (130-400) 11/18/21 13:10 MPV 11.9 fL (7.4-10.4) H 11/18/21 13:10 Neut % (Auto) 85.0 % 11/18/21 13:10 Lymph % (Auto) 5.8 % 11/18/21 13:10 Davis % (Auto) 7.9 % 11/18/21 13:10 Eos % (Auto) 0.1 % 11/18/21 13:10 Baso % (Auto) 0.4 % 11/18/21 13:10 Neut # (Auto) 16.13 10^3/uL (1.8-7.7) H 11/18/21 13:10 Lymph # (Auto) 1.1 10^3/uL (0.8-4.8) 11/18/21 13:10 Davis # (Auto) 1.5 10^3/uL (0.2-0.9) H 11/18/21 13:10 Eos # (Auto) 0.0 10^3/uL (0.0-0.8) 11/18/21 13:10 Baso # (Auto) 0.1 10^3/uL (0.0-0.1) 11/18/21 13:10 Nucleated RBC % (auto) 0 % 11/18/21 13:10 Nucleated RBCs # 0.0 /100WBC 11/18/21 13:10 Specimen Type Arterial 11/18/21 13:54 Sample Site Radial, left 11/18/21 13:54 ABG pH 7.47 (7.35-7.45) H 11/18/21 13:54 ABG pCO2 33.8 mmHg (35-45) L 11/18/21 13:54 ABG pO2 356.0 mmHg (80.0-100.0) H 11/18/21 13:54 ABG HCO3 24.8 mmol/L (22-26) 11/18/21 13:54 ABG O2 Saturation > 100.0 11/18/21 13:54 ABG Base Excess 1.6 mmol/L (-2.0-2.0) 11/18/21 13:54 Carrington Test Pos 11/18/21 13:54 A-a O2 Gradient 40.0 mmHg (5-10) H 11/18/21 13:54 Hematocrit 38.1 % (37-47) 11/18/21 13:54 Hgb O2 Saturation 98.6 % (95-100) 11/18/21 13:54 Carboxyhemoglobin 0.7 %THgb (0.4-20.1) 11/18/21 13:54 Methemoglobin 1.1 % (0.4-1.5) 11/18/21 13:54 Total Hemoglobin 12.4 g/dL (12-16) 11/18/21 13:54 Sodium 146.0 mmol/L (131-143) H 11/18/21 13:54 Potassium 3.2 mmol/L (3.5-5.0) L 11/18/21 13:54 Glucose 167.0 mg/dL (70-115) H 11/18/21 13:54 Ionized Calcium 1.2 mmol/L (1.1-1.4) 11/18/21 13:54 O2 Delivery Device Vent 11/18/21 13:54 FiO2 100.0 % 11/18/21 13:54 Tidal Volume 0.45 11/18/21 13:54 PEEP 8.0 cmH20 11/18/21 13:54 Grader Tender ID Ed 11/18/21 13:54 Sodium Cancelled 11/18/21 13:10 Potassium Cancelled 11/18/21 13:10 Chloride Cancelled 11/18/21 13:10 Carbon Dioxide Cancelled 11/18/21 13:10 Anion Gap Cancelled 11/18/21 13:10 BUN Cancelled 11/18/21 13:10 Creatinine Cancelled 11/18/21 13:10 GFR Calculation Cancelled 11/18/21 13:10 Glucose Cancelled 11/18/21 13:10 Calculated Osmolality Cancelled 11/18/21 13:10 Calcium Cancelled 11/18/21 13:10 Total Bilirubin Cancelled 11/18/21 13:10 AST Cancelled 11/18/21 13:10 ALT Cancelled 11/18/21 13:10 Alkaline Phosphatase Cancelled 11/18/21 13:10 Troponin T Gen 5 ng/L Cancelled 11/18/21 13:10 Total Protein Cancelled 11/18/21 13:10 Albumin Cancelled 11/18/21 13:10 Globulin Cancelled 11/18/21 13:10 Critical Care Time Critical Care Time: Critical Care Time: Yes Total Critical Care Time: 45 Attestation: Critical care time spent evaluating and obtaining history from EMS, evaluating patient, reviewing laboratories and other ancillary studies, assisting in mechanical respirations, interpreting other studies, discussing with patient's family, discussing with consultants. Discharge Plan Discharge Clinical Impression: Intraparenchymal hemorrhage of brain Condition: Critical Prescriptions: No Action melatonin 3 mg capsule 3 mg PO BEDTIME PRN (Reason: Sleep) 0RF diphenoxylate-atropine 2.5-0.025 mg tablet 1 tab PO Q6H PRN (Reason: Diarrhea) 0RF hydrocodone-acetaminophen 5-325 mg tablet 1 tab PO Q6H PRN (Reason: Pain) 0RF potassium chloride 10 mEq capsule, extended release 10 meq PO DAILY Qty: 90 3RF Rx Instructions: Take 2 caps daily x 3 days and then 1 daily amiodarone 200 mg tablet 200 mg PO DAILY Qty: 90 3RF Rx Instructions: START TAKING 1 TAB DAILY TODAY, 12/24/2020 Lasix 20 mg tablet 20 mg PO DAILY Qty: 90 3RF lisinopril 20 mg tablet 20 mg PO DAILY Qty: 90 1RF multivitamin [Multiple Vitamins] Tablet 1 tab PO DAILY@0800 0RF dicyclomine 10 mg Capsule 10 mg PO QID PRN (Reason: Stomach Cramps) 0RF Pradaxa 150 mg Capsule 150 mg PO BID@08,19 0RF diltiazem HCl 240 mg capsule,extended release 24hr 240 mg PO DAILY PRN (Reason: HR > 140) 0RF diltiazem HCl 30 mg tablet 30 mg PO DAILY PRN (Reason: hr > 40) 0RF ondansetron HCl [Zofran] 4 mg tablet 4 mg PO Q6H PRN (Reason: nausea and vomiting) Qty: 15 0RF sertraline 25 mg Tablet 25 mg PO DAILY@08 0RF alprazolam 0.25 mg tablet 0.25 mg PO TID PRN (Reason: Anxiety) 0RF pantoprazole 40 mg Tablet,Delayed Release (Dr/Ec) 40 mg PO DAILY@0800 0RF icosapent ethyl [Vascepa] 1 gram capsule 1 g PO BID@08,19 0RF Referrals: Parag Norris DO [Primary Care Provider] - Coding Level of Care Code ED [employer] Investigator for Chg Fwd Exam Comprehensive
[2021-11-18 13:23] LABS: Basophils # 0.1 10^3/uL (0.0-0.1); Basophils % 0.4 %; Eosinophils % 0.1 %; Hemoglobin 12.7 g/dL (11.5-15.3); Lymphocytes # 1.1 10^3/uL (0.8-4.8); Lymphocytes % 5.8 %; Mean Corpuscular Hemoglobin 29.7 pg (28.0-34.0); Mean Corpuscular Volume 95.8 fl (81-99); Mean Platelet Volume 11.9 fL (7.4-10.4); Monocytes # 1.5 10^3/uL (0.2-0.9); Monocytes % 7.9 %; Neutrophils # 16.13 10^3/uL (1.8-7.7); Nucleated Red Blood Cells % 0 %; Platelet Count 342 10^3/cmm (130-400); Red Blood Count 4.28 10^6/uL (4.1-5.3); Red Cell Distribution Width 14.5 % (12.1-15.1)
[2021-11-18] MEDS: propofol 1,000 MG/100 ML INJ 2.45 MG IV (13:25)
[2021-11-18] MEDS: sodium chloride 0.9% 1,000 ML 100 ML IV (13:26)
--- NOTE | 2021-11-18 13:28 | ECG_ITS ---
[facility] Test Date: 2021-11-18 Pat Name: Jayjay Campa Department: Room: Gender: Female Manager Produce: : 1935 Requested By: Lloyd Conner Order Number: [id number] Giovani MD: Em Shannon M.D. Measurements Intervals [place] Rate: 82 P: 90 OR: 147 QRS: 13 QRSD: 91 T: 73 QT: 439 QTc: 514 Interpretive Statements SINUS RHYTHM PROLONGED QT INTERVAL Compared to ECG 12/24/2020 03:51:09 Prolonged QT interval now present Atrial abnormality no longer present T-wave abnormality no longer present Electronically Signed On 11-18-2021 14:59:58 CDT by Em Shannon M.D. [email or web address]
--- NOTE | 2021-11-18 13:50 | PC.RESP ---
Pt was taken to CT by nurse and RT. Pt was on ventilator at this time. RT went to hook oxygen up to CT outlets and ventilator made a loud noise and shut off. RT immediately took pt off of vent and started using the ambu bag. Nurse took over bagging while RT took care of vent. Therapist continued bagging until patient got back to the room and a new ventilator was setup for patient, while nurses bagged.
[2021-11-18 14:04] LABS: ABG PCO2 33.8 mmHg (35-45); ABG PH Result 7.47 (7.35-7.45); Arterial Blood Gas Hematocrit 38.1 % (37-47); Base Excess ABG 1.6 mmol/L (-2.0-2.0); Blood Gas Allen Test Pos; Blood Gas Sample Type Arterial; Carboxyhemoglobin 0.7 %THgb (0.4-20.1); HCO3 ABG 24.8 mmol/L (22-26); HGB O2 Sat 98.6 % (95-100); Ionized Calcium Level - ABG 1.2 mmol/L (1.1-1.4); Methemoglobin 1.1 % (0.4-1.5); Oxygen Saturation ABG > 100.0; Potassium Level - ABG 3.2 mmol/L (3.5-5.0); Total Hemoglobin 12.4 g/dL (12-16)
[2021-11-18 14:05] LABS: Blood Gas Operator Identificat ED; Blood Gas Sample Site Radial, left; Blood Gas Tidal Volume 0.45; Oxygen Device VENT
[2021-11-18 14:25] LABS: Add Urine Microscopic? YES; Bilirubin Urine Neg (Negative); Blood Urine Neg (Negative); Glucose Urine UA Trace (Normal); Ketones Urine 1+ (Negative); Leukocyte Esterase Urine Negative (Negative); Nitrate Urine Negative (Negative); Protein Urine 3+ (Negative); Urine Appearance Clear (CLEAR); Urine Color Yellow (Yellow); Urobilinogen Urine Norm (Negative); pH Urine 5 (5-7)
[2021-11-18 14:26] LABS: Add Urine Culture? No; Bacteria Urine TRACE /hpf; Hyaline Casts Urine 40-55 /lpf; Mucus Urine TRACE /hpf; RBC Urine 0-4 /hpf (0-2); Squamous Epithelial Cell Urine 0-4 /hpf (0-5)
[2021-11-18 14:40] LABS: Alanine Aminotransferase 23 U/L (0-33); Albumin Level 3.8 g/dL (3.5-5.2); Alkaline Phosphatase 135 IU/L (35-105); Blood Urea Nitrogen 18 mg/dL (8-23); Calcium 8.8 mg/dL (8.5-10.5); Carbon Dioxide 21 mmol/L (22-29); Chloride 106 mmol/L (98-107); Glucose 173 mg/dL (65-115); Osmolality Calculated 304 mOsm/kg (285-295); Salicylate 0.6 mg/dL (3-10); Sodium 144 mmol/L (136-145); Total Bilirubin 0.3 mg/dL (0.15-1.2); Total Protein 6.8 g/dL (6.6-8.7)
[2021-11-18 14:42] LABS: Acetaminophen < 5.0 ug/mL (10-30); Alcohol Level < 10 mg/dL (0-10)
[2021-11-18 14:44] LABS: Anion Gap 20.7 (5-19); Aspartate Amino Transferase 41 U/L (0-32); Potassium 3.7 mmol/L (3.5-5.1)
[2021-11-18 14:46] LABS: Troponin T (5th) Once 107 ng/L (0-10)
--- NOTE | 2021-11-18 14:48 | PC.NURSE ---
Notified of critical lab value. Troponin 107. Physician notified. No new orders at this time.
--- NOTE | 2021-11-18 14:51 | PC.OT ---
WHILE AT BEDSIDE PT CONDITION IS UNCHANGED. PT FAMILY PROVIDED WITH TISSUES. FAMILY DENIES ANY FURTHER NEEDS.
--- NOTE | 2021-11-18 15:24 | PC.NURSE ---
REPORT CALLED TO JOSE DAVIS
--- NOTE | 2021-11-18 19:05 | P.HP_ITS ---
Providers/Chief Complaint Admitting Physician: Carlos Donovan MD Primary Care Provider: Parag Norris DO Chief Complaint: UNRESPONSIVE History of Present Illness Jayjay Campa is a 86 year old female with PMH of paroxysmal atrial fibrillation on sotalol ,as well as on pradaxa h/o CVA several years back, CAD , hypertension. She also has h/o vaginal adenocarcinoma s/p radiation therapy.She was found unresponsive on the floor by the family members, EMS was called , and she was brought to the ER.In the ER she was intubated for airway protection , CT head without contrast showed: Large intraparenchymal hemorrhage involving the majority of the left frontal and parietal lobes with midline shift, trapping of the right lateral ventricle, subfalcine herniation, descending transtentorial herniation and early uncal herniation. Hemorrhage extends into the lateral ventricles in there is also left frontal parietal subdural hematoma. Edema/intraparenchymal hem orrhage is noted within the axel. Review of Systems General: Reports: ROS unobtainable due to medical condition Medications/Allergies Home Medications Medication Instructions Recorded Confirmed Last Taken Type alprazolam 0.25 mg tablet 0.25 mg PO TID PRN 10/19/19 11/18/21 09/26/20 History pantoprazole 40 mg tablet,delayed 40 mg PO DAILY@0800 10/19/19 11/18/21 12/23/20 History release sertraline 25 mg tablet 25 mg PO DAILY@08 10/19/19 11/18/21 12/23/20 History melatonin 3 mg capsule 3 mg PO BEDTIME PRN cap 03/08/20 11/18/21 12/22/20 History multivitamin (Multiple Vitamins) 1 tab PO DAILY@0800 03/25/20 11/18/21 12/23/20 History diphenoxylate-atropine 2.5 1 tab PO Q6H PRN 05/22/20 11/18/21 Unknown History mg-0.025 mg tablet dabigatran etexilate 150 mg 150 mg PO BID@08,09/26/20 11/18/21 12/23/20 History capsule (Pradaxa) dicyclomine 10 mg capsule 10 mg PO QID PRN 09/26/20 11/18/21 Unknown History diltiazem HCl 240 mg 240 mg PO DAILY PRN 12/24/20 11/18/21 Unknown History capsule,extended release 24 hr diltiazem HCl 30 mg tablet 30 mg PO DAILY PRN 12/24/20 11/18/21 Unknown History amiodarone 200 mg tablet 200 mg PO DAILY #90 tab 01/03/21 11/18/21 Unknown Rx hydrocodone 5 mg-acetaminophen 325 1 tab PO Q6H PRN tab 04/14/21 11/18/21 Unknown History mg tablet ondansetron HCl 4 mg tablet 4 mg PO Q6H PRN #15 tab 08/28/21 11/18/21 Unknown Rx (Zofran) icosapent ethyl 1 gram capsule 1 g PO BID@08,19 cap 10/11/21 11/18/21 Unknown History (Vascepa) potassium chloride 10 mEq 10 meq PO DAILY #90 cap 10/11/21 11/18/21 Unknown Rx capsule,extended release furosemide 20 mg tablet (Lasix) 20 mg PO DAILY #90 tab 10/23/21 11/18/21 Unknown Rx lisinopril 20 mg tablet 20 mg PO DAILY #90 tab 10/24/21 11/18/21 Unknown Rx Allergies Allergy/AdvReac Type Severity Reaction Status Date / Time codeine Allergy ALGY-Difficulty Verified 11/18/21 12:53 Breathing tramadol Allergy Unknown Verified 11/18/21 12:53 PFSH Acute PFSH: Medical History Arthritis Atrial fibrillation Atypical chest pain Bradycardia CHF (congestive heart failure), NYHA class III Coronary artery disease Degenerative disc disease Diabetes mellitus Diet controlled Diverticulosis Elevated troponin Gout History of CVA (cerebrovascular accident) Hypertension Pulmonary nodule Small bowel obstruction Partial small bowel obstruction Vaginal cancer Surgical History History of hemorrhoidectomy History of hip replacement (~2014) Left total hip replacement through anterior approach performed in [facility] History of hip surgery Right -- Incision and drainage of right thigh abscess that communicated with the hip joint capsule History of hysterectomy (~2010) according to pcp documentation--- performed in [place] for noninvasive cancer partial colectomy for obstruction and adhesion at the same time. 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, stage IVB Father Heart disease Denies family history of Ovarian cancer Diabetes Hyperlipidemia Stroke Social History Smoking and tobacco status: former smoker Alcohol intake: never Additional social history: - Tobacco use: Denies Alcohol use: Denies Drug use: Denies Vitals/I&O/Wt Last Vital Signs Temp 97.6 F 11/18/21 15:50 Pulse 58 L 11/18/21 16:45 Resp 16 11/18/21 17:31 BP 130/49 11/18/21 16:45 Pulse Ox 98 11/18/21 17:31 11/18/21 11/18/21 11/18/21 06:59 14:59 22:59 Intake Total 270 / 270 Output Total 25 / 25 Balance 245 / 245 Weight last 48 hrs Weight 81.647 kg Physical Exam Narrative: GCS: 3T HENMT: COMMON NORMALS: normocephalic and atraumatic HEAD & SCALP: normocephalic and atraumatic Eye: GENERAL EYE: appearance normal, both eyes and all related structures Chest: CHEST: Yes Symmetrical chest wall rise Resp: COMMON NORMALS: clear to auscultation bilaterally EFFORT & INSPECTION: Yes symmetric chest movement AUSCULTATION: clear to auscultation bilaterally Cardio: COMMON NORMALS: regular rate, regular rhythm, S1 normal heart sound present, S2 normal heart sound present, No gallops present (Cardio), No murmurs present (Cardio), No rub (Cardio) and Peripheral pulses 2+ throughout RATE: regular rate RHYTHM: regular rhythm HEART SOUNDS: S1 normal heart sound present and S2 normal heart sound present PERIPHERAL PULSES: Peripheral pulses 2+ throughout GI: COMMON NORMALS: Normal to inspection, nondistended, normoactive bowel sounds present, Soft to palpation, non-tender, No hepatosplenomegaly present and no masses AUSCULTATION: Yes normoactive bowel sounds PALPATION: Yes Soft to palpation and Yes No hepatosplenomegaly present RECTAL EXAM: deferred Extremity: COMMON NORMALS: no clubbing, cyanosis or edema and no pedal edema Urinary Catheter Management: Soriano: Cath Placed During This Visit: yes Reason for Continuing Indwelling Catheter: Accurate Measurement of Urinary Output in Critically Ill Patients Urinary Catheter Date of Insertion: 11/18/21 Urinary Catheter Time of Insertion: 13:12 Data : 11/18/21 13:10 11/18/21 13:58 Micro: Microbiology 11/18/21 16:10 Gram Stain - Final Sputum - Endotracheal Tube Aspirate A&P Assessment and plan (1) Intraparenchymal hemorrhage of brain: Status: Acute (2) CHF (congestive heart failure), NYHA class III: Status: Acute (3) Diabetes mellitus: Status: Acute Qualifiers: Diabetes mellitus complication status: without complication Diabetes mellitus alf insulin use: without continuous churn buttermaker use Diabetes mellitus type: type 2 Qualified Code(s): E11.9 - Type 2 diabetes mellitus without complications (4) Atrial fibrillation: Status: Acute (5) Hypertension: Status: Acute Qualifiers: Hypertension type: essential hypertension Qualified Code(s): I10 - Essential (primary) hypertension Plan 86 year old female with PMH of paroxysmal atrial fibrillation on sotalol ,as well as on pradaxa h/o CVA several years back, CAD , hypertension. She also has h/o vaginal adenocarcinoma s/p radiation therapy.She was found unresponsive on the floor by the family members. Assessment: Large intraparenchymal hemorrhage: Currently will give mannitol Keppra for seizure prophylaxis Nicardipine drip to maintain systolic blood pressure less than 130 Continue mechanical ventilation Monitor BMP Family currently do not want any aggressive intervention, will likely terminally extubated tomorrow in the morning. #History of paroxysmal atrial fibrillation: Currently in sinus On Pradaxa and sotalol at home #History of hypertension: Currently normotensive Blood pressure #CODE STATUS:AND # Attestations Medical Necessity Statement*: Patient needs to be in hospital for management of intraparenchymal hemorrhage.Anticipated length of stay greater than 2 midnights. Time Spent in Patient Care: Greater than 35 minutes Coding Level of Care Code Acute Scheme Technician for Alejandro Vann Diagnoses Intraparenchymal hemorrhage of brain I61.9 CHF (congestive heart failure), NYHA class III I50.9 Diabetes mellitus E11.9 Diabetes mellitus complication status: without complication Diabetes mellitus continuous churn buttermaker insulin use: without continuous churn buttermaker use Diabetes mellitus type: type 2 Atrial fibrillation I48.91 Hypertension I10 Hypertension type: essential hypertension
--- NOTE | 2021-11-18 19:19 | PC.NURSE ---
Pt arrived to unit from ER at 1553. Pt transferred to ICU bed from ER stretcher. Pt was on 10mcg of propofol. Patient was hooked up to our monitors and RT was present at bedside helping transfer and set up vent. Pt was noted to have yellow emesis coming out of mouth so OG was hooked up to suction. Patient was cleaned and extra sheet was removed out from under patient. Darlyn RT noted that patient had gag reflex and was breathing over the vent. Because patient was breathing over the vent sedation was increased to 15mcg - see eMAR. Dr. Donovan came in to patient's room shortly after and wanted propofol turned off. Propofol was turned off at that time. Dr. Donovan stated lets just see what happens and that if patient started showing any signs of distress at all that propofol could be turned back on. Later patient was breathing over the vent again and having some more yellow drainage come out of her mouth with family present at bedside. This nurse entered the room and family stated that they would step out to the waiting room while I made her comfortable and cleaned her up. This nurse suctioned patient, cleaned her up and turned the propofol back on. It was only back on for a few seconds when Dr. Donovan entered the room and asked why it was back on. This nurse stated that patient was breathing over the vent and that family had said that they wanted her comfortable and would step out while I cleaned her up and made her comfortable. Dr. Donovan instructed this nurse to turn it back off and that we do not give propofol for comfort care patients. Dr. Donovan left the unit and then approximately [address] Donovan called the unit and stated that I could turn the propofol back on. Propofol was restarted at that time per physician order.
[2021-11-19] VITALS (19 sets, daily range): BP systolic 71–98; BP diastolic 37–47; PULSE 52–82; RESP 14–15; O2SAT 28–95
[2021-11-19] MEDS: propofol 1,000 MG/100 ML INJ 9.8 MG IV (00:27)
[2021-11-19] MEDS: sodium chloride 0.9% 500 ML 999 ML IV (03:39)
[2021-11-19 03:59] LABS: Basophils % 0.4 %; Eosinophils % 0.2 %; Hematocrit 34.3 % (37.0-47.0); Hemoglobin 10.6 g/dL (11.5-15.3); Lymphocytes # 0.6 10^3/uL (0.8-4.8); Lymphocytes % 5.9 %; Mean Corpuscular HGB Conc 30.9 g/dL (30.0-36.0); Mean Corpuscular Volume 93.7 fl (81-99); Mean Platelet Volume 10.8 fL (7.4-10.4); Monocytes % 9.6 %; Neutrophils % 83.6 %; Nucleated Red Blood Cells % 0 %; Platelet Count 274 10^3/cmm (130-400); Red Blood Count 3.66 10^6/uL (4.1-5.3); Red Cell Distribution Width 14.6 % (12.1-15.1); White Blood Count 10.4 10^3/uL (4.0-10.0)
[2021-11-19 04:16] LABS: Alanine Aminotransferase 16 U/L (0-33); Albumin Level 2.8 g/dL (3.5-5.2); Alkaline Phosphatase 95 IU/L (35-105); Anion Gap 19.7 (5-19); Aspartate Amino Transferase 46 U/L (0-32); Blood Urea Nitrogen 21 mg/dL (8-23); Calcium 7.8 mg/dL (8.5-10.5); Carbon Dioxide 21 mmol/L (22-29); Chloride 105 mmol/L (98-107); Globulin 2.4 g/dL (1.3-4.6); Glucose 131 mg/dL (65-115); Osmolality Calculated 301 mOsm/kg (285-295); Sodium 143 mmol/L (136-145); Total Bilirubin 0.3 mg/dL (0.15-1.2); Total Protein 5.2 g/dL (6.6-8.7)
[2021-11-19 04:22] LABS: Slide Review Slide Review Perform
[2021-11-19 04:37] LABS: Potassium 2.7 mmol/L (3.5-5.1)
[2021-11-19] MEDS: potassium chloride premix 100 ML 50 MEQ IV ×3 (05:00→07:42)
--- NOTE | 2021-11-19 07:44 | PC.NURSE ---
oral care done and bath given partial linen change done ..removed IO from left leg at this time..
--- NOTE | 2021-11-19 09:20 | PC.NURSE ---
family all here and prepared for comfort care.. Dr Donovan notified orders.. extubated and placed on nc and all iv gtts off
--- NOTE | 2021-11-19 09:37 | PC.NURSE ---
no further resp effort and asystole at this time
--- NOTE | 2021-11-19 10:24 | PC.NURSE ---
teeth with family per their request
--- NOTE | 2021-11-20 13:43 | P.DES_ITS ---
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 paroxysmal atrial fibrillation on sotalol ,as well as on pradaxa h/o CVA several years back, CAD , hypertension. She also has h/o vaginal adenocarcinoma s/p radiation therapy.She was found unresponsive on the floor by the family members, EMS was called , and she was brought to the ER.In the ER she was intubated for airway protection , CT head without contrast showed: Large intraparenchymal hemorrhage involving the majority of the left frontal and parietal lobes with midline shift, trapping of the right lateral ventricle, subfalcine herniation, descending transtentorial herniation and early uncal herniation. Hemorrhage extends into the lateral ventricles in there is also left frontal parietal subdural hematoma. Edema/intraparenchymal hemorrhage is noted within the axel. She was admitted for the management of Large intraparenchymal hemorrhage given her severity of bleed the prognosis was grave to begin with, family wanted to wait till all the family members arrived before making her comfort care,she was placed on mannitol as well as keppra,b/p goals were maintained , she also had developed features of brain stem herniation and towards the end also required levophed, next morning when all the family members arrived she was made comfort care.She at 9:37 am on 11/20/2021. Discharge Plan Discharge Patient Disposition: Home Condition: Critical Prescriptions: Discontinued melatonin 3 mg capsule 3 mg PO BEDTIME PRN (Reason: Sleep) 0RF diphenoxylate-atropine 2.5-0.025 mg tablet 1 tab PO Q6H PRN (Reason: Diarrhea) 0RF hydrocodone-acetaminophen 5-325 mg tablet 1 tab PO Q6H PRN (Reason: Pain) 0RF potassium chloride 10 mEq capsule, extended release 10 meq PO DAILY Qty: 90 3RF Rx Instructions: Take 2 caps daily x 3 days and then 1 daily amiodarone 200 mg tablet 200 mg PO DAILY Qty: 90 3RF Rx Instructions: START TAKING 1 TAB DAILY TODAY, 12/24/2020 Lasix 20 mg tablet 20 mg PO DAILY Qty: 90 3RF lisinopril 20 mg tablet 20 mg PO DAILY Qty: 90 1RF multivitamin [Multiple Vitamins] Tablet 1 tab PO DAILY@0800 0RF dicyclomine 10 mg Capsule 10 mg PO QID PRN (Reason: Stomach Cramps) 0RF Pradaxa 150 mg Capsule 150 mg PO BID@08,19 0RF diltiazem HCl 240 mg capsule,extended release 24hr 240 mg PO DAILY PRN (Reason: HR > 140) 0RF diltiazem HCl 30 mg tablet 30 mg PO DAILY PRN (Reason: hr > 40) 0RF ondansetron HCl [Zofran] 4 mg tablet 4 mg PO Q6H PRN (Reason: nausea and vomiting) Qty: 15 0RF sertraline 25 mg Tablet 25 mg PO DAILY@08 0RF alprazolam 0.25 mg tablet 0.25 mg PO TID PRN (Reason: Anxiety) 0RF pantoprazole 40 mg Tablet,Delayed Release (Dr/Ec) 40 mg PO DAILY@0800 0RF icosapent ethyl [Vascepa] 1 gram capsule 1 g PO BID@08,19 0RF Referrals: Parag Norris DO [Primary Care Provider] - Patient Instructions: Opioid Safety DS Attestations Time Spent in /Discharge Care*: less than 30 min Quality - AMI: AMI present?: Yes Quality - Stroke: CVA present?: Yes Reason for No Antithrombin at DC: Contraindicated Quality - VTE: VTE present?: No Coding Level of Care Code Acute 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
== END 2021-11-19 12:12 | disposition skilled nursing facility (03) | DRG 66 ==
LOC: ER 14:23 → ICU 18:13
PROVIDERS: Admitting Provider Internal Medicine; Emergency Provider Emergency Medicine; PCP Electrodiagnostic Medicine; Visit Provider Internal Medicine
DX: I61.8 Other nontraumatic intracerebral hemorrhage (principal); I11.0 Hypertensive heart disease with heart failure; I50.9 Heart failure, unspecified; E11.9 Type 2 diabetes mellitus without complications; I48.0 Paroxysmal atrial fibrillation; I25.10 Atherosclerotic heart disease of native coronary artery without angina pectoris; Z92.3 Personal history of irradiation; Z85.44 Personal history of malignant neoplasm of other female genital organs; Z79.891 Long term (current) use of opiate analgesic; Z79.01 Long term (current) use of anticoagulants; Z96.642 Presence of left artificial hip joint; Z87.891 Personal history of nicotine dependence; Z51.5 Encounter for palliative care
CPT/HCPCS: 31500; 36415; 36600; 51702; 70450; 71045; 80051; 80053; 80307; 81001; 82330; 82805; 83735; 84484; 85025; 87070; 87077; 87186; 87205; 93005; 94002; 94003; 94799; 96365; 96366; 99291; 99292; J0330; J1953; J2150; J2704; J3480; J3490; J7030; J7040